=== PATIENT | female | born 1955 | race Caucasian/White ===

== ENCOUNTER 2016-09-14 13:04 | Inpatient (IN) | payer OTHER ==
[~2016-09-14] VITALS: Ht 167.6 cm; Wt 129.1 kg
[2016-09-14 14:17] LABS: BASO # 0.1 x10^3/uL (0.0-0.2); BASO % 1 % (0-3); EOS % 4 % (0-3); HEMATOCRIT 42.3 % (36.0-47.0); HEMOGLOBIN 14.6 g/dL (12.0-15.5); LYMPH # 1.6 x10^3/uL (1.0-4.8); LYMPH % 27 % (24-48); MEAN CORPUSCULAR HEMOGLOBIN 31 pg (25-35); MEAN CORPUSCULAR HGB CONC 35 g/dL (31-37); MEAN CORPUSCULAR VOLUME 90 fL (79-100); MONO % 6 % (0-9); NEUT % 62 % (31-73); PLATELET COUNT 160 x10^3/uL (140-400); RED CELL DISTRIBUTION WIDTH 14.1 % (11.5-14.5)
[2016-09-14 14:27] LABS: BILIRUBIN,URINE NEGATIVE (NEG); GLUCOSE,URINE NEGATIVE (NEG); NITRITE,URINE NEGATIVE (NEG); PH,URINE 7.5; PROTEIN,URINE NEGATIVE (NEG-TRACE); UROBILINOGEN,URINE 0.2 mg/dL (0.2 mg/dL)
[2016-09-14 14:30] LABS: BACTERIA,URINE FEW /HPF (0-FEW); RBC,URINE 0 /HPF (0-2); SQUAMOUS EPITHELIAL CELL,UR FEW /LPF; WBC,URINE 0 /HPF (0-4)
[2016-09-14 14:32] LABS: BARBITURATES NEG (NEG); BENZODIAZEPINES NEG (NEG); CANNABINOIDS NEG (NEG); COCAINE NEG (NEG); METHADONE NEG (NEG); OPIATES NEG (NEG); PHENCYCLIDINE NEG (NEG)
[2016-09-14 14:37] LABS: CALCIUM 9.6 mg/dL (8.5-10.1); CREATININE 0.9 mg/dL (0.6-1.0); GFR 64.1; POTASSIUM 3.7 mmol/L (3.5-5.1)
[2016-09-14 14:42] LABS: ALBUMIN 3.5 g/dL (3.4-5.0); ALBUMIN/GLOBULIN RATIO 0.7 (1.0-1.7); TOTAL BILIRUBIN 0.8 mg/dL (0.2-1.0); TOTAL PROTEIN 8.4 g/dL (6.4-8.2)
--- NOTE | 2016-09-14 16:17 | RAD ---
CT head without intravenous contrast History: Dizziness, confusion, vision changes for one day. Comparison: None. Technique: Axial images are obtained of the head from the skull base through the vertex without IV contrast. Exposure: One or more of the following individualized dose reduction techniques were utilized for this examination: 1. Automated exposure control 2. Adjustment of the mA and/or kV according to patient size 3. Use of iterative reconstruction technique Findings: The ventricles are appropriate in size, shape, and location for the patient's age. No obvious intracranial mass, mass-effect, midline shift, hemorrhage or obvious acute infarction is identified. Basilar cisterns are patent. Bone windows demonstrate no acute calvarial abnormality. The visualized paranasal sinuses appear clear. Impression: No acute intracranial process. Please note that CT can be relatively insensitive to acute ischemic infarction for up to 24 hours after symptom onset. Electronically signed by: Monico Gonzalez MD (09/14/2016 4:14 PM) [id number]
--- NOTE | 2016-09-14 18:09 | RAD ---
Transabdominal and transvaginal sonography of the pelvis HISTORY: Vaginal bleeding. The patient is postmenopausal. Transabdominal sonography: Uterus is anteverted in position. Longitudinal and AP and transverse dimensions of the uterus are 9.7 cm and 4.5 cm and 7.0 cm respectively. The endometrial canal appears abnormally thickened. Therefore, transvaginal sonography will be performed. No free fluid is seen within the cul-de-sac. Neither ovary is visualized by transabdominal exam. No adnexal mass is seen. Transvaginal sonography: The endometrial canal is echogenic and thickened measuring 19 mm which is abnormal for patient's age. No free fluid is seen within the cul-de-sac. Neither ovary is visualized by transvaginal exam. No adnexal mass is seen. IMPRESSION: Abnormal endometrial canal thickening measuring up to 19 mm. This may represent hyperplasia or early malignancy. Electronically signed by: Malcom Kimble MD (09/14/2016 6:05 PM) [facility]
--- NOTE | 2016-09-14 18:11 | RAD ---
Right upper quadrant abdomen ultrasound study Clinical indications: Elevated liver function tests. FINDINGS: The gallbladder is normal and no gallstones are seen. The pancreas is homogeneous without focal enlargement. There is diffuse attenuation of sound throughout the liver which may be seen with fatty infiltration of the liver. This decreases the sensitivity of sonography to detect focal hepatic lesions. No obvious focal hepatic mass is seen otherwise. The liver is mildly enlarged measuring 18.9 cm in length. The extra hepatic bile duct measures 3.3 mm which is normal. The length of the right kidney is 12.0 cm. No hydronephrosis or renal mass or perinephric fluid collection is seen on this side. IMPRESSION: Mild hepatomegaly. Fatty infiltration of the liver. Normal sonographic evaluation of the gallbladder. Electronically signed by: Malcom Kimble MD (09/14/2016 6:08 PM) [facility]
[2016-09-14] MEDS ORDERED: ACETAMINOPHEN 325 MG TABLET. PO PRN (19:00)
[2016-09-14] MEDS ORDERED: ONDANSETRON PF 4 MG/2 ML VIAL. IV PRN (19:00)
[2016-09-14] MEDS ORDERED: DEXTROSE 50% 25 GM / 50ML DISP.SYRIN. IV PRN (19:00)
[2016-09-14] MEDS ORDERED: PROCHLORPERAZINE 10 MG/2 ML VIAL. IV PRN (19:00)
[2016-09-14] MEDS ORDERED: MAGNESIUM HYDROXIDE 2,400 MG/30 ML ORAL.SUSP. PO PRN (19:00)
[2016-09-14] MEDS ORDERED: BISACODYL 10 MG SUPP.RECT. PR PRN (19:00)
--- NOTE | 2016-09-14 19:04 | PDOC1 ---
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 GEts teary eyed and seems to be having a nervous breakdown. She tells me this has happened when her dtr was 4 y/o and she was started on meds for BP and another issue and that did not sit well with her body, BUt in any case, CT head neg, labs ok, BUt noteworthy, mention significant abn vag bleeding, Started 4 days ago at work. LOts of blood that she needed to change work clothes, Never happened before, menopaused yrs back, AT ER US pelvis nuria showed very thickened endometrial lining could be hyperplasia or need to r.o malignancy. Hence I was called for the admission. SIgnificant counselling etc and discussion of plan of care dw her and dtr at ER level, Dw Dr. Cohen too. Seen at ER 24 Denies uterine cancer in the family. Aunt though had DUB and was treated with hysterrectomy. VS stable, not anemic, HGb 12 Past Medical History Cardiovascular: HTN Past Surgical History Past Surgical History: No pertinent history Family History Family History: Other (DUB in aunt) Social History Smoke: No ALCOHOL: none Drugs: None Allergies Allergies: Coded Allergies: No Known Drug Allergies (Unverified , 09/14/16) ROS General: No: Chills, Night Sweats, Fatigue, Malaise, Appetite, Other PSYCHOLOGICAL ROS: YES: Anxiety, Memory difficulties Eyes: Yes Blurry vision, No Decreased vision, No Double vision, No Dry eyes, No Excessive tearing, No Eye Pain, No Itchy Eyes, No Loss of vision, No Photophobia, No Scotomata, No Uses contacts, No Uses glasses, No Other HEENT: No: Heacaches, Visual Changes, Hearing change, Nasal congestion, Nasal discharge, Oral lesions, Sinus pain, Sore Throat, Epistaxis, Sneezing, Snoring, Tinnitus, Vertigo, Vocal changes, Other ALLERGY AND IMMUNOLOGY: No: Hives, Insect Bite Sensitivity, Itchy/Watery Eyes, Nasal Congestion, Post Nasal Drip, Seasonal Allergies, Other Hematological and Lymphatic: YES: Bleeding Problems, Blood Clots ENDOCRINE: No: Breast Changes, Galactorrhea, Hair Pattern Changes, Hot Flashes , Malaise/lethargy, Mood Swings, Palpitations, Polydipsia/polyuria, Skin Changes , Temperature Intolerance, Unexpected Weight Changes, Other Breast: No New/Changing Breast Lumps, No Nipple changes, No Nipple discharge, No Other Respiratory: No: Cough, Hemoptysis, Orthopnea, Pleuritic Pain, Shortness of breath, SOB with excertion, Sputum Changes, Stridor, Tachypnea, Wheezing, Other Cardiovascular: No Chest Pain, No Palpitations, No Orthopnea, No Paroxysmal Noc. Dyspnea, No Edema, No Lt Headedness, No Other Gastrointestinal: No Nausea, No Vomiting, No Abdominal Pain, No Diarrhea, No Constipation, No Melena, No Hematochezia, No Other Genitourinary: No Dysuria, No Frequency, No Incontinence, No Hematuria, No Retention, No Discharge, No Urgency, No Pain, No Flank Pain, No Other, No , No , No , No , No , No , No Musculoskeletal: No Gait Disturbance, No Joint Pain, No Joint Stiffness, No Joint Swelling, No Muscle Pain, No Muscular Weakness, No Pain In:, No Swelling In:, No Other Neurological: Yes Confusion, Yes Memory Loss Skin: No Dry Skin, No Eczema, No Hair Changes, No Lumps, No Mole Changes, No Mottling, No Nail Changes, No Pruritus, No Rash, No Skin Lesion Changes, No Other, No Acne Physical Exam General: Alert, Oriented X3, Cooperative, No acute distress HEENT: Atraumatic, PERRLA, EOMI Lungs: Clear to auscultation, Normal air movement Heart: S1S2, RRR, no thrills, no rubs, no gallops, no murmurs Cardiovascular: S1, S2 Breasts: Normal, Rt breast nml w/o mass, Lt breast nml w/o mass, Nipples normal Abdomen: Normal bowel sounds, Soft, No tenderness, No hepatosplenomegaly, No masses Rectal Exam: not examined PELVIC: Nml ext genitalia Extremities: No clubbing, No cyanosis, No edema, Normal pulses, No tenderness/ swelling Skin: No rashes, No breakdown, No significant lesion Neuro: Normal gait, Normal speech, Strength at 5/5 X4 ext, Normal tone, Sensation intact, Cranial nerves 3-12 NL, Reflexes 2+ Psych/Mental Status: Mental status NL, Mood NL Vitals Vitals Vital Signs Date Time Temp Pulse Resp B/P (MAP) Pulse Ox O2 Delivery O2 Flow Rate FiO2 09/14/16 17:30 80 20 126/85 (99) 98 Room Air 09/14/16 13:30 98.2 98.2 Labs Labs Laboratory Tests Test 09/14/16 13:55 White Blood Count 6.0 x10^3/uL (4.0-11.0) Red Blood Count 4.70 x10^6/uL (3.50-5.40) Hemoglobin 14.6 g/dL (12.0-15.5) Hematocrit 42.3 % (36.0-47.0) Mean Corpuscular Volume 90 fL (79-100) Mean Corpuscular Hemoglobin 31 pg (25-35) Mean Corpuscular Hemoglobin Concent 35 g/dL (31-37) Red Cell Distribution Width 14.1 % (11.5-14.5) Platelet Count 160 x10^3/uL (140-400) Neutrophils (%) (Auto) 62 % (31-73) Lymphocytes (%) (Auto) 27 % (24-48) Monocytes (%) (Auto) 6 % (0-9) Eosinophils (%) (Auto) 4 % (0-3) Basophils (%) (Auto) 1 % (0-3) Neutrophils # (Auto) 3.7 x10^3uL (1.8-7.7) Lymphocytes # (Auto) 1.6 x10^3/uL (1.0-4.8) Monocytes # (Auto) 0.4 x10^3/uL (0.0-1.1) Eosinophils # (Auto) 0.2 x10^3/uL (0.0-0.7) Basophils # (Auto) 0.1 x10^3/uL (0.0-0.2) Urine Collection Type Unknown Urine Color Yellow Urine Clarity Clear Urine pH 7.5 Urine Specific Sulphur <=1.005 Urine Protein Negative mg/dL (NEG-TRACE) Urine Glucose (UA) Negative mg/dL (NEG) Urine Ketones (Stick) Negative mg/dL (NEG) Urine Blood Negative (NEG) Urine Nitrite Negative (NEG) Urine Bilirubin Negative (NEG) Urine Urobilinogen Dipstick 0.2 mg/dL (0.2 mg/dL) Urine Leukocyte Esterase Negative (NEG) Urine RBC 0 /HPF (0-2) Urine WBC 0 /HPF (0-4) Urine Squamous Epithelial Cells Few /LPF Urine Bacteria Few /HPF (0-FEW) Urine Mucus Slight /LPF Sodium Level 137 mmol/L (136-145) Potassium Level 3.7 mmol/L (3.5-5.1) Chloride Level 99 mmol/L (98-107) Carbon Dioxide Level 27 mmol/L (21-32) Anion Gap 11 (6-14) Blood Urea Nitrogen 8 mg/dL (7-20) Creatinine 0.9 mg/dL (0.6-1.0) Estimated GFR (Cockcroft-Gault) 64.1 BUN/Creatinine Ratio 9 (6-20) Glucose Level 128 mg/dL (70-99) Calcium Level 9.6 mg/dL (8.5-10.1) Total Bilirubin 0.8 mg/dL (0.2-1.0) Aspartate Amino Transf (AST/SGOT) 97 U/L (15-37) Alanine Aminotransferase (ALT/SGPT) 89 U/L (14-59) Alkaline Phosphatase 243 U/L (46-116) Troponin I Quantitative < 0.017 ng/mL (0.000-0.055) Total Protein 8.4 g/dL (6.4-8.2) Albumin 3.5 g/dL (3.4-5.0) Albumin/Globulin Ratio 0.7 (1.0-1.7) Urine Opiates Screen Neg (NEG) Urine Methadone Screen Neg (NEG) Urine Barbiturates Neg (NEG) Urine Phencyclidine Screen Neg (NEG) Urine Amphetamine/Methamphetamine Neg (NEG) Urine Benzodiazepines Screen Neg (NEG) Urine Cocaine Screen Neg (NEG) Urine Cannabinoids Screen Neg (NEG) Urine Ethyl Alcohol Neg (NEG) Laboratory Tests Test 09/14/16 13:55 White Blood Count 6.0 x10^3/uL (4.0-11.0) Red Blood Count 4.70 x10^6/uL (3.50-5.40) Hemoglobin 14.6 g/dL (12.0-15.5) Hematocrit 42.3 % (36.0-47.0) Mean Corpuscular Volume 90 fL (79-100) Mean Corpuscular Hemoglobin 31 pg (25-35) Mean Corpuscular Hemoglobin Concent 35 g/dL (31-37) Red Cell Distribution Width 14.1 % (11.5-14.5) Platelet Count 160 x10^3/uL (140-400) Neutrophils (%) (Auto) 62 % (31-73) Lymphocytes (%) (Auto) 27 % (24-48) Monocytes (%) (Auto) 6 % (0-9) Eosinophils (%) (Auto) 4 % (0-3) Basophils (%) (Auto) 1 % (0-3) Neutrophils # (Auto) 3.7 x10^3uL (1.8-7.7) Lymphocytes # (Auto) 1.6 x10^3/uL (1.0-4.8) Monocytes # (Auto) 0.4 x10^3/uL (0.0-1.1) Eosinophils # (Auto) 0.2 x10^3/uL (0.0-0.7) Basophils # (Auto) 0.1 x10^3/uL (0.0-0.2) Urine Collection Type Unknown Urine Color Yellow Urine Clarity Clear Urine pH 7.5 Urine Specific [place] <=1.005 Urine Protein Negative mg/dL (NEG-TRACE) Urine Glucose (UA) Negative mg/dL (NEG) Urine Ketones (Stick) Negative mg/dL (NEG) Urine Blood Negative (NEG) Urine Nitrite Negative (NEG) Urine Bilirubin Negative (NEG) Urine Urobilinogen Dipstick 0.2 mg/dL (0.2 mg/dL) Urine Leukocyte Esterase Negative (NEG) Urine RBC 0 /HPF (0-2) Urine WBC 0 /HPF (0-4) Urine Squamous Epithelial Cells Few /LPF Urine Bacteria Few /HPF (0-FEW) Urine Mucus Slight /LPF Sodium Level 137 mmol/L (136-145) Potassium Level 3.7 mmol/L (3.5-5.1) Chloride Level 99 mmol/L (98-107) Carbon Dioxide Level 27 mmol/L (21-32) Anion Gap 11 (6-14) Blood Urea Nitrogen 8 mg/dL (7-20) Creatinine 0.9 mg/dL (0.6-1.0) Estimated GFR (Cockcroft-Gault) 64.1 BUN/Creatinine Ratio 9 (6-20) Glucose Level 128 mg/dL (70-99) Calcium Level 9.6 mg/dL (8.5-10.1) Total Bilirubin 0.8 mg/dL (0.2-1.0) Aspartate Amino Transf (AST/SGOT) 97 U/L (15-37) Alanine Aminotransferase (ALT/SGPT) 89 U/L (14-59) Alkaline Phosphatase 243 U/L (46-116) Troponin I Quantitative < 0.017 ng/mL (0.000-0.055) Total Protein 8.4 g/dL (6.4-8.2) Albumin 3.5 g/dL (3.4-5.0) Albumin/Globulin Ratio 0.7 (1.0-1.7) Urine Opiates Screen Neg (NEG) Urine Methadone Screen Neg (NEG) Urine Barbiturates Neg (NEG) Urine Phencyclidine Screen Neg (NEG) Urine Amphetamine/Methamphetamine Neg (NEG) Urine Benzodiazepines Screen Neg (NEG) Urine Cocaine Screen Neg (NEG) Urine Cannabinoids Screen Neg (NEG) Urine Ethyl Alcohol Neg (NEG) VTE Prophylaxis Ordered VTE Prophylaxis Devices: Contraindicated VTE Pharmacological Prophylaxi: Contraindicated Assessment/Plan Assessment/Plan 1. DUB, endometrial hyperplasia r/o malignancy 2. Recent personal stress 3. HTN, controlled 4. DM 2 on OHA 5. Insomnia on trazadone 6. Obesity with BMI 46.3 PLAn: Admit Consult OB GYne - will need endometrial biopsy plus/minus D and C or proceed with hysterectomy all together Clearly recent multiple stresses can explain her eye sxs or "fogginess". She gets teary eyed during my encounter with her Hold off on MRI NEuro exam is normal; Ok to resume home meds - she would like to use her own benazapril and HCTZ combo pilll COnt trazadone for sleep SSI COnt glimepiride and metoprolol 100 qDDw ER Seen at ER 23. Discussed extensively.. GUILLERMO FLORIAN MD Sep 14, 2016 19:03
[2016-09-14 19:10] VITALS: BP 135/66
[2016-09-14] MEDS ORDERED: traZODone 50 MG TABLET. PO PRN (19:30)
--- NOTE | 2016-09-14 19:31 | ED.ADGEN ---
Past Medical History Past Medical History: Diabetes-Type I, Hypertension, Other Additional Past Medical Histor: elevated liver enzymes Past Surgical History: , Other Additional Past Surgical Histo: r breast bx Alcohol Use: None Drug Use: None Adult General Chief Complaint Chief Complaint: DIZZY/LIGHT HEADED HPI HPI Patient is a 60 year old woman, history of type 2 diabetes mellitus, hypertension, elevated LFTs, who presents emergency department with multiple complaints. Patient states that she was experiencing dizziness and a feeling of "like a cloud was over my mind", along with blurred vision and confusion. This started yesterday, while she was at work, patient states she difficulty reading of the computer screen. Patient states that she also experienced an episode of a "gush" of red blood from the vagina, she states she's had persistent but mild bleeding since that time. States she initially had some mild abdominal cramping , but since resolved fully. She denies any chest pain or shortness of breath, denies any focal weakness, numbness or tingling, denies any nausea or vomiting. Patient states that "I just don't feel right". She denies any ingestions or exposures, any recent travel or surgery, any history of DVT or PE, or similar symptoms previously. Review of Systems Review of Systems Constitutional: Denies fever or chills. [] Generalized malaise. Eyes: Denies change in visual acuity. [] HENT: Denies nasal congestion or sore throat. [] Respiratory: Denies cough or shortness of breath. [] Cardiovascular: Denies chest pain or edema. [] GI: Denies abdominal pain, nausea, vomiting, bloody stools or diarrhea. [] : Denies dysuria. [] Musculoskeletal: Denies back pain or joint pain. [] Integument: Denies rash. [] Neurologic: Confusion, blurred vision, denies headache focal weakness or sensory changes. [] Endocrine: Denies polyuria or polydipsia. [] Lymphatic: Denies swollen glands. [] Psychiatric: Denies depression or anxiety. [] Allergies Allergies Allergies Coded Allergies Type Severity Reaction Last Updated Verified No Known Drug Allergies 09/14/16 No Physical Exam Physical Exam Constitutional: Well developed, well nourished, no acute distress, non-toxic appearance. [] HENT: Normocephalic, atraumatic, bilateral external ears normal, oropharynx moist, no oral exudates, nose normal. [] Eyes: PERRLA, EOMI, conjunctiva normal, no discharge. [] Neck: Normal range of motion, no tenderness, supple, no stridor. [] Cardiovascular:Heart rate regular rhythm, no murmur , S1, S2, rubs or gallops. [ ] Lungs & Thorax: Bilateral breath sounds clear to auscultation, no wheezing, rhonchi, rales. No chest or crepitus or tenderness. [] Abdomen: Bowel sounds normal, soft, no tenderness, no masses, no pulsatile masses. [] Skin: Warm, dry, no erythema, no rash. [] Back: No tenderness, no CVA tenderness. [] Extremities: No tenderness, no cyanosis, no clubbing, ROM intact, no edema. Negative Homans sign. [] Neurologic: Alert and oriented X 3, normal motor function, normal sensory function, no focal deficits noted. [] Psychologic: Affect normal, judgement normal, mood normal. [] Pelvic examination: Patient with a normal-appearing external examination, bimanual examination reveals an open os, with mild tenderness palpation, no masses identified, no adnexal masses or tenderness. Speculum examination reveals a small amount of dark red drainage from the os noted, no masses identified. No lesions identified. Current Patient Data Vital Signs Vital Signs Date Time Temp Pulse Resp B/P (MAP) Pulse Ox O2 Delivery O2 Flow Rate FiO2 09/14/16 17:30 75 20 135/73 (93) 97 Room Air 09/14/16 13:30 98.2 98.2 Lab Values Laboratory Tests Test 09/14/16 13:55 White Blood Count 6.0 x10^3/uL (4.0-11.0) Red Blood Count 4.70 x10^6/uL (3.50-5.40) Hemoglobin 14.6 g/dL (12.0-15.5) Hematocrit 42.3 % (36.0-47.0) Mean Corpuscular Volume 90 fL (79-100) Mean Corpuscular Hemoglobin 31 pg (25-35) Mean Corpuscular Hemoglobin Concent 35 g/dL (31-37) Red Cell Distribution Width 14.1 % (11.5-14.5) Platelet Count 160 x10^3/uL (140-400) Neutrophils (%) (Auto) 62 % (31-73) Lymphocytes (%) (Auto) 27 % (24-48) Monocytes (%) (Auto) 6 % (0-9) Eosinophils (%) (Auto) 4 % (0-3) H Basophils (%) (Auto) 1 % (0-3) Neutrophils # (Auto) 3.7 x10^3uL (1.8-7.7) Lymphocytes # (Auto) 1.6 x10^3/uL (1.0-4.8) Monocytes # (Auto) 0.4 x10^3/uL (0.0-1.1) Eosinophils # (Auto) 0.2 x10^3/uL (0.0-0.7) Basophils # (Auto) 0.1 x10^3/uL (0.0-0.2) Urine Collection Type Unknown Urine Color Yellow Urine Clarity Clear Urine pH 7.5 Urine Specific [place] <=1.005 Urine Protein Negative mg/dL (NEG-TRACE) Urine Glucose (UA) Negative mg/dL (NEG) Urine Ketones (Stick) Negative mg/dL (NEG) Urine Blood Negative (NEG) Urine Nitrite Negative (NEG) Urine Bilirubin Negative (NEG) Urine Urobilinogen Dipstick 0.2 mg/dL (0.2 mg/dL) Urine Leukocyte Esterase Negative (NEG) Urine RBC 0 /HPF (0-2) Urine WBC 0 /HPF (0-4) Urine Squamous Epithelial Cells Few /LPF Urine Bacteria Few /HPF (0-FEW) Urine Mucus Slight /LPF Sodium Level 137 mmol/L (136-145) Potassium Level 3.7 mmol/L (3.5-5.1) Chloride Level 99 mmol/L (98-107) Carbon Dioxide Level 27 mmol/L (21-32) Anion Gap 11 (6-14) Blood Urea Nitrogen 8 mg/dL (7-20) Creatinine 0.9 mg/dL (0.6-1.0) Estimated GFR (Cockcroft-Gault) 64.1 BUN/Creatinine Ratio 9 (6-20) Glucose Level 128 mg/dL (70-99) H Calcium Level 9.6 mg/dL (8.5-10.1) Total Bilirubin 0.8 mg/dL (0.2-1.0) Aspartate Amino Transferase (AST) 97 U/L (15-37) H Alanine Aminotransferase (ALT) 89 U/L (14-59) H Alkaline Phosphatase 243 U/L (46-116) H Troponin I Quantitative < 0.017 ng/mL (0.000-0.055) Total Protein 8.4 g/dL (6.4-8.2) H Albumin 3.5 g/dL (3.4-5.0) Albumin/Globulin Ratio 0.7 (1.0-1.7) L Urine Opiates Screen Neg (NEG) Urine Methadone Screen Neg (NEG) Urine Barbiturates Neg (NEG) Urine Phencyclidine Screen Neg (NEG) Urine Amphetamine/Methamphetamine Neg (NEG) Urine Benzodiazepines Screen Neg (NEG) Urine Cocaine Screen Neg (NEG) Urine Cannabinoids Screen Neg (NEG) Urine Ethyl Alcohol Neg (NEG) Laboratory Tests 09/14/16 13:55 Laboratory Tests 09/14/16 13:55 Microbiology 09/14/16 Wet Prep - Final, Complete EKG EKG EC: Sinus rhythm, heart rate 67 bpm, upright axis, QTC of 443, VT 166, QRS of 102, no ST elevations or depressions, mild baseline artifact noted, contour abnormalities noted in lead 3, abnormal ECG, does not meet STEMI criteria. As interpreted by me. [] Interpretation Time: [facility] [address] [place] [address] IMAGING REPORT Signed PATIENT: OZZIE PERKINS ACCOUNT: [id number] : 1955 LOCATION: ER AGE: 60 SEX: F EXAM STATUS: REG ER ORD. PHYSICIAN: RENITA SHEARER DO REASON: Ab normal LFTS/abd pain PROCEDURE: ABDOMEN LTD Right upper quadrant abdomen ultrasound study Clinical indications: Elevated liver function tests. FINDINGS: The gallbladder is normal and no gallstones are seen. The pancreas is homogeneous without focal enlargement. There is diffuse attenuation of sound throughout the liver which may be seen with fatty infiltration of the liver. This decreases the sensitivity of sonography to detect focal hepatic lesions. No obvious focal hepatic mass is seen otherwise. The liver is mildly enlarged measuring 18.9 cm in length. The extra hepatic bile duct measures 3.3 mm which is normal. The length of the right kidney is 12.0 cm. No hydronephrosis or renal mass or perinephric fluid collection is seen on this side. IMPRESSION: Mild hepatomegaly. Fatty infiltration of the liver. Normal sonographic evaluation of the gallbladder. Electronically signed by: Asim Kimble MD (09/14/2016 6:08 PM) [facility] DICTATED and SIGNED BY: ASIM KIMBLE MD DATE: 09/14/16 1805 CC: RENITA SHEARER DO; SARMAD CLEMENS WARP DRESSER ~ Radiology/Procedures Radiology/Procedures [][facility] [address] [place], [place] [id number] IMAGING REPORT Signed PATIENT: OZZIE PERKINS ACCOUNT: [id number] : 1955 LOCATION: ER AGE: 60 SEX: F EXAM STATUS: REG ER ORD. PHYSICIAN: RENITA SHEARER DO REASON: Confusion/vision changes x 1 day PROCEDURE: CT HEAD WO CONTRAST CT head without intravenous contrast History: Dizziness, confusion, vision changes for one day. Comparison: None. Technique: Axial images are obtained of the head from the skull base through the vertex without IV contrast. Exposure: One or more of the following individualized dose reduction techniques were utilized for this examination: 1. Automated exposure control 2. Adjustment of the mA and/or kV according to patient size 3. Use of iterative reconstruction technique Findings: The ventricles are appropriate in size, shape, and location for the patient's age. No obvious intracranial mass, mass-effect, midline shift, hemorrhage or obvious acute infarction is identified. Basilar cisterns are patent. Bone windows demonstrate no acute calvarial abnormality. The visualized paranasal sinuses appear clear. Impression: No acute intracranial process. Please note that CT can be relatively insensitive to acute ischemic infarction for up to 24 hours after symptom onset. Electronically signed by: Monico Delong MD (09/14/2016 4:14 PM) [facility] DICTATED and SIGNED BY: MONICO DELONG MD DATE: 09/14/16 1613 CC: RENITA SHEARER DO; SARMAD CLEMENS NP ~ Impressions: [facility] [address] [place] [address] IMAGING REPORT Signed PATIENT: OZZIE PERKINS ACCOUNT: [id number] : 1955 LOCATION: ER AGE: 60 SEX: F EXAM STATUS: REG ER ORD. PHYSICIAN: RENITA SHEARER DO REASON: Vaginal bleeding/pelvic cramp PROCEDURE: PELVIS W/TV Transabdominal and transvaginal sonography of the pelvis HISTORY: Vaginal bleeding. The patient is postmenopausal. Transabdominal sonography: Uterus is anteverted in position. Longitudinal and AP and transverse dimensions of the uterus are 9.7 cm and 4.5 cm and 7.0 cm respectively. The endometrial canal appears abnormally thickened. Therefore, transvaginal sonography will be performed. No free fluid is seen within the cul-de-sac. Neither ovary is visualized by transabdominal exam. No adnexal mass is seen. Transvaginal sonography: The endometrial canal is echogenic and thickened measuring 19 mm which is abnormal for patient's age. No free fluid is seen within the cul-de-sac. Neither ovary is visualized by transvaginal exam. No adnexal mass is seen. IMPRESSION: Abnormal endometrial canal thickening measuring up to 19 mm. This may represent hyperplasia or early malignancy. Electronically signed by: Asim Kimble MD (09/14/2016 6:05 PM) [facility] DICTATED and SIGNED BY: ASIM KIMBLE MD DATE: 09/14/161802 CC: RENITA SHEARER DO; SARMAD CLEMENS WARP [employer]ESSER ~ Course & Med Decision Making Course & Med Decision Making Pertinent Labs and Imaging studies reviewed. (See chart for details) Patient's constellation of complaints and examination findings, CT imaging of the head obtained to rule out occult findings, ultrasound of the right upper quadrant and pelvis also obtained. The as stated patient is not exhibiting any abdominal pain, or other concerning findings at this time. Discussed the patient that I do concerned this could be and negative of a malignant process. CT of the head was unremarkable, laboratory studies revealed elevations of the LFTs, there are no prior for comparison patient does not know the range previously.. Ultrasound of the pelvis reveals thickened endometrium, concerning for potential early malignancy. I did discuss these findings with patient. She remains slightly dizzy in the emergency department, and plenty of still not feeling right at this time, and continues to have mild vaginal oozing. Patient is agreeable for admission to the hospital, for evaluation of her neurologic complaints, CVA evaluation, and also evaluation by SIGNS AND DISPLAYS SALES REPRESENTATIVE for her her dysfunctional vaginal bleeding. Findings as above discussed with Dr. Benson of internal medicine, patient accepted to her service as a full admission to the medical telemetry floor, continued monitoring and consultation as stated, patient evaluated by her in the emergency department. Bridge orders entered per discussion. Dragon Disclaimer Dragon Disclaimer This electronic medical record was generated, in whole or in part, using a voice recognition dictation system. Departure Impression: Primary Impression: Dysfunctional uterine bleeding Additional Impression: Neurologic abnormality Disposition: 09 ADMITTED INPATIENT Admitting Physician: Araseli Benson Condition: IMPROVED Problem Qualifiers RENITA SHEARER DO Sep 14, 2016 19:31
[2016-09-14] MEDS ORDERED: BENA1TAB6 PO (19:39)
[2016-09-14] MEDS ORDERED: METF500T4 PO (19:39)
[2016-09-14] MEDS ORDERED: TRAZ50TA15 PO (19:39)
[2016-09-14] MEDS ORDERED: METO100T11 PO (19:39)
[2016-09-14] MEDS ORDERED: GLIM2TAB2 PO (19:39)
[2016-09-14] MEDS ORDERED: IBUP-1060 PO (19:39)
[2016-09-14] MEDS ORDERED: IBUPROFEN 800 MG TABLET. PO PRN (19:45)
[2016-09-14 23:00] VITALS: BP 113/71
[2016-09-14] MEDS: oxyCODONE IR 5 MG TABLET PO PRN (23:41)
--- NOTE | 2016-09-15 01:49 | ACF ---
Admission Forms Criteria TELEMETRY CARE Telemetry Admission Guidelines (Place 'X' for any and all applicable criteria): Admission to telemetry [A] may be indicated for ANY ONE of the following(1)(2)(3 )(4)(5): [ ]I. Cardiac disease, including ANY ONE of the following (9)(10)(11)(12)(13 ): [ ]a) Postacute RI [ ]b) Low-risk patients with ST-segment elevation RI who have undergone successful percutaneous coronary intervention [ ]c) Unstable angina [ ]d) Suspected RI (until it is ruled out) [ ]e) Post cardiac surgery (first 48 to 72 hours unless complications occur) [ ]f) Acute arrhythmias (including significant tachycardia or bradycardia) [B] [ ]g) Firing of an implantable cardioverter defibrillator [C] [ ]h) Suspected pacemaker or implantable cardioverter defibrillator malfunction (10) [ ]i) New administration or adjustment of an antiarrhythmic drug [D ] [ ]j) Child admitted for acute congestive heart failure [ ]j) Long QT syndrome [ ]k) Advanced heart block (eg, second-degree Mobitz type II, third- degree heart block) [ ]l) Acute myocarditis or pericarditis [ ]m) Short-term (ambulatory or inpatient) monitoring after a cardiac procedure as indicated by ANY ONE of the following [E]: [ ]i) Electrophysiologic studies [ ]ii) Percutaneous coronary intervention with stent placement [ ]iii) Pacemaker placement with cardiac conduction defect [ ]iv) Implantable cardiac defibrillator placement [ ]II. Drug overdose or poisoning with substance that causes arrhythmias or QT prolongation (eg, phenothiazines, sympathomimetic agents, cyclic antidepressants, digitalis, antiarrhythmic drugs)(15) [ X]III. Short-term (ambulatory or inpatient) monitoring after therapeutic or diagnostic procedure requiring conscious sedation or anesthesia (eg, endoscopy, elective cardioversion) [ ]IV. Acute cerebrovascular even[F](18) [ ]V. Massive blood transfusion (eg, at least 10 units of packed red blood cells in 24 hours) [ ]. Variceal bleeding after endoscopy, sclerotherapy, or IV vasopressin [ ]VII. Uncorrected electrolyte abnormalities associated with an increased risk of dangerous arrhythmia [G]; examples include [ ]a) Hyperkalemia with attributable ECG changes [ ]b) Potassium greater than 6.5 mmol/L (mEq/L) in a patient without history of chronic renal disease [ ]c) Prolonged QT attributed to hypokalemia, hypomagnesemia, or hypocalcemia [ ]VIII.Unexplained syncope or other neurologic event suspected of being due to arrhythmia due to a finding that increases risk; examples include(19)(20)(21): [ ]a) High-risk ECG findings (eg, bifascicular block, bradycardia, abnormal QT interval, ventricular pre- excitation) [ ]b) History of previous syncope due to arrhythmia [ ]c) Abnormal ventricular function (eg, reduced ejection fraction ) [ ]d) Exertional or supine syncope [ ]e) Concerning syncope characteristics (eg, sudden loss of consciousness without prodrome) [ ]f) Family history of sudden [ ]g) Use of arrhythmogenic medication [ ]h) Suspected cardiac ischemia [ ]i) Known channelopathy (eg, long QT syndrome, Brugada syndrome, or catecholaminergic paroxysmal ventricular tachycardia) [ ]j) Known structural heart disease (eg, hypertrophic cardiomyopathy , severe valvular disease) [ ]k) Palpitations preceding syncope The original [employer] content created by [employer] has been revised. The portions of the content which have been revised are identified through the use of italic text or in bold, and [employer] [facility] has neither reviewed nor approved the modified material. All other unmodified content is copyright [employer]. Please see references footnoted in the original [employer] edition 2015 Admission Criteria Met?: Yes NOEL REIS Sep 15, 2016 01:49
[2016-09-15 03:00] VITALS: BP 120/66
[2016-09-15] MEDS: MORPHINE SULFATE 2 MG/ML DISP.SYRIN. IV PRN ×2 (04:49→12:57)
[2016-09-15 05:09] LABS: INR 1.2 (0.8-1.1); PROTHROMBIN TIME PATIENT 14.3 SEC (11.7-14.0)
[2016-09-15 05:10] LABS: HEMATOCRIT 37.4 % (36.0-47.0); HEMOGLOBIN 12.8 g/dL (12.0-15.5)
[2016-09-15 07:00] VITALS: BP 136/63
[2016-09-15] MEDS: metFORMIN 500 MG TABLET PO SCH ×2 (08:19→16:52)
[2016-09-15] MEDS: BENAZEPRIL HCTZ PO SCH (08:19)
[2016-09-15] MEDS: METOPROLOL SUCC 24HR ER 100 MG TAB.ER.24H. PO SCH (08:19)
[2016-09-15] MEDS: INSULIN ASPART 300 UNITS/3 ML INSULN.PEN SQ SCH ×5 (08:21→16:55)
[2016-09-15] MEDS ORDERED: GLIMEPIRIDE 2 MG TABLET. PO SCH (09:00)
--- NOTE | 2016-09-15 09:18 | EKG ---
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
[2016-09-15 11:00] VITALS: BP 119/79
--- NOTE | 2016-09-15 12:47 | PDOC2 ---
CONSULT Date of Consult Date of Consult DATE: 09/15/16 TIME: 12:43 Reason for Consult Reason for Consult: PMB Referring Physician Referring Physician: Dr. Beach Identification/Chief Complaint Chief Complaint Fatigue and post menopausal bleeding. Problems: Source Source: Chart review, Patient History of Present Illness Reason for Visit: 60 y/o with 4 days of post menopausal bleeding requiring > 2 pads per day presented to ED with main c/o fatigue. No h/o HRT since menopause. Pelvic sono indicated enlarged uterus with thickened endometrial lining of 19 mm. Discussed findings with patient and her family. Recommend embx. Past Medical History Cardiovascular: HTN Past Surgical History Past Surgical History: No pertinent history Family History Family History: Other (DUB in aunt) Social History No ALCOHOL: none Drugs: None Current Problem List Problem List Problems Medical Problems: (1) Neurologic abnormality Status: Acute Current Medications Current Medications Current Medications Ondansetron HCl (Zofran) 4 mg PRN Q6HRS PRN IV NAUSEA/VOMITING; Start 09/14/16 at 19:00 Prochlorperazine Edisylate (Compazine) 10 mg PRN Q6HRS PRN IV NAUSEA/VOMITING; Start 09/14/16 at 19:00 Oxycodone HCl (Roxicodone) 5 mg PRN Q3HRS PRN PO BREAKTHROUGH PAIN Last administered on 09/14/16 23:41; Start 09/14/16 at 19:00 Morphine Sulfate 2 mg PRN Q2HR PRN IV PAIN Last administered on 09/15/16 04:49 ; Start 09/14/16 at 19:00 Acetaminophen (Tylenol) 650 mg PRN Q6HRS PRN PO Headaches, Temp > 101.5F; Start 09/14/16 at 19:00 Magnesium Hydroxide (Milk Of Magnesia) 2,400 mg PRN Q12HR PRN PO CONSTIPATION; Start 09/14/16 at 19:00 Bisacodyl (Dulcolax Supp) 10 mg PRN DAILY PRN [place] CONSTIPATION; Start 09/14/16 at 19:00 Insulin Aspart (NovoLOG) 0-9 UNITS TIDWMEALS SQ Last administered on 09/15/16 08:21; Start 09/15/16 at 08:00 Dextrose (Dextrose 50%-Water Syringe) 12.5 gm PRN Q15MIN PRN IV SEE COMMENTS; Start 09/14/16 at 19:00 Glimepiride (Amaryl) 2 mg DAILY PO ; Start 09/15/16 at 09:00 Metformin HCl (Glucophage) 500 mg BIDWMEALS PO Last administered on 09/15/16 08:19; Start 09/15/16 at 08:00 Metoprolol Succinate (Toprol Xl) 100 mg DAILY PO Last administered on 08:19; Start 09/15/16 at 09:00 Trazodone HCl (Desyrel) 50 mg PRN QHS PRN PO INSOMNIA Last administered on 09/14 21:46; Start 09/14/16 at 19:30 Non-Formulary Medication 1.5 tab DAILY PO Last administered on 09/15/16 08:19 ; Start 09/15/16 at 09:00 Ibuprofen (Motrin) 800 mg PRN TID PRN PO INFLAMMATION; Start 09/14/16 at 19:45 Insulin Aspart (NovoLOG) 5 units TIDAC SQ ; Start 09/15/16 at 12:00 Active Scripts Active Reported Benazepril-Hctz 20-12.5 Mg Tab (Benazepril/Hydrochlorothiazide) 1 Each Tablet 1.5 Tab PO DAILY Ibuprofen 800 Mg Tablet 800 Mg PO PRN TID PRN Trazodone Hcl 50 Mg Tablet 1-2 Tab PO PRN QHS PRN Metoprolol Succinate ( Xl ) (Metoprolol Succinate) 100 Mg Tab.er.24h 1 Tab PO DAILY Metformin Hcl 500 Mg Tablet 500 Mg PO BIDWMEALS Glimepiride 2 Mg Tablet 2 Mg PO DAILY Allergies Allergies: Coded Allergies: No Known Drug Allergies (Unverified , 09/14/16) ROS General: YES: Fatigue, No: Chills, Night Sweats, Malaise, Appetite, Other PSYCHOLOGICAL ROS: YES: Anxiety, No: Behavioral Disorder, Concentration difficultie, Decreased libido, Depression, Disorientation, Hallucinations, Hostility, Irritablity, Memory difficulties, Mood Swings, Obsessive thoughts, Physical abuse, Sexual abuse, Sleep disturbances, Suicidal ideation, Other Eyes: No Blurry vision, No Decreased vision, No Double vision, No Dry eyes, No Excessive tearing, No Eye Pain, No Itchy Eyes, No Loss of vision, No Photophobia , No Scotomata, No Uses contacts, No Uses glasses, No Other HEENT: No: Heacaches, Visual Changes, Hearing change, Nasal congestion, Nasal discharge, Oral lesions, Sinus pain, Sore Throat, Epistaxis, Sneezing, Snoring, Tinnitus, Vertigo, Vocal changes, Other ALLERGY AND IMMUNOLOGY: No: Hives, Insect Bite Sensitivity, Itchy/Watery Eyes, Nasal Congestion, Post Nasal Drip, Seasonal Allergies, Other Hematological and Lymphatic: No: Bleeding Problems, Blood Clots, Blood Transfusions, Brusing, Night Sweats, Pallor, Swollen Lymph Nodes, Other ENDOCRINE: No: Breast Changes, Galactorrhea, Hair Pattern Changes, Hot Flashes , Malaise/lethargy, Mood Swings, Palpitations, Polydipsia/polyuria, Skin Changes , Temperature Intolerance, Unexpected Weight Changes, Other Breast: No New/Changing Breast Lumps, No Nipple changes, No Nipple discharge, No Other Respiratory: No: Cough, Hemoptysis, Orthopnea, Pleuritic Pain, Shortness of breath, SOB with excertion, Sputum Changes, Stridor, Tachypnea, Wheezing, Other Cardiovascular: No Chest Pain, No Palpitations, No Orthopnea, No Paroxysmal Noc. Dyspnea, No Edema, No Lt Headedness, No Other Gastrointestinal: Yes Abdominal Pain, Yes Other (vaginal bleeding;intermittent) Genitourinary: No Dysuria, No Frequency, No Incontinence, No Hematuria, No Retention, No Discharge, No Urgency, No Pain, No Flank Pain, No Other, No , No , No , No , No , No , No Musculoskeletal: No Gait Disturbance, No Joint Pain, No Joint Stiffness, No Joint Swelling, No Muscle Pain, No Muscular Weakness, No Pain In:, No Swelling In:, No Other Physical Exam General: Alert, Oriented X3, Cooperative HEENT: Atraumatic Lungs: Clear to auscultation Heart: Regular rate Abdomen: Normal bowel sounds, Soft, No tenderness, No masses, Other (Pelvic: Embx completed.) Vitals VITALS Vital Signs Date Time Temp Pulse Resp B/P (MAP) Pulse Ox O2 Delivery O2 Flow Rate FiO2 09/15/16 11:00 98.1 84 18 119/79 (92) 96 Room Air 98.1 Labs Labs Laboratory Tests Test 09/14/16 13:55 09/14/16 21:13 09/15/16 04:06 09/15/16 11:09 White Blood Count 6.0 x10^3/uL (4.0-11.0) Red Blood Count 4.70 x10^6/uL (3.50-5.40) Hemoglobin 14.6 g/dL (12.0-15.5) 12.8 g/dL (12.0-15.5) Hematocrit 42.3 % (36.0-47.0) 37.4 % (36.0-47.0) Mean Corpuscular Volume 90 fL (79-100) Mean Corpuscular Hemoglobin 31 pg (25-35) Mean Corpuscular Hemoglobin Concent 35 g/dL (31-37) 34 g/dL (31-37) Red Cell Distribution Width 14.1 % (11.5-14.5) Platelet Count 160 x10^3/uL (140-400) Neutrophils (%) (Auto) 62 % (31-73) Lymphocytes (%) (Auto) 27 % (24-48) Monocytes (%) (Auto) 6 % (0-9) Eosinophils (%) (Auto) 4 % (0-3) Basophils (%) (Auto) 1 % (0-3) Neutrophils # (Auto) 3.7 x10^3uL (1.8-7.7) Lymphocytes # (Auto) 1.6 x10^3/uL (1.0-4.8) Monocytes # (Auto) 0.4 x10^3/uL (0.0-1.1) Eosinophils # (Auto) 0.2 x10^3/uL (0.0-0.7) Basophils # (Auto) 0.1 x10^3/uL (0.0-0.2) Urine Collection Type Unknown Urine Color Yellow Urine Clarity Clear Urine pH 7.5 Urine Specific [place] <=1.005 Urine Protein Negative mg/dL (NEG-TRACE) Urine Glucose (UA) Negative mg/dL (NEG) Urine Ketones (Stick) Negative mg/dL (NEG) Urine Blood Negative (NEG) Urine Nitrite Negative (NEG) Urine Bilirubin Negative (NEG) Urine Urobilinogen Dipstick 0.2 mg/dL (0.2 mg/dL) Urine Leukocyte Esterase Negative (NEG) Urine RBC 0 /HPF (0-2) Urine WBC 0 /HPF (0-4) Urine Squamous Epithelial Cells Few /LPF Urine Bacteria Few /HPF (0-FEW) Urine Mucus Slight /LPF Sodium Level 137 mmol/L (136-145) Potassium Level 3.7 mmol/L (3.5-5.1) Chloride Level 99 mmol/L (98-107) Carbon Dioxide Level 27 mmol/L (21-32) Anion Gap 11 (6-14) Blood Urea Nitrogen 8 mg/dL (7-20) Creatinine 0.9 mg/dL (0.6-1.0) Estimated GFR (Cockcroft-Gault) 64.1 BUN/Creatinine Ratio 9 (6-20) Glucose Level 128 mg/dL (70-99) Calcium Level 9.6 mg/dL (8.5-10.1) Total Bilirubin 0.8 mg/dL (0.2-1.0) Aspartate Amino Transf (AST/SGOT) 97 U/L (15-37) Alanine Aminotransferase (ALT/SGPT) 89 U/L (14-59) Alkaline Phosphatase 243 U/L (46-116) Troponin I Quantitative < 0.017 ng/mL (0.000-0.055) Total Protein 8.4 g/dL (6.4-8.2) Albumin 3.5 g/dL (3.4-5.0) Albumin/Globulin Ratio 0.7 (1.0-1.7) Urine Opiates Screen Neg (NEG) Urine Methadone Screen Neg (NEG) Urine Barbiturates Neg (NEG) Urine Phencyclidine Screen Neg (NEG) Urine Amphetamine/Methamphetamine Neg (NEG) Urine Benzodiazepines Screen Neg (NEG) Urine Cocaine Screen Neg (NEG) Urine Cannabinoids Screen Neg (NEG) Urine Ethyl Alcohol Neg (NEG) Glucose (Fingerstick) 216 mg/dL (70-99) 255 mg/dL (70-99) Prothrombin Time 14.3 SEC (11.7-14.0) Prothromb Time International Ratio 1.2 (0.8-1.1) Laboratory Tests Test 09/14/16 13:55 09/14/16 21:13 09/15/16 04:06 09/15/16 11:09 White Blood Count 6.0 x10^3/uL (4.0-11.0) Red Blood Count 4.70 x10^6/uL (3.50-5.40) Hemoglobin 14.6 g/dL (12.0-15.5) 12.8 g/dL (12.0-15.5) Hematocrit 42.3 % (36.0-47.0) 37.4 % (36.0-47.0) Mean Corpuscular Volume 90 fL (79-100) Mean Corpuscular Hemoglobin 31 pg (25-35) Mean Corpuscular Hemoglobin Concent 35 g/dL (31-37) 34 g/dL (31-37) Red Cell Distribution Width 14.1 % (11.5-14.5) Platelet Count 160 x10^3/uL (140-400) Neutrophils (%) (Auto) 62 % (31-73) Lymphocytes (%) (Auto) 27 % (24-48) Monocytes (%) (Auto) 6 % (0-9) Eosinophils (%) (Auto) 4 % (0-3) Basophils (%) (Auto) 1 % (0-3) Neutrophils # (Auto) 3.7 x10^3uL (1.8-7.7) Lymphocytes # (Auto) 1.6 x10^3/uL (1.0-4.8) Monocytes # (Auto) 0.4 x10^3/uL (0.0-1.1) Eosinophils # (Auto) 0.2 x10^3/uL (0.0-0.7) Basophils # (Auto) 0.1 x10^3/uL (0.0-0.2) Urine Collection Type Unknown Urine Color Yellow Urine Clarity Clear Urine pH 7.5 Urine Specific [place] <=1.005 Urine Protein Negative mg/dL (NEG-TRACE) Urine Glucose (UA) Negative mg/dL (NEG) Urine Ketones (Stick) Negative mg/dL (NEG) Urine Blood Negative (NEG) Urine Nitrite Negative (NEG) Urine Bilirubin Negative (NEG) Urine Urobilinogen Dipstick 0.2 mg/dL (0.2 mg/dL) Urine Leukocyte Esterase Negative (NEG) Urine RBC 0 /HPF (0-2) Urine WBC 0 /HPF (0-4) Urine Squamous Epithelial Cells Few /LPF Urine Bacteria Few /HPF (0-FEW) Urine Mucus Slight /LPF Sodium Level 137 mmol/L (136-145) Potassium Level 3.7 mmol/L (3.5-5.1) Chloride Level 99 mmol/L (98-107) Carbon Dioxide Level 27 mmol/L (21-32) Anion Gap 11 (6-14) Blood Urea Nitrogen 8 mg/dL (7-20) Creatinine 0.9 mg/dL (0.6-1.0) Estimated GFR (Cockcroft-Gault) 64.1 BUN/Creatinine Ratio 9 (6-20) Glucose Level 128 mg/dL (70-99) Calcium Level 9.6 mg/dL (8.5-10.1) Total Bilirubin 0.8 mg/dL (0.2-1.0) Aspartate Amino Transf (AST/SGOT) 97 U/L (15-37) Alanine Aminotransferase (ALT/SGPT) 89 U/L (14-59) Alkaline Phosphatase 243 U/L (46-116) Troponin I Quantitative < 0.017 ng/mL (0.000-0.055) Total Protein 8.4 g/dL (6.4-8.2) Albumin 3.5 g/dL (3.4-5.0) Albumin/Globulin Ratio 0.7 (1.0-1.7) Urine Opiates Screen Neg (NEG) Urine Methadone Screen Neg (NEG) Urine Barbiturates Neg (NEG) Urine Phencyclidine Screen Neg (NEG) Urine Amphetamine/Methamphetamine Neg (NEG) Urine Benzodiazepines Screen Neg (NEG) Urine Cocaine Screen Neg (NEG) Urine Cannabinoids Screen Neg (NEG) Urine Ethyl Alcohol Neg (NEG) Glucose (Fingerstick) 216 mg/dL (70-99) 255 mg/dL (70-99) Prothrombin Time 14.3 SEC (11.7-14.0) Prothromb Time International Ratio 1.2 (0.8-1.1) Assessment/Plan Assessment/Plan A: PMB P: Embx. F/u in clinic in 1 week to discuss treatment plan. Thank you for consult. MING MIN Jr, MD Sep 15, 2016 12:47
[2016-09-15] MEDS: oxyCODONE IR 5 MG TABLET PO PRN ×2 (13:44→18:25)
--- NOTE | 2016-09-15 14:21 | PDOC ---
PROGRESS NOTES Chief Complaint Chief Complaint Mental status change Dysfunctional uterine bleeding Diabetes Chronic elevation of liver enzymes History of Present Illness History of Present Illness -Dizziness "like a cloud was over my mind" -Blurred vision -Confusion "I couldn't make decisions" -Insomnia -Episode of a "gush" of red blood from the vagina -Persistent but mild bleeding since that time Vitals Vitals Vital Signs Date Time Temp Pulse Resp B/P (MAP) Pulse Ox O2 Delivery O2 Flow Rate FiO2 09/15/16 13:44 96 Room Air 09/15/16 11:00 98.1 84 18 119/79 (92) 98.1 Physical Exam General: Alert, Oriented X3, Cooperative, No acute distress Heart: Regular rate, Normal S1, Normal S2 Lungs: Clear, Other (No RRW) Abdomen: Normal bowel sounds, Soft, No tenderness, No masses Extremities: No clubbing, No cyanosis, No edema, Normal pulses, No tenderness/ swelling Skin: No rashes, No breakdown, No significant lesion Labs LABS Laboratory Tests Test 09/14/16 21:13 09/15/16 04:06 09/15/16 11:09 Glucose (Fingerstick) 216 mg/dL (70-99) 255 mg/dL (70-99) Hemoglobin 12.8 g/dL (12.0-15.5) Hematocrit 37.4 % (36.0-47.0) Mean Corpuscular Hemoglobin Concent 34 g/dL (31-37) Prothrombin Time 14.3 SEC (11.7-14.0) Prothromb Time International Ratio 1.2 (0.8-1.1) Review of Systems Review of Systems Denies chest pain or shortness of breath Denies weakness, numbness or tingling Denies n/v Assessment and Plan Assessmemt and Plan Problems Medical Problems: (1) Neurologic abnormality Status: Acute Mental status change Dysfunctional uterine bleeding Diabetes Chronic elevation of liver enzymes HTN Trazodone (insomnia) Plan: -Consult neuro -Discussed endometrial biopsy with Dr. Medel -Appreciate EMT DRIVER input -Follow Hgb -DC metformin -DC glimepiride (change brand due to pt intolerance) -Meal dose of Novolog (5 units) -Continue sliding scale insulin Problems: Comment Review of Relevant I have reviewed the following items radha (where applicable) has been applied. Labs Laboratory Tests Test 09/14/16 13:55 7/29/17 21:13 09/15/16 04:06 09/15/16 11:09 White Blood Count 6.0 x10^3/uL (4.0-11.0) Red Blood Count 4.70 x10^6/uL (3.50-5.40) Hemoglobin 14.6 g/dL (12.0-15.5) 12.8 g/dL (12.0-15.5) Hematocrit 42.3 % (36.0-47.0) 37.4 % (36.0-47.0) Mean Corpuscular Volume 90 fL (79-100) Mean Corpuscular Hemoglobin 31 pg (25-35) Mean Corpuscular Hemoglobin Concent 35 g/dL (31-37) 34 g/dL (31-37) Red Cell Distribution Width 14.1 % (11.5-14.5) Platelet Count 160 x10^3/uL (140-400) Neutrophils (%) (Auto) 62 % (31-73) Lymphocytes (%) (Auto) 27 % (24-48) Monocytes (%) (Auto) 6 % (0-9) Eosinophils (%) (Auto) 4 % (0-3) Basophils (%) (Auto) 1 % (0-3) Neutrophils # (Auto) 3.7 x10^3uL (1.8-7.7) Lymphocytes # (Auto) 1.6 x10^3/uL (1.0-4.8) Monocytes # (Auto) 0.4 x10^3/uL (0.0-1.1) Eosinophils # (Auto) 0.2 x10^3/uL (0.0-0.7) Basophils # (Auto) 0.1 x10^3/uL (0.0-0.2) Urine Collection Type Unknown Urine Color Yellow Urine Clarity Clear Urine pH 7.5 Urine Specific [place] <=1.005 Urine Protein Negative mg/dL (NEG-TRACE) Urine Glucose (UA) Negative mg/dL (NEG) Urine Ketones (Stick) Negative mg/dL (NEG) Urine Blood Negative (NEG) Urine Nitrite Negative (NEG) Urine Bilirubin Negative (NEG) Urine Urobilinogen Dipstick 0.2 mg/dL (0.2 mg/dL) Urine Leukocyte Esterase Negative (NEG) Urine RBC 0 /HPF (0-2) Urine WBC 0 /HPF (0-4) Urine Squamous Epithelial Cells Few /LPF Urine Bacteria Few /HPF (0-FEW) Urine Mucus Slight /LPF Sodium Level 137 mmol/L (136-145) Potassium Level 3.7 mmol/L (3.5-5.1) Chloride Level 99 mmol/L (98-107) Carbon Dioxide Level 27 mmol/L (21-32) Anion Gap 11 (6-14) Blood Urea Nitrogen 8 mg/dL (7-20) Creatinine 0.9 mg/dL (0.6-1.0) Estimated GFR (Cockcroft-Gault) 64.1 BUN/Creatinine Ratio 9 (6-20) Glucose Level 128 mg/dL (70-99) Calcium Level 9.6 mg/dL (8.5-10.1) Total Bilirubin 0.8 mg/dL (0.2-1.0) Aspartate Amino Transf (AST/SGOT) 97 U/L (15-37) Alanine Aminotransferase (ALT/SGPT) 89 U/L (14-59) Alkaline Phosphatase 243 U/L (46-116) Troponin I Quantitative < 0.017 ng/mL (0.000-0.055) Total Protein 8.4 g/dL (6.4-8.2) Albumin 3.5 g/dL (3.4-5.0) Albumin/Globulin Ratio 0.7 (1.0-1.7) Urine Opiates Screen Neg (NEG) Urine Methadone Screen Neg (NEG) Urine Barbiturates Neg (NEG) Urine Phencyclidine Screen Neg (NEG) Urine Amphetamine/Methamphetamine Neg (NEG) Urine Benzodiazepines Screen Neg (NEG) Urine Cocaine Screen Neg (NEG) Urine Cannabinoids Screen Neg (NEG) Urine Ethyl Alcohol Neg (NEG) Glucose (Fingerstick) 216 mg/dL (70-99) 255 mg/dL (70-99) Prothrombin Time 14.3 SEC (11.7-14.0) Prothromb Time International Ratio 1.2 (0.8-1.1) Laboratory Tests Test 09/14/16 21:13 09/15/16 04:06 09/15/16 11:09 Glucose (Fingerstick) 216 mg/dL (70-99) 255 mg/dL (70-99) Hemoglobin 12.8 g/dL (12.0-15.5) Hematocrit 37.4 % (36.0-47.0) Mean Corpuscular Hemoglobin Concent 34 g/dL (31-37) Prothrombin Time 14.3 SEC (11.7-14.0) Prothromb Time International Ratio 1.2 (0.8-1.1) Microbiology 09/14/16 Wet Prep - Final, Complete Medications Current Medications Ondansetron HCl (Zofran) 4 mg PRN Q6HRS PRN IV NAUSEA/VOMITING; Start 09/14/16 at 19:00 Prochlorperazine Edisylate (Compazine) 10 mg PRN Q6HRS PRN IV NAUSEA/VOMITING; Start 09/14/16 at 19:00 Oxycodone HCl (Roxicodone) 5 mg PRN Q3HRS PRN PO BREAKTHROUGH PAIN Last administered on 09/15/16 13:44; Start 09/14/16 at 19:00 Morphine Sulfate 2 mg PRN Q2HR PRN IV PAIN Last administered on 09/15/16 12:57 ; Start 09/14/16 at 19:00 Acetaminophen (Tylenol) 650 mg PRN Q6HRS PRN PO Headaches, Temp > 101.5F; Start 09/14/16 at 19:00 Magnesium Hydroxide (Milk Of Magnesia) 2,400 mg PRN Q12HR PRN PO CONSTIPATION; Start 09/14/16 at 19:00 Bisacodyl (Dulcolax Supp) 10 mg PRN DAILY PRN [place] CONSTIPATION; Start 09/14/16 at 19:00 Insulin Aspart (NovoLOG) 0-9 UNITS TIDWMEALS SQ Last administered on 09/15/16 13:07; Start 09/15/16 at 08:00 Dextrose (Dextrose 50%-Water Syringe) 12.5 gm PRN Q15MIN PRN IV SEE COMMENTS; Start 09/14/16 at 19:00 Glimepiride (Amaryl) 2 mg DAILY PO ; Start 09/15/16 at 09:00 Metformin HCl (Glucophage) 500 mg BIDWMEALS PO Last administered on 09/15/16 08:19; Start 09/15/16 at 08:00 Metoprolol Succinate (Toprol Xl) 100 mg DAILY PO Last administered on 08:19; Start 09/15/16 at 09:00 Trazodone HCl (Desyrel) 50 mg PRN QHS PRN PO INSOMNIA Last administered on 09/14 21:46; Start 09/14/16 at 19:30 Non-Formulary Medication 1.5 tab DAILY PO Last administered on 09/15/16 08:19 ; Start 09/15/16 at 09:00 Ibuprofen (Motrin) 800 mg PRN TID PRN PO INFLAMMATION; Start 09/14/16 at 19:45 Insulin Aspart (NovoLOG) 5 units TIDAC SQ Last administered on 09/15/16 13:06 ; Start 09/15/16 at 12:00 Active Scripts Active Reported Benazepril-Hctz 20-12.5 Mg Tab (Benazepril/Hydrochlorothiazide) 1 Each Tablet 1.5 Tab PO DAILY Ibuprofen 800 Mg Tablet 800 Mg PO PRN TID PRN Trazodone Hcl 50 Mg Tablet 1-2 Tab PO PRN QHS PRN Metoprolol Succinate ( Xl ) (Metoprolol Succinate) 100 Mg Tab.er.24h 1 Tab PO DAILY Metformin Hcl 500 Mg Tablet 500 Mg PO BIDWMEALS Glimepiride 2 Mg Tablet 2 Mg PO DAILY Vitals/I & O Vital Sign - Last 24 Hours 09/14/16 09/14/16 09/14/16 09/14/16 14:30 15:30 16:30 17:30 Pulse 83 75 77 80 Resp 20 20 20 20 B/P (MAP) 156/67 (96) 136/83 (100) 136/75 (95) 126/85 (99) Pulse Ox 97 96 97 98 O2 Delivery Room Air Room Air Room Air Room Air 09/14/16 09/14/16 09/14/16 09/14/16 17:30 19:10 21:17 23:00 Temp 98.2 97.9 98.2 97.9 Pulse 75 85 78 Resp 20 18 18 B/P (MAP) 135/73 (93) 135/66 (89) 113/71 (85) Pulse Ox 97 94 95 O2 Delivery Room Air Room Air 09/14/16 09/15/16 09/15/16 09/15/16 23:41 03:00 04:49 07:00 Temp 97.8 97.6 97.8 97.6 Pulse 72 72 Resp 20 18 B/P (MAP) 120/66 (84) 136/63 (87) Pulse Ox 94 94 94 93 O2 Delivery Room Air Room Air Room Air 09/15/16 09/15/16 09/15/16 09/15/16 08:19 08:20 11:00 12:57 Temp 98.1 98.1 Pulse 72 84 Resp 18 B/P (MAP) 136/63 119/79 (92) Pulse Ox 96 96 O2 Delivery Room Air Room Air Room Air 09/15/16 09/15/16 13:27 13:44 Pulse Ox 96 96 O2 Delivery Room Air Room Air Intake and Output 09/14/16 09/14/16 09/15/16 15:00 23:00 07:00 Intake Total 240 ml 600 ml Output Total 250 ml Balance 240 ml 350 ml SAWYER JOLLY III DO Sep 15, 2016 14:21
[2016-09-15 15:00] VITALS: BP 115/55
[2016-09-15 19:00] VITALS: BP 102/49
[2016-09-15] MEDS ORDERED: INSULIN ASPART 300 UNITS/3 ML INSULN.PEN SQ ONE (21:45)
[2016-09-15 23:00] VITALS: BP 109/60
--- NOTE | 2016-09-16 00:43 | CONS ---
DATE OF CONSULTATION: 09/15/2016 REFERRING PHYSICIAN: Dr. Benson. REASON FOR CONSULTATION: Anxiety and encephalopathy. HISTORY OF PRESENT ILLNESS: The patient is a 60-year-old woman who has had difficulty recently with cognition and stress. She is felt super stress because her has had health issues, which are quite serious. He is required ER visits on the monthly basis. Her grandkids are stressing her greatly as well. Work has been extremely stressful. She went down to do her bills and she normally does and realized she simply could not do it. She could not focus her attention and everything seemed overwhelming. It felt like she was in the mental fog and could not think. She has had difficulty with her vision as well, but this predates the current symptoms. She has not yet seen an edge trimming machine operator to determine if she has refractive error. On 08/26/2016, she went to her physician for routine evaluation. She was noted to have elevated liver enzymes, diabetes was poorly controlled and all of this stressed her. She underwent a sonogram of her liver, which did not reveal an abnormality. Her metformin was doubled and a new medication for diabetes was added. It was after this new medication that she began to have all the changes in thinking. It has now been stopped for 2 days and her thinking feels back to normal. Also in this timeframe, she began to have abnormal uterine bleeding. She has been to her menopause for quite some time and yet she has not had any bleeding. She has been set up with a skin lap bonder to plan to do further investigation. She has had some abdominal pain, which responded to ____. She uses as needed ibuprofen for knee pain. PAST MEDICAL HISTORY: 1. Hypertension. 2. Diabetes. 3. Abnormal uterine bleeding. 4. Cognitive changes. 5. Elevated liver enzymes. 6. C. section. 7. Right breast biopsy. ALLERGIES: No known allergies to drugs. MEDICATIONS: Prior to admission, benazepril/hydrochlorothiazide 1.5 daily, glimepiride 2 mg, ibuprofen 800 mg 3 times per day as needed, metformin 500 mg twice per day with meals, metoprolol, and trazodone 50 -- 100 mg at night as needed. FAMILY HISTORY: Noncontributory. SOCIAL HISTORY: She is . Her has medical illnesses, which are very stressful for her. She does not smoke tobacco, drink alcohol or use recreational drugs. REVIEW OF SYSTEMS: She did have a headache last week. She has had a change in vision. She has had no change of hearing. She has had cognitive changes, which seems to have resolved. She has been able to eat and swallow without choking. She has not had shortness of breath or chest pain. She has had some abdominal pain in the night. She has not had fever or rash. Does not have any gastrointestinal complaints, but she does have genitourinary symptoms with uterine bleeding. She has not had any numbness or weakness. She has had good balance. She is primarily at the cognitive changes. She does not complain of bruising. She does have abnormal bleeding. She does not have any swelling. PHYSICAL EXAMINATION: VITAL SIGNS: The blood pressure was 115/55, pulse 80, respirations 18, temperature 98.2 degrees Fahrenheit. Oximetry was 94% on room air. Her weight was 284.6 pounds with a height of 66 inches with a calculated body mass index of 45.9. GENERAL: She was alert, awake and cooperative. Speech was fluent and clear. She had a good fund of recent and remote knowledge. Attention and concentration was intact. She was oriented to month, year and place. She was able to spell the word "world" backwards. She was well nourished and well groomed. NEUROLOGIC: Examination of the cranial nerves revealed visual swain were full to confrontation. Extraocular movements were intact. The eyes were conjugate. Pursuit movements were smooth and saccadic eye movements were without dysmetria. There was no nystagmus. Pupils were 3 mm and reactive. Funduscopic exam did not reveal papilledema, exudate or hemorrhage. Facial sensation was intact. The muscles of mastication and facial expression were powerful symmetrically. Facial sensation was normal. Hearing was intact to finger rub. The palate arches symmetrically and the tongue was midline with full range of motion. Sternocleidomastoid and trapezius were powerful. Muscle bulk and tone was normal. There was no arm drift. There was no rebound. The power was full and symmetric in the upper and lower extremities. Reflexes were 2/4 and symmetric in the upper extremities, 1/4 at the knees and absent at the ankles. The toes were downgoing. Coordination testing with [id number], [id number], fine motor and rapid alternating movements was well performed. The sensory exam was intact to pain, light touch, proprioception, graphesthesia, cold thermal and vibration. There was no extinction to double simultaneous stimulation. Gait was normal base and was steady. She is able to heel, toe, and tandem walk. Romberg stance was negative. NECK: Auscultation of the carotid arteries did not reveal a bruit. HEART: Rhythm was regular without a murmur. EXTREMITIES: Peripheral pulses were symmetric. There was no edema or cyanosis. LABORATORY DATA: CBC revealed a normal white blood cell count, hemoglobin, hematocrit and platelet count. Chemistries revealed elevated glucose with the most recent fingerstick at 213. Troponin was not elevated. Electrolytes were normal. BUN and creatinine were normal with a calculated GFR of 64.1. Liver enzymes are elevated with SGOT at 97 and SGPT at 89 and alkaline phosphatase at 243. Total protein was 8.4 and albumin was normal. Urine drug screen was negative. Urinalysis was negative. PT/INR was 1.2. She underwent a CT scan of the head which revealed no acute intracranial process. She had an ultrasound of her abdomen, which was normal. She had a pelvic ultrasound, which revealed abnormal endometrial canal thickening measuring up to 19 mm, which could be hyperplasia or early malignancy. IMPRESSION: The patient is a very pleasant 60-year-old woman who had cognitive changes and anxiety, which have fully resolved. She ____ on her new diabetic medicine which has now been stopped for 2 days and she feels potentially back to normal. Neurologic exam was nonfocal and normal. I did not see any cognitive changes or any other changes in her exam suggesting of central or peripheral process. She did have absence of ankle reflexes and there may be an early peripheral neuropathy from diabetes contributing to this. I appreciate being involved in her care. The encephalopathy has resolved in her anxiety seems controlled. Further neurologic investigation is not needed at this time. LEIGH FOY MD DR: MARY/ciara JOB#: [id number] / [id number] Dr. JAYLEEN King PAMELA ARNP SHI, Dr. TERMULO, CHERRIE MD
[2016-09-16 03:00] VITALS: BP 110/58
[2016-09-16 07:00] VITALS: BP 123/63
[2016-09-16] MEDS: BENAZEPRIL HCTZ PO SCH (08:59)
[2016-09-16] MEDS: METOPROLOL SUCC 24HR ER 100 MG TAB.ER.24H. PO SCH (09:05)
[2016-09-16] MEDS: INSULIN ASPART 300 UNITS/3 ML INSULN.PEN SQ SCH ×4 (09:09→11:54)
[2016-09-16 11:00] VITALS: BP_SYST 107; BP_SYST 92; BP_SYST 97; BP_DIAS 49; BP_DIAS 60
[2016-09-16 11:04] LABS: BASO # 0.1 x10^3/uL (0.0-0.2); BASO % 1 % (0-3); EOS % 4 % (0-3); HEMATOCRIT 37.9 % (36.0-47.0); HEMOGLOBIN 13.3 g/dL (12.0-15.5); LYMPH # 1.4 x10^3/uL (1.0-4.8); LYMPH % 23 % (24-48); MEAN CORPUSCULAR HEMOGLOBIN 31 pg (25-35); MEAN CORPUSCULAR HGB CONC 35 g/dL (31-37); MEAN CORPUSCULAR VOLUME 89 fL (79-100); MONO % 6 % (0-9); NEUT % 66 % (31-73); PLATELET COUNT 154 x10^3/uL (140-400); RED BLOOD COUNT 4.28 x10^6/uL (3.50-5.40); RED CELL DISTRIBUTION WIDTH 13.7 % (11.5-14.5); WHITE BLOOD COUNT 5.9 x10^3/uL (4.0-11.0)
[2016-09-16] MEDS ORDERED: METF1000 PO (12:27)
--- NOTE | 2016-09-16 13:58 | PDOC3 ---
Discharge Summary [facility] Date of Admission: Sep 14, 2016 Discharge Date: Sep 16, 2016 Admitting Diagnosis 1. DUB, endometrial hyperplasia r/o malignancy 2. Recent personal stress with some neurological change with mild confusion, resolved, possible 2/2 side effects of glimepiride 3. HTN, controlled 4. DM 2 on OHA 5. Insomnia on trazadone 6. Obesity with BMI 46.3 Problems: Final Diagnosis CONSULTS neuro ob Brief Hospital Course Ms. Russo is a 60 old F, dm2, comes for some confusion. She said since she is taking glimepiride for 1 week, feels not clear thoughts, neuro consulted, no neurologic deficit. pt feels good now wo taking glimepiride x2 days, takes metformin x1year. she also has new vaginal bleeding x2 weeks, got ob endometrial bx, path pending hb stable. dc home dc time 35min, fu ob in the office for path. dc glimepiride, increase metformin to 1000mg bid. General: Alert, Oriented X3, Cooperative, No acute distress Heart: Regular rate, Normal S1, Normal S2 Lungs: Clear, Other (No RRW) Abdomen: Normal bowel sounds, Soft, No tenderness, No masses Extremities: No clubbing, No cyanosis, No edema, Normal pulses, No tenderness/ swelling Skin: No rashes, No breakdown, No significant lesion Problems: Disposition home CONDITION AT DISCHARGE: Improved Diet ada Scheduled Benazepril/Hydrochlorothiazide (Benazepril-Hctz 20-12.5 Mg Tab), 1.5 TAB PO DAILY, (Reported) Metformin Hcl (Glucophage), 1,000 MG PO BIDWMEALS Metoprolol Succinate (Metoprolol Succinate ( Xl )), 1 TAB PO DAILY, (Reported) Scheduled PRN Trazodone Hcl (Trazodone Hcl), 1-2 TAB PO PRN QHS PRN for INSOMNIA, (Reported) Discontinued Medications Glimepiride (Glimepiride), 2 MG PO DAILY, (Reported) Ibuprofen (Ibuprofen), 800 MG PO PRN TID PRN for INFLAMMATION, (Reported) Metformin Hcl (Metformin Hcl), 500 MG PO BIDWMEALS, (Reported) Follow Up ob in 1 week FLORI MCKNIGHT MD Sep 16, 2016 13:58
--- NOTE | 2016-09-16 17:50 | PDOC ---
PROGRESS NOTES Assessment Assessment IMPRESSION: Acute anxiety syndrome. Cognitive disfunction. DM meds side effects reactions. DM HTN Endometrial hyperplasia. Abnormal vaginal bleeding after menopause. Obesity. RECOMMENDATIONS/PLAN: Treat medical diseases. FU with PCP. FU with CRIB TENDER. FU with Neurology as needed. SUBJECTIVE: Stating doing fine. OBJECTIVE: Cognitive function returned to her baseline normal. PAST MEDICAL HISTORY: 1. Hypertension. 2. Diabetes. 3. Abnormal uterine bleeding. 4. Cognitive changes. 5. Elevated liver enzymes. 6. C. section. 7. Right breast biopsy. ALLERGIES: No known allergies to drugs. MEDICATIONS: Prior to admission, benazepril/hydrochlorothiazide 1.5 daily, glimepiride 2 mg, ibuprofen 800 mg 3 times per day as needed, metformin 500 mg twice per day with meals, metoprolol, and trazodone 50 -- 100 mg at night as needed. FAMILY HISTORY: Noncontributory. SOCIAL HISTORY: She is . Her has medical illnesses, which are very stressful for her. She does not smoke tobacco, drink alcohol or use recreational drugs. REVIEW OF SYSTEMS: She did have a headache last week. She has had a change in vision. She has had no change of hearing. She has had cognitive changes, which seems to have resolved. She has been able to eat and swallow without choking. She has not had shortness of breath or chest pain. She has had some abdominal pain in the night. She has not had fever or rash. Does not have any gastrointestinal complaints, but she does have genitourinary symptoms with uterine bleeding. She has not had any numbness or weakness. She has had good balance. She is primarily at the cognitive changes. She does not complain of bruising. She does have abnormal bleeding. She does not have any swelling. PHYSICAL EXAMINATION: General appearance in no acute distress. HEENT: Normocephalic and nontraumatic. Eyes, nose, ears, and throat are unremarkable. Hearing decrease. Neck is supple. No lymphadenopathy. No bruits are heard over the carotid artery. No Crepitus. Cardiovascular: S1, S2, regular rate and rhythm. Pulmonary: Clear to auscultation bilaterally. Abdomen: Bowel sounds are positive. Abdomen is soft, nontender, and nondistended. Extremities: No rash, lesions, or edema. No restriction of range of motion NEUROLOGICAL EXAMINATION: Alert. Oriented to time, place and person. PERRL. EOMI. CN: no focal findings. Muscle tone: within normal. Muscle strength: 5 DTR: 2 Plantar reflex: Flexor response bilaterally Gait: not examined in bed. Sensory exam: no abnormal findings. No cerebellar signs elicited. F-T-N test accurate. Objective Objective Vital Signs Date Time Temp Pulse Resp B/P (MAP) Pulse Ox O2 Delivery O2 Flow Rate FiO2 09/16/16 11:00 75 20 107/60 (76) 97 Room Air 09/16/16 11:00 97.2 97.2 Intake and Output 09/16/16 07:00 Intake Total 1220 ml Output Total 1600 ml Balance -380 ml Intake Oral 1220 ml Output Urine Total 1600 ml # Voids 2 Vitals Signs Vitals VS - Last 72 Hours, by Label Date Time Temp Pulse Resp B/P (MAP) Pulse Ox O2 Delivery O2 Flow Rate FiO2 09/16/16 11:00 75 20 107/60 (76) 97 Room Air 09/16/16 11:00 80 18 97/60 (72) 97 Room Air 09/16/16 11:00 97.2 71 20 92/49 (63) 98 Room Air 97.2 09/16/16 09:05 67 123/63 09/16/16 08:00 Room Air 09/16/16 07:00 97.9 67 18 123/63 (83) 97 Room Air 97.9 09/16/16 03:00 98.3 66 18 110/58 (75) 94 98.3 09/15/16 23:00 98.3 71 16 109/60 (76) 95 98.3 09/15/16 20:00 Room Air 09/15/16 19:25 17 94 Room Air 09/15/16 19:00 98.3 73 18 102/49 (66) 95 98.3 09/15/16 18:25 16 Room Air 09/15/16 15:00 98.2 80 18 115/55 (75) 94 Room Air 98.2 09/15/16 13:44 96 Room Air 09/15/16 13:27 96 Room Air 09/15/16 12:57 96 Room Air 09/15/16 11:00 98.1 84 18 119/79 (92) 96 Room Air 98.1 09/15/16 08:20 Room Air 09/15/16 08:19 72 136/63 09/15/16 07:00 97.6 72 18 136/63 (87) 93 Room Air 97.6 Laboratory Laboratory Laboratory Tests Test 09/15/16 20:53 09/16/16 07:47 09/16/16 10:50 09/16/16 10:58 Glucose (Fingerstick) 226 mg/dL (70-99) 189 mg/dL (70-99) 237 mg/dL (70-99) White Blood Count 5.9 x10^3/uL (4.0-11.0) Red Blood Count 4.28 x10^6/uL (3.50-5.40) Hemoglobin 13.3 g/dL (12.0-15.5) Hematocrit 37.9 % (36.0-47.0) Mean Corpuscular Volume 89 fL (79-100) Mean Corpuscular Hemoglobin 31 pg (25-35) Mean Corpuscular Hemoglobin Concent 35 g/dL (31-37) Red Cell Distribution Width 13.7 % (11.5-14.5) Platelet Count 154 x10^3/uL (140-400) Neutrophils (%) (Auto) 66 % (31-73) Lymphocytes (%) (Auto) 23 % (24-48) Monocytes (%) (Auto) 6 % (0-9) Eosinophils (%) (Auto) 4 % (0-3) Basophils (%) (Auto) 1 % (0-3) Neutrophils # (Auto) 3.9 x10^3uL (1.8-7.7) Lymphocytes # (Auto) 1.4 x10^3/uL (1.0-4.8) Monocytes # (Auto) 0.4 x10^3/uL (0.0-1.1) Eosinophils # (Auto) 0.2 x10^3/uL (0.0-0.7) Basophils # (Auto) 0.1 x10^3/uL (0.0-0.2) Microbiology 09/14/16 Wet Prep - Final, Complete Medication Medications Current Medications Insulin Aspart (NovoLOG) 3 units 1X ONCE SQ Last administered on 09/15/16t 21: 53; Start 09/15/16 at 21:45; Stop 09/15/16 at 21:46; Status DC Metformin HCl (Glucophage) 1,000 mg BIDWMEALS PO ; Start 09/16/16 at 17:00; Stop 09/16/16 at 17:00; Status DC Comment Review of Relevant I have reviewed the following items radha (where applicable) has been applied. CHRIS KANG MD Sep 16, 2016 17:50
== END 2016-09-16 15:03 | disposition home or self-care (01) | DRG 760 ==
LOC: ER 13:04 → 5 SOUTH 18:24
PROVIDERS: ADMIT Internal Medicine; ATTEND Internal Medicine
DX: N93.9 Abnormal uterine and vaginal bleeding, unspecified (principal); G93.40 Encephalopathy, unspecified; Z68.42 Body mass index [BMI] 45.0-49.9, adult; E66.9 Obesity, unspecified; E10.9 Type 1 diabetes mellitus without complications; I10 Essential (primary) hypertension; F41.9 Anxiety disorder, unspecified; G47.00 Insomnia, unspecified; K76.0 Fatty (change of) liver, not elsewhere classified; N85.00 Endometrial hyperplasia, unspecified; N95.0 Postmenopausal bleeding; H53.8 Other visual disturbances; R16.0 Hepatomegaly, not elsewhere classified; R42 Dizziness and giddiness; R74.8 Abnormal levels of other serum enzymes; R41.0 Disorientation, unspecified; T38.3X5A Adverse effect of insulin and oral hypoglycemic [antidiabetic] drugs, initial encounter; Y92.89 Other specified places as the place of occurrence of the external cause; Z79.4 Long term (current) use of insulin
CPT/HCPCS: 36415; 70450; 76705; 76830; 76856; 80053; 80307; 81001; 82962; 84484; 85014; 85018; 85027; 85610; 87491; 87591; 93005; C1887; J1815; J2270; Q0111; 99285-25; G0479

== ENCOUNTER → 2016-10-17 | Outpatient (CLI) | payer OTHER ==
[2016-09-16 11:00] VITALS: BP 107/60
[~2016-10-17] MED LIST: BENA1TAB6 PO; DOCU-109 PO; GLIM2TAB2 PO; IBUP-1060 PO; METF1000 PO; METF500T4 PO; METO-247 PO; OXYC-323 PO; TRAZ50TA15 PO
[2016-10-17 10:58] LABS: BASO % 1 % (0-3); EOS % 4 % (0-3); HEMATOCRIT 39.2 % (36.0-47.0); HEMOGLOBIN 13.7 g/dL (12.0-15.5); LYMPH # 1.5 x10^3/uL (1.0-4.8); LYMPH % 31 % (24-48); MEAN CORPUSCULAR HEMOGLOBIN 31 pg (25-35); MEAN CORPUSCULAR HGB CONC 35 g/dL (31-37); MEAN CORPUSCULAR VOLUME 89 fL (79-100); MONO % 6 % (0-9); NEUT % 58 % (31-73); PLATELET COUNT 175 x10^3/uL (140-400); RED BLOOD COUNT 4.42 x10^6/uL (3.50-5.40); RED CELL DISTRIBUTION WIDTH 13.6 % (11.5-14.5)
== END | disposition home or self-care (01) ==
LOC: SURGPAT 10:19
PROVIDERS: ATTEND Obstetrics & Gynecology
DX: N92.4 Excessive bleeding in the premenopausal period (principal); Z90.710 Acquired absence of both cervix and uterus
CPT/HCPCS: 36415; 85025

== ENCOUNTER → 2016-11-21 | Outpatient (CLI) | payer OTHER ==
[2016-10-27 13:30] VITALS: BP 113/58
--- NOTE | 2016-11-21 12:43 | KCIC ---
DATE: 11/21/2016 EXAM: MAMMO JORDAN SCREENING BILATERAL HISTORY: Routine screening COMPARISON: 01/16/2015 The breast parenchyma shows scattered fibroglandular densities. Breast parenchyma level B. FINDINGS: 2-D and 3-D tomosynthesis imaging was performed in CC and MLO projections. The fibroglandular pattern is heterogeneous. No new or enlarging breast densities are seen. Scattered benign type calcifications are present. No suspicious microcalcifications have developed. Benign-appearing axillary lymph nodes are unchanged. IMPRESSION: Stable mammograms without evidence of malignancy. BI-RADS CATEGORY: 2 BENIGN FINDING(S) RECOMMENDED FOLLOW-UP: 12M 12 MONTH FOLLOW-UP PQRS compliance statement: Patient information was entered into a reminder system with a target due date for the next mammogram. Mammography is a sensitive method for finding small breast cancers, but it does not detect them all and is not a substitute for careful clinical examination. A negative mammogram does not negate a clinically suspicious finding and should not result in delay in biopsying a clinically suspicious abnormality. "Our facility is accredited by the [employer] Mammography Program."
== END | disposition home or self-care (01) ==
LOC: KCIC MAMMO 10:55
PROVIDERS: ATTEND Nurse Practitioner Adult Health
DX: Z12.31 Encounter for screening mammogram for malignant neoplasm of breast (principal)
CPT/HCPCS: 77063; G0202; 77067

== ENCOUNTER 2018-10-09 10:27 | Emergency (ER) | payer BC, OTHER ==
[~2018-10-09] VITALS: Ht 170.2 cm; Wt 136.1 kg
[~2018-10-09 10:27] MED LIST changes: +METF500T16 PO; -METF500T4 PO; -OXYC-323 PO; +OXYC1TAB15 PO; +TRAZ-118 PO; -TRAZ50TA15 PO
[2018-10-09] MEDS ORDERED: GABAPENTIN 300 MG CAPSULE. PO STA (10:38)
[2018-10-09] MEDS ORDERED: HYDROcodone/APAP 5/325MG 1 TAB TABLET PO ONE (10:45)
[2018-10-09 11:30] LABS: BASO % 1 % (0-3); EOS # 0.2 x10^3/uL (0.0-0.7); EOS % 3 % (0-3); HEMATOCRIT 28.5 % (36.0-47.0); HEMOGLOBIN 9.9 g/dL (12.0-15.5); LYMPH # 0.6 x10^3/uL (1.0-4.8); LYMPH % 12 % (24-48); MEAN CORPUSCULAR HEMOGLOBIN 33 pg (25-35); MEAN CORPUSCULAR HGB CONC 35 g/dL (31-37); MEAN CORPUSCULAR VOLUME 94 fL (79-100); MONO # 0.4 x10^3/uL (0.0-1.1); MONO % 8 % (0-9); NEUT # 4.1 x10^3/uL (1.8-7.7); NEUT % 77 % (31-73); PLATELET COUNT 90 x10^3/uL (140-400); RED BLOOD COUNT 3.03 x10^6/uL (3.50-5.40); RED CELL DISTRIBUTION WIDTH 15.3 % (11.5-14.5); WHITE BLOOD COUNT 5.3 x10^3/uL (4.0-11.0)
[2018-10-09 11:42] LABS: CREATININE 1.4 mg/dL (0.6-1.0); GFR 38.1; POTASSIUM 3.2 mmol/L (3.5-5.1)
[2018-10-09 11:47] LABS: ALBUMIN/GLOBULIN RATIO 0.9 (1.0-1.7); TOTAL BILIRUBIN 1.4 mg/dL (0.2-1.0); TOTAL PROTEIN 6.5 g/dL (6.4-8.2)
--- NOTE | 2018-10-09 12:01 | RAD ---
EXAM: Left lower extremity venous Doppler sonogram. HISTORY: Pain and swelling. TECHNIQUE: Card scale and color Doppler sonographic evaluation of the left lower extremity veins with spectral waveform analysis was performed. FINDINGS: There is normal color flow, normal compressibility and there are normal spectral waveforms in the common femoral, superficial femoral, popliteal, posterior tibial and greater saphenous veins. There is soft tissue edema. There is a prominent left inguinal lymph node with benign fatty hilum measuring 4.4 cm. IMPRESSION: No Doppler evidence of lower extremity deep venous thrombosis. Electronically signed by: Brandy Fisher MD (10/09/2018 11:58 AM) [place] [id number]
[2018-10-09 12:41] VITALS: BP 111/53
--- NOTE | 2018-10-09 13:03 | PHYS DOC ---
Past Medical History Past Medical History: Diabetes-Type I, Diabetes-Type II, Hypertension, Other Additional Past Medical Histor: elevated liver enzymes (LUIS DANIEL VIGIL APRN) Past Surgical History: , Other Additional Past Surgical Histo: r breast bx (LUIS DANIEL VIGIL APRN) Alcohol Use: None Drug Use: None (LUIS DANIEL VIGIL APRN) Adult General Chief Complaint Chief Complaint: LOWER EXT PAIN HPI HPI Patient is a 63 year old female with history of diabetes type 2, hypertension, who presents to the ED today complaining of redness and swelling that she noted on the left lower extremity yesterday evening. She states she has history of chr onic bilateral lower extremity edema and is on a water pill specifically HCTZ. She states for the last 2 days she's noted increased swelling to bilateral lower extremities. Denies any redness to the right lower extremity. Denies any shortness of breath. (LUIS DANIEL VIGIL APRN) Review of Systems Review of Systems Constitutional: Denies fever or chills [] Eyes: Denies change in visual acuity, redness, or eye pain [] HENT: Denies nasal congestion or sore throat [] Respiratory: Denies cough or shortness of breath [] Cardiovascular: No additional information not addressed in HPI [] GI: Denies abdominal pain, nausea, vomiting, bloody stools or diarrhea [] : Denies dysuria or hematuria [] Musculoskeletal: Reports redness and swelling to the left lower extremity as well as chronic edema bilateral lower extremities. Integument: Denies rash or skin lesions [] Neurologic: Denies headache, focal weakness or sensory changes [] All other systems were reviewed and found to be within normal limits, except as documented in this note. (LUIS DANIEL VIGIL APRN) Current Medications Current Medications Current Medications Medications (Trade) Dose Ordered Sig/Elizabeth Start Time Stop Time Status Last Admin Dose Admin Acetaminophen/ Hydrocodone Bitart (Lortab 5/325) 2 tab 1X ONCE 10/09/18 10:45 10/09/18 10:46 DC 10/09/18 10:54 2 TAB Ceftriaxone Sodium (Rocephin Im) 1 gm 1X ONCE 10/09/18 13:15 10/09/18 13:16 DC 10/09/18 13:21 1 GM Clindamycin HCl (Cleocin) 450 mg 1X ONCE 10/09/18 13:15 10/09/18 13:16 DC 10/09/18 13:21 450 MG Furosemide (Lasix) 40 mg 1X ONCE 10/09/18 13:15 10/09/18 13:16 DC 10/09/18 13:21 40 MG Gabapentin (Neurontin) 300 mg 1X STAT 10/09/18 10:38 10/09/18 10:40 DC 10/09/18 10:57 300 MG Lidocaine HCl (Xylocaine-Mpf 1% 2ml Vial) 2 ml 1X ONCE 10/09/18 13:15 10/09/18 13:16 DC 10/09/18 13:21 2 ML Potassium Chloride (Klor-Con) 40 meq 1X ONCE 10/09/18 13:15 10/09/18 13:16 DC 10/09/18 13:21 40 MEQ (SELAM GREENE DO) Allergies Allergies Allergies Coded Allergies Type Severity Reaction Last Updated Verified glipizide Adverse Reaction Intermediate 10/24/16 Yes (SELAM GREENE DO) Physical Exam Physical Exam Constitutional: Well developed, well nourished, no acute distress, non-toxic appearance. [] HENT: Normocephalic, atraumatic, bilateral external ears normal, oropharynx moist, no oral exudates, nose normal. [] Eyes: PERRLA, EOMI, conjunctiva normal, no discharge. [] Neck: Normal range of motion, no tenderness, supple, no stridor. [] Cardiovascular:Heart rate regular rhythm, no murmur [] Lungs & Thorax: Bilateral breath sounds clear to auscultation [] Abdomen: Bowel sounds normal, soft, no tenderness, no masses, no pulsatile masses. [] Skin: Warm, dry, no erythema, no rash. [] Back: No tenderness, no CVA tenderness. [] Extremities: No tenderness, no cyanosis, no clubbing, ROM intact, bilateral lower extremities noted for chronic +1 edema, patient is overweight as well. This cellulitis noted on the left cisneros and calf. Negative Homans sign bilaterally. Neurologic: Alert and oriented X 3, normal motor function, normal sensory fun ction, no focal deficits noted. [] Psychologic: Affect normal, judgement normal, mood normal. [] (LUIS DANIEL VIGIL APRN) Current Patient Data Vital Signs Vital Signs Date Time Temp Pulse Resp B/P (MAP) Pulse Ox O2 Delivery O2 Flow Rate FiO2 10/09/18 12:41 62 18 111/53 (72) 91 Room Air 10/09/18 12:11 96.0 10/09/18 10:32 98.3 98.3 (GREENESELAM Joleen ESQUIVEL) Lab Values Laboratory Tests Test 10/09/18 11:22 White Blood Count 5.3 x10^3/uL (4.0-11.0) Red Blood Count 3.03 x10^6/uL (3.50-5.40) L Hemoglobin 9.9 g/dL (12.0-15.5) L Hematocrit 28.5 % (36.0-47.0) L Mean Corpuscular Volume 94 fL (79-100) Mean Corpuscular Hemoglobin 33 pg (25-35) Mean Corpuscular Hemoglobin Concent 35 g/dL (31-37) Red Cell Distribution Width 15.3 % (11.5-14.5) H Platelet Count 90 x10^3/uL (140-400) L Neutrophils (%) (Auto) 77 % (31-73) H Lymphocytes (%) (Auto) 12 % (24-48) L Monocytes (%) (Auto) 8 % (0-9) Eosinophils (%) (Auto) 3 % (0-3) Basophils (%) (Auto) 1 % (0-3) Neutrophils # (Auto) 4.1 x10^3/uL (1.8-7.7) Lymphocytes # (Auto) 0.6 x10^3/uL (1.0-4.8) L Monocytes # (Auto) 0.4 x10^3/uL (0.0-1.1) Eosinophils # (Auto) 0.2 x10^3/uL (0.0-0.7) Basophils # (Auto) 0.0 x10^3/uL (0.0-0.2) Sodium Level 140 mmol/L (136-145) Potassium Level 3.2 mmol/L (3.5-5.1) L Chloride Level 103 mmol/L (98-107) Carbon Dioxide Level 25 mmol/L (21-32) Anion Gap 12 (6-14) Blood Urea Nitrogen 36 mg/dL (7-20) H Creatinine 1.4 mg/dL (0.6-1.0) H Estimated GFR (Cockcroft-Gault) 38.1 BUN/Creatinine Ratio 26 (6-20) H Glucose Level 111 mg/dL (70-99) H Calcium Level 9.0 mg/dL (8.5-10.1) Total Bilirubin 1.4 mg/dL (0.2-1.0) H Aspartate Amino Transferase (AST) 36 U/L (15-37) Alanine Aminotransferase (ALT) 28 U/L (14-59) Alkaline Phosphatase 138 U/L (46-116) H WI-Uwo-Z-Type Natriuretic Peptide 2197 pg/mL (0-124) H Total Protein 6.5 g/dL (6.4-8.2) Albumin 3.0 g/dL (3.4-5.0) L Albumin/Globulin Ratio 0.9 (1.0-1.7) L Laboratory Tests 10/09/18 11:22 Laboratory Tests 10/09/18 11:22 (SELAM GREENE DO) EKG EKG [] (LUIS DANIEL VIGIL APRN) Radiology/Procedures Radiology/Procedures []PROCEDURE: VENOUS LOWER EXTREMITY LEFT EXAM: Left lower extremity venous Doppler sonogram. HISTORY: Pain and swelling. TECHNIQUE: Card scale and color Doppler sonographic evaluation of the left lower extremity veins with spectral waveform analysis was performed. FINDINGS: There is normal color flow, normal compressibility and there are normal spectral waveforms in the common femoral, superficial femoral, popliteal, posterior tibial and greater saphenous veins. There is soft tissue edema. There is a prominent left inguinal lymph node with benign fatty hilum measuring 4.4 cm. IMPRESSION: No Doppler evidence of lower extremity deep venous thrombosis. Electronically signed by: Brandy Guerrero MD (10/09/2018 11:58 AM) [facility] DICTATED and SIGNED BY: BRANDY GUERRERO MD DATE: 10/09/18 3346 (LUIS DANIEL VIGIL APRN) Course & Med Decision Making Course & Med Decision Making Pertinent Labs and Imaging studies reviewed. (See chart for details) This is a 63-year-old female patient who presents to the ED today with chronic bilateral lower extremity edema as well as redness to the left lower extremity that began yesterday. Physical exam consistent with cellulitis to the left lower extremity. Venous Doppler of the left lower extremity is negative for any acute findings. WBC is normal. Patient was discharged on clindamycin. Tetanus up-to-date. Was given Rocephin IM in the ED. (LUIS DANIEL VIGIL APRN) Dragon Disclaimer Dragon Disclaimer This electronic medical record was generated, in whole or in part, using a voice recognition dictation system. (LUIS DANIEL VIGIL APRN) Departure Departure Impression: Primary Impression: Cellulitis of lower extremity Additional Impression: Lower extremity edema Disposition: HOME, SELF-CARE Condition: STABLE (patient Rocephin furosemide and imaging, meds) Referrals: SARMAD CLEMENS REDYE HAND (PCP) follow up in one week Patient Instructions: Cellulitis, [id number] Additional Instructions: You were evaluated in the emergency room and noted to have cellulitis to the left lower extremity. Take the prescribed antibiotics as ordered until completed . Try to elevate bilateral lower extremities, wear compression stockings. Scripts Gabapentin (GABAPENTIN ) 300 Mg Capsule 300 MG PO TID for NEUROGENIC PAIN, #60 CAP Prov: LUIS DANIEL VIGIL APRN 10/09/18 Hydrocodone/Apap 5-325 (NORCO 5-325 TABLET) 1 Each Tablet 1 TAB PO Q6HRS, #14 TAB Prov: LUIS DANIEL VIGIL APRN 10/09/18 Clindamycin Hcl (CLINDAMYCIN HCL) 150 Mg Capsule 3 CAP PO TID, #90 CAP Prov: LUIS DANIEL VIGIL APRN 10/09/18 Attending Signature Attending Signature I have reviewed the PA/REDYE HAND's note and plan of care. I was available for consultation as needed during the patient's visit in the emergency department. I agree with the clinical impression, plan, and disposition. (SELAM GREENE DO) Problem Qualifiers Primary Impression: Cellulitis of lower extremity Laterality: left Qualified Codes: L03.116 - Cellulitis of left lower limb LUIS DANIEL VIGIL APRN Oct 09, 2018 13:03 SELAM GREENE DO Oct 09, 2018 17:23
[2018-10-09] MEDS ORDERED: CLIN150C14 PO (13:10)
[2018-10-09] MEDS ORDERED: LIDOCAINE 1% PF 2 ML VIAL. INJ ONE (13:15)
[2018-10-09] MEDS ORDERED: CLINDAMYCIN HCL 150 MG CAPSULE. PO ONE (13:15)
[2018-10-09] MEDS ORDERED: HYDR-3164 PO (13:15)
[2018-10-09] MEDS ORDERED: cefTRIAXone IM 1 GM VIAL IM ONE (13:15)
[2018-10-09] MEDS ORDERED: GABA300C18 PO (13:15)
[2018-10-09] MEDS ORDERED: POTASSIUM CHLORIDE 20 MEQ TABLET.ER. PO ONE (13:15)
[2018-10-09] MEDS ORDERED: FUROSEMIDE 40 MG TABLET. PO ONE (13:15)
== END 2018-10-09 13:15 | disposition home or self-care (01) ==
LOC: ER 10:27
DX: L03.116 Cellulitis of left lower limb (principal); R60.0 Localized edema; E11.9 Type 2 diabetes mellitus without complications; I10 Essential (primary) hypertension; Z98.890 Other specified postprocedural states; Z88.8 Allergy status to other drugs, medicaments and biological substances
CPT/HCPCS: 36415; 80053; 83880; 85025; 93971; 96372; 99285; J0696

== ENCOUNTER 2018-12-07 22:01 | Inpatient (IN) | payer BC ==
[~2018-12-07] VITALS: Ht 170.2 cm; Wt 151.5 kg
[~2018-12-07 22:01] MED LIST changes: +CLIN150C14 PO; +GABA300C18 PO; -GLIM2TAB2 PO; +GLIM2TAB3 PO; +HYDR-3164 PO
[2018-12-07] MEDS ORDERED: IPRATRPIUM/ALBUTEROL 0.5/2.5MG 3 ML NEBU. ONE (22:14)
[2018-12-07] MEDS ORDERED: FUROSEMIDE 40 MG/4 ML VIAL. IVP ONE (22:15)
[2018-12-07 22:37] LABS: BASO % 1 % (0-3); EOS # 0.3 x10^3/uL (0.0-0.7); EOS % 4 % (0-3); HEMOGLOBIN 11.3 g/dL (12.0-15.5); LYMPH % 16 % (24-48); MEAN CORPUSCULAR HEMOGLOBIN 32 pg (25-35); MEAN CORPUSCULAR HGB CONC 33 g/dL (31-37); MEAN CORPUSCULAR VOLUME 95 fL (79-100); MONO # 0.5 x10^3/uL (0.0-1.1); MONO % 8 % (0-9); NEUT # 4.7 x10^3/uL (1.8-7.7); NEUT % 72 % (31-73); PLATELET COUNT 175 x10^3/uL (140-400); RED BLOOD COUNT 3.57 x10^6/uL (3.50-5.40); RED CELL DISTRIBUTION WIDTH 14.8 % (11.5-14.5); WHITE BLOOD COUNT 6.6 x10^3/uL (4.0-11.0)
[2018-12-07 22:45] LABS: CALCIUM 9.5 mg/dL (8.5-10.1); CREATININE 2.4 mg/dL (0.6-1.0); GFR 20.5; POTASSIUM 3.4 mmol/L (3.5-5.1)
[2018-12-07 22:47] LABS: PROTHROMBIN TIME PATIENT 14.4 SEC (11.7-14.0)
[2018-12-07 22:51] LABS: ALBUMIN 3.6 g/dL (3.4-5.0); ALBUMIN/GLOBULIN RATIO 0.8 (1.0-1.7); MAGNESIUM 2.3 mg/dL (1.8-2.4); TOTAL BILIRUBIN 1.7 mg/dL (0.2-1.0); TOTAL PROTEIN 8.2 g/dL (6.4-8.2)
[2018-12-07] MEDS ORDERED: cefTRIAXone IV Push 1 GM VIAL. IVP ONE (23:15)
--- NOTE | 2018-12-07 23:31 | RAD ---
Indication:Shortness of breath TECHNIQUE:Portable AP chest X-ray COMPARISON: None FINDINGS: Heart is moderately enlarged in size. Diffuse interstitial opacities. No pneumothorax or large pleural effusion. Visualized bony thorax within normal limits. IMPRESSION: Findings of acute CHF. Electronically signed by: Flaquito Castro DO (12/07/2018 11:28 PM) [facility]
[2018-12-07 23:38] LABS: BASE EXCESS COOX 1 mmol/L (-3-3); HCO3 COOX 26 mmol/L (21-28); METHEMOGLOBIN 0.5 % (0.0-1.9); PCO2 COOX 41 mmHg (35-46); PO2 COOX 93 mmHg (65-108); SAT O2 COOX 97 % (92-99)
[2018-12-07 23:41] LABS: BILIRUBIN,URINE NEGATIVE (NEG); CLARITY,URINE CLEAR; COLOR,URINE YELLOW; NITRITE,URINE NEGATIVE (NEG); PH,URINE 5.5; PROTEIN,URINE NEGATIVE (NEG-TRACE); UROBILINOGEN,URINE 0.2 mg/dL (0.2 mg/dL)
[2018-12-07 23:45] LABS: SQUAMOUS EPITHELIAL CELL,UR MANY /LPF
[2018-12-07] MEDS ORDERED: IV NORMAL SALINE 500ML BAG 500 ML IV ONE (23:45)
[2018-12-07 23:46] LABS: AMORPHOUS SEDIMENT,UR PRESENT /HPF; BACTERIA,URINE 0 /HPF (0-FEW); HYALINE CASTS, URINE MODERATE /HPF; RBC,URINE OCC /HPF (0-2)
[2018-12-07 23:47] LABS: GRANULAR CASTS,URINE OCCASIONAL /HPF
[2018-12-08] VITALS (7 sets, daily range): BP systolic 104–169; BP diastolic 53–82
--- NOTE | 2018-12-08 00:06 | PHYS DOC ---
Past Medical History Past Medical History: Diabetes-Type II, Hypertension, Other Additional Past Medical Histor: peripheral edema Past Surgical History: , Other Additional Past Surgical Histo: r breast bx Alcohol Use: None Drug Use: None Adult General Chief Complaint Chief Complaint: CHEST PAIN HPI HPI Patient is a 63 year old [female who presents to the due to chief complaint of shortness of breath and chest pain. Patient states that she is of the symptoms all day today. Worse after she finished her work today. Patient states that she has gained 20 pounds and her last 1-2 months. Patient denies being an active smoker. Patient denies history of COPD or asthma. Patient does not take any breathing treatments at home. Review of Systems Review of Systems Constitutional: Denies fever or chills [] Eyes: Denies change in visual acuity, redness, or eye pain [] HENT: Denies nasal congestion or sore throat [] Respiratory: Complains of shortness of breath Cardiovascular: Complains of chest pain GI: Denies abdominal pain, nausea, vomiting, bloody stools or diarrhea [] : Denies dysuria or hematuria [] Musculoskeletal: Swelling in both her legs Integument: Denies rash or skin lesions [] Neurologic: Denies headache, focal weakness or sensory changes [] All other systems were reviewed and found to be within normal limits, except as documented in this note. Current Medications Current Medications Current Medications Medications (Trade) Dose Ordered Sig/Elizabeth Start Time Stop Time Status Last Admin Dose Admin Albuterol/ Ipratropium (Duoneb) 3 ml STK-MED ONCE 12/07/18 22:14 12/07/18 22:14 DC Ceftriaxone Sodium (Rocephin) 1 gm 1X ONCE 12/07/18 23:15 12/07/18 23:16 DC 12/07/18 23:16 1 GM Furosemide (Lasix) 40 mg 1X ONCE 12/07/18 22:15 12/07/18 22:16 DC 12/07/18 22:56 40 MG Sodium Chloride 500 ml @ 500 mls/hr 1X ONCE 12/07/18 23:45 12/08/18 00:44 12/07/18 23:39 500 MLS/HR Allergies Allergies Allergies Coded Allergies Type Severity Reaction Last Updated Verified No Known Drug Allergies 12/07/18 No Physical Exam Physical Exam Constitutional: Well developed, well nourished, no acute distress, non-toxic appearance. [] HENT: Normocephalic, atraumatic Eyes: PERRLA, EOMI Neck: Normal range of motion, no tenderness,supple Cardiovascular:Heart rate regular rhythm, no murmur [] Lungs & Thorax: Rales bilaterally. Mild respiratory distress Abdomen: Bowel sounds normal, soft, no tenderness Extremities: Bilateral edema in the lower extremities +3. Neurologic: Alert and oriented X 3, normal motor function, normal sensory function, no focal deficits noted. [] Psychologic: Affect normal, judgement normal, mood normal. [] Current Patient Data Vital Signs Vital Signs Date Time Temp Pulse Resp B/P (MAP) Pulse Ox O2 Delivery O2 Flow Rate FiO2 12/07/18 23:28 98 BiPAP/CPAP 12/07/18 23:18 88 24 175/78 (110) 12/07/18 22:18 98.5 98.5 Lab Values Laboratory Tests Test 12/07/18 22:25 12/07/18 23:23 12/07/18 23:35 White Blood Count 6.6 x10^3/uL (4.0-11.0) Red Blood Count 3.57 x10^6/uL (3.50-5.40) Hemoglobin 11.3 g/dL (12.0-15.5) L Hematocrit 34.0 % (36.0-47.0) L Mean Corpuscular Volume 95 fL (79-100) Mean Corpuscular Hemoglobin 32 pg (25-35) Mean Corpuscular Hemoglobin Concent 33 g/dL (31-37) Red Cell Distribution Width 14.8 % (11.5-14.5) H Platelet Count 175 x10^3/uL (140-400) Neutrophils (%) (Auto) 72 % (31-73) Lymphocytes (%) (Auto) 16 % (24-48) L Monocytes (%) (Auto) 8 % (0-9) Eosinophils (%) (Auto) 4 % (0-3) H Basophils (%) (Auto) 1 % (0-3) Neutrophils # (Auto) 4.7 x10^3/uL (1.8-7.7) Lymphocytes # (Auto) 1.0 x10^3/uL (1.0-4.8) Monocytes # (Auto) 0.5 x10^3/uL (0.0-1.1) Eosinophils # (Auto) 0.3 x10^3/uL (0.0-0.7) Basophils # (Auto) 0.0 x10^3/uL (0.0-0.2) Prothrombin Time 14.4 SEC (11.7-14.0) H Prothrombin Time INR 1.2 (0.8-1.1) H Sodium Level 141 mmol/L (136-145) Potassium Level 3.4 mmol/L (3.5-5.1) L Chloride Level 100 mmol/L (98-107) Carbon Dioxide Level 24 mmol/L (21-32) Anion Gap 17 (6-14) H Blood Urea Nitrogen 40 mg/dL (7-20) H Creatinine 2.4 mg/dL (0.6-1.0) H Estimated GFR (Cockcroft-Gault) 20.5 BUN/Creatinine Ratio 17 (6-20) Glucose Level 175 mg/dL (70-99) H Lactic Acid Level 3.0 mmol/L (0.4-2.0) H Calcium Level 9.5 mg/dL (8.5-10.1) Magnesium Level 2.3 mg/dL (1.8-2.4) Total Bilirubin 1.7 mg/dL (0.2-1.0) H Aspartate Amino Transferase (AST) 42 U/L (15-37) H Alanine Aminotransferase (ALT) 20 U/L (14-59) Alkaline Phosphatase 160 U/L (46-116) H TV-Crz-Z-Type Natriuretic Peptide 8975 pg/mL (0-124) H Total Protein 8.2 g/dL (6.4-8.2) Albumin 3.6 g/dL (3.4-5.0) Albumin/Globulin Ratio 0.8 (1.0-1.7) L Lipase 115 U/L (73-393) O2 Saturation 97 % (92-99) Arterial Blood pH 7.41 (7.35-7.45) Arterial Blood pCO2 at Patient Temp 41 mmHg (35-46) Arterial Blood pO2 at Patient Temp 93 mmHg (65-108) Arterial Blood HCO3 26 mmol/L (21-28) Arterial Blood Base Excess 1 mmol/L (-3-3) Oxyhemoglobin 96.0 % Methemoglobin 0.5 % (0.0-1.9) Carbon Monoxide, Quantitative 0.3 % (0.0-1.9) FiO2 50 Urine Collection Type Unknown Urine Color Yellow Urine Clarity Clear Urine pH 5.5 Urine Specific [place] 1.015 Urine Protein Negative mg/dL (NEG-TRACE) Urine Glucose (UA) Negative mg/dL (NEG) Urine Ketones (Stick) Negative mg/dL (NEG) Urine Blood Negative (NEG) Urine Nitrite Negative (NEG) Urine Bilirubin Negative (NEG) Urine Urobilinogen Dipstick 0.2 mg/dL (0.2 mg/dL) Urine Leukocyte Esterase Negative (NEG) Urine RBC Occ /HPF (0-2) Urine WBC 1-4 /HPF (0-4) Urine Squamous Epithelial Cells Many /LPF Urine Amorphous Sediment Present /HPF Urine Bacteria 0 /HPF (0-FEW) Urine Hyaline Casts Moderate /HPF Urine Granular Casts Occasional /HPF Urine Mucus Mod /LPF Laboratory Tests 12/07/18 22:25 Laboratory Tests 12/07/18 22:25 EKG EKG EKG interpretation #1 EKG was done with artifact. Repeat EKG when patient is calm. EKG interpretation #2: HR: 90 Sinus rhythm Regular intervals LAD Nonspecific ST changes No STEMI Radiology/Procedures Radiology/Procedures Ordered chest x-ray Impressions: Chest x-ray shows findings consistent with acute CHF Course & Med Decision Making Course & Med Decision Making Pertinent Labs and Imaging studies reviewed. (See chart for details) On initial presentation patient's oxygen saturation was 74% on room air. Patient was placed on a nonrebreather and her oxygen saturation came up to 90%. Ordered BiPAP. The patient's lungs sound and bilateral rales. Most likely fluid overload. Patient was given Lasix 40 mg IV. Patient was also placed on BiPAP. Chest x-ray consistent with acute CHF exacerbation Patient's labs show that Creatinine is elevated at 2.4. In September the creatinine was 1.4. Patient's lactate is 3.0. BNP is 8975 Troponin is negative. Patient is breathing much better on BiPAP. EKG does not show any acute changes. Patient is given Rocephin 1 g IV. Mac catheter placed. Discussed results and plan of care with patient and family. Patient will be admitted for further evaluation and treatment. I have given patient found it Martin IV fluids. This is due to the history of present illness. Patient's lactate is elevated at 3.0. And she has CSF exacerbation and so for the fluid is not given currently. Dragon Disclaimer Mo Disclaimer This electronic medical record was generated, in whole or in part, using a voice recognition dictation system. Departure Departure Referrals: SARMAD CLEMENS CONVERTER OPERATOR (PCP) GAVIN GRAMAJO DO Dec 08, 2018 00:06
[2018-12-08] MEDS ORDERED: FURO20TA3 PO (01:10)
[2018-12-08] MEDS ORDERED: GABA300C18 PO (01:10)
[2018-12-08] MEDS ORDERED: POTA10TA12 PO (01:10)
[2018-12-08] MEDS ORDERED: PIOG30TA41 PO (01:10)
[2018-12-08] MEDS ORDERED: METF500T16 PO (01:10)
[2018-12-08] MEDS ORDERED: BENA20TA4 PO (01:10)
[2018-12-08] MEDS: ALPRAZolam 0.5 MG TABLET PO PRN ×3 (04:23→23:25)
--- NOTE | 2018-12-08 06:13 | EKG ---
[facility] [address] [place] [address] Test Date: 2018-12-07 Test Time: 23:07:01 Pat Name: OZZIE PERKINS Department: Room: 207 Gender: F Bulk Fluids Handler: : [id number] Requested By: GAVIN GRAMAJO Order Number: [id number] Reading MD: Adrian Laura MD Measurements Intervals [place] Rate: 90 P: -58 NE: 140 QRS: -20 QRSD: 102 T: 54 QT: 400 QTc: 494 Interpretive Statements SINUS RHYTHM Electronically Signed On 12-15-2018 15:43:58 CDT by Adrian Laura MD
[2018-12-08] MEDS ORDERED: POTASSIUM CHLORIDE 10 MEQ TABLET.ER. PO SCH (08:00)
[2018-12-08] MEDS ORDERED: metFORMIN 500 MG TABLET PO SCH (08:00)
[2018-12-08] MEDS: CLINDAMYCIN HCL 150 MG CAPSULE. PO SCH ×3 (08:37→20:44)
[2018-12-08] MEDS: METOPROLOL SUCC 24HR ER 100 MG TAB.ER.24H. PO SCH (08:37)
[2018-12-08] MEDS: DOCUSATE SODIUM 100 MG CAPSULE. PO SCH ×2 (08:41→20:45)
[2018-12-08] MEDS ORDERED: LISINOPRIL 20 MG TABLET PO SCH (09:00)
[2018-12-08] MEDS ORDERED: FUROSEMIDE 20 MG TABLET PO SCH (09:00)
[2018-12-08] MEDS ORDERED: PIOGLITAZONE 15 MG TABLET. PO SCH (09:00)
--- NOTE | 2018-12-08 09:11 | PDOC1 ---
History and Physical Date of Admission Date of Admission DATE: 12/08/18 TIME: 09:11 History of Present Illness History of Present Illness Jayla, is a 63 year old female admit with acute shortness of breath. She has had acute 2 days aof cehst pain, and has been taking large amount of ibuprofen she went to work yesterday, had new dsypnea with the stairs, then was out of breath after work before driving home. Patient states that she has gained 20 pounds and her last 1- months. . Patient denies history of COPD or asthma. she worse BIPAP for the first time last night, and she feels much improved today she recently lost her of 40 years, is newly and is actively grieving. Past Medical History Cardiovascular: HTN Endocrine: No pertinent hx Dermatology: Cellulitis (last week) Past Surgical History Past Surgical History: No pertinent history Family History Family History: No Significant, Other Social History Smoke: No ALCOHOL: none Drugs: None Current Medications Current Medications Current Medications Furosemide (Lasix) 40 mg 1X ONCE IVP Last administered on 12/07/18at 22:56; Start 12/07/18 at 22:15; Stop 12/07/18 at 22:16; Status DC Albuterol/ Ipratropium (Duoneb) 3 ml STK-MED ONCE .ROUTE ; Start 12/07/18 at 22:14; Stop 12/07/18 at 22:14; Status DC Ceftriaxone Sodium (Rocephin) 1 gm 1X ONCE IVP Last administered on 12/07/18at 23:16; Start 12/07/18 at 23:15; Stop 12/07/18 at 23:16; Status DC Sodium Chloride 500 ml @ 500 mls/hr 1X ONCE IV Last administered on 12/07/18at 23:39; Start 12/07/18 at 23:45; Stop 12/08/18 at 00:44; Status DC Alprazolam (Xanax) 0.5 mg PRN Q8HRS PRN PO ANXIETY / AGITATION Last administered on 12/08/18at 04:23; Start 12/08/18 at 02:30 Oxycodone/ Acetaminophen (Percocet 5/325) 1 tab PRN Q4HRS PRN PO PAIN; Start 12/08/18 at 02:30 Clindamycin HCl (Cleocin) 450 mg TID PO Last administered on 12/08/18at 08:37; Start 12/08/18 at 09:00 Docusate Sodium (Colace) 100 mg BID PO ; Start 12/08/18 at 09:00 Furosemide (Lasix) 20 mg DAILY PO Last administered on 12/08/18at 08:34; Start 12/08/18 at 09:00 Gabapentin (Neurontin) 300 mg HS PO ; Start 12/08/18 at 21:00 Metformin HCl (Glucophage) 500 mg BIDWMEALS PO ; Start 12/08/18 at 08:00 Metoprolol Succinate (Toprol Xl) 100 mg DAILY PO Last administered on 12/08/18at 08:37; Start 12/08/18 at 09:00 Potassium Chloride (Klor-Con) 10 meq DAILYWBKFT PO Last administered on 12/08/18at 08:35; Start 12/08/18 at 08:00 Trazodone HCl (Desyrel) 50 mg PRN QHS PRN PO INSOMNIA; Start 12/08/18 at 02:30 Lisinopril (Prinivil) 20 mg DAILY PO ; Start 12/08/18 at 09:00 Pioglitazone HCl (Actos) 30 mg DAILY PO Last administered on 12/08/18at 08:40; Start 12/08/18 at 09:00 Active Scripts Active Clindamycin Hcl 150 Mg Capsule 3 Cap PO TID Colace (Docusate Sodium) 100 Mg Capsule 100 Mg PO BID Reported Actos (Pioglitazone Hcl) 30 Mg Tablet 1 Tab PO DAILY 30 Days Benazepril Hcl 20 Mg Tablet 1 Tab PO DAILY Gabapentin (Gabapentin) 300 Mg Capsule 300 Mg PO HS Metformin Hcl 500 Mg Tablet 500 Mg PO BIDWMEALS Furosemide 20 Mg Tablet 1 Tab PO DAILY Potassium Chloride 10 Meq Tab.sr.24h 10 Meq PO DAILY Trazodone Hcl 50 Mg Tablet 1-2 Tab PO PRN QHS PRN Metoprolol Succinate ( Xl ) (Metoprolol Succinate) 100 Mg Tab.er.24h 1 Tab PO DAILY Allergies Allergies: Coded Allergies: No Known Drug Allergies (Unverified , 12/07/18) ROS General: YES: Chills PSYCHOLOGICAL ROS: YES: Anxiety, Irritablity, Sleep disturbances, Other (tearfulness, lifetime of frequent crying); No: Behavioral Disorder, Concentration difficultie, Decreased libido, Depression, Disorientation, Hallucinations, Hostility, Memory difficulties, Mood Swings, Obsessive thoughts, Physical abuse, Sexual abuse, Suicidal ideation Eyes: No Blurry vision, No Decreased vision, No Double vision, No Dry eyes, No Excessive tearing, No Eye Pain, No Itchy Eyes, No Loss of vision, No Photophobia, No Scotomata, No Uses contacts, No Uses glasses, No Other HEENT: No: Heacaches, Visual Changes, Hearing change, Nasal congestion, Nasal discharge, Oral lesions, Sinus pain, Sore Throat, Epistaxis, Sneezing, Snoring, Tinnitus, Vertigo, Vocal changes, Other Respiratory: No: Cough, Hemoptysis, Orthopnea, Pleuritic Pain, Shortness of breath, SOB with excertion, Sputum Changes, Stridor, Tachypnea, Wheezing, Other Cardiovascular: No Chest Pain, No Palpitations, No Orthopnea, No Paroxysmal Noc. Dyspnea, No Edema, No Lt Headedness, No Other Gastrointestinal: No Nausea, No Vomiting, No Abdominal Pain, No Diarrhea, No Constipation, No Melena, No Hematochezia, No Other Genitourinary: No Dysuria, No Frequency, No Incontinence, No Hematuria, No Retention, No Discharge, No Urgency, No Pain, No Flank Pain, No Other, No , No , No , No , No , No , No Musculoskeletal: No Gait Disturbance, No Joint Pain, No Joint Stiffness, No Joint Swelling, No Muscle Pain, No Muscular Weakness, No Pain In:, No Swelling In:, No Other Neurological: No Behavorial Changes, No Bowel/Bladder ControlChng, No Confusion, No Dizziness, No Gait Disturbance, No Headaches, No Impaired Coord/balance, No Memory Loss, No Numbness/Tingling, No Seizures, No Speech Problems, No Tremors, No Visual Changes, No Weakness, No Other Skin: No Dry Skin, No Eczema, No Hair Changes, No Lumps, No Mole Changes, No Mottling, No Nail Changes, No Pruritus, No Rash, No Skin Lesion Changes, No Other, No Acne Physical Exam General: Alert, Oriented X3, Cooperative, mild distress, moderate distress HEENT: PERRLA, Mucous membr. moist/pink Lungs: Clear to auscultation, Normal air movement Heart: S1S2, no gallops Abdomen: Normal bowel sounds (obese), Soft Extremities: No cyanosis, Other (2+ bilat pedal edema) Skin: No rashes, Other (some redness to bilat shins, ) Neuro: Normal speech Psych/Mental Status: Mental status NL, Mood NL Vitals Vitals Vital Signs Date Time Temp Pulse Resp B/P (MAP) Pulse Ox O2 Delivery O2 Flow Rate FiO2 12/08/18 08:37 96 104/53 12/08/18 07:12 97.4 18 100 Nasal Cannula 5.0 97.4 Labs Labs Laboratory Tests Test 12/07/18 22:25 12/07/18 23:23 12/07/18 23:35 12/08/18 01:35 White Blood Count 6.6 x10^3/uL (4.0-11.0) Red Blood Count 3.57 x10^6/uL (3.50-5.40) Hemoglobin 11.3 g/dL (12.0-15.5) Hematocrit 34.0 % (36.0-47.0) Mean Corpuscular Volume 95 fL (79-100) Mean Corpuscular Hemoglobin 32 pg (25-35) Mean Corpuscular Hemoglobin Concent 33 g/dL (31-37) Red Cell Distribution Width 14.8 % (11.5-14.5) Platelet Count 175 x10^3/uL (140-400) Neutrophils (%) (Auto) 72 % (31-73) Lymphocytes (%) (Auto) 16 % (24-48) Monocytes (%) (Auto) 8 % (0-9) Eosinophils (%) (Auto) 4 % (0-3) Basophils (%) (Auto) 1 % (0-3) Neutrophils # (Auto) 4.7 x10^3/uL (1.8-7.7) Lymphocytes # (Auto) 1.0 x10^3/uL (1.0-4.8) Monocytes # (Auto) 0.5 x10^3/uL (0.0-1.1) Eosinophils # (Auto) 0.3 x10^3/uL (0.0-0.7) Basophils # (Auto) 0.0 x10^3/uL (0.0-0.2) Prothrombin Time 14.4 SEC (11.7-14.0) Prothromb Time International Ratio 1.2 (0.8-1.1) Sodium Level 141 mmol/L (136-145) Potassium Level 3.4 mmol/L (3.5-5.1) Chloride Level 100 mmol/L (98-107) Carbon Dioxide Level 24 mmol/L (21-32) Anion Gap 17 (6-14) Blood Urea Nitrogen 40 mg/dL (7-20) Creatinine 2.4 mg/dL (0.6-1.0) Estimated GFR (Cockcroft-Gault) 20.5 BUN/Creatinine Ratio 17 (6-20) Glucose Level 175 mg/dL (70-99) Lactic Acid Level 3.0 mmol/L (0.4-2.0) 2.0 mmol/L (0.4-2.0) Calcium Level 9.5 mg/dL (8.5-10.1) Magnesium Level 2.3 mg/dL (1.8-2.4) Total Bilirubin 1.7 mg/dL (0.2-1.0) Aspartate Amino Transf (AST/SGOT) 42 U/L (15-37) Alanine Aminotransferase (ALT/SGPT) 20 U/L (14-59) Alkaline Phosphatase 160 U/L (46-116) TR-Ieo-O-Type Natriuretic Peptide 8975 pg/mL (0-124) Total Protein 8.2 g/dL (6.4-8.2) Albumin 3.6 g/dL (3.4-5.0) Albumin/Globulin Ratio 0.8 (1.0-1.7) Lipase 115 U/L (73-393) O2 Saturation 97 % (92-99) Arterial Blood pH 7.41 (7.35-7.45) Arterial Blood pCO2 at Patient Temp 41 mmHg (35-46) Arterial Blood pO2 at Patient Temp 93 mmHg (65-108) Arterial Blood HCO3 26 mmol/L (21-28) Arterial Blood Base Excess 1 mmol/L (-3-3) Oxyhemoglobin 96.0 % Methemoglobin 0.5 % (0.0-1.9) Carbon Monoxide, Quantitative 0.3 % (0.0-1.9) FiO2 50 Urine Collection Type Unknown Urine Color Yellow Urine Clarity Clear Urine pH 5.5 Urine Specific [place] 1.015 Urine Protein Negative mg/dL (NEG-TRACE) Urine Glucose (UA) Negative mg/dL (NEG) Urine Ketones (Stick) Negative mg/dL (NEG) Urine Blood Negative (NEG) Urine Nitrite Negative (NEG) Urine Bilirubin Negative (NEG) Urine Urobilinogen Dipstick 0.2 mg/dL (0.2 mg/dL) Urine Leukocyte Esterase Negative (NEG) Urine RBC Occ /HPF (0-2) Urine WBC 1-4 /HPF (0-4) Urine Squamous Epithelial Cells Many /LPF Urine Amorphous Sediment Present /HPF Urine Bacteria 0 /HPF (0-FEW) Urine Hyaline Casts Moderate /HPF Urine Granular Casts Occasional /HPF Urine Mucus Mod /LPF Test 12/08/18 07:14 Glucose (Fingerstick) 119 mg/dL (70-99) Laboratory Tests Test 12/07/18 22:25 12/07/18 23:23 12/07/18 23:35 12/08/18 01:35 White Blood Count 6.6 x10^3/uL (4.0-11.0) Red Blood Count 3.57 x10^6/uL (3.50-5.40) Hemoglobin 11.3 g/dL (12.0-15.5) Hematocrit 34.0 % (36.0-47.0) Mean Corpuscular Volume 95 fL (79-100) Mean Corpuscular Hemoglobin 32 pg (25-35) Mean Corpuscular Hemoglobin Concent 33 g/dL (31-37) Red Cell Distribution Width 14.8 % (11.5-14.5) Platelet Count 175 x10^3/uL (140-400) Neutrophils (%) (Auto) 72 % (31-73) Lymphocytes (%) (Auto) 16 % (24-48) Monocytes (%) (Auto) 8 % (0-9) Eosinophils (%) (Auto) 4 % (0-3) Basophils (%) (Auto) 1 % (0-3) Neutrophils # (Auto) 4.7 x10^3/uL (1.8-7.7) Lymphocytes # (Auto) 1.0 x10^3/uL (1.0-4.8) Monocytes # (Auto) 0.5 x10^3/uL (0.0-1.1) Eosinophils # (Auto) 0.3 x10^3/uL (0.0-0.7) Basophils # (Auto) 0.0 x10^3/uL (0.0-0.2) Prothrombin Time 14.4 SEC (11.7-14.0) Prothromb Time International Ratio 1.2 (0.8-1.1) Sodium Level 141 mmol/L (136-145) Potassium Level 3.4 mmol/L (3.5-5.1) Chloride Level 100 mmol/L (98-107) Carbon Dioxide Level 24 mmol/L (21-32) Anion Gap 17 (6-14) Blood Urea Nitrogen 40 mg/dL (7-20) Creatinine 2.4 mg/dL (0.6-1.0) Estimated GFR (Cockcroft-Gault) 20.5 BUN/Creatinine Ratio 17 (6-20) Glucose Level 175 mg/dL (70-99) Lactic Acid Level 3.0 mmol/L (0.4-2.0) 2.0 mmol/L (0.4-2.0) Calcium Level 9.5 mg/dL (8.5-10.1) Magnesium Level 2.3 mg/dL (1.8-2.4) Total Bilirubin 1.7 mg/dL (0.2-1.0) Aspartate Amino Transf (AST/SGOT) 42 U/L (15-37) Alanine Aminotransferase (ALT/SGPT) 20 U/L (14-59) Alkaline Phosphatase 160 U/L (46-116) LW-Pqx-P-Type Natriuretic Peptide 8975 pg/mL (0-124) Total Protein 8.2 g/dL (6.4-8.2) Albumin 3.6 g/dL (3.4-5.0) Albumin/Globulin Ratio 0.8 (1.0-1.7) Lipase 115 U/L (73-393) O2 Saturation 97 % (92-99) Arterial Blood pH 7.41 (7.35-7.45) Arterial Blood pCO2 at Patient Temp 41 mmHg (35-46) Arterial Blood pO2 at Patient Temp 93 mmHg (65-108) Arterial Blood HCO3 26 mmol/L (21-28) Arterial Blood Base Excess 1 mmol/L (-3-3) Oxyhemoglobin 96.0 % Methemoglobin 0.5 % (0.0-1.9) Carbon Monoxide, Quantitative 0.3 % (0.0-1.9) FiO2 50 Urine Collection Type Unknown Urine Color Yellow Urine Clarity Clear Urine pH 5.5 Urine Specific [place] 1.015 Urine Protein Negative mg/dL (NEG-TRACE) Urine Glucose (UA) Negative mg/dL (NEG) Urine Ketones (Stick) Negative mg/dL (NEG) Urine Blood Negative (NEG) Urine Nitrite Negative (NEG) Urine Bilirubin Negative (NEG) Urine Urobilinogen Dipstick 0.2 mg/dL (0.2 mg/dL) Urine Leukocyte Esterase Negative (NEG) Urine RBC Occ /HPF (0-2) Urine WBC 1-4 /HPF (0-4) Urine Squamous Epithelial Cells Many /LPF Urine Amorphous Sediment Present /HPF Urine Bacteria 0 /HPF (0-FEW) Urine Hyaline Casts Moderate /HPF Urine Granular Casts Occasional /HPF Urine Mucus Mod /LPF Test 12/08/18 07:14 Glucose (Fingerstick) 119 mg/dL (70-99) VTE Prophylaxis Ordered VTE Prophylaxis Devices: No VTE Pharmacological Prophylaxi: Yes Assessment/Plan Assessment/Plan acute hypoxic respiratory failure CHF, acute combined failure, morbid obesity, BMI 55 Acute on chronic renal failure, has been overusing NSAID for pain recently recently cellulitis left leg, completing clinda script and leg has improved over the past week KERI PENALOZA MD Dec 08, 2018 09:11
[2018-12-08] MEDS ORDERED: POTASSIUM CHLORIDE 20 MEQ TABLET.ER. PO ONE ×2 (09:30→13:30)
--- NOTE | 2018-12-08 10:43 | RAD ---
Examination: RENAL COMPLETE BILATERAL History: Acute renal failure Comparison/Correlation: None Findings: Right kidney measures 7.1 cm x 4.6 x 5.7 cm. Left kidney measures 12.5 cm x 5.4 cm x 6.1 cm. No hydronephrosis. Renal contours and echotexture are unremarkable. Right renal cortex is mildly diffusely echogenic. Left renal cortex is borderline. No renal calculi suggested. The urinary bladder is decompressed with a Mac catheter present. Impression: No hydronephrosis. Renal echotexture which may represent early chronic medical renal disease. Electronically signed by: Prakash Weeks MD (12/08/2018 10:40 AM) [facility]
--- NOTE | 2018-12-08 10:56 | PDOC2 ---
CONSULT Date of Consult Date of Consult DATE: 12/08/18 TIME: 10:18 Reason for Consult Reason for Consult: IZAIAH Source Source: Chart review, Patient History of Present Illness Reason for Visit: Patient is a 63 year old CF who presents to the due to chief complaint of shortness of breath and chest pain. Patient states that she is of the symptoms all day yesterday. Worse after she finished her work. Patient states that she has gained 20 pounds and her last 1-2 months. Patient denies history of COPD or asthma. She has DM and is on metformin and has HTN - on metoprolol. She states she was not on diuretics but yesterday her PCP ordered PO Lasix and KCL , she picked it up but couldnt take it as hse came to the ER . She states that she has been taking Ibuprofen 800 mg tabs " bunch of them" for many years along with extra strength Tylenol - for Leg pain She was seen in [facility] ER on 10/09- Dx with LE cellulitis and dced on Abx. Cr at that time was 1.4 Pt reports her PCP has been following her renal function, she had labs done last week. She was advised to dc Ibuprofen yesterday denies urinary complaints. She states she had some Heart study done in PCP's office recently but was told it was normal Currently she is tearful, she states she is finding it hard to catch her breath. She cl a little better since admission but sob getting worse again has Mac Her approx 1 month back Past Medical History Cardiovascular: HTN Past Surgical History Past Surgical History: No pertinent history Family History Family History: Other Social History ALCOHOL: none Drugs: None Current Medications Current Medications Current Medications Furosemide (Lasix) 40 mg 1X ONCE IVP Last administered on 12/07/18at 22:56; Start 12/07/18 at 22:15; Stop 12/07/18 at 22:16; Status DC Albuterol/ Ipratropium (Duoneb) 3 ml STK-MED ONCE .ROUTE ; Start 12/07/18 at 22:14; Stop 12/07/18 at 22:14; Status DC Ceftriaxone Sodium (Rocephin) 1 gm 1X ONCE IVP Last administered on 12/07/18at 23:16; Start 12/07/18 at 23:15; Stop 12/07/18 at 23:16; Status DC Sodium Chloride 500 ml @ 500 mls/hr 1X ONCE IV Last administered on 12/07/18at 23:39; Start 12/07/18 at 23:45; Stop 12/08/18 at 00:44; Status DC Alprazolam (Xanax) 0.5 mg PRN Q8HRS PRN PO ANXIETY / AGITATION Last administered on 12/08/18at 04:23; Start 12/08/18 at 02:30 Oxycodone/ Acetaminophen (Percocet 5/325) 1 tab PRN Q4HRS PRN PO PAIN; Start 12/08/18 at 02:30 Clindamycin HCl (Cleocin) 450 mg TID PO Last administered on 12/08/18at 08:37; Start 12/08/18 at 09:00 Docusate Sodium (Colace) 100 mg BID PO ; Start 12/08/18 at 09:00 Furosemide (Lasix) 20 mg DAILY PO Last administered on 12/08/18at 08:34; Start 12/08/18 at 09:00 Gabapentin (Neurontin) 300 mg HS PO ; Start 12/08/18 at 21:00 Metformin HCl (Glucophage) 500 mg BIDWMEALS PO ; Start 12/08/18 at 08:00 Metoprolol Succinate (Toprol Xl) 100 mg DAILY PO Last administered on 12/08/18at 08:37; Start 12/08/18 at 09:00 Potassium Chloride (Klor-Con) 10 meq DAILYWBKFT PO Last administered on 12/08/18at 08:35; Start 12/08/18 at 08:00 Trazodone HCl (Desyrel) 50 mg PRN QHS PRN PO INSOMNIA; Start 12/08/18 at 02:30 Lisinopril (Prinivil) 20 mg DAILY PO ; Start 12/08/18 at 09:00 Pioglitazone HCl (Actos) 30 mg DAILY PO Last administered on 12/08/18at 08:40; Start 12/08/18 at 09:00 Potassium Chloride (Klor-Con) 20 meq 1X ONCE PO ; Start 12/08/18 at 09:30; Stop 12/08/18 at 09:35; Status DC Active Scripts Active Clindamycin Hcl 150 Mg Capsule 3 Cap PO TID Colace (Docusate Sodium) 100 Mg Capsule 100 Mg PO BID Reported Actos (Pioglitazone Hcl) 30 Mg Tablet 1 Tab PO DAILY 30 Days Benazepril Hcl 20 Mg Tablet 1 Tab PO DAILY Gabapentin (Gabapentin) 300 Mg Capsule 300 Mg PO HS Metformin Hcl 500 Mg Tablet 500 Mg PO BIDWMEALS Furosemide 20 Mg Tablet 1 Tab PO DAILY Potassium Chloride 10 Meq Tab.sr.24h 10 Meq PO DAILY Trazodone Hcl 50 Mg Tablet 1-2 Tab PO PRN QHS PRN Metoprolol Succinate ( Xl ) (Metoprolol Succinate) 100 Mg Tab.er.24h 1 Tab PO DAILY Allergies Allergies: Coded Allergies: No Known Drug Allergies (Unverified , 12/07/18) ROS Review of System Per HPI, rest negative Physical Exam Physical Exam GEN: Mild distress HEEN: OM moist, O2 by NC NECK: Supple CVS: RRR, ROSSI + RESP: CTA, mild labored breathing GI: BS + ve Non Tender,obese : No CVA tenderness, No Suprapubic Tenderness, Mac+ NEURO- Grossly normal SKIN- No rash EXT- LE edema 1 +, Changes of CVI +, Vital Signs Vital Signs Date Time Temp Pulse Resp B/P (MAP) Pulse Ox O2 Delivery O2 Flow Rate FiO2 12/08/18 08:37 96 104/53 12/08/18 07:12 97.4 18 100 Nasal Cannula 5.0 97.4 Assessment & Plan IZAIAH - Cardiorenal / Longstanding use of NSAID's UA unremarkable - No micr hematuria, No Protein, NO Hx of recent contrast study per pt Cr in 02.20- done in [facility] ER Renal US pending , labs ordered - pending , Hold Lisinopril , she vinay not start taking lasix PO (Started by PCP on 12/07) Supportive care, I/O, daily weight (standing if possible) , Monitor Hypokalemia- mild , replace as needed CHF- No Hx of CAD per pt Will give 1 dose of Lasix IV now, monitor response , May need IV lasix drip Diuretics and further management per cardiology per cardiology DM- recommend DC Metformin Management per primary HTN - Hypotensive currently ? PVD - Bilat LE Leg pain, CVI Elevated Lft's Discussed A/P with Pt and RN Labs Labs Laboratory Tests Test 12/07/18 22:25 12/07/18 23:23 12/07/18 23:35 12/08/18 01:35 White Blood Count 6.6 x10^3/uL (4.0-11.0) Red Blood Count 3.57 x10^6/uL (3.50-5.40) Hemoglobin 11.3 g/dL (12.0-15.5) Hematocrit 34.0 % (36.0-47.0) Mean Corpuscular Volume 95 fL (79-100) Mean Corpuscular Hemoglobin 32 pg (25-35) Mean Corpuscular Hemoglobin Concent 33 g/dL (31-37) Red Cell Distribution Width 14.8 % (11.5-14.5) Platelet Count 175 x10^3/uL (140-400) Neutrophils (%) (Auto) 72 % (31-73) Lymphocytes (%) (Auto) 16 % (24-48) Monocytes (%) (Auto) 8 % (0-9) Eosinophils (%) (Auto) 4 % (0-3) Basophils (%) (Auto) 1 % (0-3) Neutrophils # (Auto) 4.7 x10^3/uL (1.8-7.7) Lymphocytes # (Auto) 1.0 x10^3/uL (1.0-4.8) Monocytes # (Auto) 0.5 x10^3/uL (0.0-1.1) Eosinophils # (Auto) 0.3 x10^3/uL (0.0-0.7) Basophils # (Auto) 0.0 x10^3/uL (0.0-0.2) Prothrombin Time 14.4 SEC (11.7-14.0) Prothromb Time International Ratio 1.2 (0.8-1.1) Sodium Level 141 mmol/L (136-145) Potassium Level 3.4 mmol/L (3.5-5.1) Chloride Level 100 mmol/L (98-107) Carbon Dioxide Level 24 mmol/L (21-32) Anion Gap 17 (6-14) Blood Urea Nitrogen 40 mg/dL (7-20) Creatinine 2.4 mg/dL (0.6-1.0) Estimated GFR (Cockcroft-Gault) 20.5 BUN/Creatinine Ratio 17 (6-20) Glucose Level 175 mg/dL (70-99) Lactic Acid Level 3.0 mmol/L (0.4-2.0) 2.0 mmol/L (0.4-2.0) Calcium Level 9.5 mg/dL (8.5-10.1) Magnesium Level 2.3 mg/dL (1.8-2.4) Total Bilirubin 1.7 mg/dL (0.2-1.0) Aspartate Amino Transf (AST/SGOT) 42 U/L (15-37) Alanine Aminotransferase (ALT/SGPT) 20 U/L (14-59) Alkaline Phosphatase 160 U/L (46-116) WL-Gua-R-Type Natriuretic Peptide 8975 pg/mL (0-124) Total Protein 8.2 g/dL (6.4-8.2) Albumin 3.6 g/dL (3.4-5.0) Albumin/Globulin Ratio 0.8 (1.0-1.7) Lipase 115 U/L (73-393) O2 Saturation 97 % (92-99) Arterial Blood pH 7.41 (7.35-7.45) Arterial Blood pCO2 at Patient Temp 41 mmHg (35-46) Arterial Blood pO2 at Patient Temp 93 mmHg (65-108) Arterial Blood HCO3 26 mmol/L (21-28) Arterial Blood Base Excess 1 mmol/L (-3-3) Oxyhemoglobin 96.0 % Methemoglobin 0.5 % (0.0-1.9) Carbon Monoxide, Quantitative 0.3 % (0.0-1.9) FiO2 50 Urine Collection Type Unknown Urine Color Yellow Urine Clarity Clear Urine pH 5.5 Urine Specific [place] 1.015 Urine Protein Negative mg/dL (NEG-TRACE) Urine Glucose (UA) Negative mg/dL (NEG) Urine Ketones (Stick) Negative mg/dL (NEG) Urine Blood Negative (NEG) Urine Nitrite Negative (NEG) Urine Bilirubin Negative (NEG) Urine Urobilinogen Dipstick 0.2 mg/dL (0.2 mg/dL) Urine Leukocyte Esterase Negative (NEG) Urine RBC Occ /HPF (0-2) Urine WBC 1-4 /HPF (0-4) Urine Squamous Epithelial Cells Many /LPF Urine Amorphous Sediment Present /HPF Urine Bacteria 0 /HPF (0-FEW) Urine Hyaline Casts Moderate /HPF Urine Granular Casts Occasional /HPF Urine Mucus Mod /LPF Test 12/08/18 07:14 Glucose (Fingerstick) 119 mg/dL (70-99) Laboratory Tests Test 12/07/18 22:25 12/07/18 23:23 12/07/18 23:35 12/08/18 01:35 White Blood Count 6.6 x10^3/uL (4.0-11.0) Red Blood Count 3.57 x10^6/uL (3.50-5.40) Hemoglobin 11.3 g/dL (12.0-15.5) Hematocrit 34.0 % (36.0-47.0) Mean Corpuscular Volume 95 fL (79-100) Mean Corpuscular Hemoglobin 32 pg (25-35) Mean Corpuscular Hemoglobin Concent 33 g/dL (31-37) Red Cell Distribution Width 14.8 % (11.5-14.5) Platelet Count 175 x10^3/uL (140-400) Neutrophils (%) (Auto) 72 % (31-73) Lymphocytes (%) (Auto) 16 % (24-48) Monocytes (%) (Auto) 8 % (0-9) Eosinophils (%) (Auto) 4 % (0-3) Basophils (%) (Auto) 1 % (0-3) Neutrophils # (Auto) 4.7 x10^3/uL (1.8-7.7) Lymphocytes # (Auto) 1.0 x10^3/uL (1.0-4.8) Monocytes # (Auto) 0.5 x10^3/uL (0.0-1.1) Eosinophils # (Auto) 0.3 x10^3/uL (0.0-0.7) Basophils # (Auto) 0.0 x10^3/uL (0.0-0.2) Prothrombin Time 14.4 SEC (11.7-14.0) Prothromb Time International Ratio 1.2 (0.8-1.1) Sodium Level 141 mmol/L (136-145) Potassium Level 3.4 mmol/L (3.5-5.1) Chloride Level 100 mmol/L (98-107) Carbon Dioxide Level 24 mmol/L (21-32) Anion Gap 17 (6-14) Blood Urea Nitrogen 40 mg/dL (7-20) Creatinine 2.4 mg/dL (0.6-1.0) Estimated GFR (Cockcroft-Gault) 20.5 BUN/Creatinine Ratio 17 (6-20) Glucose Level 175 mg/dL (70-99) Lactic Acid Level 3.0 mmol/L (0.4-2.0) 2.0 mmol/L (0.4-2.0) Calcium Level 9.5 mg/dL (8.5-10.1) Magnesium Level 2.3 mg/dL (1.8-2.4) Total Bilirubin 1.7 mg/dL (0.2-1.0) Aspartate Amino Transf (AST/SGOT) 42 U/L (15-37) Alanine Aminotransferase (ALT/SGPT) 20 U/L (14-59) Alkaline Phosphatase 160 U/L (46-116) MC-Qwi-A-Type Natriuretic Peptide 8975 pg/mL (0-124) Total Protein 8.2 g/dL (6.4-8.2) Albumin 3.6 g/dL (3.4-5.0) Albumin/Globulin Ratio 0.8 (1.0-1.7) Lipase 115 U/L (73-393) O2 Saturation 97 % (92-99) Arterial Blood pH 7.41 (7.35-7.45) Arterial Blood pCO2 at Patient Temp 41 mmHg (35-46) Arterial Blood pO2 at Patient Temp 93 mmHg (65-108) Arterial Blood HCO3 26 mmol/L (21-28) Arterial Blood Base Excess 1 mmol/L (-3-3) Oxyhemoglobin 96.0 % Methemoglobin 0.5 % (0.0-1.9) Carbon Monoxide, Quantitative 0.3 % (0.0-1.9) FiO2 50 Urine Collection Type Unknown Urine Color Yellow Urine Clarity Clear Urine pH 5.5 Urine Specific [place] 1.015 Urine Protein Negative mg/dL (NEG-TRACE) Urine Glucose (UA) Negative mg/dL (NEG) Urine Ketones (Stick) Negative mg/dL (NEG) Urine Blood Negative (NEG) Urine Nitrite Negative (NEG) Urine Bilirubin Negative (NEG) Urine Urobilinogen Dipstick 0.2 mg/dL (0.2 mg/dL) Urine Leukocyte Esterase Negative (NEG) Urine RBC Occ /HPF (0-2) Urine WBC 1-4 /HPF (0-4) Urine Squamous Epithelial Cells Many /LPF Urine Amorphous Sediment Present /HPF Urine Bacteria 0 /HPF (0-FEW) Urine Hyaline Casts Moderate /HPF Urine Granular Casts Occasional /HPF Urine Mucus Mod /LPF Test 12/08/18 07:14 Glucose (Fingerstick) 119 mg/dL (70-99) Review All relevant outside records, renal labs, imaging studies, telemetry/EKG's were reviewed. Images Images Heart is moderately enlarged in size. Diffuse interstitial opacities. No pneumothorax or large pleural effusion. Visualized bony thorax within normal limits. IMPRESSION: Findings of acute CHF. ROE SIDDIQI MD Dec 08, 2018 10:56
[2018-12-08] MEDS ORDERED: FUROSEMIDE 40 MG/4 ML VIAL. IVP ONE (11:00)
[2018-12-08 11:31] LABS: CREATININE,RANDOM URINE 59.2 mg/dL (Not Establ.)
[2018-12-08 11:58] LABS: CALCIUM 9.2 mg/dL (8.5-10.1); CREATININE 1.8 mg/dL (0.6-1.0); GFR 28.5
--- NOTE | 2018-12-08 12:16 | NUR ---
SS following for discharge planning. SS reviewed pt chart. Pt is from home and is currently requiring oxygen. SS will continue to follow for discharge planning.
--- NOTE | 2018-12-08 12:56 | PDOC2 ---
[facility] OUTSOLE SPLICER 12/08/18 1256: CARDIAC CONSULT DATE OF CONSULT Date of Consult DATE: 12/08/18 TIME: 12:49 REASON FOR CONSULT Reason for Consult: CHF REFERRING PHYSICIAN Referring Physician: Jett SOURCE Source: Chart review, Patient HISTORY OF PRESENT ILLNESS HISTORY OF PRESENT ILLNESS This is a teary 63 yo female admitted for complains of shortness of breath and chest pressure. Reports that she started having more shortness of breath yesterday. This is worse with exertion. Denies any PND or orthpnes prior to yesterday. Her respiration improved with bipap and lasix. Though she was having this she went to work. 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 She was going up the steps and was so SOA. She sat down and her breathing was better. This continued on though and was worse again at home and was having chest pressure. No palpitations, diaphoresis, nausea or vomiting. In the last 1-2 months it has been difficult for her. She has been having significant bilateral leg pain mainly to knees and has been having difficulty walking. Due to this she has been taking ibuprofen at least 2400 mg total daily in addition to tylenol. Also has been having BLAIR as well. She recently was treated for leg cellulitis. This was on 10/09 and was given lasix and took it for10 days. She has been tearful with her recently after being in [facility] after a CABG in . She has been teary while I was talking to her getting reminded by her passing with his birthday this week. No hx of PETE, CAD, arrhythmias. She does not remember having any stress test nor imaging to her knees. She had an echocardiogram per her description just got done at [facility]. She has not seen any power lineman in the past. PAST MEDICAL HISTORY Cardiovascular: HTN Pulmonary: No pertinent hx CENTRAL NERVOUS SYSTEM: Other (No pertinent history) GI: No pertinent hx Heme/Onc: Anemia NOS Hepatobiliary: No pertinent hx Psych: No pertinent hx Musculoskeletal: Osteoarthritis Rheumatologic: No pertinent hx Infectious disease: Other (recent LE cellulitis) ENT: No pertinent hx Renal/: Chronic renal insuff Endocrine: Diabetes (2) Dermatology: No pertinent hx PAST SURGICAL HISTORY Past Surgical History: , Hysterectomy, Other (breast surgery) FAMILY HISTORY Family History noncontributory SOCIAL HISTORY Smoke: No ALCOHOL: social Drugs: None Lives: Alone CURRENT MEDICATIONS CURRENT MEDICATIONS Current Medications Medications (Trade) Dose Ordered Sig/Elizabeth Route PRN Reason Start Time Stop Time Status Last Admin Dose Admin Furosemide (Lasix) 40 mg 1X ONCE IVP 12/07/18 22:15 12/07/18 22:16 DC 12/07/18 22:56 Ceftriaxone Sodium (Rocephin) 1 gm 1X ONCE IVP 12/07/18 23:15 12/07/18 23:16 DC 12/07/18 23:16 Sodium Chloride 500 ml @ 500 mls/hr 1X ONCE IV 12/07/18 23:45 12/08/18 00:44 DC 12/07/18 23:39 Alprazolam (Xanax) 0.5 mg PRN Q8HRS PRN PO ANXIETY / AGITATION 12/08/18 02:30 12/08/18 11:47 Clindamycin HCl (Cleocin) 450 mg TID PO 12/08/18 09:00 12/08/18 08:37 Furosemide (Lasix) 20 mg DAILY PO 12/08/18 09:00 12/08/18 08:34 Metoprolol Succinate (Toprol Xl) 100 mg DAILY PO 12/08/18 09:00 12/08/18 08:37 Potassium Chloride (Klor-Con) 10 meq DAILYWBKFT PO 12/08/18 08:00 12/08/18 08:35 Pioglitazone HCl (Actos) 30 mg DAILY PO 12/08/18 09:00 12/08/18 08:40 Potassium Chloride (Klor-Con) 20 meq 1X ONCE PO 12/08/18 09:30 12/08/18 09:35 DC 12/08/18 11:42 Furosemide (Lasix) 40 mg 1X ONCE IVP 12/08/18 11:00 12/08/18 11:01 DC 12/08/18 11:42 ALLERGIES ALLERGIES: Coded Allergies: No Known Drug Allergies (Unverified , 12/07/18) ROS Review of System 14 point ROS evaluated with pertinent positives noted per HPI PHYSICAL EXAM General: Alert, Oriented X3, Cooperative, No acute distress HEENT: Atraumatic, Mucous membr. moist/pink Lungs: Other (bibasilar crackles) Heart: Regular rate (SR), Other (distant heart sounds) Abdomen: Soft, Other (obese) Extremities: No cyanosis, Other (2-3+ bilateral LE pitting edema) Skin: Other (venous dermatitis) Neuro: Normal speech, Sensation intact Psych/Mental Status: Mental status NL, Other (teary, anxious) MUSCULOSKELETAL: Osteoarthritic changes both hands VITALS/I&O VITALS/I&O: Vital Signs Date Time Temp Pulse Resp B/P (MAP) Pulse Ox O2 Delivery O2 Flow Rate FiO2 12/08/18 11:00 97.6 83 24 125/55 (78) 96 Nasal Cannula 5.0 97.6 I & O 12/07/18 12/07/18 12/08/18 14:59 22:59 06:59 Intake Total 180 ml Output Total 1750 ml Balance -1570 ml LABS Lab: Laboratory Tests Test 12/07/18 22:25 12/07/18 23:23 12/07/18 23:35 12/08/18 01:35 White Blood Count 6.6 x10^3/uL (4.0-11.0) Red Blood Count 3.57 x10^6/uL (3.50-5.40) Hemoglobin 11.3 g/dL (12.0-15.5) L Hematocrit 34.0 % (36.0-47.0) L Mean Corpuscular Volume 95 fL (79-100) Mean Corpuscular Hemoglobin 32 pg (25-35) Mean Corpuscular Hemoglobin Concent 33 g/dL (31-37) Red Cell Distribution Width 14.8 % (11.5-14.5) H Platelet Count 175 x10^3/uL (140-400) Neutrophils (%) (Auto) 72 % (31-73) Lymphocytes (%) (Auto) 16 % (24-48) L Monocytes (%) (Auto) 8 % (0-9) Eosinophils (%) (Auto) 4 % (0-3) H Basophils (%) (Auto) 1 % (0-3) Neutrophils # (Auto) 4.7 x10^3/uL (1.8-7.7) Lymphocytes # (Auto) 1.0 x10^3/uL (1.0-4.8) Monocytes # (Auto) 0.5 x10^3/uL (0.0-1.1) Eosinophils # (Auto) 0.3 x10^3/uL (0.0-0.7) Basophils # (Auto) 0.0 x10^3/uL (0.0-0.2) Prothrombin Time 14.4 SEC (11.7-14.0) H Prothrombin Time INR 1.2 (0.8-1.1) H Sodium Level 141 mmol/L (136-145) Potassium Level 3.4 mmol/L (3.5-5.1) L Chloride Level 100 mmol/L (98-107) Carbon Dioxide Level 24 mmol/L (21-32) Anion Gap 17 (6-14) H Blood Urea Nitrogen 40 mg/dL (7-20) H Creatinine 2.4 mg/dL (0.6-1.0) H Estimated GFR (Cockcroft-Gault) 20.5 BUN/Creatinine Ratio 17 (6-20) Glucose Level 175 mg/dL (70-99) H Lactic Acid Level 3.0 mmol/L (0.4-2.0) H 2.0 mmol/L (0.4-2.0) Calcium Level 9.5 mg/dL (8.5-10.1) Magnesium Level 2.3 mg/dL (1.8-2.4) Total Bilirubin 1.7 mg/dL (0.2-1.0) H Aspartate Amino Transferase (AST) 42 U/L (15-37) H Alanine Aminotransferase (ALT) 20 U/L (14-59) Alkaline Phosphatase 160 U/L (46-116) H PX-Ebg-L-Type Natriuretic Peptide 8975 pg/mL (0-124) H Total Protein 8.2 g/dL (6.4-8.2) Albumin 3.6 g/dL (3.4-5.0) Albumin/Globulin Ratio 0.8 (1.0-1.7) L Lipase 115 U/L (73-393) O2 Saturation 97 % (92-99) Arterial Blood pH 7.41 (7.35-7.45) Arterial Blood pCO2 at Patient Temp 41 mmHg (35-46) Arterial Blood pO2 at Patient Temp 93 mmHg (65-108) Arterial Blood HCO3 26 mmol/L (21-28) Arterial Blood Base Excess 1 mmol/L (-3-3) Oxyhemoglobin 96.0 % Methemoglobin 0.5 % (0.0-1.9) Carbon Monoxide, Quantitative 0.3 % (0.0-1.9) FiO2 50 Urine Collection Type Unknown Urine Color Yellow Urine Clarity Clear Urine pH 5.5 Urine Specific [place] 1.015 Urine Protein Negative mg/dL (NEG-TRACE) Urine Glucose (UA) Negative mg/dL (NEG) Urine Ketones (Stick) Negative mg/dL (NEG) Urine Blood Negative (NEG) Urine Nitrite Negative (NEG) Urine Bilirubin Negative (NEG) Urine Urobilinogen Dipstick 0.2 mg/dL (0.2 mg/dL) Urine Leukocyte Esterase Negative (NEG) Urine RBC Occ /HPF (0-2) Urine WBC 1-4 /HPF (0-4) Urine Squamous Epithelial Cells Many /LPF Urine Amorphous Sediment Present /HPF Urine Bacteria 0 /HPF (0-FEW) Urine Hyaline Casts Moderate /HPF Urine Granular Casts Occasional /HPF Urine Mucus Mod /LPF Test 12/08/18 07:14 12/08/18 10:22 12/08/18 11:30 12/08/18 12:13 Glucose (Fingerstick) 119 mg/dL (70-99) H 126 mg/dL (70-99) H Urine Random Creatinine 59.2 mg/dL (Not Establ.) Urine Random Total Protein 16.7 mg/dL (Not Establ.) Sodium Level 142 mmol/L (136-145) Potassium Level 3.0 mmol/L (3.5-5.1) L Chloride Level 103 mmol/L (98-107) Carbon Dioxide Level 31 mmol/L (21-32) Anion Gap 8 (6-14) Blood Urea Nitrogen 33 mg/dL (7-20) H Creatinine 1.8 mg/dL (0.6-1.0) H Estimated GFR (Cockcroft-Gault) 28.5 Glucose Level 134 mg/dL (70-99) H Calcium Level 9.2 mg/dL (8.5-10.1) Laboratory Tests 12/07/18 22:25 Laboratory Tests 12/07/18 22:25 12/08/18 11:30 ASSESSMENT/PLAN ASSESSMENT/PLAN 1. Acute CHF likely on chronic with possible diastolic dysfunction 2. Accelerated HTN: now controlled 3. IZAIAH on CKD: prerenal with possible ATN component with noted meds as below 4. Chest pain: could not rule out underlying ischemia. Presently CP free. 5. NSTEMI: multifactorial 6. Chronic high dose NSAID use: due to knee pain 7. Accelerated HTN: uses benazapril at home 8. DM2: uses metformin 9. Grief: spouse 1 month ago 10. Morbid obesity 11. Leg/knee pain/swelling: likely severe OA. Defer to PCP 12. Suspecting undiagnosed PETE 13. HLP: not on statin at home. Recommendations 1. No further NSAIDs. Stop ACEi for now. Stop metformin and actos 2. Obtain TTE from [facility]. LE Venous doppler today. 3. ASA. Start on heparin protocol 4. Lasix therapy. Replace K 5. Bipap at hs and PRN. 6. Future ischemic workup pending her renal function 7. Will need outpt PETE workup 8. TSH, trend troponin DIONNA GOMEZ MD 12/08/18 5305: CARDIAC CONSULT ASSESSMENT/PLAN ASSESSMENT/PLAN Patient seen and examined. Agree with above nurse practitioner note 63-year-old woman with multiple comorbidities as noted above. She has signs of acute on chronic decompensated heart failure. Await outside hospital studies. Continue aggressive medical therapy with consideration of cardiac catheterization in the next 24-48 hours after stabilization of her renal functio nLOS OSCAR APRN Dec 08, 2018 12:56 DIONNA GOMEZ MD Dec 08, 2018 16:55
[2018-12-08 13:27] LABS: CHOLESTEROL/HDL RATIO 5.3
[2018-12-08] MEDS ORDERED: ASPIRIN ENTERIC COATED 325 MG TABLET.DR. PO ONE (13:30)
[2018-12-08] MEDS ORDERED: HEPARIN for IV BOLUS 10,000 UNIT/10 ML VIAL. IV PRN (13:45)
[2018-12-08] MEDS: LACTOBACILLUS RHAMNOSUS GG 1 CAPSULE. PO SCH ×2 (14:35→20:44)
[2018-12-08] MEDS: HEPARIN 25,000UTS/500ML PREMIX 500 ML IV PRN (14:54)
[2018-12-08] MEDS: FUROSEMIDE 20 MG/2 ML VIAL. IVP SCH (16:00)
[2018-12-08] MEDS: GABAPENTIN 300 MG CAPSULE. PO SCH (20:44)
[2018-12-08] MEDS: ATORVASTATIN CALCIUM 20 MG TABLET PO SCH (20:44)
[2018-12-08] MEDS: traZODone 50 MG TABLET. PO PRN (20:44)
[2018-12-09 00:07] LABS: HEMOGLOBIN A1C 5.1 % (4.8-5.6)
[2018-12-09 03:00] VITALS: BP 136/67
[2018-12-09 05:07] LABS: ALBUMIN 2.9 g/dL (3.4-5.0); ALBUMIN/GLOBULIN RATIO 0.7 (1.0-1.7); CREATININE 1.4 mg/dL (0.6-1.0); GFR 38.1; TOTAL BILIRUBIN 1.7 mg/dL (0.2-1.0); TOTAL PROTEIN 6.9 g/dL (6.4-8.2)
[2018-12-09 05:12] LABS: BASO % 1 % (0-3); EOS # 0.2 x10^3/uL (0.0-0.7); EOS % 4 % (0-3); HEMATOCRIT 29.2 % (36.0-47.0); HEMOGLOBIN 9.9 g/dL (12.0-15.5); LYMPH # 1.1 x10^3/uL (1.0-4.8); LYMPH % 20 % (24-48); MEAN CORPUSCULAR HEMOGLOBIN 32 pg (25-35); MEAN CORPUSCULAR HGB CONC 34 g/dL (31-37); MEAN CORPUSCULAR VOLUME 96 fL (79-100); MONO # 0.6 x10^3/uL (0.0-1.1); MONO % 10 % (0-9); NEUT # 3.6 x10^3/uL (1.8-7.7); NEUT % 65 % (31-73); PLATELET COUNT 118 x10^3/uL (140-400); RED BLOOD COUNT 3.04 x10^6/uL (3.50-5.40); RED CELL DISTRIBUTION WIDTH 14.3 % (11.5-14.5); WHITE BLOOD COUNT 5.5 x10^3/uL (4.0-11.0)
[2018-12-09 05:16] LABS: POTASSIUM 2.8 mmol/L (3.5-5.1)
--- NOTE | 2018-12-09 05:38 | NUR ---
pt potassium 2.8 awaiting return call from dr daniels. will cont to monitor status and safety. pmrn
--- NOTE | 2018-12-09 05:47 | NUR ---
DR FLORIAN RETURN CALL NOTIFIED POTASSIUM 2.8 NEW ORDER GIVEN FOR 40MEQ PO X1 NOW , THEN GIVE 40 MEQ PO BID. WILL CONT TO MONITOR PT STATUS AND SAFETY PMRN
[2018-12-09] MEDS ORDERED: POTASSIUM CHLORIDE 20 MEQ TABLET.ER. PO ONE ×2 (06:00→13:00)
[2018-12-09 07:26] VITALS: BP 124/59
[2018-12-09] MEDS ORDERED: MAGNESIUM SULFATE 2GM 50 ML IV ONE (08:30)
[2018-12-09] MEDS ORDERED: BUPIVACAINE MPF 0.25% 10 ML VIAL. IJ ONE (09:00)
[2018-12-09] MEDS ORDERED: methylPREDNISolone ACETATE 40 MG/ML VIAL. IM ONE (09:00)
--- NOTE | 2018-12-09 09:31 | PDOC4 ---
PROCEDURE Procedure At her request,I have injected painful left knee joint under aseptic skin te chnique with alcohol skin prep,using 2 ml of bupivacaine ).25% solution mixed with 1 ml of methylprednisone 40 mg/ 1 ml solution and she tolerated the procedure satisfactorily without any side effects. CHIARA ORTIZ MD Dec 09, 2018 09:31
--- NOTE | 2018-12-09 09:34 | PDOC ---
SUBJECTIVE ROS States feels much better OBJECTIVE Vital Signs Vital Signs Date Time Temp Pulse Resp B/P (MAP) Pulse Ox O2 Delivery O2 Flow Rate FiO2 12/09/18 07:26 98.6 87 20 124/59 (80) Nasal Cannula 5.0 98.6 12/08/18 23:03 100 I & 0 Intake and Output 12/09/18 07:00 Intake Total 1243 ml Output Total 5775 ml Balance -4532 ml Intake Oral 1243 ml Output Urine Total 5775 ml Stool Total 0 ml # Voids 1 PHYSICAL EXAM Physical Exam GEN: Mild distress HEEN: OM moist, O2 by NC NECK: Supple CVS: RRR, ROSSI + RESP: CTA, mild labored breathing GI: BS + ve Non Tender,obese : No CVA tenderness, No Suprapubic Tenderness, Mac+ NEURO- Grossly normal SKIN- No rash EXT- LE edema 1 +, Changes of CVI +, DIAGNOSIS/ASSESSMENT Assessment & Plan IZAIAH - Cardiorenal / Longstanding use of NSAID's UA unremarkable - No micr hematuria, No Protein, NO Hx of recent contrast study per pt Cr in 02.20- done in [facility] ER , last week at PCP 1.9 , Improving renal function Lisinopril held , Supportive care, I/O, wt down , Good UOP Hypokalemia- Replacing Suspect CKD stage 3 - renal US cw Chr med disease CHF- No Hx of CAD per pt Good response to IV lasix,cardiology managing Recommend decreasing the dose to QD DM- recommend DC Metformin Management per primary HTN - resolved ? PVD - Bilat LE Leg pain, CVI Elevated Lft's Discussed A/P with Pt and RN COMMENT/RELEVANT DATA Meds Current Medications Medications (Trade) Dose Ordered Sig/Elizabeth Start Time Stop Time Status Last Admin Dose Admin Albuterol/ Ipratropium (Duoneb) 3 ml STK-MED ONCE 12/07/18 22:14 12/07/18 22:14 DC Alprazolam (Xanax) 0.5 mg PRN Q8HRS PRN 12/08/18 02:30 12/08/18 23:25 0.5 MG Aspirin (Ecotrin) 81 mg DAILYWBKFT 12/09/18 08:00 Atorvastatin Calcium (Lipitor) 20 mg QHS 12/08/18 21:00 12/08/18 20:44 20 MG Bupivacaine HCl (Sensorcaine-Mpf 0.25%) 10 ml 1X ONCE 12/09/18 09:00 12/09/18 09:01 DC Ceftriaxone Sodium (Rocephin) 1 gm 1X ONCE 12/07/18 23:15 12/07/18 23:16 DC 12/07/18 23:16 1 GM Clindamycin HCl (Cleocin) 450 mg TID 12/08/18 09:00 12/08/18 20:44 450 MG Docusate Sodium (Colace) 100 mg BID 12/08/18 09:00 Furosemide (Lasix) 40 mg [id number] 12/08/18 16:00 12/08/18 16:00 40 MG Gabapentin (Neurontin) 300 mg HS 12/08/18 21:00 12/08/18 20:44 300 MG Heparin Sodium (Porcine) (Heparin Sodium) 4,000 unit PRN Q6HRS PRN 12/08/18 13:45 12/08/18 14:54 4,000 UNIT Heparin Sodium/ Dextrose 500 ml @ 0 mls/hr CONT PRN 12/08/18 13:45 12/08/18 14:54 20 MLS/HR Lactobacillus Rhamnosus (Culturelle) 1 cap BID 12/08/18 15:00 12/08/18 20:44 1 CAP Lisinopril (Prinivil) 20 mg DAILY 12/08/18 09:00 12/08/18 13:34 DC Magnesium Sulfate 50 ml @ 25 mls/hr 1X ONCE 12/09/18 08:30 12/09/18 10:29 Metformin HCl (Glucophage) 500 mg BIDWMEALS 12/08/18 08:00 12/08/18 13:34 DC Methylprednisolone Acetate (DEPO-Medrol 40MG VIAL) 40 mg 1X ONCE 12/09/18 09:00 12/09/18 09:01 DC Metoprolol Succinate (Toprol Xl) 100 mg DAILY 12/08/18 09:00 12/08/18 08:37 100 MG Oxycodone/ Acetaminophen (Percocet 5/325) 1 tab PRN Q4HRS PRN 12/08/18 02:30 Pioglitazone HCl (Actos) 30 mg DAILY 12/08/18 09:00 12/08/18 13:53 DC 12/08/18 08:40 30 MG Potassium Chloride (Klor-Con) 40 meq BIDWMEALS 12/09/18 08:00 Sodium Chloride 500 ml @ 500 mls/hr 1X ONCE 12/07/18 23:45 12/08/18 00:44 DC 12/07/18 23:39 500 MLS/HR Trazodone HCl (Desyrel) 50 mg PRN QHS PRN 12/08/18 02:30 12/08/18 20:44 50 MG Lab Laboratory Tests Test 12/08/18 10:22 12/08/18 11:30 12/08/18 12:13 12/08/18 16:55 Urine Random Creatinine 59.2 mg/dL (Not Establ.) Urine Random Total Protein 16.7 mg/dL (Not Establ.) Urine Random Sodium 81 mmol/L (Not Estab.) Sodium Level 142 mmol/L (136-145) Potassium Level 3.0 mmol/L (3.5-5.1) Chloride Level 103 mmol/L (98-107) Carbon Dioxide Level 31 mmol/L (21-32) Anion Gap 8 (6-14) Blood Urea Nitrogen 33 mg/dL (7-20) Creatinine 1.8 mg/dL (0.6-1.0) Estimated GFR (Cockcroft-Gault) 28.5 Glucose Level 134 mg/dL (70-99) Hemoglobin A1c 5.1 % (4.8-5.6) Calcium Level 9.2 mg/dL (8.5-10.1) Troponin I Quantitative 1.465 ng/mL (0.000-0.055) 1.075 ng/mL (0.000-0.055) Thyroid Stimulating Hormone (TSH) 1.284 uIU/mL (0.358-3.74) Glucose (Fingerstick) 126 mg/dL (70-99) Test 12/08/18 20:50 12/08/18 20:51 12/09/18 03:10 Heparin Anti-Xa Act, Unfractionated 0.27 IU/mL (0.30-0.70) 0.30 IU/mL (0.30-0.70) Glucose (Fingerstick) 110 mg/dL (70-99) White Blood Count 5.5 x10^3/uL (4.0-11.0) Red Blood Count 3.04 x10^6/uL (3.50-5.40) Hemoglobin 9.9 g/dL (12.0-15.5) Hematocrit 29.2 % (36.0-47.0) Mean Corpuscular Volume 96 fL (79-100) Mean Corpuscular Hemoglobin 32 pg (25-35) Mean Corpuscular Hemoglobin Concent 34 g/dL (31-37) Red Cell Distribution Width 14.3 % (11.5-14.5) Platelet Count 118 x10^3/uL (140-400) Neutrophils (%) (Auto) 65 % (31-73) Lymphocytes (%) (Auto) 20 % (24-48) Monocytes (%) (Auto) 10 % (0-9) Eosinophils (%) (Auto) 4 % (0-3) Basophils (%) (Auto) 1 % (0-3) Neutrophils # (Auto) 3.6 x10^3/uL (1.8-7.7) Lymphocytes # (Auto) 1.1 x10^3/uL (1.0-4.8) Monocytes # (Auto) 0.6 x10^3/uL (0.0-1.1) Eosinophils # (Auto) 0.2 x10^3/uL (0.0-0.7) Basophils # (Auto) 0.0 x10^3/uL (0.0-0.2) Sodium Level 144 mmol/L (136-145) Potassium Level 2.8 mmol/L (3.5-5.1) Chloride Level 104 mmol/L (98-107) Carbon Dioxide Level 33 mmol/L (21-32) Anion Gap 7 (6-14) Blood Urea Nitrogen 26 mg/dL (7-20) Creatinine 1.4 mg/dL (0.6-1.0) Estimated GFR (Cockcroft-Gault) 38.1 BUN/Creatinine Ratio 19 (6-20) Glucose Level 115 mg/dL (70-99) Calcium Level 9.0 mg/dL (8.5-10.1) Magnesium Level 1.5 mg/dL (1.8-2.4) Total Bilirubin 1.7 mg/dL (0.2-1.0) Aspartate Amino Transf (AST/SGOT) 30 U/L (15-37) Alanine Aminotransferase (ALT/SGPT) 18 U/L (14-59) Alkaline Phosphatase 121 U/L (46-116) Total Protein 6.9 g/dL (6.4-8.2) Albumin 2.9 g/dL (3.4-5.0) Albumin/Globulin Ratio 0.7 (1.0-1.7) Results All relevant outside records, renal labs, imaging studies, telemetry/EKG's were reviewed. Other indings: Right kidney measures 7.1 cm x 4.6 x 5.7 cm. Left kidney measures 12.5 cm x 5.4 cm x 6.1 cm. No hydronephrosis. Renal contours and echotexture are unremarkable. Right renal cortex is mildly diffusely echogenic. Left renal cortex is borderline. No renal calculi suggested. The urinary bladder is decompressed with a Mac catheter present. Impression: No hydronephrosis. Renal echotexture which may represent early chronic medical renal disease. ROE SIDDIQI MD Dec 09, 2018 09:34
[2018-12-09] MEDS: METOPROLOL SUCC 24HR ER 100 MG TAB.ER.24H. PO SCH (09:38)
[2018-12-09] MEDS: POTASSIUM CHLORIDE 20 MEQ TABLET.ER. PO SCH ×2 (09:39→18:31)
[2018-12-09] MEDS: DOCUSATE SODIUM 100 MG CAPSULE. PO SCH ×2 (09:39→21:20)
[2018-12-09] MEDS: ASPIRIN ENTERIC COATED 81 MG TABLET.DR. PO SCH (09:39)
[2018-12-09] MEDS: CLINDAMYCIN HCL 150 MG CAPSULE. PO SCH ×3 (09:39→21:21)
[2018-12-09] MEDS: LACTOBACILLUS RHAMNOSUS GG 1 CAPSULE. PO SCH ×2 (09:39→21:20)
--- NOTE | 2018-12-09 09:46 | PDOC ---
PROGRESS NOTES History of Present Illness History of Present Illness VTE Prophylaxis Ordered VTE Prophylaxis Devices: No VTE Pharmacological Prophylaxi: Yes impression acute hypoxic respiratory failure CHF, acute combined failure, Septal motion suggestive of conduction defect. RV is moderately dilated. Doppler and Color Flow revealed mild tricuspid regurgitation. The PA pressure was estimated at 45 mmHg. c/w pulm hypertension, moderate morbid obesity, BMI 55 Acute on chronic renal failure, has been overusing NSAID for pain IZAIAH - Cardiorenal / Longstanding use of NSAID's Renal echotexture which may represent early chronic medical renal disease. recently cellulitis left leg, completing clinda script and leg has improved over the past week super morbid obesity suspect obesity, hypoventilation syndrome/ chuy has never had a sleep study 12-09 on admit She has had acute 2 days of chest pain, and has been taking large amount of ibuprofen she went to work , had new dsypnea with the stairs, then was out of breath after work before driving home. Patient states that she has gained 20 pounds and her last 1- months. . Patient denies history of COPD or asthma. BIPAP for the first time night of admit, and she feels much improved after use [facility] 12-10 pulm consult 38 min pt exam, chart review, > 50% of time spent with exam, chart review, pt care coordination Vitals Vitals Vital Signs Date Time Temp Pulse Resp B/P (MAP) Pulse Ox O2 Delivery O2 Flow Rate FiO2 12/09/18 07:26 98.6 87 20 124/59 (80) Nasal Cannula 5.0 98.6 12/08/18 23:03 100 Physical Exam General: Alert, Oriented X3, Cooperative, No acute distress Heart: Regular rate (SR), Normal S1, Other (distant heart sounds) Lungs: Clear, Other (diminished) Abdomen: Normal bowel sounds, Soft, No tenderness, Other (obese) Extremities: No clubbing, No cyanosis, Other (2-3+ bilateral LE pitting edema) Skin: Other (venous dermatitis) Labs LABS APPROVED REPORT EXAM: Two-dimensional and M-mode echocardiogram with Doppler and color Doppler. Other Information Quality : Technically Limited HR: 85bpm Rhythm : NSR Technically limited study due to body habitus. INDICATION Congestive Heart Failure 2D DIMENSIONS RVDd 3.9 (2.9-3.5cm) Left Atrium(2D) 4.6 (1.6-4.0cm) IVSd 1.3 (0.7-1.1cm) Aortic Root(2D) 3.1 (2.0-3.7cm) LVDd 5.1 (3.9-5.9cm) LVOT Diameter 2.1 (1.8-2.4cm) PWd 1.0 (0.7-1.1cm) LVDs 3.1 (2.5-4.0cm) FS (%) 40.4 % SV 89.0 ml LVEF(%) 70.8 (>50%) M-Mode DIMENSIONS Left Atrium(MM) 5.00 (2.5-4.0cm) Aortic Root 3.48 (2.2-3.7cm) Aortic Valve AoV Peak Grabiel. 195.7cm/s AoV VTI 37.0cm AO Peak GR. 15.3mmHg LVOT VTI 22.94cm AO Mean GR. 8mmHg ALTAGRACIA (VTI) 2.10cm2 Mitral Valve MV E Velocity 97.2cm/s MV DECEL TIME 211ms MV A Velocity 82.8cm/s E/A Ratio 1.2 MV A Duration 83ms TDI Lateral E' P. V 9.20cm/s Medial E' P. V 12.61cm/s E/Lateral E' 10.6 E/Medial E' 7.7 Tricuspid Valve TR P. Velocity 305cm/s RAP ESTIMATE 8mmHg TR Peak Gr. 37mmHg RVSP 45mmHg LEFT VENTRICLE The left ventricle is normal size. There is mild concentric left ventricular hypertrophy. The left ventricular systolic function is normal and the ejection fraction is within normal range. The Ejection Fraction is 60-65%. Septal motion suggestive of conduction defect. Transmitral Doppler flow pattern is Grade II- pseudonormal filling dynamics. RIGHT VENTRICLE The right ventricle is mildly dilated. There is normal right ventricular wall thickness. The right ventricular systolic function is normal. ATRIA The left atrium is mildly dilated. The right atrium is mildly dilated. The interatrial septum is intact with no evidence for an atrial septal defect or patent foramen ovale as noted on 2-D or Doppler imaging. AORTIC VALVE Not well visualized. Doppler and Color Flow revealed no significant aortic regurgitation. There is no significant aortic valvular stenosis. There is no aortic valvular vegetation. MITRAL VALVE Mitral annular calcification is mild. There is no evidence of mitral valve prolapse. There is no mitral valve stenosis. Doppler and Color-flow revealed mild mitral regurgitation. TRICUSPID VALVE The tricuspid valve is normal in structure and function. Doppler and Color Flow revealed mild tricuspid regurgitation. The PA pressure was estimated at 45 mmHg. There is no tricuspid valve prolapse or vegetation. There is no tricuspid valve stenosis. PULMONIC VALVE The pulmonic valve is not well visualized. GREAT VESSELS The aortic root is normal in size. The ascending aorta is normal in size. The IVC is dilated and collapses >50% with inspiration. PERICARDIAL EFFUSION There is no evidence of significant pericardial effusion. Critical Notification Critical Value: No <Conclusion> The left ventricular systolic function is normal and the ejection fraction is within normal range. The Ejection Fraction is 60-65%. There is normal LV segmental wall motion. Septal motion suggestive of conduction defect. RV is moderately dilated. Doppler and Color Flow revealed mild tricuspid regurgitation. The PA pressure was estimated at 45 mmHg. Technically very difficult study Signed by : Dionna Laura, Electronically Approved : 12/09/2018 11:17:53 DICTATED and SIGNED BY: DIONNA LAURA MD DATE: 12/09/18 0447 Indication:Shortness of breath TECHNIQUE:Portable AP chest X-ray COMPARISON: None FINDINGS: Heart is moderately enlarged in size. Diffuse interstitial opacities. No pneumothorax or large pleural effusion. Visualized bony thorax within normal limits. IMPRESSION: Findings of acute CHF. Electronically signed by: Flaquito Castro DO (12/07/2018 11:28 PM) [id number] DICTATED and SIGNED BY: FLAQUITO CASTRO DO DATE: 12/07/18 3191 Examination: RENAL COMPLETE BILATERAL History: Acute renal failure Comparison/Correlation: None Findings: Right kidney measures 7.1 cm x 4.6 x 5.7 cm. Left kidney measures 12.5 cm x 5.4 cm x 6.1 cm. No hydronephrosis. Renal contours and echotexture are unremarkable. Right renal cortex is mildly diffusely echogenic. Left renal cortex is borderline. No renal calculi suggested. The urinary bladder is decompressed with a Mac catheter present. Impression: No hydronephrosis. Renal echotexture which may represent early chronic medical renal disease. Electronically signed by: Prakash Ho MD (12/08/2018 10:40 AM) [facility] DICTATED and SIGNED BY: PRAKASH HO MD DATE: 12/08/18 1040 Bilateral Lower Extremity Venous Study for DVT Patient Location: IN-PATIENT Indications Lower Extremity Pain: Bilateral Lower Extremity Edema: Bilateral Findings Technically very limited study due to body habitus Based on color Doppler and spectral waveforms there is no obvious evidence of DVT in the common femoral to popliteal segments. The below-knee veins demonstrate spontaneous flow. Grayscale images are severely limited but grossly the veins appear to be compressible. Critical Notification Critical Value: No <Conclusion> Technically very limited study but grossly no evidence of DVT Signed by : Dionna Laura, Electronically Approved : 12/09/2018 09:55:20 DICTATED and SIGNED BY: DIONNA LAURA MD DATE: 12/08/18 2229 Laboratory Tests Test 12/08/18 10:22 12/08/18 11:30 12/08/18 12:13 12/08/18 16:55 Urine Random Creatinine 59.2 mg/dL (Not Establ.) Urine Random Total Protein 16.7 mg/dL (Not Establ.) Urine Random Sodium 81 mmol/L (Not Estab.) Sodium Level 142 mmol/L (136-145) Potassium Level 3.0 mmol/L (3.5-5.1) Chloride Level 103 mmol/L (98-107) Carbon Dioxide Level 31 mmol/L (21-32) Anion Gap 8 (6-14) Blood Urea Nitrogen 33 mg/dL (7-20) Creatinine 1.8 mg/dL (0.6-1.0) Estimated GFR (Cockcroft-Gault) 28.5 Glucose Level 134 mg/dL (70-99) Hemoglobin A1c 5.1 % (4.8-5.6) Calcium Level 9.2 mg/dL (8.5-10.1) Troponin I Quantitative 1.465 ng/mL (0.000-0.055) 1.075 ng/mL (0.000-0.055) Thyroid Stimulating Hormone (TSH) 1.284 uIU/mL (0.358-3.74) Glucose (Fingerstick) 126 mg/dL (70-99) Test 12/08/18 20:50 12/08/18 20:51 12/09/18 03:10 Heparin Anti-Xa Act, Unfractionated 0.27 IU/mL (0.30-0.70) 0.30 IU/mL (0.30-0.70) Glucose (Fingerstick) 110 mg/dL (70-99) White Blood Count 5.5 x10^3/uL (4.0-11.0) Red Blood Count 3.04 x10^6/uL (3.50-5.40) Hemoglobin 9.9 g/dL (12.0-15.5) Hematocrit 29.2 % (36.0-47.0) Mean Corpuscular Volume 96 fL (79-100) Mean Corpuscular Hemoglobin 32 pg (25-35) Mean Corpuscular Hemoglobin Concent 34 g/dL (31-37) Red Cell Distribution Width 14.3 % (11.5-14.5) Platelet Count 118 x10^3/uL (140-400) Neutrophils (%) (Auto) 65 % (31-73) Lymphocytes (%) (Auto) 20 % (24-48) Monocytes (%) (Auto) 10 % (0-9) Eosinophils (%) (Auto) 4 % (0-3) Basophils (%) (Auto) 1 % (0-3) Neutrophils # (Auto) 3.6 x10^3/uL (1.8-7.7) Lymphocytes # (Auto) 1.1 x10^3/uL (1.0-4.8) Monocytes # (Auto) 0.6 x10^3/uL (0.0-1.1) Eosinophils # (Auto) 0.2 x10^3/uL (0.0-0.7) Basophils # (Auto) 0.0 x10^3/uL (0.0-0.2) Sodium Level 144 mmol/L (136-145) Potassium Level 2.8 mmol/L (3.5-5.1) Chloride Level 104 mmol/L (98-107) Carbon Dioxide Level 33 mmol/L (21-32) Anion Gap 7 (6-14) Blood Urea Nitrogen 26 mg/dL (7-20) Creatinine 1.4 mg/dL (0.6-1.0) Estimated GFR (Cockcroft-Gault) 38.1 BUN/Creatinine Ratio 19 (6-20) Glucose Level 115 mg/dL (70-99) Calcium Level 9.0 mg/dL (8.5-10.1) Magnesium Level 1.5 mg/dL (1.8-2.4) Total Bilirubin 1.7 mg/dL (0.2-1.0) Aspartate Amino Transf (AST/SGOT) 30 U/L (15-37) Alanine Aminotransferase (ALT/SGPT) 18 U/L (14-59) Alkaline Phosphatase 121 U/L (46-116) Total Protein 6.9 g/dL (6.4-8.2) Albumin 2.9 g/dL (3.4-5.0) Albumin/Globulin Ratio 0.7 (1.0-1.7) Comment Review of Relevant I have reviewed the following items radha (where applicable) has been applied. Labs Laboratory Tests Test 12/07/18 22:25 12/07/18 23:23 12/07/18 23:35 12/08/18 01:35 White Blood Count 6.6 x10^3/uL (4.0-11.0) Red Blood Count 3.57 x10^6/uL (3.50-5.40) Hemoglobin 11.3 g/dL (12.0-15.5) Hematocrit 34.0 % (36.0-47.0) Mean Corpuscular Volume 95 fL (79-100) Mean Corpuscular Hemoglobin 32 pg (25-35) Mean Corpuscular Hemoglobin Concent 33 g/dL (31-37) Red Cell Distribution Width 14.8 % (11.5-14.5) Platelet Count 175 x10^3/uL (140-400) Neutrophils (%) (Auto) 72 % (31-73) Lymphocytes (%) (Auto) 16 % (24-48) Monocytes (%) (Auto) 8 % (0-9) Eosinophils (%) (Auto) 4 % (0-3) Basophils (%) (Auto) 1 % (0-3) Neutrophils # (Auto) 4.7 x10^3/uL (1.8-7.7) Lymphocytes # (Auto) 1.0 x10^3/uL (1.0-4.8) Monocytes # (Auto) 0.5 x10^3/uL (0.0-1.1) Eosinophils # (Auto) 0.3 x10^3/uL (0.0-0.7) Basophils # (Auto) 0.0 x10^3/uL (0.0-0.2) Prothrombin Time 14.4 SEC (11.7-14.0) Prothromb Time International Ratio 1.2 (0.8-1.1) Sodium Level 141 mmol/L (136-145) Potassium Level 3.4 mmol/L (3.5-5.1) Chloride Level 100 mmol/L (98-107) Carbon Dioxide Level 24 mmol/L (21-32) Anion Gap 17 (6-14) Blood Urea Nitrogen 40 mg/dL (7-20) Creatinine 2.4 mg/dL (0.6-1.0) Estimated GFR (Cockcroft-Gault) 20.5 BUN/Creatinine Ratio 17 (6-20) Glucose Level 175 mg/dL (70-99) Lactic Acid Level 3.0 mmol/L (0.4-2.0) 2.0 mmol/L (0.4-2.0) Calcium Level 9.5 mg/dL (8.5-10.1) Magnesium Level 2.3 mg/dL (1.8-2.4) Total Bilirubin 1.7 mg/dL (0.2-1.0) Aspartate Amino Transf (AST/SGOT) 42 U/L (15-37) Alanine Aminotransferase (ALT/SGPT) 20 U/L (14-59) Alkaline Phosphatase 160 U/L (46-116) SH-[id number]-Type Natriuretic Peptide 8975 pg/mL (0-124) Total Protein 8.2 g/dL (6.4-8.2) Albumin 3.6 g/dL (3.4-5.0) Albumin/Globulin Ratio 0.8 (1.0-1.7) Lipase 115 U/L (73-393) O2 Saturation 97 % (92-99) Arterial Blood pH 7.41 (7.35-7.45) Arterial Blood pCO2 at Patient Temp 41 mmHg (35-46) Arterial Blood pO2 at Patient Temp 93 mmHg (65-108) Arterial Blood HCO3 26 mmol/L (21-28) Arterial Blood Base Excess 1 mmol/L (-3-3) Oxyhemoglobin 96.0 % Methemoglobin 0.5 % (0.0-1.9) Carbon Monoxide, Quantitative 0.3 % (0.0-1.9) FiO2 50 Urine Collection Type Unknown Urine Color Yellow Urine Clarity Clear Urine pH 5.5 Urine Specific Olin 1.015 Urine Protein Negative mg/dL (NEG-TRACE) Urine Glucose (UA) Negative mg/dL (NEG) Urine Ketones (Stick) Negative mg/dL (NEG) Urine Blood Negative (NEG) Urine Nitrite Negative (NEG) Urine Bilirubin Negative (NEG) Urine Urobilinogen Dipstick 0.2 mg/dL (0.2 mg/dL) Urine Leukocyte Esterase Negative (NEG) Urine RBC Occ /HPF (0-2) Urine WBC 1-4 /HPF (0-4) Urine Squamous Epithelial Cells Many /LPF Urine Amorphous Sediment Present /HPF Urine Bacteria 0 /HPF (0-FEW) Urine Hyaline Casts Moderate /HPF Urine Granular Casts Occasional /HPF Urine Mucus Mod /LPF Triglycerides Level 114 mg/dL (0-150) Cholesterol Level 190 mg/dL (0-200) LDL Cholesterol, Calculated 131 mg/dL (0-100) VLDL Cholesterol, Calculated 23 mg/dL (0-40) Non-HDL Cholesterol Calculated 154 mg/dL (0-129) HDL Cholesterol 36 mg/dL (40-60) Cholesterol/HDL Ratio 5.3 Test 12/08/18 07:14 12/08/18 10:22 12/08/18 11:30 12/08/18 12:13 Glucose (Fingerstick) 119 mg/dL (70-99) 126 mg/dL (70-99) Urine Random Creatinine 59.2 mg/dL (Not Establ.) Urine Random Total Protein 16.7 mg/dL (Not Establ.) Urine Random Sodium 81 mmol/L (Not Estab.) Sodium Level 142 mmol/L (136-145) Potassium Level 3.0 mmol/L (3.5-5.1) Chloride Level 103 mmol/L (98-107) Carbon Dioxide Level 31 mmol/L (21-32) Anion Gap 8 (6-14) Blood Urea Nitrogen 33 mg/dL (7-20) Creatinine 1.8 mg/dL (0.6-1.0) Estimated GFR (Cockcroft-Gault) 28.5 Glucose Level 134 mg/dL (70-99) Hemoglobin A1c 5.1 % (4.8-5.6) Calcium Level 9.2 mg/dL (8.5-10.1) Troponin I Quantitative 1.465 ng/mL (0.000-0.055) Thyroid Stimulating Hormone (TSH) 1.284 uIU/mL (0.358-3.74) Test 12/08/18 16:55 12/08/18 20:50 12/08/18 20:51 12/09/18 03:10 Troponin I Quantitative 1.075 ng/mL (0.000-0.055) Heparin Anti-Xa Act, Unfractionated 0.27 IU/mL (0.30-0.70) 0.30 IU/mL (0.30-0.70) Glucose (Fingerstick) 110 mg/dL (70-99) White Blood Count 5.5 x10^3/uL (4.0-11.0) Red Blood Count 3.04 x10^6/uL (3.50-5.40) Hemoglobin 9.9 g/dL (12.0-15.5) Hematocrit 29.2 % (36.0-47.0) Mean Corpuscular Volume 96 fL (79-100) Mean Corpuscular Hemoglobin 32 pg (25-35) Mean Corpuscular Hemoglobin Concent 34 g/dL (31-37) Red Cell Distribution Width 14.3 % (11.5-14.5) Platelet Count 118 x10^3/uL (140-400) Neutrophils (%) (Auto) 65 % (31-73) Lymphocytes (%) (Auto) 20 % (24-48) Monocytes (%) (Auto) 10 % (0-9) Eosinophils (%) (Auto) 4 % (0-3) Basophils (%) (Auto) 1 % (0-3) Neutrophils # (Auto) 3.6 x10^3/uL (1.8-7.7) Lymphocytes # (Auto) 1.1 x10^3/uL (1.0-4.8) Monocytes # (Auto) 0.6 x10^3/uL (0.0-1.1) Eosinophils # (Auto) 0.2 x10^3/uL (0.0-0.7) Basophils # (Auto) 0.0 x10^3/uL (0.0-0.2) Sodium Level 144 mmol/L (136-145) Potassium Level 2.8 mmol/L (3.5-5.1) Chloride Level 104 mmol/L (98-107) Carbon Dioxide Level 33 mmol/L (21-32) Anion Gap 7 (6-14) Blood Urea Nitrogen 26 mg/dL (7-20) Creatinine 1.4 mg/dL (0.6-1.0) Estimated GFR (Cockcroft-Gault) 38.1 BUN/Creatinine Ratio 19 (6-20) Glucose Level 115 mg/dL (70-99) Calcium Level 9.0 mg/dL (8.5-10.1) Magnesium Level 1.5 mg/dL (1.8-2.4) Total Bilirubin 1.7 mg/dL (0.2-1.0) Aspartate Amino Transf (AST/SGOT) 30 U/L (15-37) Alanine Aminotransferase (ALT/SGPT) 18 U/L (14-59) Alkaline Phosphatase 121 U/L (46-116) Total Protein 6.9 g/dL (6.4-8.2) Albumin 2.9 g/dL (3.4-5.0) Albumin/Globulin Ratio 0.7 (1.0-1.7) Laboratory Tests Test 12/08/18 10:22 12/08/18 11:30 12/08/18 12:13 12/08/18 16:55 Urine Random Creatinine 59.2 mg/dL (Not Establ.) Urine Random Total Protein 16.7 mg/dL (Not Establ.) Urine Random Sodium 81 mmol/L (Not Estab.) Sodium Level 142 mmol/L (136-145) Potassium Level 3.0 mmol/L (3.5-5.1) Chloride Level 103 mmol/L (98-107) Carbon Dioxide Level 31 mmol/L (21-32) Anion Gap 8 (6-14) Blood Urea Nitrogen 33 mg/dL (7-20) Creatinine 1.8 mg/dL (0.6-1.0) Estimated GFR (Cockcroft-Gault) 28.5 Glucose Level 134 mg/dL (70-99) Hemoglobin A1c 5.1 % (4.8-5.6) Calcium Level 9.2 mg/dL (8.5-10.1) Troponin I Quantitative 1.465 ng/mL (0.000-0.055) 1.075 ng/mL (0.000-0.055) Thyroid Stimulating Hormone (TSH) 1.284 uIU/mL (0.358-3.74) Glucose (Fingerstick) 126 mg/dL (70-99) Test 12/08/18 20:50 12/08/18 20:51 12/09/18 03:10 Heparin Anti-Xa Act, Unfractionated 0.27 IU/mL (0.30-0.70) 0.30 IU/mL (0.30-0.70) Glucose (Fingerstick) 110 mg/dL (70-99) White Blood Count 5.5 x10^3/uL (4.0-11.0) Red Blood Count 3.04 x10^6/uL (3.50-5.40) Hemoglobin 9.9 g/dL (12.0-15.5) Hematocrit 29.2 % (36.0-47.0) Mean Corpuscular Volume 96 fL (79-100) Mean Corpuscular Hemoglobin 32 pg (25-35) Mean Corpuscular Hemoglobin Concent 34 g/dL (31-37) Red Cell Distribution Width 14.3 % (11.5-14.5) Platelet Count 118 x10^3/uL (140-400) Neutrophils (%) (Auto) 65 % (31-73) Lymphocytes (%) (Auto) 20 % (24-48) Monocytes (%) (Auto) 10 % (0-9) Eosinophils (%) (Auto) 4 % (0-3) Basophils (%) (Auto) 1 % (0-3) Neutrophils # (Auto) 3.6 x10^3/uL (1.8-7.7) Lymphocytes # (Auto) 1.1 x10^3/uL (1.0-4.8) Monocytes # (Auto) 0.6 x10^3/uL (0.0-1.1) Eosinophils # (Auto) 0.2 x10^3/uL (0.0-0.7) Basophils # (Auto) 0.0 x10^3/uL (0.0-0.2) Sodium Level 144 mmol/L (136-145) Potassium Level 2.8 mmol/L (3.5-5.1) Chloride Level 104 mmol/L (98-107) Carbon Dioxide Level 33 mmol/L (21-32) Anion Gap 7 (6-14) Blood Urea Nitrogen 26 mg/dL (7-20) Creatinine 1.4 mg/dL (0.6-1.0) Estimated GFR (Cockcroft-Gault) 38.1 BUN/Creatinine Ratio 19 (6-20) Glucose Level 115 mg/dL (70-99) Calcium Level 9.0 mg/dL (8.5-10.1) Magnesium Level 1.5 mg/dL (1.8-2.4) Total Bilirubin 1.7 mg/dL (0.2-1.0) Aspartate Amino Transf (AST/SGOT) 30 U/L (15-37) Alanine Aminotransferase (ALT/SGPT) 18 U/L (14-59) Alkaline Phosphatase 121 U/L (46-116) Total Protein 6.9 g/dL (6.4-8.2) Albumin 2.9 g/dL (3.4-5.0) Albumin/Globulin Ratio 0.7 (1.0-1.7) Microbiology 12/07/18 Blood Culture - Preliminary, Resulted NO GROWTH AFTER 1 DAY Medications Current Medications Furosemide (Lasix) 40 mg 1X ONCE IVP Last administered on 12/07/18at 22:56; Start 12/07/18 at 22:15; Stop 12/07/18 at 22:16; Status DC Albuterol/ Ipratropium (Duoneb) 3 ml STK-MED ONCE .ROUTE ; Start 12/07/18 at 22:14; Stop 12/07/18 at 22:14; Status DC Ceftriaxone Sodium (Rocephin) 1 gm 1X ONCE IVP Last administered on 12/07/18at 23:16; Start 12/07/18 at 23:15; Stop 12/07/18 at 23:16; Status DC Sodium Chloride 500 ml @ 500 mls/hr 1X ONCE IV Last administered on 9at 23:39; Start 12/07/18 at 23:45; Stop 12/08/18 at 00:44; Status DC Alprazolam (Xanax) 0.5 mg PRN Q8HRS PRN PO ANXIETY / AGITATION Last administered on 12/08/18at 23:25; Start 12/08/18 at 02:30 Oxycodone/ Acetaminophen (Percocet 5/325) 1 tab PRN Q4HRS PRN PO PAIN; Start 12/08/18 at 02:30 Clindamycin HCl (Cleocin) 450 mg TID PO Last administered on 12/08/18at 20:44; Start 12/08/18 at 09:00 Docusate Sodium (Colace) 100 mg BID PO ; Start 12/08/18 at 09:00 Furosemide (Lasix) 20 mg DAILY PO Last administered on 12/08/18 08:34; Start 12/08/18 at 09:00; Stop 12/08/18 at 13:55; Status DC Gabapentin (Neurontin) 300 mg HS PO Last administered on 12/08/18at 20:44; Start 12/08/18 at 21:00 Metformin HCl (Glucophage) 500 mg BIDWMEALS PO ; Start 12/08/18 at 08:00; Stop 12/08/18 at 13:34; Status DC Metoprolol Succinate (Toprol Xl) 100 mg DAILY PO Last administered on 12/08/18 at 08:37; Start 12/08/18 at 09:00 Potassium Chloride (Klor-Con) 10 meq DAILYWBKFT PO Last administered on 12/08/18at 08:35; Start 12/08/18 at 08:00; Stop 12/09/18 at 05:47; Status DC Trazodone HCl (Desyrel) 50 mg PRN QHS PRN PO INSOMNIA Last administered on 12/08/18at 20:44; Start 12/08/18 at 02:30 Lisinopril (Prinivil) 20 mg DAILY PO ; Start 12/08/18 at 09:00; Stop 12/08/18 at 13:34; Status DC Pioglitazone HCl (Actos) 30 mg DAILY PO Last administered on 12/08/18at 08:40; Start 12/08/18 at 09:00; Stop 12/08/18 at 13:53; Status DC Potassium Chloride (Klor-Con) 20 meq 1X ONCE PO Last administered on 12/08/18at 11:42; Start 12/08/18 at 09:30; Stop 12/08/18 at 09:35; Status DC Furosemide (Lasix) 40 mg 1X ONCE IVP Last administered on 12/08/18at 11:42; Start 12/08/18 at 11:00; Stop 12/08/18 at 11:01; Status DC Lactobacillus Rhamnosus (Culturelle) 1 cap BID PO Last administered on 12/08/18at 20:44; Start 12/08/18 at 15:00 Furosemide (Lasix) 40 mg [id number] IVP Last administered on 12/08/18at 16:00; Start 12/08/18 at 16:00 Potassium Chloride (Klor-Con) 40 meq 1X ONCE PO Last administered on 12/08/18at 14:36; Start 12/08/18 at 13:30; Stop 12/08/18 at 13:41; Status DC Aspirin (Ecotrin) 325 mg 1X ONCE PO Last administered on 12/08/18at 14:35; Start 12/08/18 at 13:30; Stop 12/08/18 at 13:41; Status DC Aspirin (Ecotrin) 81 mg DAILYWBKFT PO ; Start 12/09/18 at 08:00 Heparin Sodium/ Dextrose 500 ml @ 0 mls/hr CONT PRN IV SEE I/O RECORD Last administered on 12/08/18at 14:54; Start 12/08/18 at 13:45 Heparin Sodium (Porcine) (Heparin Sodium) 4,000 unit PRN Q6HRS PRN IV FOR UFH LEVEL LESS THAN 0.2 Last administered on 12/08/18at 14:54; Start 12/08/18 at 13:45 Atorvastatin Calcium (Lipitor) 20 mg QHS PO Last administered on 12/08/18at 20:44; Start 12/08/18 at 21:00 Potassium Chloride (Klor-Con) 40 meq 1X ONCE PO Last administered on 12/09/18at 06:25; Start 12/09/18 at 06:00; Stop 12/09/18 at 06:02; Status DC Potassium Chloride (Klor-Con) 40 meq BIDWMEALS PO ; Start 12/09/18 at 08:00 Magnesium Sulfate 50 ml @ 25 mls/hr 1X ONCE IV ; Start 12/09/18 at 08:30; Stop 12/09/18 at 10:29 Methylprednisolone Acetate (DEPO-Medrol 40MG VIAL) 40 mg 1X ONCE IM ; Start 12/09/18 at 09:00; Stop 12/09/18 at 09:01; Status DC Bupivacaine HCl (Sensorcaine-Mpf 0.25%) 10 ml 1X ONCE IJ ; Start 12/09/18 at 09:00; Stop 12/09/18 at 09:01; Status DC Polysaccharide Iron Complex (Niferex 150) 150 mg BID PO ; Start 12/09/18 at 10:00 Active Scripts Active Clindamycin Hcl 150 Mg Capsule 3 Cap PO TID Colace (Docusate Sodium) 100 Mg Capsule 100 Mg PO BID Reported Actos (Pioglitazone Hcl) 30 Mg Tablet 1 Tab PO DAILY 30 Days Benazepril Hcl 20 Mg Tablet 1 Tab PO DAILY Gabapentin (Gabapentin) 300 Mg Capsule 300 Mg PO HS Metformin Hcl 500 Mg Tablet 500 Mg PO BIDWMEALS Furosemide 20 Mg Tablet 1 Tab PO DAILY Potassium Chloride 10 Meq Tab.sr.24h 10 Meq PO DAILY Trazodone Hcl 50 Mg Tablet 1-2 Tab PO PRN QHS PRN Metoprolol Succinate ( Xl ) (Metoprolol Succinate) 100 Mg Tab.er.24h 1 Tab PO DAILY Vitals/I & O Vital Sign - Last 24 Hours 12/08/18 12/08/18 12/08/18 12/08/18 10:58 11:00 14:59 19:03 Temp 97.6 97.4 97.7 97.6 97.4 97.7 Pulse 83 87 86 Resp 24 20 20 B/P (MAP) 125/55 (78) 130/58 (82) 145/65 (91) Pulse Ox 99 96 95 99 O2 Delivery Nasal Cannula Nasal Cannula Nasal Cannula O2 Flow Rate 5.0 5.0 5.0 5.0 12/08/18 12/08/18 12/09/18 12/09/18 19:45 23:03 03:00 07:26 Temp 97.7 98.6 97.7 98.6 Pulse 86 106 87 Resp 20 20 20 B/P (MAP) 117/55 (75) 136/67 (90) 124/59 (80) Pulse Ox 100 O2 Delivery Nasal Cannula Nasal Cannula Nasal Cannula O2 Flow Rate 5.0 5.0 5.0 Intake and Output 12/08/18 12/08/18 12/09/18 15:00 23:00 07:00 Intake Total 218 ml 750 ml 275 ml Output Total 2500 ml 2525 ml 750 ml Balance -2282 ml -1775 ml -475 ml FRANCISCO CASTELLON MD Dec 09, 2018 09:46
[2018-12-09] MEDS: FUROSEMIDE 20 MG/2 ML VIAL. IVP SCH ×2 (09:51→14:24)
[2018-12-09] MEDS: oxyCODONE/APAP 5/325 1 TAB TABLET PO PRN ×2 (09:52→18:31)
--- NOTE | 2018-12-09 09:56 | RAD ---
MR#: [id number] Date of Study: 12/08/2018 Ordering Physician: LOS CAMPO, Referring Physician: LOS CAMPO, Tech: Peggy Carr RT R, CT RDIN AB, T APPROVED REPORT Bilateral Lower Extremity Venous Study for DVT Patient Location: IN-PATIENT Indications Lower Extremity Pain: Bilateral Lower Extremity Edema: Bilateral Findings Technically very limited study due to body habitus Based on color Doppler and spectral waveforms there is no obvious evidence of DVT in the common femor al to popliteal segments. The below-knee veins demonstrate spontaneous flow. Grayscale images are severely limited but grossly the veins appear to be compressible. Critical Notification Critical Value: No <Conclusion> Technically very limited study but grossly no evidence of DVT Signed by : Adrian Laura, Electronically Approved : 12/09/2018 09:55:20
--- NOTE | 2018-12-09 10:01 | PDOC ---
LOS CAMPO [employer]FFEE [employer]AK ATTENDANT 12/09/18 1001: CARDIO Progress Notes Date and Time Date of Service 12/09/2018 Time of Evaluation 0940 Subjective Subjective: No Chest Pain, No shortness of breath, No Palpitations, Other (feels much better today) Vitals Vitals Vital Signs Date Time Temp Pulse Resp B/P (MAP) Pulse Ox O2 Delivery O2 Flow Rate FiO2 12/09/18 07:26 98.6 87 20 124/59 (80) Nasal Cannula 5.0 98.6 12/08/18 23:03 100 Weight Weight [ ] Input and Output Intake and Output Intake and Output 12/09/18 07:00 Intake Total 1243 ml Output Total 5775 ml Balance -4532 ml Intake Oral 1243 ml Output Urine Total 5775 ml Stool Total 0 ml # Voids 1 Laboratory Labs Laboratory Tests Test 12/08/18 10:22 12/08/18 11:30 12/08/18 12:13 12/08/18 16:55 Urine Random Creatinine 59.2 mg/dL (Not Establ.) Urine Random Total Protein 16.7 mg/dL (Not Establ.) Urine Random Sodium 81 mmol/L (Not Estab.) Sodium Level 142 mmol/L (136-145) Potassium Level 3.0 mmol/L (3.5-5.1) Chloride Level 103 mmol/L (98-107) Carbon Dioxide Level 31 mmol/L (21-32) Anion Gap 8 (6-14) Blood Urea Nitrogen 33 mg/dL (7-20) Creatinine 1.8 mg/dL (0.6-1.0) Estimated GFR (Cockcroft-Gault) 28.5 Glucose Level 134 mg/dL (70-99) Hemoglobin A1c 5.1 % (4.8-5.6) Calcium Level 9.2 mg/dL (8.5-10.1) Troponin I Quantitative 1.465 ng/mL (0.000-0.055) 1.075 ng/mL (0.000-0.055) Thyroid Stimulating Hormone (TSH) 1.284 uIU/mL (0.358-3.74) Glucose (Fingerstick) 126 mg/dL (70-99) Test 12/08/18 20:50 12/08/18 20:51 12/09/18 03:10 12/09/18 09:00 Heparin Anti-Xa Act, Unfractionated 0.27 IU/mL (0.30-0.70) 0.30 IU/mL (0.30-0.70) 0.34 IU/mL (0.30-0.70) Glucose (Fingerstick) 110 mg/dL (70-99) White Blood Count 5.5 x10^3/uL (4.0-11.0) Red Blood Count 3.04 x10^6/uL (3.50-5.40) Hemoglobin 9.9 g/dL (12.0-15.5) Hematocrit 29.2 % (36.0-47.0) Mean Corpuscular Volume 96 fL (79-100) Mean Corpuscular Hemoglobin 32 pg (25-35) Mean Corpuscular Hemoglobin Concent 34 g/dL (31-37) Red Cell Distribution Width 14.3 % (11.5-14.5) Platelet Count 118 x10^3/uL (140-400) Neutrophils (%) (Auto) 65 % (31-73) Lymphocytes (%) (Auto) 20 % (24-48) Monocytes (%) (Auto) 10 % (0-9) Eosinophils (%) (Auto) 4 % (0-3) Basophils (%) (Auto) 1 % (0-3) Neutrophils # (Auto) 3.6 x10^3/uL (1.8-7.7) Lymphocytes # (Auto) 1.1 x10^3/uL (1.0-4.8) Monocytes # (Auto) 0.6 x10^3/uL (0.0-1.1) Eosinophils # (Auto) 0.2 x10^3/uL (0.0-0.7) Basophils # (Auto) 0.0 x10^3/uL (0.0-0.2) Sodium Level 144 mmol/L (136-145) Potassium Level 2.8 mmol/L (3.5-5.1) Chloride Level 104 mmol/L (98-107) Carbon Dioxide Level 33 mmol/L (21-32) Anion Gap 7 (6-14) Blood Urea Nitrogen 26 mg/dL (7-20) Creatinine 1.4 mg/dL (0.6-1.0) Estimated GFR (Cockcroft-Gault) 38.1 BUN/Creatinine Ratio 19 (6-20) Glucose Level 115 mg/dL (70-99) Calcium Level 9.0 mg/dL (8.5-10.1) Magnesium Level 1.5 mg/dL (1.8-2.4) Total Bilirubin 1.7 mg/dL (0.2-1.0) Aspartate Amino Transf (AST/SGOT) 30 U/L (15-37) Alanine Aminotransferase (ALT/SGPT) 18 U/L (14-59) Alkaline Phosphatase 121 U/L (46-116) Total Protein 6.9 g/dL (6.4-8.2) Albumin 2.9 g/dL (3.4-5.0) Albumin/Globulin Ratio 0.7 (1.0-1.7) Microbiology Micro Microbiology 12/07/18 Blood Culture - Preliminary, Resulted NO GROWTH AFTER 1 DAY Physical Exam HEENT: Neck Supple W Full Motion Chest: Symmetric LUNGS: Other (diminiseehd bases, faint wheeze) Heart: S1S2, RRR (SR) Abdomen: Soft N/T Extremities: Other (2-3+ bilateral LE pitting edema) Neurology: alert, oriented, follow commands Assessment Assessment 1. Acute diastolic CHF: EF preserved 2. Accelerated HTN: controlled 3. IZAIAH on CKD: improved 4. Chest pain: could not rule out underlying ischemia. currently CP free 5. NSTEMI: multifactorial 6. Chronic high dose NSAID use: due to knee pain 7. Accelerated HTN: uses benazapril at home 8. DM2: uses metformin 9. Grief: spouse 1 month ago 10. Morbid obesity 11. Leg/knee pain/swelling: likely severe OA. Received IA injection. No DVT. 12. Suspecting undiagnosed PETE 13. HLP: not on statin at home. Recommendations 1. No further NSAIDs. Stop ACEi for now. Stop metformin and actos 2. Obtain TTE from [place] [facility]. LE Venous doppler today. 3. ASA. Continue heparin. Statin. 4. Will monitor renal function and plan for [facility] tomorrow 5. Bipap at hs and PRN. 6. Excellent UOP. Continue with lasix therapy. Replace K and Mg 7. Will need outpt PETE workup DIONNA GOMEZ MD 12/09/18 1800: CARDIO Progress Notes Plan Plan Patient seen and examined. Agree with above nurse practitioner note. Acute on chronic decompensated diastolic heart failure. Improving Non-ST elevation myocardial infarction, likely related to multifactorial issues as noted above. Discussed risks and benefits of cardiac catheterization and patient wishes to proceed. Supportive care for now. Continue aspirin and anticoagulation with heparin. Monitor platelets and renal function and reassess tomorrow regarding the adequacy for cardiac catheterization. LOS CAMPO APRN Dec 09, 2018 10:01 DIONNA GOMEZ MD Dec 09, 2018 18:00
[2018-12-09] MEDS: HEPARIN 25,000UTS/500ML PREMIX 500 ML IV PRN (10:09)
--- NOTE | 2018-12-09 10:15 | RAD ---
EXAM: Bilateral knees, standing view. HISTORY: Pain. COMPARISON: None. FINDINGS: A frontal standing view both knees is obtained. There is severe bilateral medial compartment joint space narrowing with subchondral sclerosis and right greater than left marginal osteophytosis and subchondral cyst formation. There are moderate bilateral lateral compartment osteophytes. There is bilateral genu varus. IMPRESSION: Severe medial and moderate lateral compartment osteoarthritis of both knees with genu varus. Electronically signed by: Brandy Fisher MD (12/09/2018 10:13 AM) [facility]
[2018-12-09] MEDS: IRON POLYSACCHARIDE COMPLEX 150 MG CAPSULE PO SCH ×2 (10:21→21:20)
--- NOTE | 2018-12-09 11:18 | CARD ---
MR#: [id number] Date of Study: 12/09/2018 Ordering Physician: LOS CAMPO, Referring Physician: LOS CAMPO Tech: Shelley Bruce VITA APPROVED REPORT EXAM: Two-dimensional and M-mode echocardiogram with Doppler and color Doppler. Other Information Quality : Technically LimitedHR: 85bpm Rhythm : NSRTechnically limited study due to body habitus. INDICATION Congestive Heart Failure 2D DIMENSIONS RVDd3.9 (2.9-3.5cm)Left Atrium(2D)4.6 (1.6-4.0cm) IVSd1.3 (0.7-1.1cm)Aortic Root(2D)3.1 (2.0-3.7cm) LVDd5.1 (3.9-5.9cm)LVOT Diameter2.1 (1.8-2.4cm) PWd1.0 (0.7-1.1cm)LVDs3.1 (2.5-4.0cm) FS (%) 40.4 %SV89.0 ml LVEF(%)70.8 (>50%) M-Mode DIMENSIONS Left Atrium(MM)5.00 (2.5-4.0cm)Aortic Root3.48 (2.2-3.7cm) Aortic Valve AoV Peak Grabiel.195.7cm/sAoV VTI37.0cm AO Peak GR.15.3mmHgLVOT VTI 22.94cm AO Mean GR.8mmHgAVA (VTI)2.10cm2 Mitral Valve MV E Gtbmkyul95.2cm/sMV DECEL [id number] MV A Fxwuxoyv43.8cm/sE/A Ratio1.2 MV A [id number] TDI Lateral E' P. V9.20cm/sMedial E' P. V12.61cm/s E/Lateral E'10.6E/Medial E'7.7 Tricuspid Valve TR P. Lmgcptvc208gl/sRAP [id number] TR Peak Gr.98ghDzRSSF17aoYz LEFT VENTRICLE The left ventricle is normal size. There is mild concentric left ventricular hypertrophy. The left ve ntricular systolic function is normal and the ejection fraction is within normal range. The Ejection Fraction is 60-65%. Septal motion suggestive of conduction defect. Transmitral Doppler flow pattern i s Grade II-pseudonormal filling dynamics. RIGHT VENTRICLE The right ventricle is mildly dilated. There is normal right ventricular wall thickness. The right ve ntricular systolic function is normal. ATRIA The left atrium is mildly dilated. The right atrium is mildly dilated. The interatrial septum is inta ct with no evidence for an atrial septal defect or patent foramen ovale as noted on 2-D or Doppler im aging. AORTIC VALVE Not well visualized. Doppler and Color Flow revealed no significant aortic regurgitation. There is no significant aortic valvular stenosis. There is no aortic valvular vegetation. MITRAL VALVE Mitral annular calcification is mild. There is no evidence of mitral valve prolapse. There is no mitr al valve stenosis. Doppler and Color-flow revealed mild mitral regurgitation. TRICUSPID VALVE The tricuspid valve is normal in structure and function. Doppler and Color Flow revealed mild tricusp id regurgitation. The PA pressure was estimated at 45 mmHg. There is no tricuspid valve prolapse or v egetation. There is no tricuspid valve stenosis. PULMONIC VALVE The pulmonic valve is not well visualized. GREAT VESSELS The aortic root is normal in size. The ascending aorta is normal in size. The IVC is dilated and key apses >50% with inspiration. PERICARDIAL EFFUSION There is no evidence of significant pericardial effusion. Critical Notification Critical Value: No <Conclusion> The left ventricular systolic function is normal and the ejection fraction is within normal range. Th e Ejection Fraction is 60-65%. There is normal LV segmental wall motion. Septal motion suggestive of conduction defect. RV is moderately dilated. Doppler and Color Flow revealed mild tricuspid regurgitation. The PA pressure was estimated at 45 mmH g. Technically very difficult study Signed by : Adrian Laura, Electronically Approved : 12/09/2018 11:17:53
[2018-12-09 11:23] VITALS: BP 126/64
[2018-12-09 15:11] VITALS: BP 131/60
--- NOTE | 2018-12-09 15:43 | NUR ---
SS following up with discharge planning. PT recommended group home unit at discharge. SS met with pt to discuss group home unit and discharge planning. Pt reported that she had a job and needed to return to work. Pt declined group home unit and is currently declining home healthcare due to wanting to return to her work. Pt's RN notified. SS will continue to follow for discharge planning.
[2018-12-09 19:23] VITALS: BP 119/58
--- NOTE | 2018-12-09 19:35 | NUR ---
Pt in bed assessment completed. Pt denies pain at this time poc explained will resume care and continue to monitor pt. call light in with reach.
[2018-12-09] MEDS: traZODone 50 MG TABLET. PO PRN (21:20)
[2018-12-09] MEDS: ATORVASTATIN CALCIUM 20 MG TABLET PO SCH (21:20)
[2018-12-09] MEDS: GABAPENTIN 300 MG CAPSULE. PO SCH (21:20)
[2018-12-09 22:28] VITALS: BP 100/49
[2018-12-10] VITALS (15 sets, daily range): BP systolic 116–141; BP diastolic 53–63
--- NOTE | 2018-12-10 01:56 | CONS ---
DATE OF CONSULTATION: 12/09/2018 ATTENDING PHYSICIAN: Dr. Frausto. PRIMARY CARE PHYSICIAN: Dr. Chiara Becerril. 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 The patient was admitted on 12/08/2018 with acute shortness of breath going on for about 2 days. She has problems with left leg pain and left knee pain and has been taking large amounts of ibuprofen. On 12/07/2018, she went to work, had shortness of breath with stairs and got out of breath after work before driving home. She apparently gained about 20 pounds weight in the last one month. The patient denies any history of chronic obstructive pulmonary disease or asthmatic bronchitis. She lost her of 40 years with heart related condition in September. The patient had 3 stairs to get into the house. PAST MEDICAL HISTORY: Includes hypertension, diabetes mellitus. She was treated last week for cellulitis of left leg with antibiotics. She is not known allergic to any medication. The patient apparently was using her 's quad cane in the last few days. The patient since admission is also noted with acute hypoxic respiratory failure, congestive heart failure, acute on chronic renal failure, morbid obesity with BMI of 55 and cellulitis of left leg. PHYSICAL EXAMINATION: Today revealed a middle-aged female. She is alert, cooperative. She moves all 4 extremities voluntarily where she had 4+/5 grade muscle strength. She had some stiffness of both knees and pain on range of motion of her knees, especially left knee, crepitus on range of motion of her knee joint with mild knee joint effusion. She had tenderness to palpation over medial knee joint line and also over left leg where she had some edema and some mild redness. She had equal perception of touch and pinprick sensation bilaterally. Deep tendon reflexes are 1-2+ and symmetrical with absent ankle jerks. She is using oxygen by nasal cannula and she had an indwelling Mac catheter in place. She had some skin irritation over right leg. Other than that, her skin is intact. ASSESSMENT: A middle-aged female with painful degenerative joint disease of left knee and pain in her left leg from recent cellulitis with still some edema and redness, degenerative joint disease of right knee, obesity, hypertension, diabetes mellitus with peripheral neuropathy, recent onset acute respiratory failure, congestive heart failure and renal failure, probably from use of nonsteroidal anti-inflammatory medication for pain control. RECOMMENDATION: To proceed with injecting her left knee to help ease her knee pain and I have instructed her in isometric strengthening exercise to her lower extremity muscle groups to try vascular boot to help with her left lower extremity edema and redness. Home when medically stable with outpatient followup. Dr. Frausto, I appreciate asking me to participate in the care of this interesting patient. I will be glad to follow her with you as needed for her rehabilitation. CHIARA ORTIZ MD DR: SENAIT/ciara JOB#: [id number] / [id number] ecc Chiara Becerril Dr.
[2018-12-10] MEDS: HEPARIN 25,000UTS/500ML PREMIX 500 ML IV PRN (03:07)
[2018-12-10 05:13] LABS: HEMATOCRIT 28.4 % (36.0-47.0); HEMOGLOBIN 9.6 g/dL (12.0-15.5); RED BLOOD COUNT 2.97 x10^6/uL (3.50-5.40); RED CELL DISTRIBUTION WIDTH 14.8 % (11.5-14.5); WHITE BLOOD COUNT 4.3 x10^3/uL (4.0-11.0)
[2018-12-10 05:30] LABS: CALCIUM 8.8 mg/dL (8.5-10.1); CREATININE 1.2 mg/dL (0.6-1.0); GFR 45.5; MAGNESIUM 1.6 mg/dL (1.8-2.4); POTASSIUM 3.6 mmol/L (3.5-5.1)
--- NOTE | 2018-12-10 07:30 | PDOC ---
PROGRESS NOTES History of Present Illness History of Present Illness VTE Prophylaxis Ordered VTE Prophylaxis Devices: No VTE Pharmacological Prophylaxi: Yes impression acute hypoxic respiratory failure CHF, acute combined failure, Septal motion suggestive of conduction defect. RV is moderately dilated. Doppler and Color Flow revealed mild tricuspid regurgitation. The PA pressure was estimated at 45 mmHg. c/w pulm hypertension, moderate morbid obesity, BMI 55 Acute on chronic renal failure, has been overusing NSAID for pain IZAIAH - Cardiorenal / Longstanding use of NSAID's Renal echotexture which may represent early chronic medical renal disease. recently cellulitis left leg, completing clinda script and leg has improved over the past week super morbid obesity suspect obesity, hypoventilation syndrome/ chuy has never had a sleep study 12-09 on admit She has had acute 2 days of chest pain, and has been taking large amount of ibuprofen she went to work , had new dsypnea with the stairs, then was out of breath after work before driving home. Patient states that she has gained 20 pounds and her last 1- months. . Patient denies history of COPD or asthma. BIPAP for the first time night of admit, and she feels much improved after use [facility] 12-10 pulm consult 38 min pt exam, chart review, > 50% of time spent with exam, chart review, pt care coordination Vitals Vitals Vital Signs Date Time Temp Pulse Resp B/P (MAP) Pulse Ox O2 Delivery O2 Flow Rate FiO2 12/10/18 02:57 98.5 82 18 126/58 (80) 93 Nasal Cannula 1.0 98.5 Physical Exam General: Alert, Oriented X3, Cooperative, No acute distress Heart: Regular rate (SR), Normal S1, Other (distant heart sounds) Lungs: Clear, Other (diminished) Abdomen: Normal bowel sounds, Soft, No tenderness, Other (obese) Extremities: No clubbing, No cyanosis, Other (2-3+ bilateral LE pitting edema) Skin: Other (venous dermatitis) Labs LABS SPEC #: [id number] RYAN: 12/07/18 STATUS: RES REQ #: [id number] RECD: 12/07/[address]: GAVIN GRAMAJO DO SOURCE: BLOOD ENTR: 12/07/[address] [facility] [address]: SARMAD CLEMENS NP [facility]: ORDERED: BCULT Procedure Result BLOOD CULTURE Preliminary NO GROWTH AFTER 2 DAYS Laboratory Tests Test 12/09/18 09:00 12/09/18 11:55 12/09/18 17:12 12/09/18 20:54 Heparin Anti-Xa Act, Unfractionated 0.34 IU/mL (0.30-0.70) Glucose (Fingerstick) 108 mg/dL (70-99) 108 mg/dL (70-99) 118 mg/dL (70-99) Test 12/10/18 05:00 White Blood Count 4.3 x10^3/uL (4.0-11.0) Red Blood Count 2.97 x10^6/uL (3.50-5.40) Hemoglobin 9.6 g/dL (12.0-15.5) Hematocrit 28.4 % (36.0-47.0) Mean Corpuscular Volume 95 fL (79-100) Mean Corpuscular Hemoglobin 32 pg (25-35) Mean Corpuscular Hemoglobin Concent 34 g/dL (31-37) Red Cell Distribution Width 14.8 % (11.5-14.5) Platelet Count 117 x10^3/uL (140-400) Heparin Anti-Xa Act, Unfractionated 0.37 IU/mL (0.30-0.70) Sodium Level 144 mmol/L (136-145) Potassium Level 3.6 mmol/L (3.5-5.1) Chloride Level 103 mmol/L (98-107) Carbon Dioxide Level 33 mmol/L (21-32) Anion Gap 8 (6-14) Blood Urea Nitrogen 24 mg/dL (7-20) Creatinine 1.2 mg/dL (0.6-1.0) Estimated GFR (Cockcroft-Gault) 45.5 Glucose Level 123 mg/dL (70-99) Calcium Level 8.8 mg/dL (8.5-10.1) Magnesium Level 1.6 mg/dL (1.8-2.4) Comment Review of Relevant I have reviewed the following items radha (where applicable) has been applied. Labs Laboratory Tests Test 12/08/18 10:22 12/08/18 11:30 12/08/18 12:13 12/08/18 16:55 Urine Random Creatinine 59.2 mg/dL (Not Establ.) Urine Random Total Protein 16.7 mg/dL (Not Establ.) Urine Random Sodium 81 mmol/L (Not Estab.) Sodium Level 142 mmol/L (136-145) Potassium Level 3.0 mmol/L (3.5-5.1) Chloride Level 103 mmol/L (98-107) Carbon Dioxide Level 31 mmol/L (21-32) Anion Gap 8 (6-14) Blood Urea Nitrogen 33 mg/dL (7-20) Creatinine 1.8 mg/dL (0.6-1.0) Estimated GFR (Cockcroft-Gault) 28.5 Glucose Level 134 mg/dL (70-99) Hemoglobin A1c 5.1 % (4.8-5.6) Calcium Level 9.2 mg/dL (8.5-10.1) Troponin I Quantitative 1.465 ng/mL (0.000-0.055) 1.075 ng/mL (0.000-0.055) Thyroid Stimulating Hormone (TSH) 1.284 uIU/mL (0.358-3.74) Glucose (Fingerstick) 126 mg/dL (70-99) Test 12/08/18 20:50 12/08/18 20:51 12/09/18 03:10 12/09/18 09:00 Heparin Anti-Xa Act, Unfractionated 0.27 IU/mL (0.30-0.70) 0.30 IU/mL (0.30-0.70) 0.34 IU/mL (0.30-0.70) Glucose (Fingerstick) 110 mg/dL (70-99) White Blood Count 5.5 x10^3/uL (4.0-11.0) Red Blood Count 3.04 x10^6/uL (3.50-5.40) Hemoglobin 9.9 g/dL (12.0-15.5) Hematocrit 29.2 % (36.0-47.0) Mean Corpuscular Volume 96 fL (79-100) Mean Corpuscular Hemoglobin 32 pg (25-35) Mean Corpuscular Hemoglobin Concent 34 g/dL (31-37) Red Cell Distribution Width 14.3 % (11.5-14.5) Platelet Count 118 x10^3/uL (140-400) Neutrophils (%) (Auto) 65 % (31-73) Lymphocytes (%) (Auto) 20 % (24-48) Monocytes (%) (Auto) 10 % (0-9) Eosinophils (%) (Auto) 4 % (0-3) Basophils (%) (Auto) 1 % (0-3) Neutrophils # (Auto) 3.6 x10^3/uL (1.8-7.7) Lymphocytes # (Auto) 1.1 x10^3/uL (1.0-4.8) Monocytes # (Auto) 0.6 x10^3/uL (0.0-1.1) Eosinophils # (Auto) 0.2 x10^3/uL (0.0-0.7) Basophils # (Auto) 0.0 x10^3/uL (0.0-0.2) Sodium Level 144 mmol/L (136-145) Potassium Level 2.8 mmol/L (3.5-5.1) Chloride Level 104 mmol/L (98-107) Carbon Dioxide Level 33 mmol/L (21-32) Anion Gap 7 (6-14) Blood Urea Nitrogen 26 mg/dL (7-20) Creatinine 1.4 mg/dL (0.6-1.0) Estimated GFR (Cockcroft-Gault) 38.1 BUN/Creatinine Ratio 19 (6-20) Glucose Level 115 mg/dL (70-99) Calcium Level 9.0 mg/dL (8.5-10.1) Magnesium Level 1.5 mg/dL (1.8-2.4) Total Bilirubin 1.7 mg/dL (0.2-1.0) Aspartate Amino Transf (AST/SGOT) 30 U/L (15-37) Alanine Aminotransferase (ALT/SGPT) 18 U/L (14-59) Alkaline Phosphatase 121 U/L (46-116) Total Protein 6.9 g/dL (6.4-8.2) Albumin 2.9 g/dL (3.4-5.0) Albumin/Globulin Ratio 0.7 (1.0-1.7) Test 12/09/18 11:55 12/09/18 17:12 12/09/18 20:54 12/10/18 05:00 Glucose (Fingerstick) 108 mg/dL (70-99) 108 mg/dL (70-99) 118 mg/dL (70-99) White Blood Count 4.3 x10^3/uL (4.0-11.0) Red Blood Count 2.97 x10^6/uL (3.50-5.40) Hemoglobin 9.6 g/dL (12.0-15.5) Hematocrit 28.4 % (36.0-47.0) Mean Corpuscular Volume 95 fL (79-100) Mean Corpuscular Hemoglobin 32 pg (25-35) Mean Corpuscular Hemoglobin Concent 34 g/dL (31-37) Red Cell Distribution Width 14.8 % (11.5-14.5) Platelet Count 117 x10^3/uL (140-400) Heparin Anti-Xa Act, Unfractionated 0.37 IU/mL (0.30-0.70) Sodium Level 144 mmol/L (136-145) Potassium Level 3.6 mmol/L (3.5-5.1) Chloride Level 103 mmol/L (98-107) Carbon Dioxide Level 33 mmol/L (21-32) Anion Gap 8 (6-14) Blood Urea Nitrogen 24 mg/dL (7-20) Creatinine 1.2 mg/dL (0.6-1.0) Estimated GFR (Cockcroft-Gault) 45.5 Glucose Level 123 mg/dL (70-99) Calcium Level 8.8 mg/dL (8.5-10.1) Magnesium Level 1.6 mg/dL (1.8-2.4) Laboratory Tests Test 12/09/18 09:00 12/09/18 11:55 12/09/18 17:12 12/09/18 20:54 Heparin Anti-Xa Act, Unfractionated 0.34 IU/mL (0.30-0.70) Glucose (Fingerstick) 108 mg/dL (70-99) 108 mg/dL (70-99) 118 mg/dL (70-99) Test 12/10/18 05:00 White Blood Count 4.3 x10^3/uL (4.0-11.0) Red Blood Count 2.97 x10^6/uL (3.50-5.40) Hemoglobin 9.6 g/dL (12.0-15.5) Hematocrit 28.4 % (36.0-47.0) Mean Corpuscular Volume 95 fL (79-100) Mean Corpuscular Hemoglobin 32 pg (25-35) Mean Corpuscular Hemoglobin Concent 34 g/dL (31-37) Red Cell Distribution Width 14.8 % (11.5-14.5) Platelet Count 117 x10^3/uL (140-400) Heparin Anti-Xa Act, Unfractionated 0.37 IU/mL (0.30-0.70) Sodium Level 144 mmol/L (136-145) Potassium Level 3.6 mmol/L (3.5-5.1) Chloride Level 103 mmol/L (98-107) Carbon Dioxide Level 33 mmol/L (21-32) Anion Gap 8 (6-14) Blood Urea Nitrogen 24 mg/dL (7-20) Creatinine 1.2 mg/dL (0.6-1.0) Estimated GFR (Cockcroft-Gault) 45.5 Glucose Level 123 mg/dL (70-99) Calcium Level 8.8 mg/dL (8.5-10.1) Magnesium Level 1.6 mg/dL (1.8-2.4) Microbiology 12/07/18 Blood Culture - Preliminary, Resulted NO GROWTH AFTER 2 DAYS Medications Current Medications Furosemide (Lasix) 40 mg 1X ONCE IVP Last administered on 12/07/18at 22:56; Start 12/07/18 at 22:15; Stop 12/07/18 at 22:16; Status DC Albuterol/ Ipratropium (Duoneb) 3 ml STK-MED ONCE .ROUTE ; Start 12/07/18 at 22:14; Stop 12/07/18 at 22:14; Status DC Ceftriaxone Sodium (Rocephin) 1 gm 1X ONCE IVP Last administered on 12/07/18at 23:16; Start 12/07/18 at 23:15; Stop 12/07/18 at 23:16; Status DC Sodium Chloride 500 ml @ 500 mls/hr 1X ONCE IV Last administered on 12/07/18at 23:39; Start 12/07/18 at 23:45; Stop 12/08/18 at 00:44; Status DC Alprazolam (Xanax) 0.5 mg PRN Q8HRS PRN PO ANXIETY / AGITATION Last administered on 12/08/18at 23:25; Start 12/08/18 at 02:30 Oxycodone/ Acetaminophen (Percocet 5/325) 1 tab PRN Q4HRS PRN PO PAIN Last administered on 12/09/18at 18:31; Start 12/08/18 at 02:30 Clindamycin HCl (Cleocin) 450 mg TID PO Last administered on 12/09/18at 21:21; Start 12/08/18 at 09:00 Docusate Sodium (Colace) 100 mg BID PO Last administered on 12/09/18at 21:20; Start 12/08/18 at 09:00 Furosemide (Lasix) 20 mg DAILY PO Last administered on 12/08/18at 08:34; Start 12/08/18 at 09:00; Stop 12/08/18 at 13:55; Status DC Gabapentin (Neurontin) 300 mg HS PO Last administered on 12/09/18at 21:20; Start 12/08/18 at 21:00 Metformin HCl (Glucophage) 500 mg BIDWMEALS PO ; Start 12/08/18 at 08:00; Stop 12/08/18 at 13:34; Status DC Metoprolol Succinate (Toprol Xl) 100 mg DAILY PO Last administered on 12/09/18at 09:38; Start 12/08/18 at 09:00 Potassium Chloride (Klor-Con) 10 meq DAILYWBKFT PO Last administered on 12/08/18at 08:35; Start 12/08/18 at 08:00; Stop 12/09/18 at 05:47; Status DC Trazodone HCl (Desyrel) 50 mg PRN QHS PRN PO INSOMNIA Last administered on 12/09/18at 21:20; Start 12/08/18 at 02:30 Lisinopril (Prinivil) 20 mg DAILY PO ; Start 12/08/18 at 09:00; Stop 12/08/18 at 13:34; Status DC Pioglitazone HCl (Actos) 30 mg DAILY PO Last administered on 12/08/18at 08:40; Start 12/08/18 at 09:00; Stop 12/08/18 at 13:53; Status DC Potassium Chloride (Klor-Con) 20 meq 1X ONCE PO Last administered on 12/08/18at 11:42; Start 12/08/18 at 09:30; Stop 12/08/18 at 09:35; Status DC Furosemide (Lasix) 40 mg 1X ONCE IVP Last administered on 12/08/18 11:42; Start 12/08/18 at 11:00; Stop 12/08/18 at 11:01; Status DC Lactobacillus Rhamnosus (Culturelle) 1 cap BID PO Last administered on 12/09/18at 21:20; Start 12/08/18 at 15:00 Furosemide (Lasix) 40 mg [id number] IVP Last administered on 12/09/18 09:51; Start 12/08/18 at 16:00; Stop 12/09/18 at 14:29; Status DC Potassium Chloride (Klor-Con) 40 meq 1X ONCE PO Last administered on 12/08/18 14:36; Start 12/08/18 at 13:30; Stop 12/08/18 at 13:41; Status DC Aspirin (Ecotrin) 325 mg 1X ONCE PO Last administered on 12/08/18 14:35; Start 12/08/18 at 13:30; Stop 12/08/18 at 13:41; Status DC Aspirin (Ecotrin) 81 mg DAILYWBKFT PO Last administered on 12/09/18 09:39; Start 12/09/18 at 08:00 Heparin Sodium/ Dextrose 500 ml @ 0 mls/hr CONT PRN IV SEE I/O RECORD Last administered on 12/10/18 03:07; Start 12/08/18 at 13:45 Heparin Sodium (Porcine) (Heparin Sodium) 4,000 unit PRN Q6HRS PRN IV FOR UFH LEVEL LESS THAN 0.2 Last administered on 12/08/18 14:54; Start 12/08/18 at 13:45 Atorvastatin Calcium (Lipitor) 20 mg QHS PO Last administered on 12/09/18 21:20; Start 12/08/18 at 21:00 Potassium Chloride (Klor-Con) 40 meq 1X ONCE PO Last administered on 12/09/18 06:25; Start 12/09/18 at 06:00; Stop 12/09/18 at 06:02; Status DC Potassium Chloride (Klor-Con) 40 meq BIDWMEALS PO Last administered on 12/09/18 18:31; Start 12/09/18 at 08:00 Magnesium Sulfate 50 ml @ 25 mls/hr 1X ONCE IV Last administered on 12/09/18 09:54; Start 12/09/18 at 08:30; Stop 12/09/18 at 10:29; Status DC Methylprednisolone Acetate (DEPO-Medrol 40MG VIAL) 40 mg 1X ONCE IM Last administered on 12/09/18 10:19; Start 12/09/18 at 09:00; Stop 12/09/18 at 09:01; Status DC Bupivacaine HCl (Sensorcaine-Mpf 0.25%) 10 ml 1X ONCE IJ Last administered on 12/09/18 10:19; Start 12/09/18 at 09:00; Stop 12/09/18 at 09:01; Status DC Polysaccharide Iron Complex (Niferex 150) 150 mg BID PO Last administered on 12/09/18 21:20; Start 12/09/18 at 10:00 Potassium Chloride (Klor-Con) 40 meq 1X ONCE PO Last administered on 10/23/19at 15:01; Start 12/09/18 at 13:00; Stop 12/09/18 at 13:01; Status DC Furosemide (Lasix) 40 mg DAILY IVP ; Start 12/10/18 at 09:00 Active Scripts Active Clindamycin Hcl 150 Mg Capsule 3 Cap PO TID Colace (Docusate Sodium) 100 Mg Capsule 100 Mg PO BID Reported Actos (Pioglitazone Hcl) 30 Mg Tablet 1 Tab PO DAILY 30 Days Benazepril Hcl 20 Mg Tablet 1 Tab PO DAILY Gabapentin (Gabapentin) 300 Mg Capsule 300 Mg PO HS Metformin Hcl 500 Mg Tablet 500 Mg PO BIDWMEALS Furosemide 20 Mg Tablet 1 Tab PO DAILY Potassium Chloride 10 Meq Tab.sr.24h 10 Meq PO DAILY Trazodone Hcl 50 Mg Tablet 1-2 Tab PO PRN QHS PRN Metoprolol Succinate ( Xl ) (Metoprolol Succinate) 100 Mg Tab.er.24h 1 Tab PO DAILY Vitals/I & O Vital Sign - Last 24 Hours 12/09/18 12/09/18 12/09/18 12/09/18 08:00 09:38 09:52 10:50 Pulse 87 B/P (MAP) 124/59 Pulse Ox 100 100 O2 Delivery Nasal Cannula Nasal Cannula Nasal Cannula O2 Flow Rate 4.0 4.0 4.0 12/09/18 12/09/18 12/09/18 12/09/18 11:23 15:11 18:31 19:23 Temp 98.9 97.5 98.1 98.9 97.5 98.1 Pulse 85 85 84 Resp 22 16 16 B/P (MAP) 126/64 (84) 131/60 (83) 119/58 (78) Pulse Ox 100 95 95 95 O2 Delivery Nasal Cannula Nasal Cannula Nasal Cannula Nasal Cannula O2 Flow Rate 4.0 1.0 1.0 1.0 12/09/18 12/09/18 12/09/18 12/10/18 19:35 19:35 22:28 02:57 Temp 98.3 98.5 98.3 98.5 Pulse 80 82 Resp 18 18 18 B/P (MAP) 100/49 (66) 126/58 (80) Pulse Ox 93 96 93 O2 Delivery Nasal Cannula Nasal Cannula Nasal Cannula Nasal Cannula O2 Flow Rate 1.0 1.0 1.0 1.0 Intake and Output 12/09/18 12/09/18 12/10/18 15:00 23:00 07:00 Intake Total 120 ml 650 ml 0 ml Output Total 650 ml 650 ml 700 ml Balance -530 ml 0 ml -700 ml FRANCISCO CASTELLON MD Dec 10, 2018 07:30
[2018-12-10] MEDS: POTASSIUM CHLORIDE 20 MEQ TABLET.ER. PO SCH ×2 (08:00→17:42)
[2018-12-10] MEDS ORDERED: MAGNESIUM SULFATE 2GM 50 ML IV ONE (08:00)
[2018-12-10] MEDS: METOPROLOL SUCC 24HR ER 100 MG TAB.ER.24H. PO SCH (08:16)
[2018-12-10] MEDS: ASPIRIN ENTERIC COATED 81 MG TABLET.DR. PO SCH (08:16)
[2018-12-10] MEDS: CLINDAMYCIN HCL 150 MG CAPSULE. PO SCH ×3 (08:17→21:15)
[2018-12-10] MEDS: FUROSEMIDE 40 MG/4 ML VIAL. IVP SCH (08:17)
[2018-12-10] MEDS: IRON POLYSACCHARIDE COMPLEX 150 MG CAPSULE PO SCH ×2 (08:18→21:15)
[2018-12-10] MEDS: LACTOBACILLUS RHAMNOSUS GG 1 CAPSULE. PO SCH ×2 (08:18→21:15)
[2018-12-10] MEDS: DOCUSATE SODIUM 100 MG CAPSULE. PO SCH ×2 (08:18→21:00)
[2018-12-10] MEDS ORDERED: ANTI-COAG MONITOR BY PHARMACY. MC PRN (08:30)
--- NOTE | 2018-12-10 10:21 | PDOC ---
SUBJECTIVE ROS Stable OBJECTIVE Vital Signs Vital Signs Date Time Temp Pulse Resp B/P (MAP) Pulse Ox O2 Delivery O2 Flow Rate FiO2 12/10/18 08:16 84 132/62 12/10/18 07:30 98.5 94 Nasal Cannula 1.0 98.5 12/10/18 02:57 18 I & 0 Intake and Output 12/10/18 07:00 Intake Total 770 ml Output Total 2000 ml Balance -1230 ml Intake Oral 770 ml Output Urine Total 2000 ml PHYSICAL EXAM Physical Exam GEN: NAD HEEN: OM moist, O2 by NC NECK: Supple CVS: RRR, ROSSI + RESP: CTA, mild labored breathing GI: BS + ve Non Tender,obese : No CVA tenderness, No Suprapubic Tenderness, Mac+ NEURO- Grossly normal SKIN- No rash EXT- LE edema 1 +, Changes of CVI +, DIAGNOSIS/ASSESSMENT Assessment & Plan IZAIAH - Cardiorenal / Longstanding use of NSAID's UA unremarkable - No micr hematuria, No Protein, NO Hx of recent contrast study per pt Cr in 02.20- done in [facility] ER , last week at PCP 1.9 , Improving renal function Lisinopril held , Supportive care, I/O, wt down , Good UOP Hypokalemia- ReplacE Suspect CKD stage 3 - renal US cw Chr med disease CHF- No Hx of CAD per pt Good response to IV lasix,cardiology managing Now on QD DM- Metformin was held Management per primary HTN - resolved ? PVD - Bilat LE Leg pain, CVI Elevated Lft's Discussed A/P with Pt and RN COMMENT/RELEVANT DATA Meds Current Medications Medications (Trade) Dose Ordered Sig/Elizabeth Start Time Stop Time Status Last Admin Dose Admin Albuterol/ Ipratropium (Duoneb) 3 ml STK-MED ONCE 12/07/18 22:14 12/07/18 22:14 DC Alprazolam (Xanax) 0.5 mg PRN Q8HRS PRN 12/08/18 02:30 12/08/18 23:25 0.5 MG Aspirin (Ecotrin) 81 mg DAILYWBKFT 12/09/18 08:00 12/10/18 08:16 81 MG Atorvastatin Calcium (Lipitor) 20 mg QHS 12/08/18 21:00 12/09/18 21:20 20 MG Bupivacaine HCl (Sensorcaine-Mpf 0.25%) 10 ml 1X ONCE 12/09/18 09:00 12/09/18 09:01 DC 12/09/18 10:19 10 ML Ceftriaxone Sodium (Rocephin) 1 gm 1X ONCE 12/07/18 23:15 12/07/18 23:16 DC 12/07/18 23:16 1 GM Clindamycin HCl (Cleocin) 450 mg TID 12/08/18 09:00 12/09/18 21:21 450 MG Docusate Sodium (Colace) 100 mg BID 12/08/18 09:00 12/09/18 21:20 100 MG Furosemide (Lasix) 40 mg DAILY 12/10/18 09:00 12/10/18 08:17 40 MG Gabapentin (Neurontin) 300 mg HS 12/08/18 21:00 12/09/18 21:20 300 MG Heparin Sodium (Porcine) (Heparin Sodium) 4,000 unit PRN Q6HRS PRN 12/08/18 13:45 12/08/18 14:54 4,000 UNIT Heparin Sodium/ Dextrose 500 ml @ 0 mls/hr CONT PRN 12/08/18 13:45 12/10/18 03:07 26.4 MLS/HR Info (Anti-Coagulation Monitoring By Pharmacy) 1 each PRN DAILY PRN 12/10/18 08:30 Lactobacillus Rhamnosus (Culturelle) 1 cap BID 12/08/18 15:00 12/09/18 21:20 1 CAP Lisinopril (Prinivil) 20 mg DAILY 12/08/18 09:00 12/08/18 13:34 DC Magnesium Sulfate 50 ml @ 25 mls/hr 1X ONCE 12/10/18 08:00 12/10/18 09:59 DC 12/10/18 08:17 25 MLS/HR Metformin HCl (Glucophage) 500 mg BIDWMEALS 12/08/18 08:00 12/08/18 13:34 DC Methylprednisolone Acetate (DEPO-Medrol 40MG VIAL) 40 mg 1X ONCE 12/09/18 09:00 12/09/18 09:01 DC 12/09/18 10:19 40 MG Metoprolol Succinate (Toprol Xl) 100 mg DAILY 12/08/18 09:00 12/10/18 08:16 100 MG Oxycodone/ Acetaminophen (Percocet 5/325) 1 tab PRN Q4HRS PRN 12/08/18 02:30 12/09/18 18:31 1 TAB Pioglitazone HCl (Actos) 30 mg DAILY 12/08/18 09:00 12/08/18 13:53 DC 12/08/18 08:40 30 MG Polysaccharide Iron Complex (Niferex 150) 150 mg BID 12/09/18 10:00 12/09/18 21:20 150 MG Potassium Chloride (Klor-Con) 40 meq 1X ONCE 12/09/18 13:00 12/09/18 13:01 DC 12/09/18 15:01 40 MEQ Sodium Chloride 500 ml @ 500 mls/hr 1X ONCE 12/07/18 23:45 12/08/18 00:44 DC 12/07/18 23:39 500 MLS/HR Trazodone HCl (Desyrel) 50 mg PRN QHS PRN 12/08/18 02:30 12/09/18 21:20 50 MG Lab Laboratory Tests Test 12/09/18 11:55 12/09/18 17:12 12/09/18 20:54 12/10/18 05:00 Glucose (Fingerstick) 108 mg/dL (70-99) 108 mg/dL (70-99) 118 mg/dL (70-99) White Blood Count 4.3 x10^3/uL (4.0-11.0) Red Blood Count 2.97 x10^6/uL (3.50-5.40) Hemoglobin 9.6 g/dL (12.0-15.5) Hematocrit 28.4 % (36.0-47.0) Mean Corpuscular Volume 95 fL (79-100) Mean Corpuscular Hemoglobin 32 pg (25-35) Mean Corpuscular Hemoglobin Concent 34 g/dL (31-37) Red Cell Distribution Width 14.8 % (11.5-14.5) Platelet Count 117 x10^3/uL (140-400) Heparin Anti-Xa Act, Unfractionated 0.37 IU/mL (0.30-0.70) Sodium Level 144 mmol/L (136-145) Potassium Level 3.6 mmol/L (3.5-5.1) Chloride Level 103 mmol/L (98-107) Carbon Dioxide Level 33 mmol/L (21-32) Anion Gap 8 (6-14) Blood Urea Nitrogen 24 mg/dL (7-20) Creatinine 1.2 mg/dL (0.6-1.0) Estimated GFR (Cockcroft-Gault) 45.5 Glucose Level 123 mg/dL (70-99) Calcium Level 8.8 mg/dL (8.5-10.1) Magnesium Level 1.6 mg/dL (1.8-2.4) Test 12/10/18 08:14 Glucose (Fingerstick) 111 mg/dL (70-99) Results All relevant outside records, renal labs, imaging studies, telemetry/EKG's were reviewed. ROE SIDDIQI MD Dec 10, 2018 10:21
--- NOTE | 2018-12-10 12:11 | PDOC ---
PULMONARY PROGRESS NOTES Vitals Vital Signs Date Time Temp Pulse Resp B/P (MAP) Pulse Ox O2 Delivery O2 Flow Rate FiO2 12/10/18 08:30 Nasal Cannula 1.0 12/10/18 08:16 84 132/62 12/10/18 07:30 98.5 94 98.5 12/10/18 02:57 18 Lungs: Clear, Other (diminished) Cardiovascular: S1, S2 Labs Laboratory Tests Test 12/08/18 12:13 12/08/18 16:55 12/08/18 20:50 12/08/18 20:51 Glucose (Fingerstick) 126 mg/dL (70-99) 110 mg/dL (70-99) Troponin I Quantitative 1.075 ng/mL (0.000-0.055) Heparin Anti-Xa Act, Unfractionated 0.27 IU/mL (0.30-0.70) Test 12/09/18 03:10 12/09/18 09:00 12/09/18 11:55 12/09/18 17:12 White Blood Count 5.5 x10^3/uL (4.0-11.0) Red Blood Count 3.04 x10^6/uL (3.50-5.40) Hemoglobin 9.9 g/dL (12.0-15.5) Hematocrit 29.2 % (36.0-47.0) Mean Corpuscular Volume 96 fL (79-100) Mean Corpuscular Hemoglobin 32 pg (25-35) Mean Corpuscular Hemoglobin Concent 34 g/dL (31-37) Red Cell Distribution Width 14.3 % (11.5-14.5) Platelet Count 118 x10^3/uL (140-400) Neutrophils (%) (Auto) 65 % (31-73) Lymphocytes (%) (Auto) 20 % (24-48) Monocytes (%) (Auto) 10 % (0-9) Eosinophils (%) (Auto) 4 % (0-3) Basophils (%) (Auto) 1 % (0-3) Neutrophils # (Auto) 3.6 x10^3/uL (1.8-7.7) Lymphocytes # (Auto) 1.1 x10^3/uL (1.0-4.8) Monocytes # (Auto) 0.6 x10^3/uL (0.0-1.1) Eosinophils # (Auto) 0.2 x10^3/uL (0.0-0.7) Basophils # (Auto) 0.0 x10^3/uL (0.0-0.2) Heparin Anti-Xa Act, Unfractionated 0.30 IU/mL (0.30-0.70) 0.34 IU/mL (0.30-0.70) Sodium Level 144 mmol/L (136-145) Potassium Level 2.8 mmol/L (3.5-5.1) Chloride Level 104 mmol/L (98-107) Carbon Dioxide Level 33 mmol/L (21-32) Anion Gap 7 (6-14) Blood Urea Nitrogen 26 mg/dL (7-20) Creatinine 1.4 mg/dL (0.6-1.0) Estimated GFR (Cockcroft-Gault) 38.1 BUN/Creatinine Ratio 19 (6-20) Glucose Level 115 mg/dL (70-99) Calcium Level 9.0 mg/dL (8.5-10.1) Magnesium Level 1.5 mg/dL (1.8-2.4) Total Bilirubin 1.7 mg/dL (0.2-1.0) Aspartate Amino Transf (AST/SGOT) 30 U/L (15-37) Alanine Aminotransferase (ALT/SGPT) 18 U/L (14-59) Alkaline Phosphatase 121 U/L (46-116) Total Protein 6.9 g/dL (6.4-8.2) Albumin 2.9 g/dL (3.4-5.0) Albumin/Globulin Ratio 0.7 (1.0-1.7) Glucose (Fingerstick) 108 mg/dL (70-99) 108 mg/dL (70-99) Test 12/09/18 20:54 12/10/18 05:00 12/10/18 08:14 Glucose (Fingerstick) 118 mg/dL (70-99) 111 mg/dL (70-99) White Blood Count 4.3 x10^3/uL (4.0-11.0) Red Blood Count 2.97 x10^6/uL (3.50-5.40) Hemoglobin 9.6 g/dL (12.0-15.5) Hematocrit 28.4 % (36.0-47.0) Mean Corpuscular Volume 95 fL (79-100) Mean Corpuscular Hemoglobin 32 pg (25-35) Mean Corpuscular Hemoglobin Concent 34 g/dL (31-37) Red Cell Distribution Width 14.8 % (11.5-14.5) Platelet Count 117 x10^3/uL (140-400) Heparin Anti-Xa Act, Unfractionated 0.37 IU/mL (0.30-0.70) Sodium Level 144 mmol/L (136-145) Potassium Level 3.6 mmol/L (3.5-5.1) Chloride Level 103 mmol/L (98-107) Carbon Dioxide Level 33 mmol/L (21-32) Anion Gap 8 (6-14) Blood Urea Nitrogen 24 mg/dL (7-20) Creatinine 1.2 mg/dL (0.6-1.0) Estimated GFR (Cockcroft-Gault) 45.5 Glucose Level 123 mg/dL (70-99) Calcium Level 8.8 mg/dL (8.5-10.1) Magnesium Level 1.6 mg/dL (1.8-2.4) Laboratory Tests Test 12/09/18 17:12 12/09/18 20:54 12/10/18 05:00 12/10/18 08:14 Glucose (Fingerstick) 108 mg/dL (70-99) 118 mg/dL (70-99) 111 mg/dL (70-99) White Blood Count 4.3 x10^3/uL (4.0-11.0) Red Blood Count 2.97 x10^6/uL (3.50-5.40) Hemoglobin 9.6 g/dL (12.0-15.5) Hematocrit 28.4 % (36.0-47.0) Mean Corpuscular Volume 95 fL (79-100) Mean Corpuscular Hemoglobin 32 pg (25-35) Mean Corpuscular Hemoglobin Concent 34 g/dL (31-37) Red Cell Distribution Width 14.8 % (11.5-14.5) Platelet Count 117 x10^3/uL (140-400) Heparin Anti-Xa Act, Unfractionated 0.37 IU/mL (0.30-0.70) Sodium Level 144 mmol/L (136-145) Potassium Level 3.6 mmol/L (3.5-5.1) Chloride Level 103 mmol/L (98-107) Carbon Dioxide Level 33 mmol/L (21-32) Anion Gap 8 (6-14) Blood Urea Nitrogen 24 mg/dL (7-20) Creatinine 1.2 mg/dL (0.6-1.0) Estimated GFR (Cockcroft-Gault) 45.5 Glucose Level 123 mg/dL (70-99) Calcium Level 8.8 mg/dL (8.5-10.1) Magnesium Level 1.6 mg/dL (1.8-2.4) Medications Active Scripts Medications Dose Route/Sig Max Daily Dose Days Date Category Actos (Pioglitazone Hcl) 30 Mg Tablet 1 Tab PO DAILY 30 12/08/18 Reported Benazepril Hcl 20 Mg Tablet 1 Tab PO DAILY 12/08/18 Reported Gabapentin (Gabapentin) 300 Mg Capsule 300 Mg PO HS 12/08/18 Reported Metformin Hcl 500 Mg Tablet 500 Mg PO BIDWMEALS 12/08/18 Reported Furosemide 20 Mg Tablet 1 Tab PO DAILY 12/08/18 Reported Potassium Chloride 10 Meq Tab.sr.24h 10 Meq PO DAILY 12/08/18 Reported Clindamycin Hcl 150 Mg Capsule 3 Cap PO TID 10/09/18 Rx Colace (Docusate Sodium) 100 Mg Capsule 100 Mg PO BID 10/27/16 Rx Trazodone Hcl 50 Mg Tablet 1-2 Tab PO PRN QHS PRN 09/14/16 Reported Metoprolol Succinate ( Xl ) (Metoprolol Succinate) 100 Mg Tab.er.24h 1 Tab PO DAILY 09/14/16 Reported Impression . NOTE DICTATED AGREE WITH CURRENT RX OUT PT SLEEP STUDY LUI WARD MD Dec 10, 2018 12:11
[2018-12-10] MEDS ORDERED: IODIXANOL 320 MG/ML 100 ML VIAL. ONE (13:55)
[2018-12-10] MEDS ORDERED: LIDOCAINE 1% PF 2 ML VIAL. ONE (13:55)
[2018-12-10] MEDS ORDERED: NITROGLYCERIN 200 MCG/2 ML SYRINGE FOR CATH/VASC LAB. ONE (14:02)
[2018-12-10] MEDS ORDERED: HEPARIN for IV BOLUS 10,000 UNIT/10 ML VIAL. ONE (14:02)
[2018-12-10] MEDS ORDERED: MIDAZOLAM HCL/PF 2 MG/2 ML VIAL. ONE (14:02)
[2018-12-10] MEDS ORDERED: fentaNYL PF VIAL 100 MCG/2 ML VIAL ONE (14:02)
[2018-12-10] MEDS ORDERED: VERAPAMIL 5 MG/2 ML VIAL. ONE (14:02)
--- NOTE | 2018-12-10 14:41 | CARD ---
MR#: [id number] Date of Study: 12/10/2018 Ordering Physician: LOS CAMPO, Referring Physician: LOS CAMPO, Tech: DEMETRICE MOISE RTR APPROVED REPORT Technologist: DEMETRICE MOISE RTR Nurse: MANUEL CALDWELL RN Procedure(s) performed: MODERATE SEDATION TIME: 20 MIN FLUORO TIME: 1.4 MIN DOSE: [id number] CONTRAST: 41 ml LHC, Coronary angiography HISTORY The patient is a 63 year-old female with a history of : renal failure without dialysis, hypertension, dyslipidemia. INDICATION The indication(s) include : non-STEMI . CS Clinical Frailty Scale [facility] Clinical Frailty Scale: Severely Frail Heart Failure Heart Failure: Yes If Yes, Newly Diagnosed: Yes If Yes, HF Type: Diastolic If Yes, NYHA Class: Class II PROCEDURE NARRATIVE INFORMED CONSENT: After explaining the risks and benefits of the procedure and alternatives, informed consent was obtained. The patient was brought electively to the cardiac catheterization lab. A timeout was performed confi rming the patient's name, date of , procedure, and site of procedure. All necessary personnel w ere wearing the appropriate protective equipment and radiation monitor devices. (See nursing notes for medications administered). ACCESS: The right wrist was sterilely prepped and draped in the usual fashion. The right wrist was infiltrat ed with 1 mL of 2% lidocaine for subcutaneous anesthesia. A 6 [place] Terumo glide sheath was inserte d into the right radial artery without difficulty. CORONARY ANGIOGRAPHY: Right and left coronary angiography was performed using a 6Fr TIG 4.0 catheter. Left ventricular en d diastolic pressure was obtained with a pigtail catheter and pullback was performed after left ventr iculography. All catheter exchanges and advancements were performed over a guidewire. CLOSURE: At case completion the right radial sheath was removed and a Terumo radial band was applied with 13 m l of air. COMPLICATIONS: The patient tolerated the procedure well and there were no immediate complications. FINDINGS: HEMODYNAMICS: LVEDP 22 mm Hg No gradient on LV to aortic pullback. AO:130/90 LEFT VENTRICULOGRAM: Deferred due to known EF of 55% by echo. CORONARY ANGIOGRAPHY: LM is a large caliber vessel with normal angiographic appearance. LAD is a large caliber vessel with mild luminal irregularities. Ramus is a small to moderate caliber vessel with normal angiographic apeparance. LCx is a moderate caliber non-dominant vessel with mild luminal irregularities. OM1 is a moderate caliber vessel with normal angiographic appearance. RCA is a large caliber dominant vessel with normal angiographic appearance. RPDA and RPL are moderate caliber vessels with normal angiographic appearance. Conclusion 1. Acute on chronic decompensated diastolic HF. LVEDP 22 mm Hg 2. No significant coronary disease. Recommendations 1. NSTEMI likely Type 2. 2. Aggressive medical therapy Signed by : Adrian Laura, Electronically Approved : 12/10/2018 14:40:54
[2018-12-10] MEDS ORDERED: NITROGLYCERIN 200 MCG/2 ML SYRINGE FOR CATH/VASC LAB. IART ONE (14:45)
[2018-12-10] MEDS ORDERED: LIDOCAINE 2% 20 ML VIAL. IJ ONE (14:45)
[2018-12-10] MEDS ORDERED: HEPARIN for IV BOLUS 10,000 UNIT/10 ML VIAL. IART ONE (14:45)
[2018-12-10] MEDS ORDERED: IOHEXOL 300 MG/ML 100ML VIAL. IART ONE (14:45)
[2018-12-10] MEDS ORDERED: VERAPAMIL 5 MG/2 ML VIAL. IART ONE (14:45)
[2018-12-10] MEDS ORDERED: MIDAZOLAM HCL/PF 2 MG/2 ML VIAL. IV ONE (14:45)
[2018-12-10] MEDS ORDERED: fentaNYL PF VIAL 100 MCG/2 ML VIAL IV ONE (14:45)
--- NOTE | 2018-12-10 16:21 | PDOC ---
PROGRESS NOTES Subjective Subjective She admits significant help with left knee joint injection and wants her right knee joint injected. She admits oxycodone made her too sleepy. Objective Objective Vital Signs Date Time Temp Pulse Resp B/P (MAP) Pulse Ox O2 Delivery O2 Flow Rate FiO2 12/10/18 15:00 97.6 81 128/61 (83) 94 Nasal Cannula 1.0 97.6 12/10/18 14:42 22 Intake and Output 12/10/18 07:00 Intake Total 770 ml Output Total 2000 ml Balance -1230 ml Intake Oral 770 ml Output Urine Total 2000 ml Physical Exam Physical Exam She is alert,supine in bed after cardiac cath this afternoon. She had severe osteoarthritis of both knees with bone into bone narrowing of medial knee joint line bilaterally and cprepitus on ROM of her knee joints and knee joint effusion and tenderness to palpation over medial knee joint line. Plan Plan of Care At her request,I have injected her right knee joint under aseptic skin technique with alcohol skin prep using 2 ml of 0.25% bupivacaine solution mixed with 1 ml of methylprednisone 40 mg/1 ml solution and she tolerated the procedure satisfactorily without any side effects. To let her try hydrocodone for pain control. Comment Review of Relevant I have reviewed the following items radha (where applicable) has been applied. Labs Laboratory Tests Test 12/08/18 16:55 12/08/18 20:50 12/08/18 20:51 12/09/18 03:10 Troponin I Quantitative 1.075 ng/mL (0.000-0.055) Heparin Anti-Xa Act, Unfractionated 0.27 IU/mL (0.30-0.70) 0.30 IU/mL (0.30-0.70) Glucose (Fingerstick) 110 mg/dL (70-99) White Blood Count 5.5 x10^3/uL (4.0-11.0) Red Blood Count 3.04 x10^6/uL (3.50-5.40) Hemoglobin 9.9 g/dL (12.0-15.5) Hematocrit 29.2 % (36.0-47.0) Mean Corpuscular Volume 96 fL (79-100) Mean Corpuscular Hemoglobin 32 pg (25-35) Mean Corpuscular Hemoglobin Concent 34 g/dL (31-37) Red Cell Distribution Width 14.3 % (11.5-14.5) Platelet Count 118 x10^3/uL (140-400) Neutrophils (%) (Auto) 65 % (31-73) Lymphocytes (%) (Auto) 20 % (24-48) Monocytes (%) (Auto) 10 % (0-9) Eosinophils (%) (Auto) 4 % (0-3) Basophils (%) (Auto) 1 % (0-3) Neutrophils # (Auto) 3.6 x10^3/uL (1.8-7.7) Lymphocytes # (Auto) 1.1 x10^3/uL (1.0-4.8) Monocytes # (Auto) 0.6 x10^3/uL (0.0-1.1) Eosinophils # (Auto) 0.2 x10^3/uL (0.0-0.7) Basophils # (Auto) 0.0 x10^3/uL (0.0-0.2) Sodium Level 144 mmol/L (136-145) Potassium Level 2.8 mmol/L (3.5-5.1) Chloride Level 104 mmol/L (98-107) Carbon Dioxide Level 33 mmol/L (21-32) Anion Gap 7 (6-14) Blood Urea Nitrogen 26 mg/dL (7-20) Creatinine 1.4 mg/dL (0.6-1.0) Estimated GFR (Cockcroft-Gault) 38.1 BUN/Creatinine Ratio 19 (6-20) Glucose Level 115 mg/dL (70-99) Calcium Level 9.0 mg/dL (8.5-10.1) Magnesium Level 1.5 mg/dL (1.8-2.4) Total Bilirubin 1.7 mg/dL (0.2-1.0) Aspartate Amino Transf (AST/SGOT) 30 U/L (15-37) Alanine Aminotransferase (ALT/SGPT) 18 U/L (14-59) Alkaline Phosphatase 121 U/L (46-116) Total Protein 6.9 g/dL (6.4-8.2) Albumin 2.9 g/dL (3.4-5.0) Albumin/Globulin Ratio 0.7 (1.0-1.7) Test 12/09/18 09:00 12/09/18 11:55 12/09/18 17:12 12/09/18 20:54 Heparin Anti-Xa Act, Unfractionated 0.34 IU/mL (0.30-0.70) Glucose (Fingerstick) 108 mg/dL (70-99) 108 mg/dL (70-99) 118 mg/dL (70-99) Test 12/10/18 05:00 12/10/18 08:14 12/10/18 12:08 White Blood Count 4.3 x10^3/uL (4.0-11.0) Red Blood Count 2.97 x10^6/uL (3.50-5.40) Hemoglobin 9.6 g/dL (12.0-15.5) Hematocrit 28.4 % (36.0-47.0) Mean Corpuscular Volume 95 fL (79-100) Mean Corpuscular Hemoglobin 32 pg (25-35) Mean Corpuscular Hemoglobin Concent 34 g/dL (31-37) Red Cell Distribution Width 14.8 % (11.5-14.5) Platelet Count 117 x10^3/uL (140-400) Heparin Anti-Xa Act, Unfractionated 0.37 IU/mL (0.30-0.70) Sodium Level 144 mmol/L (136-145) Potassium Level 3.6 mmol/L (3.5-5.1) Chloride Level 103 mmol/L (98-107) Carbon Dioxide Level 33 mmol/L (21-32) Anion Gap 8 (6-14) Blood Urea Nitrogen 24 mg/dL (7-20) Creatinine 1.2 mg/dL (0.6-1.0) Estimated GFR (Cockcroft-Gault) 45.5 Glucose Level 123 mg/dL (70-99) Calcium Level 8.8 mg/dL (8.5-10.1) Magnesium Level 1.6 mg/dL (1.8-2.4) Glucose (Fingerstick) 111 mg/dL (70-99) 111 mg/dL (70-99) Laboratory Tests Test 12/09/18 17:12 12/09/18 20:54 12/10/18 05:00 12/10/18 08:14 Glucose (Fingerstick) 108 mg/dL (70-99) 118 mg/dL (70-99) 111 mg/dL (70-99) White Blood Count 4.3 x10^3/uL (4.0-11.0) Red Blood Count 2.97 x10^6/uL (3.50-5.40) Hemoglobin 9.6 g/dL (12.0-15.5) Hematocrit 28.4 % (36.0-47.0) Mean Corpuscular Volume 95 fL (79-100) Mean Corpuscular Hemoglobin 32 pg (25-35) Mean Corpuscular Hemoglobin Concent 34 g/dL (31-37) Red Cell Distribution Width 14.8 % (11.5-14.5) Platelet Count 117 x10^3/uL (140-400) Heparin Anti-Xa Act, Unfractionated 0.37 IU/mL (0.30-0.70) Sodium Level 144 mmol/L (136-145) Potassium Level 3.6 mmol/L (3.5-5.1) Chloride Level 103 mmol/L (98-107) Carbon Dioxide Level 33 mmol/L (21-32) Anion Gap 8 (6-14) Blood Urea Nitrogen 24 mg/dL (7-20) Creatinine 1.2 mg/dL (0.6-1.0) Estimated GFR (Cockcroft-Gault) 45.5 Glucose Level 123 mg/dL (70-99) Calcium Level 8.8 mg/dL (8.5-10.1) Magnesium Level 1.6 mg/dL (1.8-2.4) Test 12/10/18 12:08 Glucose (Fingerstick) 111 mg/dL (70-99) Microbiology 12/07/18 Blood Culture - Preliminary, Resulted NO GROWTH AFTER 2 DAYS Medications Current Medications Furosemide (Lasix) 40 mg 1X ONCE IVP Last administered on 12/07/18at 22:56; Start 12/07/18 at 22:15; Stop 12/07/18 at 22:16; Status DC Albuterol/ Ipratropium (Duoneb) 3 ml STK-MED ONCE .ROUTE ; Start 12/07/18 at 22:14; Stop 12/07/18 at 22:14; Status DC Ceftriaxone Sodium (Rocephin) 1 gm 1X ONCE IVP Last administered on 12/07/18at 23:16; Start 12/07/18 at 23:15; Stop 12/07/18 at 23:16; Status DC Sodium Chloride 500 ml @ 500 mls/hr 1X ONCE IV Last administered on 12/07/18at 23:39; Start 12/07/18 at 23:45; Stop 12/08/18 at 00:44; Status DC Alprazolam (Xanax) 0.5 mg PRN Q8HRS PRN PO ANXIETY / AGITATION Last administered on 12/08/18at 23:25; Start 12/08/18 at 02:30 Oxycodone/ Acetaminophen (Percocet 5/325) 1 tab PRN Q4HRS PRN PO PAIN Last administered on 12/09/18at 18:31; Start 12/08/18 at 02:30 Clindamycin HCl (Cleocin) 450 mg TID PO Last administered on 12/09/18at 21:21; Start 12/08/18 at 09:00 Docusate Sodium (Colace) 100 mg BID PO Last administered on 12/09/18at 21:20; Start 12/08/18 at 09:00 Furosemide (Lasix) 20 mg DAILY PO Last administered on 12/08/18at 08:34; Start 12/08/18 at 09:00; Stop 12/08/18 at 13:55; Status DC Gabapentin (Neurontin) 300 mg HS PO Last administered on 12/09/18at 21:20; Start 12/08/18 at 21:00 Metformin HCl (Glucophage) 500 mg BIDWMEALS PO ; Start 12/08/18 at 08:00; Stop 12/08/18 at 13:34; Status DC Metoprolol Succinate (Toprol Xl) 100 mg DAILY PO Last administered on 12/10/18at 08:16; Start 12/08/18 at 09:00 Potassium Chloride (Klor-Con) 10 meq DAILYWBKFT PO Last administered on 12/08/18at 08:35; Start 12/08/18 at 08:00; Stop 12/09/18 at 05:47; Status DC Trazodone HCl (Desyrel) 50 mg PRN QHS PRN PO INSOMNIA Last administered on 12/09/18at 21:20; Start 12/08/18 at 02:30 Lisinopril (Prinivil) 20 mg DAILY PO ; Start 12/08/18 at 09:00; Stop 12/08/18 at 13:34; Status DC Pioglitazone HCl (Actos) 30 mg DAILY PO Last administered on 12/08/18 08:40; Start 12/08/18 at 09:00; Stop 12/08/18 at 13:53; Status DC Potassium Chloride (Klor-Con) 20 meq 1X ONCE PO Last administered on 12/08/18 11:42; Start 12/08/18 at 09:30; Stop 12/08/18 at 09:35; Status DC Furosemide (Lasix) 40 mg 1X ONCE IVP Last administered on 12/08/18 11:42; Start 12/08/18 at 11:00; Stop 12/08/18 at 11:01; Status DC Lactobacillus Rhamnosus (Culturelle) 1 cap BID PO Last administered on 12/09/18 21:20; Start 12/08/18 at 15:00 Furosemide (Lasix) 40 mg BID94 IVP Last administered on 12/09/18 09:51; Start 12/08/18 at 16:00; Stop 12/09/18 at 14:29; Status DC Potassium Chloride (Klor-Con) 40 meq 1X ONCE PO Last administered on 12/08/18 14:36; Start 12/08/18 at 13:30; Stop 12/08/18 at 13:41; Status DC Aspirin (Ecotrin) 325 mg 1X ONCE PO Last administered on 12/08/18 14:35; Start 12/08/18 at 13:30; Stop 12/08/18 at 13:41; Status DC Aspirin (Ecotrin) 81 mg DAILYWBKFT PO Last administered on 12/10/18at 08:16; Start 12/09/18 at 08:00 Heparin Sodium/ Dextrose 500 ml @ 0 mls/hr CONT PRN IV SEE I/O RECORD Last administered on 12/10/18 03:07; Start 12/08/18 at 13:45 Heparin Sodium (Porcine) (Heparin Sodium) 4,000 unit PRN Q6HRS PRN IV FOR UFH LEVEL LESS THAN 0.2 Last administered on 12/08/18 14:54; Start 12/08/18 at 13:45 Atorvastatin Calcium (Lipitor) 20 mg QHS PO Last administered on 12/09/18 21:20; Start 12/08/18 at 21:00 Potassium Chloride (Klor-Con) 40 meq 1X ONCE PO Last administered on 12/09/18at 06:25; Start 12/09/18 at 06:00; Stop 12/09/18 at 06:02; Status DC Potassium Chloride (Klor-Con) 40 meq BIDWMEALS PO Last administered on 12/09/18at 18:31; Start 12/09/18 at 08:00 Magnesium Sulfate 50 ml @ 25 mls/hr 1X ONCE IV Last administered on 12/09/18at 09:54; Start 12/09/18 at 08:30; Stop 12/09/18 at 10:29; Status DC Methylprednisolone Acetate (DEPO-Medrol 40MG VIAL) 40 mg 1X ONCE IM Last administered on 12/09/18at 10:19; Start 12/09/18 at 09:00; Stop 12/09/18 at 09:01; Status DC Bupivacaine HCl (Sensorcaine-Mpf 0.25%) 10 ml 1X ONCE IJ Last administered on 12/09/18at 10:19; Start 12/09/18 at 09:00; Stop 12/09/18 at 09:01; Status DC Polysaccharide Iron Complex (Niferex 150) 150 mg BID PO Last administered on 12/09/18at 21:20; Start 12/09/18 at 10:00 Potassium Chloride (Klor-Con) 40 meq 1X ONCE PO Last administered on 12/09/18at 15:01; Start 12/09/18 at 13:00; Stop 12/09/18 at 13:01; Status DC Furosemide (Lasix) 40 mg DAILY IVP Last administered on 12/10/18at 08:17; Start 12/10/18 at 09:00 Magnesium Sulfate 50 ml @ 25 mls/hr 1X ONCE IV Last administered on 12/10/18at 08:17; Start 12/10/18 at 08:00; Stop 12/10/18 at 09:59; Status DC Info (Anti-Coagulation Monitoring By Pharmacy) 1 each PRN DAILY PRN MC SEE COMMENTS Last administered on 12/10/18at 13:10; Start 12/10/18 at 08:30 Lidocaine HCl (Xylocaine-Mpf 1% 2ml Vial) 2 ml STK-MED ONCE .ROUTE ; Start at 13:55; Stop 12/10/18 at 13:55; Status DC Heparin Sodium/ Sodium Chloride 1,000 ml @ As Directed STK-MED ONCE .ROUTE ; Start 12/10/18 at 13:55; Stop 12/10/18 at 13:55; Status DC Iodixanol (Visipaque 320) 100 ml STK-MED ONCE .ROUTE ; Start 12/10/18 at 13:55; Stop 12/10/18 at 13:56; Status DC Fentanyl Citrate (Fentanyl 2ml Vial) 100 mcg STK-MED ONCE .ROUTE ; Start 1 at 14:02; Stop 12/10/18 at 14:02; Status DC Midazolam HCl (Versed) 2 mg STK-MED ONCE .ROUTE ; Start 12/10/18 at 14:02; Stop 12/10/18 at 14:02; Status DC Heparin Sodium (Porcine) (Heparin Sodium) 10,000 unit STK-MED ONCE .ROUTE ; Start 12/10/18 at 14:02; Stop 12/10/18 at 14:02; Status DC Verapamil HCl (Verapamil) 5 mg STK-MED ONCE .ROUTE ; Start 12/10/18 at 14:02; Stop 12/10/18 at 14:02; Status DC Nitroglycerin (Nitroglycerin) 200 mcg STK-MED ONCE .ROUTE ; Start 12/10/18 at 14:02; Stop 12/10/18 at 14:03; Status DC Nitroglycerin (Nitroglycerin) 200 mcg 1X ONCE IART Last administered on 12/10/18at 14:41; Start 12/10/18 at 14:45; Stop 12/10/18 at 14:46; Status DC Verapamil HCl (Verapamil) 2.5 mg 1X ONCE IART Last administered on 12/10/18at 14:41; Start 12/10/18 at 14:45; Stop 12/10/18 at 14:46; Status DC Heparin Sodium (Porcine) (Heparin Sodium) 2,500 unit 1X ONCE IART Last administered on 12/10/18at 14:40; Start 12/10/18 at 14:45; Stop 12/10/18 at 14:46; Status DC Midazolam HCl (Versed) 2 mg 1X ONCE IV Last administered on 12/10/18at 14:42; Start 12/10/18 at 14:45; Stop 12/10/18 at 14:46; Status DC Fentanyl Citrate (Fentanyl 2ml Vial) 100 mcg 1X ONCE IV Last administered on 12/10/18at 14:42; Start 12/10/18 at 14:45; Stop 12/10/18 at 14:46; Status DC Iohexol (Omnipaque 300 Mg/ml) 100 ml 1X ONCE IART Last administered on 12/10/18at 14:41; Start 12/10/18 at 14:45; Stop 12/10/18 at 14:46; Status DC Lidocaine HCl 1 ml 1X ONCE IJ Last administered on 12/10/18at 14:42; Start 12/10/18 at 14:45; Stop 12/10/18 at 14:46; Status DC Methylprednisolone Acetate (DEPO-Medrol 40MG VIAL) 40 mg 1X ONCE IM ; Start 12/10/18 at 16:30; Stop 12/10/18 at 16:31 Bupivacaine HCl (Sensorcaine-Mpf 0.25%) 10 ml 1X ONCE IJ ; Start 12/10/18 at 16:30; Stop 12/10/18 at 16:31 Active Scripts Active Clindamycin Hcl 150 Mg Capsule 3 Cap PO TID Colace (Docusate Sodium) 100 Mg Capsule 100 Mg PO BID Reported Actos (Pioglitazone Hcl) 30 Mg Tablet 1 Tab PO DAILY 30 Days Benazepril Hcl 20 Mg Tablet 1 Tab PO DAILY Gabapentin (Gabapentin) 300 Mg Capsule 300 Mg PO HS Metformin Hcl 500 Mg Tablet 500 Mg PO BIDWMEALS Furosemide 20 Mg Tablet 1 Tab PO DAILY Potassium Chloride 10 Meq Tab.sr.24h 10 Meq PO DAILY Trazodone Hcl 50 Mg Tablet 1-2 Tab PO PRN QHS PRN Metoprolol Succinate ( Xl ) (Metoprolol Succinate) 100 Mg Tab.er.24h 1 Tab PO DAILY Vitals/I & O Vital Sign - Last 24 Hours 12/09/18 12/09/18 12/09/18 12/09/18 18:31 19:23 19:35 19:35 Temp 98.1 98.1 Pulse 84 Resp 16 18 B/P (MAP) 119/58 (78) Pulse Ox 95 95 93 O2 Delivery Nasal Cannula Nasal Cannula Nasal Cannula Nasal Cannula O2 Flow Rate 1.0 1.0 1.0 1.0 12/09/18 12/10/18 12/10/1819 22:28 02:57 07:30 08:16 Temp 98.3 98.5 98.5 98.3 98.5 98.5 Pulse 80 82 84 84 Resp 18 18 B/P (MAP) 100/49 (66) 126/58 (80) 132/62 (85) 132/62 Pulse Ox 96 93 94 O2 Delivery Nasal Cannula Nasal Cannula Nasal Cannula O2 Flow Rate 1.0 1.0 1.0 12/10/18 12/10/18 12/10/18 12/10/18 08:30 11:00 14:36 14:41 Temp 97.5 97.5 Pulse 79 80 80 Resp 22 B/P (MAP) 117/57 (77) 113/59 Pulse Ox 94 95 O2 Delivery Nasal Cannula Nasal Cannula Nasal Cannula O2 Flow Rate 1.0 1.0 1.0 12/10/18 12/10/18 14:42 15:00 Temp 97.6 97.6 Pulse 81 Resp 22 B/P (MAP) 128/61 (83) Pulse Ox 95 94 O2 Delivery Nasal Cannula Nasal Cannula O2 Flow Rate 1.0 1.0 Intake and Output 12/09/18 12/09/18 12/10/18 15:00 23:00 07:00 Intake Total 120 ml 650 ml 0 ml Output Total 650 ml 650 ml 700 ml Balance -530 ml 0 ml -700 ml CHIARA ORTIZ MD Dec 10, 2018 16:21
[2018-12-10] MEDS ORDERED: BUPIVACAINE MPF 0.25% 10 ML VIAL. IJ ONE (16:30)
[2018-12-10] MEDS ORDERED: methylPREDNISolone ACETATE 40 MG/ML VIAL. IM ONE (16:30)
--- NOTE | 2018-12-10 18:32 | CONS ---
DATE OF CONSULTATION: 12/10/2018 ATTENDING PHYSICIAN: Janett Frausto M.D. REASON FOR CONSULTATION: The patient seen in pulmonary consultation at the request of Dr. Charles for possible obstructive sleep apnea. HISTORY OF PRESENT ILLNESS: The patient is a 63-year-old who was admitted with shortness of breath, chest pain. She has been evaluated and had an echocardiogram revealing pulmonary artery pressure of 45, ejection fraction of 55%. She had venous Dopplers of the lower extremities, which were negative. Chest x-ray revealed bilateral pulmonary infiltrates compatible with CHF. The patient is currently being treated for the above. She normally wears no oxygen at home. She does not have a history of COPD, has never had a sleep study, has never smoked. PAST MEDICAL HISTORY: Hypertension, obesity, osteoarthritis. PAST SURGICAL HISTORY: None. ALLERGIES: No known drug allergies. REVIEW OF SYSTEMS: As indicated above, otherwise, a 10-point system was reviewed and negative. CONSTITUTIONAL: No fever or chills. EYES: No change in visual acuity. HEENT: No nasal congestion or sore throat. PULMONARY: As indicated above. CARDIOVASCULAR: No chest pain. No pressure. GASTROINTESTINAL: No nausea, vomiting, diarrhea. GENITOURINARY: No dysuria or frequency. MUSCULOSKELETAL: No localized muscle aches or joint pains. SKIN: No new skin rashes. NEUROLOGIC: No headaches, diplopia or blurred vision. Sleep hygiene reveals that the patient does snore. Family has not witnessed any apnea spell. She does awaken multiple times throughout the night and awakens and unrefreshed from her sleep in the a.m. CURRENT MEDICATION: List was reviewed. PHYSICAL EXAMINATION: GENERAL: Morbid obese individual with a body mass index of 53. HEENT: Eyes, the sclerae were nonicteric. NECK: Jugular venous distention could not be assessed secondary to body habitus. CHEST: Full expansion. LUNGS: Adequate airway flow with crackles in the bases. CARDIOVASCULAR: Regular rate and rhythm with S1, S2, no S3. ABDOMEN: Soft, nontender and obese. EXTREMITIES: No clubbing, cyanosis, or edema. NEUROLOGICAL: The patient was awake, alert, following commands. A detailed neuro exam was not performed. LABORATORY DATA: Reviewed. White count was normal. Hemoglobin and hematocrit were noted. Arterial blood gas: PH of 7.41, PaCO2 of 41, pO2 of 93. Electrolytes were noted. BUN and creatinine were elevated. IMPRESSION: 1. Clinical presentation compatible with obstructive sleep apnea. 2. Acute on chronic diastolic heart failure. 3. Secondary pulmonary hypertension, both class 2 and 3. 4. Acute on chronic renal failure. 5. Morbid obesity. 6. Hyperkalemia. 7. Hypertension. 8. Diabetes. PLAN: 1. We will proceed with outpatient polysomnogram. 2. Diurese per Cardiology. 3. Follow Nephrology input. 4. The patient instructed on the importance of exercise regimen program, walking on 4-5 days out of the week along with avoiding processed foods. I do appreciate the privilege in sharing in patient's care. LUI WARD MD DR: MARY/ciraa JOB#: [id number] / [id number]
[2018-12-10] MEDS: GABAPENTIN 300 MG CAPSULE. PO SCH (21:15)
[2018-12-10] MEDS: ATORVASTATIN CALCIUM 20 MG TABLET PO SCH (21:15)
[2018-12-10] MEDS: HYDROcodone/APAP 5/325MG 1 TAB TABLET PO PRN (22:15)
[2018-12-11 02:09] VITALS: BP 127/58
[2018-12-11 04:22] LABS: HEMATOCRIT 29.4 % (36.0-47.0); HEMOGLOBIN 9.9 g/dL (12.0-15.5); RED BLOOD COUNT 3.07 x10^6/uL (3.50-5.40); RED CELL DISTRIBUTION WIDTH 14.6 % (11.5-14.5); WHITE BLOOD COUNT 4.8 x10^3/uL (4.0-11.0)
[2018-12-11 07:40] VITALS: BP 111/53
[2018-12-11] MEDS: ASPIRIN ENTERIC COATED 81 MG TABLET.DR. PO SCH (08:44)
[2018-12-11] MEDS: LACTOBACILLUS RHAMNOSUS GG 1 CAPSULE. PO SCH ×2 (08:44→20:55)
[2018-12-11] MEDS: IRON POLYSACCHARIDE COMPLEX 150 MG CAPSULE PO SCH ×2 (08:44→20:56)
[2018-12-11] MEDS: CLINDAMYCIN HCL 150 MG CAPSULE. PO SCH ×3 (08:45→20:56)
[2018-12-11] MEDS: POTASSIUM CHLORIDE 20 MEQ TABLET.ER. PO SCH ×2 (08:45→17:00)
[2018-12-11] MEDS: METOPROLOL SUCC 24HR ER 100 MG TAB.ER.24H. PO SCH (08:45)
[2018-12-11] MEDS: DOCUSATE SODIUM 100 MG CAPSULE. PO SCH ×2 (08:47→20:56)
--- NOTE | 2018-12-11 09:33 | PDOC ---
PULMONARY PROGRESS NOTES Subjective PT FEELS BETTER DOES NOT HAVE O2 AT HOME Vitals Vital Signs Date Time Temp Pulse Resp B/P (MAP) Pulse Ox O2 Delivery O2 Flow Rate FiO2 12/11/18 08:45 74 111/53 12/11/18 08:00 Nasal Cannula 1.0 12/11/18 07:40 97.5 16 98 97.5 ROS: No Nausea, No Chest Pain, No Abdominal Pain Lungs: Clear Cardiovascular: S1, S2 Abdomen: Soft Neuro Exam: Alert Extremities: No Edema Skin: Warm Labs Laboratory Tests Test 12/09/18 11:55 12/09/18 17:12 12/09/18 20:54 12/10/18 05:00 Glucose (Fingerstick) 108 mg/dL (70-99) 108 mg/dL (70-99) 118 mg/dL (70-99) White Blood Count 4.3 x10^3/uL (4.0-11.0) Red Blood Count 2.97 x10^6/uL (3.50-5.40) Hemoglobin 9.6 g/dL (12.0-15.5) Hematocrit 28.4 % (36.0-47.0) Mean Corpuscular Volume 95 fL (79-100) Mean Corpuscular Hemoglobin 32 pg (25-35) Mean Corpuscular Hemoglobin Concent 34 g/dL (31-37) Red Cell Distribution Width 14.8 % (11.5-14.5) Platelet Count 117 x10^3/uL (140-400) Heparin Anti-Xa Act, Unfractionated 0.37 IU/mL (0.30-0.70) Sodium Level 144 mmol/L (136-145) Potassium Level 3.6 mmol/L (3.5-5.1) Chloride Level 103 mmol/L (98-107) Carbon Dioxide Level 33 mmol/L (21-32) Anion Gap 8 (6-14) Blood Urea Nitrogen 24 mg/dL (7-20) Creatinine 1.2 mg/dL (0.6-1.0) Estimated GFR (Cockcroft-Gault) 45.5 Glucose Level 123 mg/dL (70-99) Calcium Level 8.8 mg/dL (8.5-10.1) Magnesium Level 1.6 mg/dL (1.8-2.4) Test 12/10/18 08:14 12/10/18 12:08 12/10/18 17:17 12/10/18 21:07 Glucose (Fingerstick) 111 mg/dL (70-99) 111 mg/dL (70-99) 126 mg/dL (70-99) 127 mg/dL (70-99) Test 12/11/18 04:00 12/11/18 07:45 White Blood Count 4.8 x10^3/uL (4.0-11.0) Red Blood Count 3.07 x10^6/uL (3.50-5.40) Hemoglobin 9.9 g/dL (12.0-15.5) Hematocrit 29.4 % (36.0-47.0) Mean Corpuscular Volume 96 fL (79-100) Mean Corpuscular Hemoglobin 32 pg (25-35) Mean Corpuscular Hemoglobin Concent 34 g/dL (31-37) Red Cell Distribution Width 14.6 % (11.5-14.5) Platelet Count 140 x10^3/uL (140-400) Glucose (Fingerstick) 109 mg/dL (70-99) Laboratory Tests Test 12/10/18 12:08 12/10/18 17:17 12/10/18 21:07 12/11/18 04:00 Glucose (Fingerstick) 111 mg/dL (70-99) 126 mg/dL (70-99) 127 mg/dL (70-99) White Blood Count 4.8 x10^3/uL (4.0-11.0) Red Blood Count 3.07 x10^6/uL (3.50-5.40) Hemoglobin 9.9 g/dL (12.0-15.5) Hematocrit 29.4 % (36.0-47.0) Mean Corpuscular Volume 96 fL (79-100) Mean Corpuscular Hemoglobin 32 pg (25-35) Mean Corpuscular Hemoglobin Concent 34 g/dL (31-37) Red Cell Distribution Width 14.6 % (11.5-14.5) Platelet Count 140 x10^3/uL (140-400) Test 12/11/18 07:45 Glucose (Fingerstick) 109 mg/dL (70-99) Medications Active Scripts Medications Dose Route/Sig Max Daily Dose Days Date Category Actos (Pioglitazone Hcl) 30 Mg Tablet 1 Tab PO DAILY 30 12/08/18 Reported Benazepril Hcl 20 Mg Tablet 1 Tab PO DAILY 12/08/18 Reported Gabapentin (Gabapentin) 300 Mg Capsule 300 Mg PO HS 12/08/18 Reported Metformin Hcl 500 Mg Tablet 500 Mg PO BIDWMEALS 12/08/18 Reported Furosemide 20 Mg Tablet 1 Tab PO DAILY 12/08/18 Reported Potassium Chloride 10 Meq Tab.sr.24h 10 Meq PO DAILY 12/08/18 Reported Clindamycin Hcl 150 Mg Capsule 3 Cap PO TID 10/09/18 Rx Colace (Docusate Sodium) 100 Mg Capsule 100 Mg PO BID 10/27/16 Rx Trazodone Hcl 50 Mg Tablet 1-2 Tab PO PRN QHS PRN 09/14/16 Reported Metoprolol Succinate ( Xl ) (Metoprolol Succinate) 100 Mg Tab.er.24h 1 Tab PO DAILY 09/14/16 Reported Impression . IMPRESSION: 1. Clinical presentation compatible with obstructive sleep apnea. 2. Acute on chronic diastolic heart failure. 3. Secondary pulmonary hypertension, both class 2 and 3. 4. Acute on chronic renal failure. 5. Morbid obesity. 6. Hyperkalemia. 7. Hypertension. 8. Diabetes. CATH Conclusion 1. Acute on chronic decompensated diastolic HF. LVEDP 22 mm Hg 2. No significant coronary disease. Recommendations 1. NSTEMI likely Type 2. 2. Aggressive medical therapy Plan . OK TO D/C SOON OUT PT SS 1. We will proceed with outpatient polysomnogram. 2. Diurese per Cardiology. 3. Follow Nephrology input. 4. The patient instructed on the importance of exercise regimen program, walking on 4-5 days out of the week along with avoiding processed foods. LUI WARD MD Dec 11, 2018 09:33
--- NOTE | 2018-12-11 09:42 | PDOC ---
PROGRESS NOTES Subjective Subjective She feels better. Objective Objective Vital Signs Date Time Temp Pulse Resp B/P (MAP) Pulse Ox O2 Delivery O2 Flow Rate FiO2 12/11/18 08:45 74 111/53 12/11/18 08:00 Nasal Cannula 1.0 12/11/18 07:40 97.5 16 98 97.5 Intake and Output 12/11/18 07:00 Intake Total 425 ml Output Total 1125 ml Balance -700 ml Intake Oral 425 ml Output Urine Total 1125 ml # Bowel Movements 1 Physical Exam Physical Exam She is comfortable supine in bed but she is independent walking with roller walker. Plan Plan of Custodial when medically stable. Comment Review of Relevant I have reviewed the following items radha (where applicable) has been applied. Labs Laboratory Tests Test 12/09/18 11:55 12/09/18 17:12 12/09/18 20:54 12/10/18 05:00 Glucose (Fingerstick) 108 mg/dL (70-99) 108 mg/dL (70-99) 118 mg/dL (70-99) White Blood Count 4.3 x10^3/uL (4.0-11.0) Red Blood Count 2.97 x10^6/uL (3.50-5.40) Hemoglobin 9.6 g/dL (12.0-15.5) Hematocrit 28.4 % (36.0-47.0) Mean Corpuscular Volume 95 fL (79-100) Mean Corpuscular Hemoglobin 32 pg (25-35) Mean Corpuscular Hemoglobin Concent 34 g/dL (31-37) Red Cell Distribution Width 14.8 % (11.5-14.5) Platelet Count 117 x10^3/uL (140-400) Heparin Anti-Xa Act, Unfractionated 0.37 IU/mL (0.30-0.70) Sodium Level 144 mmol/L (136-145) Potassium Level 3.6 mmol/L (3.5-5.1) Chloride Level 103 mmol/L (98-107) Carbon Dioxide Level 33 mmol/L (21-32) Anion Gap 8 (6-14) Blood Urea Nitrogen 24 mg/dL (7-20) Creatinine 1.2 mg/dL (0.6-1.0) Estimated GFR (Cockcroft-Gault) 45.5 Glucose Level 123 mg/dL (70-99) Calcium Level 8.8 mg/dL (8.5-10.1) Magnesium Level 1.6 mg/dL (1.8-2.4) Test 12/10/18 08:14 12/10/18 12:08 12/10/18 17:17 12/10/18 21:07 Glucose (Fingerstick) 111 mg/dL (70-99) 111 mg/dL (70-99) 126 mg/dL (70-99) 127 mg/dL (70-99) Test 12/11/18 04:00 12/11/18 07:45 White Blood Count 4.8 x10^3/uL (4.0-11.0) Red Blood Count 3.07 x10^6/uL (3.50-5.40) Hemoglobin 9.9 g/dL (12.0-15.5) Hematocrit 29.4 % (36.0-47.0) Mean Corpuscular Volume 96 fL (79-100) Mean Corpuscular Hemoglobin 32 pg (25-35) Mean Corpuscular Hemoglobin Concent 34 g/dL (31-37) Red Cell Distribution Width 14.6 % (11.5-14.5) Platelet Count 140 x10^3/uL (140-400) Glucose (Fingerstick) 109 mg/dL (70-99) Laboratory Tests Test 12/10/18 12:08 12/10/18 17:17 12/10/18 21:07 12/11/18 04:00 Glucose (Fingerstick) 111 mg/dL (70-99) 126 mg/dL (70-99) 127 mg/dL (70-99) White Blood Count 4.8 x10^3/uL (4.0-11.0) Red Blood Count 3.07 x10^6/uL (3.50-5.40) Hemoglobin 9.9 g/dL (12.0-15.5) Hematocrit 29.4 % (36.0-47.0) Mean Corpuscular Volume 96 fL (79-100) Mean Corpuscular Hemoglobin 32 pg (25-35) Mean Corpuscular Hemoglobin Concent 34 g/dL (31-37) Red Cell Distribution Width 14.6 % (11.5-14.5) Platelet Count 140 x10^3/uL (140-400) Test 12/11/18 07:45 Glucose (Fingerstick) 109 mg/dL (70-99) Microbiology 12/07/18 Blood Culture - Preliminary, Resulted NO GROWTH AFTER 3 DAYS Medications Current Medications Furosemide (Lasix) 40 mg 1X ONCE IVP Last administered on 12/07/18at 22:56; Start 12/07/18 at 22:15; Stop 12/07/18 at 22:16; Status DC Albuterol/ Ipratropium (Duoneb) 3 ml STK-MED ONCE .ROUTE ; Start 12/07/18 at 22:14; Stop 12/07/18 at 22:14; Status DC Ceftriaxone Sodium (Rocephin) 1 gm 1X ONCE IVP Last administered on 12/07/18at 23:16; Start 12/07/18 at 23:15; Stop 12/07/18 at 23:16; Status DC Sodium Chloride 500 ml @ 500 mls/hr 1X ONCE IV Last administered on 12/07/18at 23:39; Start 12/07/18 at 23:45; Stop 12/08/18 at 00:44; Status DC Alprazolam (Xanax) 0.5 mg PRN Q8HRS PRN PO ANXIETY / AGITATION Last administered on 12/08/18at 23:25; Start 12/08/18 at 02:30 Oxycodone/ Acetaminophen (Percocet 5/325) 1 tab PRN Q4HRS PRN PO PAIN Last administered on 12/09/18at 18:31; Start 12/08/18 at 02:30; Stop 12/10/18 at 16:23; Status DC Clindamycin HCl (Cleocin) 450 mg TID PO Last administered on 12/11/18at 08:45; Start 12/08/18 at 09:00 Docusate Sodium (Colace) 100 mg BID PO Last administered on 12/09/18at 21:20; Start 12/08/18 at 09:00 Furosemide (Lasix) 20 mg DAILY PO Last administered on 12/08/18at 08:34; Start 12/08/18 at 09:00; Stop 12/08/18 at 13:55; Status DC Gabapentin (Neurontin) 300 mg HS PO Last administered on 12/10/18at 21:15; Start 12/08/18 at 21:00 Metformin HCl (Glucophage) 500 mg BIDWMEALS PO ; Start 12/08/18 at 08:00; Stop 12/08/18 at 13:34; Status DC Metoprolol Succinate (Toprol Xl) 100 mg DAILY PO Last administered on 12/11/18 08:45; Start 12/08/18 at 09:00 Potassium Chloride (Klor-Con) 10 meq DAILYWBKFT PO Last administered on 12/08/18at 08:35; Start 12/08/18 at 08:00; Stop 12/09/18 at 05:47; Status DC Trazodone HCl (Desyrel) 50 mg PRN QHS PRN PO INSOMNIA Last administered on 12/09/18at 21:20; Start 12/08/18 at 02:30 Lisinopril (Prinivil) 20 mg DAILY PO ; Start 12/08/18 at 09:00; Stop 12/08/18 at 13:34; Status DC Pioglitazone HCl (Actos) 30 mg DAILY PO Last administered on 12/08/18at 08:40; Start 12/08/18 at 09:00; Stop 12/08/18 at 13:53; Status DC Potassium Chloride (Klor-Con) 20 meq 1X ONCE PO Last administered on 12/08/18at 11:42; Start 12/08/18 at 09:30; Stop 12/08/18 at 09:35; Status DC Furosemide (Lasix) 40 mg 1X ONCE IVP Last administered on 12/08/18 11:42; Start 12/08/18 at 11:00; Stop 12/08/18 at 11:01; Status DC Lactobacillus Rhamnosus (Culturelle) 1 cap BID PO Last administered on 12/11/18 08:44; Start 12/08/18 at 15:00 Furosemide (Lasix) 40 mg [id number] IVP Last administered on 12/09/18 09:51; Start 12/08/18 at 16:00; Stop 12/09/18 at 14:29; Status DC Potassium Chloride (Klor-Con) 40 meq 1X ONCE PO Last administered on 12/08/18at 14:36; Start 12/08/18 at 13:30; Stop 12/08/18 at 13:41; Status DC Aspirin (Ecotrin) 325 mg 1X ONCE PO Last administered on 12/08/18 14:35; Start 12/08/18 at 13:30; Stop 12/08/18 at 13:41; Status DC Aspirin (Ecotrin) 81 mg DAILYWBKFT PO Last administered on 12/11/18 08:44; Start 12/09/18 at 08:00 Heparin Sodium/ Dextrose 500 ml @ 0 mls/hr CONT PRN IV SEE I/O RECORD Last administered on 12/10/18 03:07; Start 12/08/18 at 13:45 Heparin Sodium (Porcine) (Heparin Sodium) 4,000 unit PRN Q6HRS PRN IV FOR UFH LEVEL LESS THAN 0.2 Last administered on 12/08/18 14:54; Start 12/08/18 at 13:45 Atorvastatin Calcium (Lipitor) 20 mg QHS PO Last administered on 12/10/18 21:15; Start 12/08/18 at 21:00 Potassium Chloride (Klor-Con) 40 meq 1X ONCE PO Last administered on 12/09/18 06:25; Start 12/09/18 at 06:00; Stop 12/09/18 at 06:02; Status DC Potassium Chloride (Klor-Con) 40 meq BIDWMEALS PO Last administered on 12/11/18 08:45; Start 12/09/18 at 08:00 Magnesium Sulfate 50 ml @ 25 mls/hr 1X ONCE IV Last administered on 12/09/18 09:54; Start 12/09/18 at 08:30; Stop 12/09/18 at 10:29; Status DC Methylprednisolone Acetate (DEPO-Medrol 40MG VIAL) 40 mg 1X ONCE IM Last administered on 12/09/18 10:19; Start 12/09/18 at 09:00; Stop 12/09/18 at 09:01; Status DC Bupivacaine HCl (Sensorcaine-Mpf 0.25%) 10 ml 1X ONCE IJ Last administered on 12/09/18 10:19; Start 12/09/18 at 09:00; Stop 12/09/18 at 09:01; Status DC Polysaccharide Iron Complex (Niferex 150) 150 mg BID PO Last administered on 12/11/18 08:44; Start 12/09/18 at 10:00 Potassium Chloride (Klor-Con) 40 meq 1X ONCE PO Last administered on 12/09/18at 15:01; Start 12/09/18 at 13:00; Stop 12/09/18 at 13:01; Status DC Furosemide (Lasix) 40 mg DAILY IVP Last administered on 12/10/18at 08:17; Start 12/10/18 at 09:00 Magnesium Sulfate 50 ml @ 25 mls/hr 1X ONCE IV Last administered on 12/10/18at 08:17; Start 12/10/18 at 08:00; Stop 12/10/18 at 09:59; Status DC Info (Anti-Coagulation Monitoring By Pharmacy) 1 each PRN DAILY PRN MC SEE COMMENTS Last administered on 12/10/18at 13:10; Start 12/10/18 at 08:30 Lidocaine HCl (Xylocaine-Mpf 1% 2ml Vial) 2 ml STK-MED ONCE .ROUTE ; Start 12/10/18 at 13:55; Stop 12/10/18 at 13:55; Status DC Heparin Sodium/ Sodium Chloride 1,000 ml @ As Directed STK-MED ONCE .ROUTE ; Start 12/10/18 at 13:55; Stop 12/10/18 at 13:55; Status DC Iodixanol (Visipaque 320) 100 ml STK-MED ONCE .ROUTE ; Start 12/10/18 at 13:55; Stop 12/10/18 at 13:56; Status DC Fentanyl Citrate (Fentanyl 2ml Vial) 100 mcg STK-MED ONCE .ROUTE ; Start 12/10/18 at 14:02; Stop 12/10/18 at 14:02; Status DC Midazolam HCl (Versed) 2 mg STK-MED ONCE .ROUTE ; Start 12/10/18 at 14:02; Stop 12/10/18 at 14:02; Status DC Heparin Sodium (Porcine) (Heparin Sodium) 10,000 unit STK-MED ONCE .ROUTE ; Start 12/10/18 at 14:02; Stop 12/10/18 at 14:02; Status DC Verapamil HCl (Verapamil) 5 mg STK-MED ONCE .ROUTE ; Start 12/10/18 at 14:02; Stop 12/10/18 at 14:02; Status DC Nitroglycerin (Nitroglycerin) 200 mcg STK-MED ONCE .ROUTE ; Start 12/10/18 at 14:02; Stop 12/10/18 at 14:03; Status DC Nitroglycerin (Nitroglycerin) 200 mcg 1X ONCE IART Last administered on 12/10/18 14:41; Start 12/10/18 at 14:45; Stop 12/10/18 at 14:46; Status DC Verapamil HCl (Verapamil) 2.5 mg 1X ONCE IART Last administered on 12/10/18 14:41; Start 12/10/18 at 14:45; Stop 12/10/18 at 14:46; Status DC Heparin Sodium (Porcine) (Heparin Sodium) 2,500 unit 1X ONCE IART Last administered on 12/10/18 14:40; Start 12/10/18 at 14:45; Stop 12/10/18 at 14:46; Status DC Midazolam HCl (Versed) 2 mg 1X ONCE IV Last administered on 12/10/18 14:42; Start 12/10/18 at 14:45; Stop 12/10/18 at 14:46; Status DC Fentanyl Citrate (Fentanyl 2ml Vial) 100 mcg 1X ONCE IV Last administered on 12/10/18 14:42; Start 12/10/18 at 14:45; Stop 12/10/18 at 14:46; Status DC Iohexol (Omnipaque 300 Mg/ml) 100 ml 1X ONCE IART Last administered on 12/10/18 14:41; Start 12/10/18 at 14:45; Stop 12/10/18 at 14:46; Status DC Lidocaine HCl 1 ml 1X ONCE IJ Last administered on 12/10/18 14:42; Start 12/10/18 at 14:45; Stop 12/10/18 at 14:46; Status DC Methylprednisolone Acetate (DEPO-Medrol 40MG VIAL) 40 mg 1X ONCE IM Last admi nistered on 12/10/18 17:45; Start 12/10/18 at 16:30; Stop 12/10/18 at 16:31; Status DC Bupivacaine HCl (Sensorcaine-Mpf 0.25%) 10 ml 1X ONCE IJ Last administered on 12/10/18 17:45; Start 12/10/18 at 16:30; Stop 12/10/18 at 16:31; Status DC Acetaminophen/ Hydrocodone Bitart (Lortab 5/325) 1 tab PRN Q4HRS PRN PO PAIN Last administered on 12/10/18at 22:15; Start 12/10/18 at 16:30 Active Scripts Active Clindamycin Hcl 150 Mg Capsule 3 Cap PO TID Colace (Docusate Sodium) 100 Mg Capsule 100 Mg PO BID Reported Actos (Pioglitazone Hcl) 30 Mg Tablet 1 Tab PO DAILY 30 Days Benazepril Hcl 20 Mg Tablet 1 Tab PO DAILY Gabapentin (Gabapentin) 300 Mg Capsule 300 Mg PO HS Metformin Hcl 500 Mg Tablet 500 Mg PO BIDWMEALS Furosemide 20 Mg Tablet 1 Tab PO DAILY Potassium Chloride 10 Meq Tab.sr.24h 10 Meq PO DAILY Trazodone Hcl 50 Mg Tablet 1-2 Tab PO PRN QHS PRN Metoprolol Succinate ( Xl ) (Metoprolol Succinate) 100 Mg Tab.er.24h 1 Tab PO DAILY Vitals/I & O Vital Sign - Last 24 Hours 12/10/18 12/10/18 12/10/18 12/10/18 11:00 14:36 14:41 14:42 Temp 97.5 97.5 Pulse 79 80 80 Resp 22 22 B/P (MAP) 117/57 (77) 113/59 Pulse Ox 94 95 95 O2 Delivery Nasal Cannula Nasal Cannula Nasal Cannula O2 Flow Rate 1.0 1.0 1.0 12/10/18 12/10/18 12/10/18 12/10/18 14:50 15:00 15:05 15:20 Temp 97.6 97.6 Pulse 81 81 88 87 B/P (MAP) 128/61 (83) 128/61 (83) 127/61 (83) 127/60 (82) Pulse Ox 93 94 93 96 O2 Delivery Nasal Cannula Nasal Cannula Nasal Cannula Nasal Cannula O2 Flow Rate 1.0 1.0 1.0 1.0 12/10/18 12/10/18 12/10/18 12/10/18 15:35 16:05 16:35 17:05 Pulse 90 80 87 81 B/P (MAP) 130/63 (85) 126/60 (82) 118/58 (78) 116/57 (76) Pulse Ox 93 93 90 93 O2 Delivery Nasal Cannula Nasal Cannula Nasal Cannula Nasal Cannula O2 Flow Rate 1.0 1.0 1.0 1.0 12/10/18 12/10/18 12/10/18 12/10/18 18:05 19:39 22:15 22:15 Temp 98.5 98.5 Pulse 81 82 Resp 16 B/P (MAP) 140/62 (88) 117/55 (75) Pulse Ox 92 96 O2 Delivery Nasal Cannula Nasal Cannula Nasal Cannula Nasal Cannula O2 Flow Rate 1.0 1.0 1.0 1.0 12/10/18 12/11/18 12/11/18 12/11/18 23:15 02:09 07:40 08:00 Temp 97.6 97.5 97.6 97.5 Pulse 79 74 Resp 16 16 B/P (MAP) 127/58 (81) 111/53 (72) Pulse Ox 93 98 O2 Delivery Nasal Cannula Nasal Cannula Nasal Cannula Nasal Cannula O2 Flow Rate 1.0 1.0 1.0 1.0 12/11/18 08:45 Pulse 74 B/P (MAP) 111/53 Intake and Output 12/10/18 12/10/18 12/11/18 15:00 23:00 07:00 Intake Total 425 ml Output Total 600 ml 525 ml Balance -600 ml -100 ml CHIARA ORTIZ MD Dec 11, 2018 09:42
[2018-12-11 10:29] VITALS: BP 101/49
[2018-12-11] MEDS: FUROSEMIDE 40 MG/4 ML VIAL. IVP SCH (10:44)
[2018-12-11] MEDS: HYDROcodone/APAP 5/325MG 1 TAB TABLET PO PRN ×2 (10:48→23:26)
--- NOTE | 2018-12-11 11:07 | PDOC ---
PROGRESS NOTES History of Present Illness History of Present Illness VTE Prophylaxis Ordered VTE Prophylaxis Devices: No VTE Pharmacological Prophylaxi: Yes impression acute hypoxic respiratory failure CHF, acute combined failure, Septal motion suggestive of conduction defect. RV is moderately dilated. Doppler and Color Flow revealed mild tricuspid regurgitation. The PA pressure was estimated at 45 mmHg. c/w pulm hypertension, moderate morbid obesity, BMI 55 Acute on chronic renal failure, has been overusing NSAID for pain IZAIAH - Cardiorenal / Longstanding use of NSAID's Suspect CKD stage 3 - renal US cw Chr med disease Renal echotexture which may represent early chronic medical renal disease. recently cellulitis left leg, completing clinda script and leg has improved over the past week super morbid obesity suspect obesity, hypoventilation syndrome/ chuy has never had a sleep study 12-09 on admit She has had acute 2 days of chest pain, and has been taking large amount of ibuprofen she went to work , had new dsypnea with the stairs, then was out of breath after work before driving home. Patient states that she has gained 20 pounds and her last 1- months. . Patient denies history of COPD or asthma. BIPAP for the first time night of admit, and she feels much improved after use [facility] 12-10 pulm consult VASCULAR W/O 39 min pt exam, chart review, > 50% of time spent with exam, chart review, pt care coordination Vitals Vitals Vital Signs Date Time Temp Pulse Resp B/P (MAP) Pulse Ox O2 Delivery O2 Flow Rate FiO2 12/11/18 10:48 100 Nasal Cannula 1.0 12/11/18 10:29 97.8 74 16 101/49 (66) 97.8 Physical Exam General: Alert, Oriented X3, Cooperative, No acute distress Heart: Regular rate (SR), Normal S1, No murmurs, Other (distant heart sounds) Lungs: Clear, Other (diminished) Abdomen: Normal bowel sounds, Soft, No tenderness, Other (obese) Extremities: No clubbing, No cyanosis, Other (2-3+ bilateral LE pitting edema) Skin: Other (venous dermatitis) Labs LABS Laboratory Tests Test 12/10/18 12:08 12/10/18 17:17 12/10/18 21:07 12/11/18 04:00 Glucose (Fingerstick) 111 mg/dL (70-99) 126 mg/dL (70-99) 127 mg/dL (70-99) White Blood Count 4.8 x10^3/uL (4.0-11.0) Red Blood Count 3.07 x10^6/uL (3.50-5.40) Hemoglobin 9.9 g/dL (12.0-15.5) Hematocrit 29.4 % (36.0-47.0) Mean Corpuscular Volume 96 fL (79-100) Mean Corpuscular Hemoglobin 32 pg (25-35) Mean Corpuscular Hemoglobin Concent 34 g/dL (31-37) Red Cell Distribution Width 14.6 % (11.5-14.5) Platelet Count 140 x10^3/uL (140-400) Test 12/11/18 07:45 Glucose (Fingerstick) 109 mg/dL (70-99) Comment Review of Relevant I have reviewed the following items radha (where applicable) has been applied. Labs Laboratory Tests Test 12/09/18 11:55 12/09/18 17:12 12/09/18 20:54 12/10/18 05:00 Glucose (Fingerstick) 108 mg/dL (70-99) 108 mg/dL (70-99) 118 mg/dL (70-99) White Blood Count 4.3 x10^3/uL (4.0-11.0) Red Blood Count 2.97 x10^6/uL (3.50-5.40) Hemoglobin 9.6 g/dL (12.0-15.5) Hematocrit 28.4 % (36.0-47.0) Mean Corpuscular Volume 95 fL (79-100) Mean Corpuscular Hemoglobin 32 pg (25-35) Mean Corpuscular Hemoglobin Concent 34 g/dL (31-37) Red Cell Distribution Width 14.8 % (11.5-14.5) Platelet Count 117 x10^3/uL (140-400) Heparin Anti-Xa Act, Unfractionated 0.37 IU/mL (0.30-0.70) Sodium Level 144 mmol/L (136-145) Potassium Level 3.6 mmol/L (3.5-5.1) Chloride Level 103 mmol/L (98-107) Carbon Dioxide Level 33 mmol/L (21-32) Anion Gap 8 (6-14) Blood Urea Nitrogen 24 mg/dL (7-20) Creatinine 1.2 mg/dL (0.6-1.0) Estimated GFR (Cockcroft-Gault) 45.5 Glucose Level 123 mg/dL (70-99) Calcium Level 8.8 mg/dL (8.5-10.1) Magnesium Level 1.6 mg/dL (1.8-2.4) Test 12/10/18 08:14 12/10/18 12:08 12/10/18 17:17 12/10/18 21:07 Glucose (Fingerstick) 111 mg/dL (70-99) 111 mg/dL (70-99) 126 mg/dL (70-99) 127 mg/dL (70-99) Test 12/11/18 04:00 12/11/18 07:45 White Blood Count 4.8 x10^3/uL (4.0-11.0) Red Blood Count 3.07 x10^6/uL (3.50-5.40) Hemoglobin 9.9 g/dL (12.0-15.5) Hematocrit 29.4 % (36.0-47.0) Mean Corpuscular Volume 96 fL (79-100) Mean Corpuscular Hemoglobin 32 pg (25-35) Mean Corpuscular Hemoglobin Concent 34 g/dL (31-37) Red Cell Distribution Width 14.6 % (11.5-14.5) Platelet Count 140 x10^3/uL (140-400) Glucose (Fingerstick) 109 mg/dL (70-99) Laboratory Tests Test 12/10/18 12:08 12/10/18 17:17 12/10/18 21:07 12/11/18 04:00 Glucose (Fingerstick) 111 mg/dL (70-99) 126 mg/dL (70-99) 127 mg/dL (70-99) White Blood Count 4.8 x10^3/uL (4.0-11.0) Red Blood Count 3.07 x10^6/uL (3.50-5.40) Hemoglobin 9.9 g/dL (12.0-15.5) Hematocrit 29.4 % (36.0-47.0) Mean Corpuscular Volume 96 fL (79-100) Mean Corpuscular Hemoglobin 32 pg (25-35) Mean Corpuscular Hemoglobin Concent 34 g/dL (31-37) Red Cell Distribution Width 14.6 % (11.5-14.5) Platelet Count 140 x10^3/uL (140-400) Test 12/11/18 07:45 Glucose (Fingerstick) 109 mg/dL (70-99) Microbiology 12/07/18 Blood Culture - Preliminary, Resulted NO GROWTH AFTER 3 DAYS Medications Current Medications Furosemide (Lasix) 40 mg 1X ONCE IVP Last administered on 12/07/18at 22:56; Start 12/07/18 at 22:15; Stop 12/07/18 at 22:16; Status DC Albuterol/ Ipratropium (Duoneb) 3 ml STK-MED ONCE .ROUTE ; Start 12/07/18 at 22:14; Stop 12/07/18 at 22:14; Status DC Ceftriaxone Sodium (Rocephin) 1 gm 1X ONCE IVP Last administered on 12/07/18at 23:16; Start 12/07/18 at 23:15; Stop 12/07/18 at 23:16; Status DC Sodium Chloride 500 ml @ 500 mls/hr 1X ONCE IV Last administered on 12/07/18at 23:39; Start 12/07/18 at 23:45; Stop 12/08/18 at 00:44; Status DC Alprazolam (Xanax) 0.5 mg PRN Q8HRS PRN PO ANXIETY / AGITATION Last administered on 12/08/18at 23:25; Start 12/08/18 at 02:30 Oxycodone/ Acetaminophen (Percocet 5/325) 1 tab PRN Q4HRS PRN PO PAIN Last administered on 12/09/18at 18:31; Start 12/08/18 at 02:30; Stop 12/10/18 at 16:23; Status DC Clindamycin HCl (Cleocin) 450 mg TID PO Last administered on 12/11/18at 08:45; Start 12/08/18 at 09:00 Docusate Sodium (Colace) 100 mg BID PO Last administered on 12/09/18at 21:20; Start 12/08/18 at 09:00 Furosemide (Lasix) 20 mg DAILY PO Last administered on 12/08/18 08:34; Start 12/08/18 at 09:00; Stop 12/08/18 at 13:55; Status DC Gabapentin (Neurontin) 300 mg HS PO Last administered on 12/10/18at 21:15; Start 12/08/18 at 21:00 Metformin HCl (Glucophage) 500 mg BIDWMEALS PO ; Start 12/08/18 at 08:00; Stop 12/08/18 at 13:34; Status DC Metoprolol Succinate (Toprol Xl) 100 mg DAILY PO Last administered on 12/11/18 08:45; Start 12/08/18 at 09:00 Potassium Chloride (Klor-Con) 10 meq DAILYWBKFT PO Last administered on 11/18 08:35; Start 12/08/18 at 08:00; Stop 12/09/18 at 05:47; Status DC Trazodone HCl (Desyrel) 50 mg PRN QHS PRN PO INSOMNIA Last administered on 12/09/18 21:20; Start 12/08/18 at 02:30 Lisinopril (Prinivil) 20 mg DAILY PO ; Start 12/08/18 at 09:00; Stop 12/08/18 at 13:34; Status DC Pioglitazone HCl (Actos) 30 mg DAILY PO Last administered on 12/08/18 08:40; Start 12/08/18 at 09:00; Stop 12/08/18 at 13:53; Status DC Potassium Chloride (Klor-Con) 20 meq 1X ONCE PO Last administered on 11:42; Start 12/08/18 at 09:30; Stop 12/08/18 at 09:35; Status DC Furosemide (Lasix) 40 mg 1X ONCE IVP Last administered on 12/08/18 11:42; Start 12/08/18 at 11:00; Stop 12/08/18 at 11:01; Status DC Lactobacillus Rhamnosus (Culturelle) 1 cap BID PO Last administered on 12/11/18 08:44; Start 12/08/18 at 15:00 Furosemide (Lasix) 40 mg BID94 IVP Last administered on 12/09/18 09:51; Start 12/08/18 at 16:00; Stop 12/09/18 at 14:29; Status DC Potassium Chloride (Klor-Con) 40 meq 1X ONCE PO Last administered on 12/08/18 14:36; Start 12/08/18 at 13:30; Stop 12/08/18 at 13:41; Status DC Aspirin (Ecotrin) 325 mg 1X ONCE PO Last administered on 12/08/18 14:35; Start 12/08/18 at 13:30; Stop 12/08/18 at 13:41; Status DC Aspirin (Ecotrin) 81 mg DAILYWBKFT PO Last administered on 12/11/18 08:44; Start 12/09/18 at 08:00 Heparin Sodium/ Dextrose 500 ml @ 0 mls/hr CONT PRN IV SEE I/O RECORD Last administered on 12/10/18 03:07; Start 12/08/18 at 13:45 Heparin Sodium (Porcine) (Heparin Sodium) 4,000 unit PRN Q6HRS PRN IV FOR UFH LEVEL LESS THAN 0.2 Last administered on 12/08/18 14:54; Start 12/08/18 at 13:45 Atorvastatin Calcium (Lipitor) 20 mg QHS PO Last administered on 12/10/18 21:15; Start 12/08/18 at 21:00 Potassium Chloride (Klor-Con) 40 meq 1X ONCE PO Last administered on 12/09/18 06:25; Start 12/09/18 at 06:00; Stop 12/09/18 at 06:02; Status DC Potassium Chloride (Klor-Con) 40 meq BIDWMEALS PO Last administered on 12/11/18 08:45; Start 12/09/18 at 08:00 Magnesium Sulfate 50 ml @ 25 mls/hr 1X ONCE IV Last administered on 12/09/18 09:54; Start 12/09/18 at 08:30; Stop 12/09/18 at 10:29; Status DC Methylprednisolone Acetate (DEPO-Medrol 40MG VIAL) 40 mg 1X ONCE IM Last administered on 12/09/18 10:19; Start 12/09/18 at 09:00; Stop 12/09/18 at 09:01; Status DC Bupivacaine HCl (Sensorcaine-Mpf 0.25%) 10 ml 1X ONCE IJ Last administered on 12/09/18at 10:19; Start 12/09/18 at 09:00; Stop 12/09/18 at 09:01; Status DC Polysaccharide Iron Complex (Niferex 150) 150 mg BID PO Last administered on 12/11/18at 08:44; Start 12/09/18 at 10:00 Potassium Chloride (Klor-Con) 40 meq 1X ONCE PO Last administered on 12/09/18at 15:01; Start 12/09/18 at 13:00; Stop 12/09/18 at 13:01; Status DC Furosemide (Lasix) 40 mg DAILY IVP Last administered on 12/11/18at 10:44; Start 12/10/18 at 09:00 Magnesium Sulfate 50 ml @ 25 mls/hr 1X ONCE IV Last administered on 12/10/18at 08:17; Start 12/10/18 at 08:00; Stop 12/10/18 at 09:59; Status DC Info (Anti-Coagulation Monitoring By Pharmacy) 1 each PRN DAILY PRN MC SEE COMMENTS Last administered on 12/10/18at 13:10; Start 12/10/18 at 08:30 Lidocaine HCl (Xylocaine-Mpf 1% 2ml Vial) 2 ml STK-MED ONCE .ROUTE ; Start 12/10/18 at 13:55; Stop 12/10/18 at 13:55; Status DC Heparin Sodium/ Sodium Chloride 1,000 ml @ As Directed STK-MED ONCE .ROUTE ; Start 12/10/18 at 13:55; Stop 12/10/18 at 13:55; Status DC Iodixanol (Visipaque 320) 100 ml STK-MED ONCE .ROUTE ; Start 12/10/18 at 13:55; Stop 12/10/18 at 13:56; Status DC Fentanyl Citrate (Fentanyl 2ml Vial) 100 mcg STK-MED ONCE .ROUTE ; Start 12/10/18 at 14:02; Stop 12/10/18 at 14:02; Status DC Midazolam HCl (Versed) 2 mg STK-MED ONCE .ROUTE ; Start 12/10/18 at 14:02; Stop 12/10/18 at 14:02; Status DC Heparin Sodium (Porcine) (Heparin Sodium) 10,000 unit STK-MED ONCE .ROUTE ; Start 12/10/18 at 14:02; Stop 12/10/18 at 14:02; Status DC Verapamil HCl (Verapamil) 5 mg STK-MED ONCE .ROUTE ; Start 12/10/18 at 14:02; Stop 12/10/18 at 14:02; Status DC Nitroglycerin (Nitroglycerin) 200 mcg STK-MED ONCE .ROUTE ; Start 12/10/18 at 14:02; Stop 12/10/18 at 14:03; Status DC Nitroglycerin (Nitroglycerin) 200 mcg 1X ONCE IART Last administered on 12/10/18at 14:41; Start 12/10/18 at 14:45; Stop 12/10/18 at 14:46; Status DC Verapamil HCl (Verapamil) 2.5 mg 1X ONCE IART Last administered on 12/10/18at 14:41; Start 12/10/18 at 14:45; Stop 12/10/18 at 14:46; Status DC Heparin Sodium (Porcine) (Heparin Sodium) 2,500 unit 1X ONCE IART Last administered on 12/10/18at 14:40; Start 12/10/18 at 14:45; Stop 12/10/18 at 14:46; Status DC Midazolam HCl (Versed) 2 mg 1X ONCE IV Last administered on 12/10/18at 14:42; Start 12/10/18 at 14:45; Stop 12/10/18 at 14:46; Status DC Fentanyl Citrate (Fentanyl 2ml Vial) 100 mcg 1X ONCE IV Last administered on 12/10/18at 14:42; Start 12/10/18 at 14:45; Stop 12/10/18 at 14:46; Status DC Iohexol (Omnipaque 300 Mg/ml) 100 ml 1X ONCE IART Last administered on 12/10/18at 14:41; Start 12/10/18 at 14:45; Stop 12/10/18 at 14:46; Status DC Lidocaine HCl 1 ml 1X ONCE IJ Last administered on 12/10/18at 14:42; Start 12/10/18 at 14:45; Stop 12/10/18 at 14:46; Status DC Methylprednisolone Acetate (DEPO-Medrol 40MG VIAL) 40 mg 1X ONCE IM Last administered on 12/10/18at 17:45; Start 12/10/18 at 16:30; Stop 12/10/18 at 16:31; Status DC Bupivacaine HCl (Sensorcaine-Mpf 0.25%) 10 ml 1X ONCE IJ Last administered on 12/10/18at 17:45; Start 12/10/18 at 16:30; Stop 12/10/18 at 16:31; Status DC Acetaminophen/ Hydrocodone Bitart (Lortab 5/325) 1 tab PRN Q4HRS PRN PO PAIN Last administered on 12/11/18at 10:48; Start 12/10/18 at 16:30 Active Scripts Active Clindamycin Hcl 150 Mg Capsule 3 Cap PO TID Colace (Docusate Sodium) 100 Mg Capsule 100 Mg PO BID Reported Actos (Pioglitazone Hcl) 30 Mg Tablet 1 Tab PO DAILY 30 Days Benazepril Hcl 20 Mg Tablet 1 Tab PO DAILY Gabapentin (Gabapentin) 300 Mg Capsule 300 Mg PO HS Metformin Hcl 500 Mg Tablet 500 Mg PO BIDWMEALS Furosemide 20 Mg Tablet 1 Tab PO DAILY Potassium Chloride 10 Meq Tab.sr.24h 10 Meq PO DAILY Trazodone Hcl 50 Mg Tablet 1-2 Tab PO PRN QHS PRN Metoprolol Succinate ( Xl ) (Metoprolol Succinate) 100 Mg Tab.er.24h 1 Tab PO DAILY Vitals/I & O Vital Sign - Last 24 Hours 12/10/18 12/10/18 12/10/18 12/10/18 14:36 14:41 14:42 14:50 Pulse 80 80 81 Resp 22 22 B/P (MAP) 113/59 128/61 (83) Pulse Ox 95 95 93 O2 Delivery Nasal Cannula Nasal Cannula Nasal Cannula O2 Flow Rate 1.0 1.0 1.0 12/10/18 12/10/18 12/10/18 12/10/18 15:00 15:05 15:20 15:35 Temp 97.6 97.6 Pulse 81 88 87 90 B/P (MAP) 128/61 (83) 127/61 (83) 127/60 (82) 130/63 (85) Pulse Ox 94 93 96 93 O2 Delivery Nasal Cannula Nasal Cannula Nasal Cannula Nasal Cannula O2 Flow Rate 1.0 1.0 1.0 1.0 12/10/18 12/10/18 12/10/18 12/10/18 16:05 16:35 17:05 18:05 Pulse 80 87 81 81 B/P (MAP) 126/60 (82) 118/58 (78) 116/57 (76) 140/62 (88) Pulse Ox 93 90 93 92 O2 Delivery Nasal Cannula Nasal Cannula Nasal Cannula Nasal Cannula O2 Flow Rate 1.0 1.0 1.0 1.0 12/10/18 12/10/18 12/10/18 12/10/18 19:39 22:15 22:15 23:15 Temp 98.5 98.5 Pulse 82 Resp 16 B/P (MAP) 117/55 (75) Pulse Ox 96 O2 Delivery Nasal Cannula Nasal Cannula Nasal Cannula Nasal Cannula O2 Flow Rate 1.0 1.0 1.0 1.0 12/11/18 12/11/18 12/11/18 12/11/18 02:09 07:40 08:00 08:45 Temp 97.6 97.5 97.6 97.5 Pulse 79 74 74 Resp 16 16 B/P (MAP) 127/58 (81) 111/53 (72) 111/53 Pulse Ox 93 98 O2 Delivery Nasal Cannula Nasal Cannula Nasal Cannula O2 Flow Rate 1.0 1.0 1.0 12/11/18 12/11/18 10:29 10:48 Temp 97.8 97.8 Pulse 74 Resp 16 B/P (MAP) 101/49 (66) Pulse Ox 100 100 O2 Delivery Nasal Cannula Nasal Cannula O2 Flow Rate 1.0 1.0 Intake and Output 12/10/18 12/10/18 12/11/18 15:00 23:00 07:00 Intake Total 425 ml Output Total 600 ml 525 ml Balance -600 ml -100 ml FRANCISCO CASTELLON MD Dec 11, 2018 11:07
--- NOTE | 2018-12-11 11:29 | PDOC ---
ILEANA SHERIDAN WIRE WEAVER 12/11/18 1129: CARDIO Progress Notes Date and Time Date of Service 12/11/18 Time of Evaluation 1120 Subjective Subjective: No Chest Pain, No Palpitations, Other (breathing much better) Vitals Vitals Vital Signs Date Time Temp Pulse Resp B/P (MAP) Pulse Ox O2 Delivery O2 Flow Rate FiO2 12/11/18 10:48 100 Nasal Cannula 1.0 12/11/18 10:29 97.8 74 16 101/49 (66) 97.8 Weight Weight [ ] Input and Output Intake and Output Intake and Output 12/11/18 06:59 Intake Total 425 ml Output Total 1125 ml Balance -700 ml Intake Oral 425 ml Output Urine Total 1125 ml # Bowel Movements 1 Laboratory Labs Laboratory Tests Test 12/10/18 12:08 12/10/18 17:17 12/10/18 21:07 12/11/18 04:00 Glucose (Fingerstick) 111 mg/dL (70-99) 126 mg/dL (70-99) 127 mg/dL (70-99) White Blood Count 4.8 x10^3/uL (4.0-11.0) Red Blood Count 3.07 x10^6/uL (3.50-5.40) Hemoglobin 9.9 g/dL (12.0-15.5) Hematocrit 29.4 % (36.0-47.0) Mean Corpuscular Volume 96 fL (79-100) Mean Corpuscular Hemoglobin 32 pg (25-35) Mean Corpuscular Hemoglobin Concent 34 g/dL (31-37) Red Cell Distribution Width 14.6 % (11.5-14.5) Platelet Count 140 x10^3/uL (140-400) Test 12/11/18 07:45 Glucose (Fingerstick) 109 mg/dL (70-99) Microbiology Micro Microbiology 12/07/18 Blood Culture - Preliminary, Resulted NO GROWTH AFTER 3 DAYS Physical Exam HEENT: Neck Supple W Full Motion Chest: Symmetric LUNGS: Other (diminiseehd bases, faint wheeze) Heart: S1S2, RRR (SR) Abdomen: Soft N/T Extremities: Other (2+ bilateral LE pitting edema) Neurology: alert, oriented, follow commands Assessment Assessment 1. Acute diastolic CHF; LVEF preserved. Cath yesterday with LVEDP 22 2. Hypertension; controlled 3. IZAIAH on CKD: improved 4. NSTEMI; type II, demand ischemia. Cath without obstructive CAD 5. Diabetes, II 6. Hyperlipidemia Recommendations BMP. Mg Lasix therapy Consider outpatient PETE workup Follow up with Dr. Laura as scheduled. DIONNA LAURA MD 12/11/18 2117: CARDIO Progress Notes Plan Plan Pt. seen and examined. Agree with above BIOLOGY LECTURER note. Supportive care. Thanks ILEANA SHERIDAN APRN Dec 11, 2018 11:29 DIONNA LAURA MD Dec 11, 2018 18:57
[2018-12-11 12:21] LABS: CALCIUM 9.1 mg/dL (8.5-10.1); CREATININE 1.2 mg/dL (0.6-1.0); GFR 45.5; MAGNESIUM 1.7 mg/dL (1.8-2.4)
--- NOTE | 2018-12-11 13:56 | PDOC ---
SUBJECTIVE ROS Stable OBJECTIVE Vital Signs Vital Signs Date Time Temp Pulse Resp B/P (MAP) Pulse Ox O2 Delivery O2 Flow Rate FiO2 12/11/18 13:30 100 Nasal Cannula 1.0 12/11/18 10:29 97.8 74 16 101/49 (66) 97.8 I & 0 Intake and Output 12/11/18 07:00 Intake Total 425 ml Output Total 1125 ml Balance -700 ml Intake Oral 425 ml Output Urine Total 1125 ml # Bowel Movements 1 PHYSICAL EXAM Physical Exam GEN: NAD HEEN: OM moist, O2 by NC NECK: Supple CVS: RRR, ROSSI + RESP: CTA, mild labored breathing GI: BS + ve Non Tender,obese : No CVA tenderness, No Suprapubic Tenderness, Mac+ NEURO- Grossly normal SKIN- No rash EXT- LE edema 1 +, Changes of CVI +, DIAGNOSIS/ASSESSMENT Assessment & Plan IZAIAH - Cardiorenal / Longstanding use of NSAID's UA unremarkable - No micr hematuria, No Protein, NO Hx of recent contrast study per pt Cr in 02.20- done in [facility] ER , last week at PCP 1.9 , Improving renal function - stable Lisinopril held , Supportive care, I/O, wt down , Good UOP Hypokalemia- ReplacE Suspect CKD stage 3 - renal US cw Chr med disease CHF- No Hx of CAD per pt Good response to IV lasix,cardiology managing Now on QD DM- Metformin was held Management per primary HTN - resolved ? PVD - Bilat LE Leg pain, CVI Elevated Lft's Discussed A/P with Pt and RN COMMENT/RELEVANT DATA Meds Current Medications Medications (Trade) Dose Ordered Sig/Elizabeth Start Time Stop Time Status Last Admin Dose Admin Acetaminophen/ Hydrocodone Bitart (Lortab 5/325) 1 tab PRN Q4HRS PRN 12/10/18 16:30 12/11/18 10:48 1 TAB Albuterol/ Ipratropium (Duoneb) 3 ml STK-MED ONCE 12/07/18 22:14 12/07/18 22:14 DC Alprazolam (Xanax) 0.5 mg PRN Q8HRS PRN 12/08/18 02:30 12/08/18 23:25 0.5 MG Aspirin (Ecotrin) 81 mg DAILYWBKFT 12/09/18 08:00 12/11/18 08:44 81 MG Atorvastatin Calcium (Lipitor) 20 mg QHS 12/08/18 21:00 12/10/18 21:15 20 MG Bupivacaine HCl (Sensorcaine-Mpf 0.25%) 10 ml 1X ONCE 12/10/18 16:30 12/10/18 16:31 DC 12/10/18 17:45 10 ML Ceftriaxone Sodium (Rocephin) 1 gm 1X ONCE 12/07/18 23:15 12/07/18 23:16 DC 12/07/18 23:16 1 GM Clindamycin HCl (Cleocin) 450 mg TID 12/08/18 09:00 12/11/18 08:45 450 MG Docusate Sodium (Colace) 100 mg BID 12/08/18 09:00 12/09/18 21:20 100 MG Fentanyl Citrate (Fentanyl 2ml Vial) 100 mcg 1X ONCE 12/10/18 14:45 12/10/18 14:46 DC 12/10/18 14:42 100 MCG Furosemide (Lasix) 40 mg DAILY 12/10/18 09:00 12/11/18 10:44 40 MG Gabapentin (Neurontin) 300 mg HS 12/08/18 21:00 12/10/18 21:15 300 MG Heparin Sodium (Porcine) (Heparin Sodium) 2,500 unit 1X ONCE 12/10/18 14:45 12/10/18 14:46 DC 12/10/18 14:40 2,500 UNIT Heparin Sodium/ Dextrose 500 ml @ 0 mls/hr CONT PRN 12/08/18 13:45 12/11/18 13:28 DC 12/10/18 03:07 26.4 MLS/HR Heparin Sodium/ Sodium Chloride 1,000 ml @ As Directed STK-MED ONCE 12/10/18 13:55 12/10/18 13:55 DC Info (Anti-Coagulation Monitoring By Pharmacy) 1 each PRN DAILY PRN 12/10/18 08:30 12/11/18 13:28 DC 12/10/18 13:10 1 EACH Iodixanol (Visipaque 320) 100 ml STK-MED ONCE 12/10/18 13:55 12/10/18 13:56 DC Iohexol (Omnipaque 300 Mg/ml) 100 ml 1X ONCE 12/10/18 14:45 12/10/18 14:46 DC 12/10/18 14:41 40 ML Lactobacillus Rhamnosus (Culturelle) 1 cap BID 12/08/18 15:00 12/11/18 08:44 1 CAP Lidocaine HCl 1 ml 1X ONCE 12/10/18 14:45 12/10/18 14:46 DC 12/10/18 14:42 1 ML Lidocaine HCl (Xylocaine-Mpf 1% 2ml Vial) 2 ml STK-MED ONCE 12/10/18 13:55 12/10/18 13:55 DC Lisinopril (Prinivil) 20 mg DAILY 12/08/18 09:00 12/08/18 13:34 DC Magnesium Sulfate 50 ml @ 25 mls/hr 1X ONCE 12/10/18 08:00 12/10/18 09:59 DC 12/10/18 08:17 25 MLS/HR Metformin HCl (Glucophage) 500 mg BIDWMEALS 12/08/18 08:00 12/08/18 13:34 DC Methylprednisolone Acetate (DEPO-Medrol 40MG VIAL) 40 mg 1X ONCE 12/10/18 16:30 12/10/18 16:31 DC 12/10/18 17:45 40 MG Metoprolol Succinate (Toprol Xl) 100 mg DAILY 12/08/18 09:00 12/11/18 08:45 100 MG Midazolam HCl (Versed) 2 mg 1X ONCE 12/10/18 14:45 12/10/18 14:46 DC 12/10/18 14:42 2 MG Nitroglycerin (Nitroglycerin) 200 mcg 1X ONCE 12/10/18 14:45 12/10/18 14:46 DC 12/10/18 14:41 200 MCG Oxycodone/ Acetaminophen (Percocet 5/325) 1 tab PRN Q4HRS PRN 12/08/18 02:30 12/10/18 16:23 DC 12/09/18 18:31 1 TAB Pioglitazone HCl (Actos) 30 mg DAILY 12/08/18 09:00 12/08/18 13:53 DC 12/08/18 08:40 30 MG Polysaccharide Iron Complex (Niferex 150) 150 mg BID 12/09/18 10:00 12/11/18 08:44 150 MG Potassium Chloride (Klor-Con) 40 meq 1X ONCE 12/09/18 13:00 12/09/18 13:01 DC 12/09/18 15:01 40 MEQ Sodium Chloride 500 ml @ 500 mls/hr 1X ONCE 12/07/18 23:45 12/08/18 00:44 DC 12/07/18 23:39 500 MLS/HR Trazodone HCl (Desyrel) 50 mg PRN QHS PRN 12/08/18 02:30 12/09/18 21:20 50 MG Verapamil HCl (Verapamil) 2.5 mg 1X ONCE 12/10/18 14:45 12/10/18 14:46 DC 12/10/18 14:41 2.5 MG Lab Laboratory Tests Test 12/10/18 17:17 12/10/18 21:07 12/11/18 04:00 12/11/18 07:45 Glucose (Fingerstick) 126 mg/dL (70-99) 127 mg/dL (70-99) 109 mg/dL (70-99) White Blood Count 4.8 x10^3/uL (4.0-11.0) Red Blood Count 3.07 x10^6/uL (3.50-5.40) Hemoglobin 9.9 g/dL (12.0-15.5) Hematocrit 29.4 % (36.0-47.0) Mean Corpuscular Volume 96 fL (79-100) Mean Corpuscular Hemoglobin 32 pg (25-35) Mean Corpuscular Hemoglobin Concent 34 g/dL (31-37) Red Cell Distribution Width 14.6 % (11.5-14.5) Platelet Count 140 x10^3/uL (140-400) Test 12/11/18 11:38 12/11/18 12:00 Glucose (Fingerstick) 120 mg/dL (70-99) Sodium Level 140 mmol/L (136-145) Potassium Level 4.0 mmol/L (3.5-5.1) Chloride Level 101 mmol/L (98-107) Carbon Dioxide Level 33 mmol/L (21-32) Anion Gap 6 (6-14) Blood Urea Nitrogen 20 mg/dL (7-20) Creatinine 1.2 mg/dL (0.6-1.0) Estimated GFR (Cockcroft-Gault) 45.5 Glucose Level 128 mg/dL (70-99) Calcium Level 9.1 mg/dL (8.5-10.1) Magnesium Level 1.7 mg/dL (1.8-2.4) Results All relevant outside records, renal labs, imaging studies, telemetry/EKG's were reviewed. ROE SIDDIQI MD Dec 11, 2018 13:56
[2018-12-11] MEDS ORDERED: CLINDAMYCIN HCL 150 MG CAPSULE. ONE (14:00)
[2018-12-11] MEDS ORDERED: HYDROcodone/APAP 5/325MG 1 TAB TABLET ONE (14:00)
[2018-12-11 15:00] VITALS: BP 129/59
--- NOTE | 2018-12-11 17:16 | RAD ---
EXAM: Bilateral lower extremity arterial Doppler. HISTORY: Peripheral vascular disease. Bilateral lower extremity pain. COMPARISON: None. FINDINGS: Grayscale and Doppler analysis of both lower extremity arterial systems was performed. On the right, there are triphasic waveforms through the right popliteal artery. The right anterior tibial artery is not visualized and may be occluded or developmental a small. The peroneal and posterior tibial arteries are patent. The right dorsalis pedis artery reconstitutes with biphasic flow. On the left, there are triphasic waveforms through the superficial femoral artery. They become biphasic within the popliteal artery and trifurcation vessels. The anterior tibial artery is not seen and may be developmentally small or occluded. The dorsalis pedis artery is patent with monophasic flow. IMPRESSION: 1. Mildly flow-limiting stenosis within the distal superficial femoral artery/popliteal arteries. 2. The anterior tibial arteries are not seen and may be occluded or developmentally small. The dorsalis pedis arteries are patent. Electronically signed by: Killian Campos MD (12/11/2018 5:13 PM) [facility]
[2018-12-11] MEDS ORDERED: FUROSEMIDE 40 MG TABLET. PO ONE (19:00)
[2018-12-11 20:45] VITALS: BP 124/56
[2018-12-11] MEDS: GABAPENTIN 300 MG CAPSULE. PO SCH (20:56)
[2018-12-11] MEDS: ATORVASTATIN CALCIUM 20 MG TABLET PO SCH (20:56)
[2018-12-11 23:00] VITALS: BP 158/61
[2018-12-12] MEDS: HYDROcodone/APAP 5/325MG 1 TAB TABLET PO PRN ×2 (03:33→14:08)
[2018-12-12 03:40] VITALS: BP 139/57
[2018-12-12 05:52] LABS: CALCIUM 8.5 mg/dL (8.5-10.1); CREATININE 1.2 mg/dL (0.6-1.0); GFR 45.5; PHOSPHORUS 3.8 mg/dL (2.6-4.7); POTASSIUM 3.6 mmol/L (3.5-5.1)
[2018-12-12 07:00] VITALS: BP 116/57
--- NOTE | 2018-12-12 07:35 | PDOC ---
PULMONARY PROGRESS NOTES Subjective sob better, has occ cough DOES NOT HAVE O2 AT HOME Vitals Vital Signs Date Time Temp Pulse Resp B/P (MAP) Pulse Ox O2 Delivery O2 Flow Rate FiO2 12/12/18 04:33 Nasal Cannula 1.0 12/12/18 03:40 98.0 74 22 139/57 (84) 95 98.0 ROS: No Nausea, No Chest Pain, No Abdominal Pain Lungs: Crackles Cardiovascular: S1, S2 Abdomen: Soft, Non-tender Neuro Exam: Alert, Oriented Extremities: No Edema Skin: Warm Labs Laboratory Tests Test 12/10/18 08:14 12/10/18 12:08 12/10/18 17:17 12/10/18 21:07 Glucose (Fingerstick) 111 mg/dL (70-99) 111 mg/dL (70-99) 126 mg/dL (70-99) 127 mg/dL (70-99) Test 12/11/18 04:00 12/11/18 07:45 12/11/18 11:38 12/11/18 12:00 White Blood Count 4.8 x10^3/uL (4.0-11.0) Red Blood Count 3.07 x10^6/uL (3.50-5.40) Hemoglobin 9.9 g/dL (12.0-15.5) Hematocrit 29.4 % (36.0-47.0) Mean Corpuscular Volume 96 fL (79-100) Mean Corpuscular Hemoglobin 32 pg (25-35) Mean Corpuscular Hemoglobin Concent 34 g/dL (31-37) Red Cell Distribution Width 14.6 % (11.5-14.5) Platelet Count 140 x10^3/uL (140-400) Glucose (Fingerstick) 109 mg/dL (70-99) 120 mg/dL (70-99) Sodium Level 140 mmol/L (136-145) Potassium Level 4.0 mmol/L (3.5-5.1) Chloride Level 101 mmol/L (98-107) Carbon Dioxide Level 33 mmol/L (21-32) Anion Gap 6 (6-14) Blood Urea Nitrogen 20 mg/dL (7-20) Creatinine 1.2 mg/dL (0.6-1.0) Estimated GFR (Cockcroft-Gault) 45.5 Glucose Level 128 mg/dL (70-99) Calcium Level 9.1 mg/dL (8.5-10.1) Magnesium Level 1.7 mg/dL (1.8-2.4) Test 12/11/18 17:23 12/11/18 20:56 12/12/18 05:00 Glucose (Fingerstick) 131 mg/dL (70-99) 122 mg/dL (70-99) Sodium Level 141 mmol/L (136-145) Potassium Level 3.6 mmol/L (3.5-5.1) Chloride Level 102 mmol/L (98-107) Carbon Dioxide Level 31 mmol/L (21-32) Anion Gap 8 (6-14) Blood Urea Nitrogen 23 mg/dL (7-20) Creatinine 1.2 mg/dL (0.6-1.0) Estimated GFR (Cockcroft-Gault) 45.5 Glucose Level 129 mg/dL (70-99) Calcium Level 8.5 mg/dL (8.5-10.1) Phosphorus Level 3.8 mg/dL (2.6-4.7) Albumin 3.0 g/dL (3.4-5.0) Laboratory Tests Test 12/11/18 07:45 12/11/18 11:38 12/11/18 12:00 12/11/18 17:23 Glucose (Fingerstick) 109 mg/dL (70-99) 120 mg/dL (70-99) 131 mg/dL (70-99) Sodium Level 140 mmol/L (136-145) Potassium Level 4.0 mmol/L (3.5-5.1) Chloride Level 101 mmol/L (98-107) Carbon Dioxide Level 33 mmol/L (21-32) Anion Gap 6 (6-14) Blood Urea Nitrogen 20 mg/dL (7-20) Creatinine 1.2 mg/dL (0.6-1.0) Estimated GFR (Cockcroft-Gault) 45.5 Glucose Level 128 mg/dL (70-99) Calcium Level 9.1 mg/dL (8.5-10.1) Magnesium Level 1.7 mg/dL (1.8-2.4) Test 12/11/18 20:56 12/12/18 05:00 Glucose (Fingerstick) 122 mg/dL (70-99) Sodium Level 141 mmol/L (136-145) Potassium Level 3.6 mmol/L (3.5-5.1) Chloride Level 102 mmol/L (98-107) Carbon Dioxide Level 31 mmol/L (21-32) Anion Gap 8 (6-14) Blood Urea Nitrogen 23 mg/dL (7-20) Creatinine 1.2 mg/dL (0.6-1.0) Estimated GFR (Cockcroft-Gault) 45.5 Glucose Level 129 mg/dL (70-99) Calcium Level 8.5 mg/dL (8.5-10.1) Phosphorus Level 3.8 mg/dL (2.6-4.7) Albumin 3.0 g/dL (3.4-5.0) Medications Active Scripts Medications Dose Route/Sig Max Daily Dose Days Date Category Actos (Pioglitazone Hcl) 30 Mg Tablet 1 Tab PO DAILY 30 12/08/18 Reported Benazepril Hcl 20 Mg Tablet 1 Tab PO DAILY 12/08/18 Reported Gabapentin (Gabapentin) 300 Mg Capsule 300 Mg PO HS 12/08/18 Reported Metformin Hcl 500 Mg Tablet 500 Mg PO BIDWMEALS 12/08/18 Reported Furosemide 20 Mg Tablet 1 Tab PO DAILY 12/08/18 Reported Potassium Chloride 10 Meq Tab.sr.24h 10 Meq PO DAILY 12/08/18 Reported Clindamycin Hcl 150 Mg Capsule 3 Cap PO TID 10/09/18 Rx Colace (Docusate Sodium) 100 Mg Capsule 100 Mg PO BID 10/27/16 Rx Trazodone Hcl 50 Mg Tablet 1-2 Tab PO PRN QHS PRN 09/14/16 Reported Metoprolol Succinate ( Xl ) (Metoprolol Succinate) 100 Mg Tab.er.24h 1 Tab PO DAILY 09/14/16 Reported Impression . IMPRESSION: 1. Clinical presentation compatible with obstructive sleep apnea. 2. Acute on chronic diastolic heart failure. 3. Secondary pulmonary hypertension, both class 2 and 3. 4. Acute on chronic renal failure. 5. Morbid obesity. 6. Hyperkalemia. 7. Hypertension. 8. Diabetes. CATH Conclusion 1. Acute on chronic decompensated diastolic HF. LVEDP 22 mm Hg 2. No significant coronary disease. Recommendations 1. NSTEMI likely Type 2. 2. Aggressive medical therapy Plan . 1. outpatient polysomnogram, abhishek guillen pulm associate. chuy the importance of diagnosis and tx discussed 2. Diurese per Cardiology. 3. Follow Nephrology input. 4. lose wt, The patient instructed on the importance of exercise regimen program walking on 4-5 days out of the week along with avoiding processed foods. 5. 6 min walk at dc discussed w PARVEEN Tatum MD Dec 12, 2018 07:35
--- NOTE | 2018-12-12 09:08 | PDOC ---
PROGRESS NOTES History of Present Illness History of Present Illness VTE Prophylaxis Ordered VTE Prophylaxis Devices: No VTE Pharmacological Prophylaxi: Yes discharge dx acute hypoxic respiratory failure, improved CHF, acute combined failure, Septal motion suggestive of conduction defect. RV is moderately dilated. Doppler and Color Flow revealed mild tricuspid regurgitation. The PA pressure was estimated at 45 mmHg. c/w pulm hypertension, moderate morbid obesity, BMI 55 Acute on chronic renal failure, has been overusing NSAID for pain IZAIAH - Cardiorenal / Longstanding use of NSAID's Suspect CKD stage 3 - renal US cw Chr med disease Renal echotexture which may represent early chronic medical renal disease. recently cellulitis left leg, completing clinda script and leg has improved over the past week super morbid obesity suspect obesity, hypoventilation syndrome/ chuy has never had a sleep study 12-09 on admit She has had acute 2 days of chest pain, and has been taking la rge amount of ibuprofen she went to work , had new dsypnea with the stairs, then was out of breath after work before driving home. Patient states that she has gained 20 pounds and her last 1- months. . Patient denies history of COPD or asthma. BIPAP for the first time night of admit, and she feels much improved after use [facility] 12-10 pulm consult VASCULAR W/O reviewed no nsaids 29 min pt exam, chart review d/c planning time, > 50% of time spent with exam, chart review, pt care coordination Vitals Vitals Vital Signs Date Time Temp Pulse Resp B/P (MAP) Pulse Ox O2 Delivery O2 Flow Rate FiO2 12/12/18 04:33 Nasal Cannula 1.0 12/12/18 03:40 98.0 74 22 139/57 (84) 95 98.0 Physical Exam General: Alert, Oriented X3, Cooperative, No acute distress Heart: Regular rate (SR), Normal S1, No murmurs, Other (distant heart sounds) Lungs: Clear Abdomen: Normal bowel sounds, Soft, No tenderness, Other (obese) Extremities: No clubbing, No cyanosis, Other (2-3+ bilateral LE pitting edema) Skin: Other (venous dermatitis) Labs LABS EXAM: Bilateral lower extremity arterial Doppler. HISTORY: Peripheral vascular disease. Bilateral lower extremity pain. COMPARISON: None. FINDINGS: Grayscale and Doppler analysis of both lower extremity arterial systems was performed. On the right, there are triphasic waveforms through the right popliteal artery. The right anterior tibial artery is not visualized and may be occluded or developmental a small. The peroneal and posterior tibial arteries are patent. The right dorsalis pedis artery reconstitutes with biphasic flow. On the left, there are triphasic waveforms through the superficial femoral artery. They become biphasic within the popliteal artery and trifurcation vessels. The anterior tibial artery is not seen and may be developmentally small or occluded. The dorsalis pedis artery is patent with monophasic flow. IMPRESSION: 1. Mildly flow-limiting stenosis within the distal superficial femoral artery/popliteal arteries. 2. The anterior tibial arteries are not seen and may be occluded or developmentally small. The dorsalis pedis arteries are patent. Electronically signed by: Killian Campos MD (12/11/2018 5:13 PM) [facility] Laboratory Tests Test 12/11/18 11:38 12/11/18 12:00 12/11/18 17:23 12/11/18 20:56 Glucose (Fingerstick) 120 mg/dL (70-99) 131 mg/dL (70-99) 122 mg/dL (70-99) Sodium Level 140 mmol/L (136-145) Potassium Level 4.0 mmol/L (3.5-5.1) Chloride Level 101 mmol/L (98-107) Carbon Dioxide Level 33 mmol/L (21-32) Anion Gap 6 (6-14) Blood Urea Nitrogen 20 mg/dL (7-20) Creatinine 1.2 mg/dL (0.6-1.0) Estimated GFR (Cockcroft-Gault) 45.5 Glucose Level 128 mg/dL (70-99) Calcium Level 9.1 mg/dL (8.5-10.1) Magnesium Level 1.7 mg/dL (1.8-2.4) Test 12/12/18 05:00 12/12/18 08:19 Sodium Level 141 mmol/L (136-145) Potassium Level 3.6 mmol/L (3.5-5.1) Chloride Level 102 mmol/L (98-107) Carbon Dioxide Level 31 mmol/L (21-32) Anion Gap 8 (6-14) Blood Urea Nitrogen 23 mg/dL (7-20) Creatinine 1.2 mg/dL (0.6-1.0) Estimated GFR (Cockcroft-Gault) 45.5 Glucose Level 129 mg/dL (70-99) Calcium Level 8.5 mg/dL (8.5-10.1) Phosphorus Level 3.8 mg/dL (2.6-4.7) Albumin 3.0 g/dL (3.4-5.0) Glucose (Fingerstick) 117 mg/dL (70-99) Comment Review of Relevant I have reviewed the following items radha (where applicable) has been applied. Labs Laboratory Tests Test 12/10/18 12:08 12/10/18 17:17 12/10/18 21:07 12/11/18 04:00 Glucose (Fingerstick) 111 mg/dL (70-99) 126 mg/dL (70-99) 127 mg/dL (70-99) White Blood Count 4.8 x10^3/uL (4.0-11.0) Red Blood Count 3.07 x10^6/uL (3.50-5.40) Hemoglobin 9.9 g/dL (12.0-15.5) Hematocrit 29.4 % (36.0-47.0) Mean Corpuscular Volume 96 fL (79-100) Mean Corpuscular Hemoglobin 32 pg (25-35) Mean Corpuscular Hemoglobin Concent 34 g/dL (31-37) Red Cell Distribution Width 14.6 % (11.5-14.5) Platelet Count 140 x10^3/uL (140-400) Test 12/11/18 07:45 12/11/18 11:38 12/11/18 12:00 12/11/18 17:23 Glucose (Fingerstick) 109 mg/dL (70-99) 120 mg/dL (70-99) 131 mg/dL (70-99) Sodium Level 140 mmol/L (136-145) Potassium Level 4.0 mmol/L (3.5-5.1) Chloride Level 101 mmol/L (98-107) Carbon Dioxide Level 33 mmol/L (21-32) Anion Gap 6 (6-14) Blood Urea Nitrogen 20 mg/dL (7-20) Creatinine 1.2 mg/dL (0.6-1.0) Estimated GFR (Cockcroft-Gault) 45.5 Glucose Level 128 mg/dL (70-99) Calcium Level 9.1 mg/dL (8.5-10.1) Magnesium Level 1.7 mg/dL (1.8-2.4) Test 12/11/18 20:56 12/12/18 05:00 12/12/18 08:19 Glucose (Fingerstick) 122 mg/dL (70-99) 117 mg/dL (70-99) Sodium Level 141 mmol/L (136-145) Potassium Level 3.6 mmol/L (3.5-5.1) Chloride Level 102 mmol/L (98-107) Carbon Dioxide Level 31 mmol/L (21-32) Anion Gap 8 (6-14) Blood Urea Nitrogen 23 mg/dL (7-20) Creatinine 1.2 mg/dL (0.6-1.0) Estimated GFR (Cockcroft-Gault) 45.5 Glucose Level 129 mg/dL (70-99) Calcium Level 8.5 mg/dL (8.5-10.1) Phosphorus Level 3.8 mg/dL (2.6-4.7) Albumin 3.0 g/dL (3.4-5.0) Laboratory Tests Test 12/11/18 11:38 12/11/18 12:00 12/11/18 17:23 12/11/18 20:56 Glucose (Fingerstick) 120 mg/dL (70-99) 131 mg/dL (70-99) 122 mg/dL (70-99) Sodium Level 140 mmol/L (136-145) Potassium Level 4.0 mmol/L (3.5-5.1) Chloride Level 101 mmol/L (98-107) Carbon Dioxide Level 33 mmol/L (21-32) Anion Gap 6 (6-14) Blood Urea Nitrogen 20 mg/dL (7-20) Creatinine 1.2 mg/dL (0.6-1.0) Estimated GFR (Cockcroft-Gault) 45.5 Glucose Level 128 mg/dL (70-99) Calcium Level 9.1 mg/dL (8.5-10.1) Magnesium Level 1.7 mg/dL (1.8-2.4) Test 12/12/18 05:00 12/12/18 08:19 Sodium Level 141 mmol/L (136-145) Potassium Level 3.6 mmol/L (3.5-5.1) Chloride Level 102 mmol/L (98-107) Carbon Dioxide Level 31 mmol/L (21-32) Anion Gap 8 (6-14) Blood Urea Nitrogen 23 mg/dL (7-20) Creatinine 1.2 mg/dL (0.6-1.0) Estimated GFR (Cockcroft-Gault) 45.5 Glucose Level 129 mg/dL (70-99) Calcium Level 8.5 mg/dL (8.5-10.1) Phosphorus Level 3.8 mg/dL (2.6-4.7) Albumin 3.0 g/dL (3.4-5.0) Glucose (Fingerstick) 117 mg/dL (70-99) Microbiology 12/07/18 Blood Culture - Preliminary, Resulted NO GROWTH AFTER 4 DAYS Medications Current Medications Furosemide (Lasix) 40 mg 1X ONCE IVP Last administered on 12/07/18at 22:56; Start 12/07/18 at 22:15; Stop 12/07/18 at 22:16; Status DC Albuterol/ Ipratropium (Duoneb) 3 ml STK-MED ONCE .ROUTE ; Start 12/07/18 at 22:14; Stop 12/07/18 at 22:14; Status DC Ceftriaxone Sodium (Rocephin) 1 gm 1X ONCE IVP Last administered on 12/07/18at 23:16; Start 12/07/18 at 23:15; Stop 12/07/18 at 23:16; Status DC Sodium Chloride 500 ml @ 500 mls/hr 1X ONCE IV Last administered on 12/07/18at 23:39; Start 12/07/18 at 23:45; Stop 12/08/18 at 00:44; Status DC Alprazolam (Xanax) 0.5 mg PRN Q8HRS PRN PO ANXIETY / AGITATION Last administered on 12/08/18at 23:25; Start 12/08/18 at 02:30 Oxycodone/ Acetaminophen (Percocet 5/325) 1 tab PRN Q4HRS PRN PO PAIN Last administered on 12/09/18at 18:31; Start 12/08/18 at 02:30; Stop 12/10/18 at 16:23; Status DC Clindamycin HCl (Cleocin) 450 mg TID PO Last administered on 12/11/18at 20:56; Start 12/08/18 at 09:00 Docusate Sodium (Colace) 100 mg BID PO Last administered on 12/09/18at 21:20; Start 12/08/18 at 09:00 Furosemide (Lasix) 20 mg DAILY PO Last administered on 12/08/18at 08:34; Start 12/08/18 at 09:00; Stop 12/08/18 at 13:55; Status DC Gabapentin (Neurontin) 300 mg HS PO Last administered on 12/11/18 20:56; Start 12/08/18 at 21:00 Metformin HCl (Glucophage) 500 mg BIDWMEALS PO ; Start 12/08/18 at 08:00; Stop 12/08/18 at 13:34; Status DC Metoprolol Succinate (Toprol Xl) 100 mg DAILY PO Last administered on 12/11/18at 08:45; Start 12/08/18 at 09:00 Potassium Chloride (Klor-Con) 10 meq DAILYWBKFT PO Last administered on 12/08/18at 08:35; Start 12/08/18 at 08:00; Stop 12/09/18 at 05:47; Status DC Trazodone HCl (Desyrel) 50 mg PRN QHS PRN PO INSOMNIA Last administered on 12/09/18at 21:20; Start 12/08/18 at 02:30 Lisinopril (Prinivil) 20 mg DAILY PO ; Start 12/08/18 at 09:00; Stop 12/08/18 at 13:34; Status DC Pioglitazone HCl (Actos) 30 mg DAILY PO Last administered on 12/08/18at 08:40; Start 12/08/18 at 09:00; Stop 12/08/18 at 13:53; Status DC Potassium Chloride (Klor-Con) 20 meq 1X ONCE PO Last administered on 12/08/18at 11:42; Start 12/08/18 at 09:30; Stop 12/08/18 at 09:35; Status DC Furosemide (Lasix) 40 mg 1X ONCE IVP Last administered on 12/08/18at 11:42; Start 12/08/18 at 11:00; Stop 12/08/18 at 11:01; Status DC Lactobacillus Rhamnosus (Culturelle) 1 cap BID PO Last administered on 12/11/18 20:55; Start 12/08/18 at 15:00 Furosemide (Lasix) 40 mg BID94 IVP Last administered on 12/09/18 09:51; Start 12/08/18 at 16:00; Stop 12/09/18 at 14:29; Status DC Potassium Chloride (Klor-Con) 40 meq 1X ONCE PO Last administered on 12/08/18 14:36; Start 12/08/18 at 13:30; Stop 12/08/18 at 13:41; Status DC Aspirin (Ecotrin) 325 mg 1X ONCE PO Last administered on 12/08/18 14:35; Start 12/08/18 at 13:30; Stop 12/08/18 at 13:41; Status DC Aspirin (Ecotrin) 81 mg DAILYWBKFT PO Last administered on 12/11/18 08:44; Start 12/09/18 at 08:00 Heparin Sodium/ Dextrose 500 ml @ 0 mls/hr CONT PRN IV SEE I/O RECORD Last administered on 12/10/18 03:07; Start 12/08/18 at 13:45; Stop 12/11/18 at 13:28; Status DC Heparin Sodium (Porcine) (Heparin Sodium) 4,000 unit PRN Q6HRS PRN IV FOR UFH LEVEL LESS THAN 0.2 Last administered on 12/08/18 14:54; Start 12/08/18 at 13:45; Stop 12/11/18 at 13:28; Status DC Atorvastatin Calcium (Lipitor) 20 mg QHS PO Last administered on 12/11/18 20:56; Start 12/08/18 at 21:00 Potassium Chloride (Klor-Con) 40 meq 1X ONCE PO Last administered on 12/09/18 06:25; Start 12/09/18 at 06:00; Stop 12/09/18 at 06:02; Status DC Potassium Chloride (Klor-Con) 40 meq BIDWMEALS PO Last administered on 12/11/18 17:00; Start 12/09/18 at 08:00 Magnesium Sulfate 50 ml @ 25 mls/hr 1X ONCE IV Last administered on 10/23/19at 09:54; Start 12/09/18 at 08:30; Stop 12/09/18 at 10:29; Status DC Methylprednisolone Acetate (DEPO-Medrol 40MG VIAL) 40 mg 1X ONCE IM Last administered on 12/09/18at 10:19; Start 12/09/18 at 09:00; Stop 12/09/18 at 09:01; Status DC Bupivacaine HCl (Sensorcaine-Mpf 0.25%) 10 ml 1X ONCE IJ Last administered on 12/09/18at 10:19; Start 12/09/18 at 09:00; Stop 12/09/18 at 09:01; Status DC Polysaccharide Iron Complex (Niferex 150) 150 mg BID PO Last administered on 12/11/18at 20:56; Start 12/09/18 at 10:00 Potassium Chloride (Klor-Con) 40 meq 1X ONCE PO Last administered on 12/09/18at 15:01; Start 12/09/18 at 13:00; Stop 12/09/18 at 13:01; Status DC Furosemide (Lasix) 40 mg DAILY IVP Last administered on 12/11/18at 10:44; Start 12/10/18 at 09:00 Magnesium Sulfate 50 ml @ 25 mls/hr 1X ONCE IV Last administered on 12/10/18 08:17; Start 12/10/18 at 08:00; Stop 12/10/18 at 09:59; Status DC Info (Anti-Coagulation Monitoring By Pharmacy) 1 each PRN DAILY PRN MC SEE COMMENTS Last administered on 12/10/18at 13:10; Start 12/10/18 at 08:30; Stop 12/11/18 at 13:28; Status DC Lidocaine HCl (Xylocaine-Mpf 1% 2ml Vial) 2 ml STK-MED ONCE .ROUTE ; Start 12/10/18 at 13:55; Stop 12/10/18 at 13:55; Status DC Heparin Sodium/ Sodium Chloride 1,000 ml @ As Directed STK-MED ONCE .ROUTE ; Start 12/10/18 at 13:55; Stop 12/10/18 at 13:55; Status DC Iodixanol (Visipaque 320) 100 ml STK-MED ONCE .ROUTE ; Start 12/10/18 at 13:55; Stop 12/10/18 at 13:56; Status DC Fentanyl Citrate (Fentanyl 2ml Vial) 100 mcg STK-MED ONCE .ROUTE ; Start 12/10/18 at 14:02; Stop 12/10/18 at 14:02; Status DC Midazolam HCl (Versed) 2 mg STK-MED ONCE .ROUTE ; Start 12/10/18 at 14:02; Stop 12/10/18 at 14:02; Status DC Heparin Sodium (Porcine) (Heparin Sodium) 10,000 unit STK-MED ONCE .ROUTE ; Start 12/10/18 at 14:02; Stop 12/10/18 at 14:02; Status DC Verapamil HCl (Verapamil) 5 mg STK-MED ONCE .ROUTE ; Start 12/10/18 at 14:02; Stop 12/10/18 at 14:02; Status DC Nitroglycerin (Nitroglycerin) 200 mcg STK-MED ONCE .ROUTE ; Start 12/10/18 at 14:02; Stop 12/10/18 at 14:03; Status DC Nitroglycerin (Nitroglycerin) 200 mcg 1X ONCE IART Last administered on 12/10/18at 14:41; Start 12/10/18 at 14:45; Stop 12/10/18 at 14:46; Status DC Verapamil HCl (Verapamil) 2.5 mg 1X ONCE IART Last administered on 12/10/18at 14:41; Start 12/10/18 at 14:45; Stop 12/10/18 at 14:46; Status DC Heparin Sodium (Porcine) (Heparin Sodium) 2,500 unit 1X ONCE IART Last administered on 12/10/18at 14:40; Start 12/10/18 at 14:45; Stop 12/10/18 at 14:46; Status DC Midazolam HCl (Versed) 2 mg 1X ONCE IV Last administered on 12/10/18at 14:42; Start 12/10/18 at 14:45; Stop 12/10/18 at 14:46; Status DC Fentanyl Citrate (Fentanyl 2ml Vial) 100 mcg 1X ONCE IV Last administered on 12/10/18at 14:42; Start 12/10/18 at 14:45; Stop 12/10/18 at 14:46; Status DC Iohexol (Omnipaque 300 Mg/ml) 100 ml 1X ONCE IART Last administered on 12/10/18at 14:41; Start 12/10/18 at 14:45; Stop 12/10/18 at 14:46; Status DC Lidocaine HCl 1 ml 1X ONCE IJ Last administered on 12/10/18at 14:42; Start 12/10/18 at 14:45; Stop 12/10/18 at 14:46; Status DC Methylprednisolone Acetate (DEPO-Medrol 40MG VIAL) 40 mg 1X ONCE IM Last administered on 12/10/18at 17:45; Start 12/10/18 at 16:30; Stop 12/10/18 at 16:31; Status DC Bupivacaine HCl (Sensorcaine-Mpf 0.25%) 10 ml 1X ONCE IJ Last administered on 12/10/18at 17:45; Start 12/10/18 at 16:30; Stop 12/10/18 at 16:31; Status DC Acetaminophen/ Hydrocodone Bitart (Lortab 5/325) 1 tab PRN Q4HRS PRN PO PAIN Last administered on 12/12/18at 03:33; Start 12/10/18 at 16:30 Clindamycin HCl (Cleocin) 450 mg STK-MED ONCE .ROUTE ; Start 12/11/18 at 14:00; Stop 12/11/18 at 18:20; Status DC Acetaminophen/ Hydrocodone Bitart (Lortab 5/325) 1 tab STK-MED ONCE .ROUTE ; Start 12/11/18 at 14:00; Stop 12/11/18 at 18:20; Status DC Furosemide (Lasix) 40 mg 1X ONCE PO Last administered on 12/11/18at 20:56; Start 12/11/18 at 19:00; Stop 12/11/18 at 19:03; Status DC Active Scripts Active Clindamycin Hcl 150 Mg Capsule 3 Cap PO TID Colace (Docusate Sodium) 100 Mg Capsule 100 Mg PO BID Reported Actos (Pioglitazone Hcl) 30 Mg Tablet 1 Tab PO DAILY 30 Days Benazepril Hcl 20 Mg Tablet 1 Tab PO DAILY Gabapentin (Gabapentin) 300 Mg Capsule 300 Mg PO HS Metformin Hcl 500 Mg Tablet 500 Mg PO BIDWMEALS Furosemide 20 Mg Tablet 1 Tab PO DAILY Potassium Chloride 10 Meq Tab.sr.24h 10 Meq PO DAILY Trazodone Hcl 50 Mg Tablet 1-2 Tab PO PRN QHS PRN Metoprolol Succinate ( Xl ) (Metoprolol Succinate) 100 Mg Tab.er.24h 1 Tab PO DAILY Vitals/I & O Vital Sign - Last 24 Hours 12/11/18 12/11/18 12/11/18 12/11/18 10:29 10:48 13:30 15:00 Temp 97.8 97.4 97.8 97.4 Pulse 74 81 Resp 16 16 B/P (MAP) 101/49 (66) 129/59 (82) Pulse Ox 100 100 100 96 O2 Delivery Nasal Cannula Nasal Cannula Nasal Cannula Nasal Cannula O2 Flow Rate 1.0 1.0 1.0 1.0 12/11/18 12/11/18 12/11/18 12/11/18 19:40 20:45 23:00 23:26 Temp 97.9 97.9 97.9 97.9 Pulse 76 75 Resp 24 21 B/P (MAP) 124/56 (78) 158/61 (93) Pulse Ox 97 98 O2 Delivery Nasal Cannula Nasal Cannula Nasal Cannula Nasal Cannula O2 Flow Rate 1.0 1.0 1.0 1.0 12/12/18 12/12/18 12/12/18 12/12/18 00:26 03:33 03:40 04:33 Temp 98.0 98.0 Pulse 74 Resp 22 B/P (MAP) 139/57 (84) Pulse Ox 95 O2 Delivery Nasal Cannula Nasal Cannula Nasal Cannula Nasal Cannula O2 Flow Rate 1.0 1.0 1.0 Intake and Output 12/11/18 12/11/18 12/12/18 15:00 23:00 07:00 Intake Total 480 ml 240 ml 300 ml Output Total 925 ml Balance 480 ml 240 ml -625 ml FRANCISCO CASTELLON MD Dec 12, 2018 09:08
[2018-12-12] MEDS: DOCUSATE SODIUM 100 MG CAPSULE. PO SCH (09:28)
[2018-12-12] MEDS: ASPIRIN ENTERIC COATED 81 MG TABLET.DR. PO SCH (09:28)
[2018-12-12] MEDS: IRON POLYSACCHARIDE COMPLEX 150 MG CAPSULE PO SCH (09:28)
[2018-12-12] MEDS: CLINDAMYCIN HCL 150 MG CAPSULE. PO SCH ×2 (09:29→13:16)
[2018-12-12] MEDS: FUROSEMIDE 40 MG/4 ML VIAL. IVP SCH (09:29)
[2018-12-12] MEDS: LACTOBACILLUS RHAMNOSUS GG 1 CAPSULE. PO SCH (09:29)
[2018-12-12] MEDS: POTASSIUM CHLORIDE 20 MEQ TABLET.ER. PO SCH (09:29)
[2018-12-12] MEDS: METOPROLOL SUCC 24HR ER 100 MG TAB.ER.24H. PO SCH (09:30)
[2018-12-12 11:00] VITALS: BP 137/60
--- NOTE | 2018-12-12 11:10 | PDOC ---
PROGRESS NOTES Subjective Subjective She admits some momentary soreness of her left knee last night when she felt cold without blanket for a moment but got better when she covered it with a blanket. Objective Objective Vital Signs Date Time Temp Pulse Resp B/P (MAP) Pulse Ox O2 Delivery O2 Flow Rate FiO2 12/12/18 09:30 81 116/57 12/12/18 08:00 Nasal Cannula 1.0 12/12/18 07:00 97.7 20 96 97.7 Intake and Output 12/12/18 07:00 Intake Total 1020 ml Output Total 925 ml Balance 95 ml Intake Oral 1020 ml Output Urine Total 925 ml # Voids 6 Physical Exam Physical Exam She is walking with roller walker in her room without any discomfort. She had bone into bone narrowing of medial knee joint line on x-ray. Plan Plan of Prison when medically stable with out patient follow up and to consider lubricant injections if steroid injections does not provide lasting help and also needs to be considered for medial un box car loader knee braces and TKA. Comment Review of Relevant I have reviewed the following items radha (where applicable) has been applied. Labs Laboratory Tests Test 12/10/18 12:08 12/10/18 17:17 12/10/18 21:07 12/11/18 04:00 Glucose (Fingerstick) 111 mg/dL (70-99) 126 mg/dL (70-99) 127 mg/dL (70-99) White Blood Count 4.8 x10^3/uL (4.0-11.0) Red Blood Count 3.07 x10^6/uL (3.50-5.40) Hemoglobin 9.9 g/dL (12.0-15.5) Hematocrit 29.4 % (36.0-47.0) Mean Corpuscular Volume 96 fL (79-100) Mean Corpuscular Hemoglobin 32 pg (25-35) Mean Corpuscular Hemoglobin Concent 34 g/dL (31-37) Red Cell Distribution Width 14.6 % (11.5-14.5) Platelet Count 140 x10^3/uL (140-400) Test 12/11/18 07:45 12/11/18 11:38 12/11/18 12:00 12/11/18 17:23 Glucose (Fingerstick) 109 mg/dL (70-99) 120 mg/dL (70-99) 131 mg/dL (70-99) Sodium Level 140 mmol/L (136-145) Potassium Level 4.0 mmol/L (3.5-5.1) Chloride Level 101 mmol/L (98-107) Carbon Dioxide Level 33 mmol/L (21-32) Anion Gap 6 (6-14) Blood Urea Nitrogen 20 mg/dL (7-20) Creatinine 1.2 mg/dL (0.6-1.0) Estimated GFR (Cockcroft-Gault) 45.5 Glucose Level 128 mg/dL (70-99) Calcium Level 9.1 mg/dL (8.5-10.1) Magnesium Level 1.7 mg/dL (1.8-2.4) Test 12/11/18 20:56 12/12/18 05:00 12/12/18 08:19 Glucose (Fingerstick) 122 mg/dL (70-99) 117 mg/dL (70-99) Sodium Level 141 mmol/L (136-145) Potassium Level 3.6 mmol/L (3.5-5.1) Chloride Level 102 mmol/L (98-107) Carbon Dioxide Level 31 mmol/L (21-32) Anion Gap 8 (6-14) Blood Urea Nitrogen 23 mg/dL (7-20) Creatinine 1.2 mg/dL (0.6-1.0) Estimated GFR (Cockcroft-Gault) 45.5 Glucose Level 129 mg/dL (70-99) Calcium Level 8.5 mg/dL (8.5-10.1) Phosphorus Level 3.8 mg/dL (2.6-4.7) Albumin 3.0 g/dL (3.4-5.0) Laboratory Tests Test 12/11/18 11:38 12/11/18 12:00 12/11/18 17:23 12/11/18 20:56 Glucose (Fingerstick) 120 mg/dL (70-99) 131 mg/dL (70-99) 122 mg/dL (70-99) Sodium Level 140 mmol/L (136-145) Potassium Level 4.0 mmol/L (3.5-5.1) Chloride Level 101 mmol/L (98-107) Carbon Dioxide Level 33 mmol/L (21-32) Anion Gap 6 (6-14) Blood Urea Nitrogen 20 mg/dL (7-20) Creatinine 1.2 mg/dL (0.6-1.0) Estimated GFR (Cockcroft-Gault) 45.5 Glucose Level 128 mg/dL (70-99) Calcium Level 9.1 mg/dL (8.5-10.1) Magnesium Level 1.7 mg/dL (1.8-2.4) Test 12/12/18 05:00 12/12/18 08:19 Sodium Level 141 mmol/L (136-145) Potassium Level 3.6 mmol/L (3.5-5.1) Chloride Level 102 mmol/L (98-107) Carbon Dioxide Level 31 mmol/L (21-32) Anion Gap 8 (6-14) Blood Urea Nitrogen 23 mg/dL (7-20) Creatinine 1.2 mg/dL (0.6-1.0) Estimated GFR (Cockcroft-Gault) 45.5 Glucose Level 129 mg/dL (70-99) Calcium Level 8.5 mg/dL (8.5-10.1) Phosphorus Level 3.8 mg/dL (2.6-4.7) Albumin 3.0 g/dL (3.4-5.0) Glucose (Fingerstick) 117 mg/dL (70-99) Microbiology 12/07/18 Blood Culture - Preliminary, Resulted NO GROWTH AFTER 4 DAYS Medications Current Medications Furosemide (Lasix) 40 mg 1X ONCE IVP Last administered on 12/07/18at 22:56; Start 12/07/18 at 22:15; Stop 12/07/18 at 22:16; Status DC Albuterol/ Ipratropium (Duoneb) 3 ml STK-MED ONCE .ROUTE ; Start 12/07/18 at 22:14; Stop 12/07/18 at 22:14; Status DC Ceftriaxone Sodium (Rocephin) 1 gm 1X ONCE IVP Last administered on 12/07/18at 23:16; Start 12/07/18 at 23:15; Stop 12/07/18 at 23:16; Status DC Sodium Chloride 500 ml @ 500 mls/hr 1X ONCE IV Last administered on 12/07/18at 23:39; Start 12/07/18 at 23:45; Stop 12/08/18 at 00:44; Status DC Alprazolam (Xanax) 0.5 mg PRN Q8HRS PRN PO ANXIETY / AGITATION Last adminis tered on 12/08/18 23:25; Start 12/08/18 at 02:30 Oxycodone/ Acetaminophen (Percocet 5/325) 1 tab PRN Q4HRS PRN PO PAIN Last administered on 12/09/18 18:31; Start 12/08/18 at 02:30; Stop 12/10/18 at 16:23; Status DC Clindamycin HCl (Cleocin) 450 mg TID PO Last administered on 12/12/18 09:29; Start 12/08/18 at 09:00 Docusate Sodium (Colace) 100 mg BID PO Last administered on 12/12/18 09:28; Start 12/08/18 at 09:00 Furosemide (Lasix) 20 mg DAILY PO Last administered on 12/08/18 08:34; Start 12/08/18 at 09:00; Stop 12/08/18 at 13:55; Status DC Gabapentin (Neurontin) 300 mg HS PO Last administered on 12/11/18 20:56; Start 12/08/18 at 21:00 Metformin HCl (Glucophage) 500 mg BIDWMEALS PO ; Start 12/08/18 at 08:00; Stop 12/08/18 at 13:34; Status DC Metoprolol Succinate (Toprol Xl) 100 mg DAILY PO Last administered on 12/12/18 09:30; Start 12/08/18 at 09:00 Potassium Chloride (Klor-Con) 10 meq DAILYWBKFT PO Last administered on 12/08/18at 08:35; Start 12/08/18 at 08:00; Stop 12/09/18 at 05:47; Status DC Trazodone HCl (Desyrel) 50 mg PRN QHS PRN PO INSOMNIA Last administered on 12/09/18 21:20; Start 12/08/18 at 02:30 Lisinopril (Prinivil) 20 mg DAILY PO ; Start 12/08/18 at 09:00; Stop 12/08/18 at 13:34; Status DC Pioglitazone HCl (Actos) 30 mg DAILY PO Last administered on 12/08/18at 08:40; Start 12/08/18 at 09:00; Stop 12/08/18 at 13:53; Status DC Potassium Chloride (Klor-Con) 20 meq 1X ONCE PO Last administered on 12/08/18 11:42; Start 12/08/18 at 09:30; Stop 12/08/18 at 09:35; Status DC Furosemide (Lasix) 40 mg 1X ONCE IVP Last administered on 12/08/18 11:42; Start 12/08/18 at 11:00; Stop 12/08/18 at 11:01; Status DC Lactobacillus Rhamnosus (Culturelle) 1 cap BID PO Last administered on 12/12/18 09:29; Start 12/08/18 at 15:00 Furosemide (Lasix) 40 mg BID94 IVP Last administered on 12/09/18 09:51; Start 12/08/18 at 16:00; Stop 12/09/18 at 14:29; Status DC Potassium Chloride (Klor-Con) 40 meq 1X ONCE PO Last administered on 12/08/18 14:36; Start 12/08/18 at 13:30; Stop 12/08/18 at 13:41; Status DC Aspirin (Ecotrin) 325 mg 1X ONCE PO Last administered on 12/08/18 14:35; Start 12/08/18 at 13:30; Stop 12/08/18 at 13:41; Status DC Aspirin (Ecotrin) 81 mg DAILYWBKFT PO Last administered on 12/12/18 09:28; Start 12/09/18 at 08:00 Heparin Sodium/ Dextrose 500 ml @ 0 mls/hr CONT PRN IV SEE I/O RECORD Last administered on 12/10/18 03:07; Start 12/08/18 at 13:45; Stop 12/11/18 at 13:28; Status DC Heparin Sodium (Porcine) (Heparin Sodium) 4,000 unit PRN Q6HRS PRN IV FOR UFH LEVEL LESS THAN 0.2 Last administered on 12/08/18at 14:54; Start 12/08/18 at 13:45; Stop 12/11/18 at 13:28; Status DC Atorvastatin Calcium (Lipitor) 20 mg QHS PO Last administered on 12/11/18at 20:56; Start 12/08/18 at 21:00 Potassium Chloride (Klor-Con) 40 meq 1X ONCE PO Last administered on 12/09/18 06:25; Start 12/09/18 at 06:00; Stop 12/09/18 at 06:02; Status DC Potassium Chloride (Klor-Con) 40 meq BIDWMEALS PO Last administered on 12/12/18at 09:29; Start 12/09/18 at 08:00 Magnesium Sulfate 50 ml @ 25 mls/hr 1X ONCE IV Last administered on 12/09/18at 09:54; Start 12/09/18 at 08:30; Stop 12/09/18 at 10:29; Status DC Methylprednisolone Acetate (DEPO-Medrol 40MG VIAL) 40 mg 1X ONCE IM Last administered on 12/09/18 10:19; Start 12/09/18 at 09:00; Stop 12/09/18 at 09:01; Status DC Bupivacaine HCl (Sensorcaine-Mpf 0.25%) 10 ml 1X ONCE IJ Last administered on 12/09/18at 10:19; Start 12/09/18 at 09:00; Stop 12/09/18 at 09:01; Status DC Polysaccharide Iron Complex (Niferex 150) 150 mg BID PO Last administered on 12/12/18 09:28; Start 12/09/18 at 10:00 Potassium Chloride (Klor-Con) 40 meq 1X ONCE PO Last administered on 12/09/18at 15:01; Start 12/09/18 at 13:00; Stop 12/09/18 at 13:01; Status DC Furosemide (Lasix) 40 mg DAILY IVP Last administered on 12/12/18 09:29; Start 12/10/18 at 09:00 Magnesium Sulfate 50 ml @ 25 mls/hr 1X ONCE IV Last administered on 12/10/18at 08:17; Start 12/10/18 at 08:00; Stop 12/10/18 at 09:59; Status DC Info (Anti-Coagulation Monitoring By Pharmacy) 1 each PRN DAILY PRN MC SEE COMMENTS Last administered on 12/10/18at 13:10; Start 12/10/18 at 08:30; Stop 12/11/18 at 13:28; Status DC Lidocaine HCl (Xylocaine-Mpf 1% 2ml Vial) 2 ml STK-MED ONCE .ROUTE ; Start 12/10/18 at 13:55; Stop 12/10/18 at 13:55; Status DC Heparin Sodium/ Sodium Chloride 1,000 ml @ As Directed STK-MED ONCE .ROUTE ; Start 12/10/18 at 13:55; Stop 12/10/18 at 13:55; Status DC Iodixanol (Visipaque 320) 100 ml STK-MED ONCE .ROUTE ; Start 12/10/18 at 13:55; Stop 12/10/18 at 13:56; Status DC Fentanyl Citrate (Fentanyl 2ml Vial) 100 mcg STK-MED ONCE .ROUTE ; Start 12/10/18 at 14:02; Stop 12/10/18 at 14:02; Status DC Midazolam HCl (Versed) 2 mg STK-MED ONCE .ROUTE ; Start 12/10/18 at 14:02; Stop 12/10/18 at 14:02; Status DC Heparin Sodium (Porcine) (Heparin Sodium) 10,000 unit STK-MED ONCE .ROUTE ; Start 12/10/18 at 14:02; Stop 12/10/18 at 14:02; Status DC Verapamil HCl (Verapamil) 5 mg STK-MED ONCE .ROUTE ; Start 12/10/18 at 14:02; Stop 12/10/18 at 14:02; Status DC Nitroglycerin (Nitroglycerin) 200 mcg STK-MED ONCE .ROUTE ; Start 12/10/18 at 14:02; Stop 12/10/18 at 14:03; Status DC Nitroglycerin (Nitroglycerin) 200 mcg 1X ONCE IART Last administered on 12/10/18at 14:41; Start 12/10/18 at 14:45; Stop 12/10/18 at 14:46; Status DC Verapamil HCl (Verapamil) 2.5 mg 1X ONCE IART Last administered on 12/10/18at 14:41; Start 12/10/18 at 14:45; Stop 12/10/18 at 14:46; Status DC Heparin Sodium (Porcine) (Heparin Sodium) 2,500 unit 1X ONCE IART Last administered on 12/10/18at 14:40; Start 12/10/18 at 14:45; Stop 12/10/18 at 14:46; Status DC Midazolam HCl (Versed) 2 mg 1X ONCE IV Last administered on 12/10/18at 14:42; Start 12/10/18 at 14:45; Stop 12/10/18 at 14:46; Status DC Fentanyl Citrate (Fentanyl 2ml Vial) 100 mcg 1X ONCE IV Last administered on 12/10/18at 14:42; Start 12/10/18 at 14:45; Stop 12/10/18 at 14:46; Status DC Iohexol (Omnipaque 300 Mg/ml) 100 ml 1X ONCE IART Last administered on 12/10/18at 14:41; Start 12/10/18 at 14:45; Stop 12/10/18 at 14:46; Status DC Lidocaine HCl 1 ml 1X ONCE IJ Last administered on 12/10/18at 14:42; Start 12/10/18 at 14:45; Stop 12/10/18 at 14:46; Status DC Methylprednisolone Acetate (DEPO-Medrol 40MG VIAL) 40 mg 1X ONCE IM Last administered on 12/10/18at 17:45; Start 12/10/18 at 16:30; Stop 12/10/18 at 16:31; Status DC Bupivacaine HCl (Sensorcaine-Mpf 0.25%) 10 ml 1X ONCE IJ Last administered on 12/10/18at 17:45; Start 12/10/18 at 16:30; Stop 12/10/18 at 16:31; Status DC Acetaminophen/ Hydrocodone Bitart (Lortab 5/325) 1 tab PRN Q4HRS PRN PO PAIN Last administered on 12/12/18at 03:33; Start 12/10/18 at 16:30 Clindamycin HCl (Cleocin) 450 mg STK-MED ONCE .ROUTE ; Start 12/11/18 at 14:00; Stop 12/11/18 at 18:20; Status DC Acetaminophen/ Hydrocodone Bitart (Lortab 5/325) 1 tab STK-MED ONCE .ROUTE ; Start 12/11/18 at 14:00; Stop 12/11/18 at 18:20; Status DC Furosemide (Lasix) 40 mg 1X ONCE PO Last administered on 12/11/18at 20:56; Start 12/11/18 at 19:00; Stop 12/11/18 at 19:03; Status DC Active Scripts Active Clindamycin Hcl 150 Mg Capsule 3 Cap PO TID Colace (Docusate Sodium) 100 Mg Capsule 100 Mg PO BID Reported Actos (Pioglitazone Hcl) 30 Mg Tablet 1 Tab PO DAILY 30 Days Benazepril Hcl 20 Mg Tablet 1 Tab PO DAILY Gabapentin (Gabapentin) 300 Mg Capsule 300 Mg PO HS Metformin Hcl 500 Mg Tablet 500 Mg PO BIDWMEALS Furosemide 20 Mg Tablet 1 Tab PO DAILY Potassium Chloride 10 Meq Tab.sr.24h 10 Meq PO DAILY Trazodone Hcl 50 Mg Tablet 1-2 Tab PO PRN QHS PRN Metoprolol Succinate ( Xl ) (Metoprolol Succinate) 100 Mg Tab.er.24h 1 Tab PO DAILY Vitals/I & O Vital Sign - Last 24 Hours 12/11/18 12/11/18 12/11/18 12/11/18 13:30 15:00 19:40 20:45 Temp 97.4 97.9 97.4 97.9 Pulse 81 76 Resp 16 24 B/P (MAP) 129/59 (82) 124/56 (78) Pulse Ox 100 96 97 O2 Delivery Nasal Cannula Nasal Cannula Nasal Cannula Nasal Cannula O2 Flow Rate 1.0 1.0 1.0 1.0 12/11/18 12/11/18 12/12/18 12/12/18 23:00 23:26 00:26 03:33 Temp 97.9 97.9 Pulse 75 Resp 21 B/P (MAP) 158/61 (93) Pulse Ox 98 O2 Delivery Nasal Cannula Nasal Cannula Nasal Cannula Nasal Cannula O2 Flow Rate 1.0 1.0 1.0 12/12/18 12/12/18 12/12/18 12/12/18 03:40 04:33 07:00 08:00 Temp 98.0 97.7 98.0 97.7 Pulse 74 81 Resp 22 20 B/P (MAP) 139/57 (84) 116/57 (76) Pulse Ox 95 96 O2 Delivery Nasal Cannula Nasal Cannula Nasal Cannula Nasal Cannula O2 Flow Rate 1.0 1.0 1.0 1.0 12/12/18 09:30 Pulse 81 B/P (MAP) 116/57 Intake and Output 12/11/18 12/11/18 12/12/18 15:00 23:00 07:00 Intake Total 480 ml 240 ml 300 ml Output Total 925 ml Balance 480 ml 240 ml -625 ml CHIARA ORTIZ MD Dec 12, 2018 11:10
[2018-12-12] MEDS ORDERED: DICLOFENAC SODIUM 1% TOPICAL GEL 100GM TUBE. TP SCH (11:30)
--- NOTE | 2018-12-12 13:27 | PDOC3 ---
Discharge Summary Date of Admission: Dec 08, 2018 Date of Discharge: Dec 12, 2018 Follow-Up: 3-5 days Admitting Diagnosis comment: discharge dx acute hypoxic respiratory failure, improved CHF, acute combined failure, Septal motion suggestive of conduction defect. RV is moderately dilated. Doppler and Color Flow revealed mild tricuspid regurgitation. The PA pressure was estimated at 45 mmHg. c/w pulm hypertension, moderate morbid obesity, BMI 55 Acute on chronic renal failure, has been overusing NSAID for pain IZAIAH - Cardiorenal / Longstanding use of NSAID's Suspect CKD stage 3 - renal US cw Chr med disease Renal echotexture which may represent early chronic medical renal disease. recently cellulitis left leg, completing clinda script and leg has improved over the past week super morbid obesity suspect obesity, hypoventilation syndrome/ chuy has never had a sleep study 12-09 on admit She has had acute 2 days of chest pain, and has been taking large amount of ibuprofen she went to work , had new dsypnea with the stairs, then was out of breath after work before driving home. Patient states that she has gained 20 pounds and her last 1- months. . Patient denies history of COPD or asthma. BIPAP for the first time night of admit, and she feels much improved after use [facility] 12-10 pulm consult VASCULAR W/O reviewed no nsaids 29 min pt exam, chart review d/c planning time, > 50% of time spent with exam, chart review, pt care coordination Vitals Vitals Vital Signs Date Time Temp Pulse Resp B/P (MAP) Pulse Ox O2 Delivery O2 Flow Rate FiO2 12/12/18 04:33 Nasal Cannula 1.0 12/12/18 03:40 98.0 74 22 139/57 (84) 95 98.0 Physical Exam General: Alert, Oriented X3, Cooperative, No acute distress Heart: Regular rate (SR), Normal S1, No murmurs, Other (distant heart sounds) Lungs: Clear Abdomen: Normal bowel sounds, Soft, No tenderness, Other (obese) Extremities: No clubbing, No cyanosis, Other (2-3+ bilateral LE pitting edema) Skin: Other (venous dermatitis) Labs LABS EXAM: Bilateral lower extremity arterial Doppler. HISTORY: Peripheral vascular disease. Bilateral lower extremity pain. COMPARISON: None. FINDINGS: Grayscale and Doppler analysis of both lower extremity arterial systems was performed. On the right, there are triphasic waveforms through the right popliteal artery. The right anterior tibial artery is not visualized and may be occluded or developmental a small. The peroneal and posterior tibial arteries are patent. The right dorsalis pedis artery reconstitutes with biphasic flow. On the left, there are triphasic waveforms through the superficial femoral artery. They become biphasic within the popliteal artery and trifurcation vessels. The anterior tibial artery is not seen and may be developmentally small or occluded. The dorsalis pedis artery is patent with monophasic flow. IMPRESSION: 1. Mildly flow-limiting stenosis within the distal superficial femoral artery/popliteal arteries. 2. The anterior tibial arteries are not seen and may be occluded or developmentally small. The dorsalis pedis arteries are patent. Electronically signed by: Killian Campos MD (12/11/2018 5:13 PM) Brief Hospital Course Ms. Russo is a 63 old [sex] who presented with [ acute resp failure] CONDITION AT DISCHARGE: Improved Discharge Medications Current Medications Furosemide (Lasix) 40 mg 1X ONCE IVP Last administered on 12/07/18at 22:56; Start 12/07/18 at 22:15; Stop 12/07/18 at 22:16; Status DC Albuterol/ Ipratropium (Duoneb) 3 ml STK-MED ONCE .ROUTE ; Start 12/07/18 at 22:14; Stop 12/07/18 at 22:14; Status DC Ceftriaxone Sodium (Rocephin) 1 gm 1X ONCE IVP Last administered on 12/07/18at 23:16; Start 12/07/18 at 23:15; Stop 12/07/18 at 23:16; Status DC Sodium Chloride 500 ml @ 500 mls/hr 1X ONCE IV Last administered on 12/07/18at 23:39; Start 12/07/18 at 23:45; Stop 12/08/18 at 00:44; Status DC Alprazolam (Xanax) 0.5 mg PRN Q8HRS PRN PO ANXIETY / AGITATION Last adminis tered on 12/08/18at 23:25; Start 12/08/18 at 02:30 Oxycodone/ Acetaminophen (Percocet 5/325) 1 tab PRN Q4HRS PRN PO PAIN Last administered on 12/09/18 18:31; Start 12/08/18 at 02:30; Stop 12/10/18 at 16:23; Status DC Clindamycin HCl (Cleocin) 450 mg TID PO Last administered on 12/12/18 13:16; Start 12/08/18 at 09:00 Docusate Sodium (Colace) 100 mg BID PO Last administered on 12/12/18at 09:28; Start 12/08/18 at 09:00 Furosemide (Lasix) 20 mg DAILY PO Last administered on 12/08/18 08:34; Start 12/08/18 at 09:00; Stop 12/08/18 at 13:55; Status DC Gabapentin (Neurontin) 300 mg HS PO Last administered on 12/11/18at 20:56; Start 12/08/18 at 21:00 Metformin HCl (Glucophage) 500 mg BIDWMEALS PO ; Start 12/08/18 at 08:00; Stop 12/08/18 at 13:34; Status DC Metoprolol Succinate (Toprol Xl) 100 mg DAILY PO Last administered on 12/12/18 09:30; Start 12/08/18 at 09:00 Potassium Chloride (Klor-Con) 10 meq DAILYWBKFT PO Last administered on 12/08/18 08:35; Start 12/08/18 at 08:00; Stop 12/09/18 at 05:47; Status DC Trazodone HCl (Desyrel) 50 mg PRN QHS PRN PO INSOMNIA Last administered on 12/09/18at 21:20; Start 12/08/18 at 02:30 Lisinopril (Prinivil) 20 mg DAILY PO ; Start 12/08/18 at 09:00; Stop 12/08/18 at 13:34; Status DC Pioglitazone HCl (Actos) 30 mg DAILY PO Last administered on 12/08/18at 08:40; Start 12/08/18 at 09:00; Stop 12/08/18 at 13:53; Status DC Potassium Chloride (Klor-Con) 20 meq 1X ONCE PO Last administered on 12/08/18 11:42; Start 12/08/18 at 09:30; Stop 12/08/18 at 09:35; Status DC Furosemide (Lasix) 40 mg 1X ONCE IVP Last administered on 12/08/18 11:42; Start 12/08/18 at 11:00; Stop 12/08/18 at 11:01; Status DC Lactobacillus Rhamnosus (Culturelle) 1 cap BID PO Last administered on 12/12/18 09:29; Start 12/08/18 at 15:00 Furosemide (Lasix) 40 mg BID94 IVP Last administered on 12/09/18 09:51; Start 12/08/18 at 16:00; Stop 12/09/18 at 14:29; Status DC Potassium Chloride (Klor-Con) 40 meq 1X ONCE PO Last administered on 12/08/18 14:36; Start 12/08/18 at 13:30; Stop 12/08/18 at 13:41; Status DC Aspirin (Ecotrin) 325 mg 1X ONCE PO Last administered on 12/08/18 14:35; Start 12/08/18 at 13:30; Stop 12/08/18 at 13:41; Status DC Aspirin (Ecotrin) 81 mg DAILYWBKFT PO Last administered on 12/12/18 09:28; Start 12/09/18 at 08:00 Heparin Sodium/ Dextrose 500 ml @ 0 mls/hr CONT PRN IV SEE I/O RECORD Last administered on 12/10/18 03:07; Start 12/08/18 at 13:45; Stop 12/11/18 at 13:28; Status DC Heparin Sodium (Porcine) (Heparin Sodium) 4,000 unit PRN Q6HRS PRN IV FOR UFH LEVEL LESS THAN 0.2 Last administered on 12/08/18 14:54; Start 12/08/18 at 13:45; Stop 12/11/18 at 13:28; Status DC Atorvastatin Calcium (Lipitor) 20 mg QHS PO Last administered on 12/11/18 20:56; Start 12/08/18 at 21:00 Potassium Chloride (Klor-Con) 40 meq 1X ONCE PO Last administered on 12/09/18 06:25; Start 12/09/18 at 06:00; Stop 12/09/18 at 06:02; Status DC Potassium Chloride (Klor-Con) 40 meq BIDWMEALS PO Last administered on 12/12/18 09:29; Start 12/09/18 at 08:00 Magnesium Sulfate 50 ml @ 25 mls/hr 1X ONCE IV Last administered on 12/09/18at 09:54; Start 12/09/18 at 08:30; Stop 12/09/18 at 10:29; Status DC Methylprednisolone Acetate (DEPO-Medrol 40MG VIAL) 40 mg 1X ONCE IM Last administered on 12/09/18 10:19; Start 12/09/18 at 09:00; Stop 12/09/18 at 09:01; Status DC Bupivacaine HCl (Sensorcaine-Mpf 0.25%) 10 ml 1X ONCE IJ Last administered on 12/09/18at 10:19; Start 12/09/18 at 09:00; Stop 12/09/18 at 09:01; Status DC Polysaccharide Iron Complex (Niferex 150) 150 mg BID PO Last administered on 12/12/18 09:28; Start 12/09/18 at 10:00 Potassium Chloride (Klor-Con) 40 meq 1X ONCE PO Last administered on 12/09/18at 15:01; Start 12/09/18 at 13:00; Stop 12/09/18 at 13:01; Status DC Furosemide (Lasix) 40 mg DAILY IVP Last administered on 12/12/18 09:29; Start 12/10/18 at 09:00 Magnesium Sulfate 50 ml @ 25 mls/hr 1X ONCE IV Last administered on 12/10/18 08:17; Start 12/10/18 at 08:00; Stop 12/10/18 at 09:59; Status DC Info (Anti-Coagulation Monitoring By Pharmacy) 1 each PRN DAILY PRN MC SEE COMMENTS Last administered on 12/10/18at 13:10; Start 12/10/18 at 08:30; Stop 12/11/18 at 13:28; Status DC Lidocaine HCl (Xylocaine-Mpf 1% 2ml Vial) 2 ml STK-MED ONCE .ROUTE ; Start 12/10/18 at 13:55; Stop 12/10/18 at 13:55; Status DC Heparin Sodium/ Sodium Chloride 1,000 ml @ As Directed STK-MED ONCE .ROUTE ; Start 12/10/18 at 13:55; Stop 12/10/18 at 13:55; Status DC Iodixanol (Visipaque 320) 100 ml STK-MED ONCE .ROUTE ; Start 12/10/18 at 13:55; Stop 12/10/18 at 13:56; Status DC Fentanyl Citrate (Fentanyl 2ml Vial) 100 mcg STK-MED ONCE .ROUTE ; Start 12/10/18 at 14:02; Stop 12/10/18 at 14:02; Status DC Midazolam HCl (Versed) 2 mg STK-MED ONCE .ROUTE ; Start 12/10/18 at 14:02; Stop 12/10/18 at 14:02; Status DC Heparin Sodium (Porcine) (Heparin Sodium) 10,000 unit STK-MED ONCE .ROUTE ; Start 12/10/18 at 14:02; Stop 12/10/18 at 14:02; Status DC Verapamil HCl (Verapamil) 5 mg STK-MED ONCE .ROUTE ; Start 12/10/18 at 14:02; Stop 12/10/18 at 14:02; Status DC Nitroglycerin (Nitroglycerin) 200 mcg STK-MED ONCE .ROUTE ; Start 12/10/18 at 14:02; Stop 12/10/18 at 14:03; Status DC Nitroglycerin (Nitroglycerin) 200 mcg 1X ONCE IART Last administered on 12/10/18at 14:41; Start 12/10/18 at 14:45; Stop 12/10/18 at 14:46; Status DC Verapamil HCl (Verapamil) 2.5 mg 1X ONCE IART Last administered on 12/10/18at 14:41; Start 12/10/18 at 14:45; Stop 12/10/18 at 14:46; Status DC Heparin Sodium (Porcine) (Heparin Sodium) 2,500 unit 1X ONCE IART Last administered on 12/10/18at 14:40; Start 12/10/18 at 14:45; Stop 12/10/18 at 14:46; Status DC Midazolam HCl (Versed) 2 mg 1X ONCE IV Last administered on 12/10/18at 14:42; Start 12/10/18 at 14:45; Stop 12/10/18 at 14:46; Status DC Fentanyl Citrate (Fentanyl 2ml Vial) 100 mcg 1X ONCE IV Last administered on 12/10/18at 14:42; Start 12/10/18 at 14:45; Stop 12/10/18 at 14:46; Status DC Iohexol (Omnipaque 300 Mg/ml) 100 ml 1X ONCE IART Last administered on 12/10/18at 14:41; Start 12/10/18 at 14:45; Stop 12/10/18 at 14:46; Status DC Lidocaine HCl 1 ml 1X ONCE IJ Last administered on 12/10/18at 14:42; Start 12/10/18 at 14:45; Stop 12/10/18 at 14:46; Status DC Methylprednisolone Acetate (DEPO-Medrol 40MG VIAL) 40 mg 1X ONCE IM Last administered on 12/10/18at 17:45; Start 12/10/18 at 16:30; Stop 12/10/18 at 16:31; Status DC Bupivacaine HCl (Sensorcaine-Mpf 0.25%) 10 ml 1X ONCE IJ Last administered on 12/10/18at 17:45; Start 12/10/18 at 16:30; Stop 12/10/18 at 16:31; Status DC Acetaminophen/ Hydrocodone Bitart (Lortab 5/325) 1 tab PRN Q4HRS PRN PO PAIN Last administered on 12/12/18at 03:33; Start 12/10/18 at 16:30 Clindamycin HCl (Cleocin) 450 mg STK-MED ONCE .ROUTE ; Start 12/11/18 at 14:00; Stop 12/11/18 at 18:20; Status DC Acetaminophen/ Hydrocodone Bitart (Lortab 5/325) 1 tab STK-MED ONCE .ROUTE ; Start 12/11/18 at 14:00; Stop 12/11/18 at 18:20; Status DC Furosemide (Lasix) 40 mg 1X ONCE PO Last administered on 12/11/18at 20:56; Start 12/11/18 at 19:00; Stop 12/11/18 at 19:03; Status DC Diclofenac Sodium (Voltaren) 1 andreas BID TP Last administered on 12/12/18at 13:16; Start 12/12/18 at 11:30 Active Scripts Active Clindamycin Hcl 150 Mg Capsule 3 Cap PO TID Colace (Docusate Sodium) 100 Mg Capsule 100 Mg PO BID Reported Actos (Pioglitazone Hcl) 30 Mg Tablet 1 Tab PO DAILY 30 Days Benazepril Hcl 20 Mg Tablet 1 Tab PO DAILY Gabapentin (Gabapentin) 300 Mg Capsule 300 Mg PO HS Metformin Hcl 500 Mg Tablet 500 Mg PO BIDWMEALS Furosemide 20 Mg Tablet 1 Tab PO DAILY Potassium Chloride 10 Meq Tab.sr.24h 10 Meq PO DAILY Trazodone Hcl 50 Mg Tablet 1-2 Tab PO PRN QHS PRN Metoprolol Succinate ( Xl ) (Metoprolol Succinate) 100 Mg Tab.er.24h 1 Tab PO DAILY Vital Signs Vital Signs Date Time Temp Pulse Resp B/P (MAP) Pulse Ox O2 Delivery O2 Flow Rate FiO2 12/12/18 11:00 97.4 77 20 137/60 (85) 100 Nasal Cannula 1.0 97.4 Labs Laboratory Tests Test 12/10/18 17:17 12/10/18 21:07 12/11/18 04:00 12/11/18 07:45 Glucose (Fingerstick) 126 mg/dL (70-99) 127 mg/dL (70-99) 109 mg/dL (70-99) White Blood Count 4.8 x10^3/uL (4.0-11.0) Red Blood Count 3.07 x10^6/uL (3.50-5.40) Hemoglobin 9.9 g/dL (12.0-15.5) Hematocrit 29.4 % (36.0-47.0) Mean Corpuscular Volume 96 fL (79-100) Mean Corpuscular Hemoglobin 32 pg (25-35) Mean Corpuscular Hemoglobin Concent 34 g/dL (31-37) Red Cell Distribution Width 14.6 % (11.5-14.5) Platelet Count 140 x10^3/uL (140-400) Test 12/11/18 11:38 12/11/18 12:00 12/11/18 17:23 12/11/18 20:56 Glucose (Fingerstick) 120 mg/dL (70-99) 131 mg/dL (70-99) 122 mg/dL (70-99) Sodium Level 140 mmol/L (136-145) Potassium Level 4.0 mmol/L (3.5-5.1) Chloride Level 101 mmol/L (98-107) Carbon Dioxide Level 33 mmol/L (21-32) Anion Gap 6 (6-14) Blood Urea Nitrogen 20 mg/dL (7-20) Creatinine 1.2 mg/dL (0.6-1.0) Estimated GFR (Cockcroft-Gault) 45.5 Glucose Level 128 mg/dL (70-99) Calcium Level 9.1 mg/dL (8.5-10.1) Magnesium Level 1.7 mg/dL (1.8-2.4) Test 12/12/18 05:00 12/12/18 08:19 12/12/18 12:07 Sodium Level 141 mmol/L (136-145) Potassium Level 3.6 mmol/L (3.5-5.1) Chloride Level 102 mmol/L (98-107) Carbon Dioxide Level 31 mmol/L (21-32) Anion Gap 8 (6-14) Blood Urea Nitrogen 23 mg/dL (7-20) Creatinine 1.2 mg/dL (0.6-1.0) Estimated GFR (Cockcroft-Gault) 45.5 Glucose Level 129 mg/dL (70-99) Calcium Level 8.5 mg/dL (8.5-10.1) Phosphorus Level 3.8 mg/dL (2.6-4.7) Albumin 3.0 g/dL (3.4-5.0) Glucose (Fingerstick) 117 mg/dL (70-99) 116 mg/dL (70-99) Laboratory Tests Test 12/11/18 17:23 12/11/18 20:56 12/12/18 05:00 12/12/18 08:19 Glucose (Fingerstick) 131 mg/dL (70-99) 122 mg/dL (70-99) 117 mg/dL (70-99) Sodium Level 141 mmol/L (136-145) Potassium Level 3.6 mmol/L (3.5-5.1) Chloride Level 102 mmol/L (98-107) Carbon Dioxide Level 31 mmol/L (21-32) Anion Gap 8 (6-14) Blood Urea Nitrogen 23 mg/dL (7-20) Creatinine 1.2 mg/dL (0.6-1.0) Estimated GFR (Cockcroft-Gault) 45.5 Glucose Level 129 mg/dL (70-99) Calcium Level 8.5 mg/dL (8.5-10.1) Phosphorus Level 3.8 mg/dL (2.6-4.7) Albumin 3.0 g/dL (3.4-5.0) Test 12/12/18 12:07 Glucose (Fingerstick) 116 mg/dL (70-99) Allergies Allergies Coded Allergies Type Severity Reaction Last Updated Verified No Known Drug Allergies 12/07/18 No Disposition/Orders: D/C to Home FRANCISCO CASTELLON MD Dec 12, 2018 13:27
[2018-12-12] MEDS ORDERED: DICL100G18 TP (13:33)
[2018-12-12] MEDS ORDERED: ATOR20TA58 PO (13:33)
[2018-12-12] MEDS ORDERED: LACT1CAP19 PO (13:33)
[2018-12-12] MEDS ORDERED: ASPI-612 PO (13:33)
[2018-12-12] MEDS ORDERED: IRON150C11 PO (13:33)
--- NOTE | 2018-12-12 13:34 | DISCH ---
DISCHARGE INSTRUCTIONS Condition on Discharge Condition on Discharge: Stable Activity After Discharge Activity Instructions for Disc: Avoid exertion Bathing Instructions: No Tub Bath until see Lifting Instructions after Dis: No heavy lifting, No pulling or pushing, Do not lift >10 pounds Driving Instructions after Dis: Do not drive today, No driving for 2 weeks Diet after Discharge Diet after Discharge: Cardiac, Diabetic No Calorie Level Wound Incision Care Wound/Incision Care: Other, see below Checks after Discharge Checks after discharge: Check blood press - daily Contacting the [facility] after DC Call your doctor for: Concerns you may have Treatment/Equipment after DC Adaptive Equipment Issued: None FRANCISCO CASTELLON MD Dec 12, 2018 13:34
[2018-12-12] MEDS ORDERED: POTA20TA4 PO (14:19)
--- NOTE | 2018-12-12 16:58 | NUR ---
Discharge Note: [facility] Discharge instructions and discharge home medications reviewed with Patient and a copy given. All questions have been answered and understanding verbalized. Instructions and handouts chinmay. Discontinued lines. Patient discharged to home self care.
--- NOTE | 2018-12-16 12:23 | RESP ---
DATE OF SERVICE: 12/09/2018 ATTENDING PHYSICIAN: Dr. Douglas. The patient underwent a nocturnal desaturation study initially started on room air. Eventually, the patient was placed on 1 liter of oxygen supplementation. During the time monitor, there were periods of oxyhemoglobin desaturation below 88%. The patient spent approximately one hour with saturations below 88%, the lowest saturation was 59%. IMPRESSION: Abnormal nocturnal desaturation study initially on room air. Subsequently placed on 1 liter of oxygen supplementation. PLAN: 1. Recommend polysomnogram. 2. Continue oxygen supplementation at 1 liter per nasal cannula until the above has been completed. LUI WARD MD DR: MARY/ciara JOB#: [id number] / [id number] SARMAD Gallardo
== END 2018-12-12 16:00 | disposition home or self-care (01) | DRG 280 ==
LOC: ER 22:01 → 2 NORTH 23:30 → 2 SOUTH 12-09 18:34
PROVIDERS: ADMIT Internal Medicine; ATTEND Internal Medicine
PROC: 5A09357 Assistance with Respiratory Ventilation, Less than 24 Consecutive Hours, Continuous Positive Airway Pressure (ICD-10-PCS; 2018-12-07)
PROC: 3E0U33Z Introduction of Anti-inflammatory into Joints, Percutaneous Approach (ICD-10-PCS; 2018-12-09)
PROC: 3E0U3BZ Introduction of Anesthetic Agent into Joints, Percutaneous Approach (ICD-10-PCS; 2018-12-09)
PROC: 4A023N7 Measurement of Cardiac Sampling and Pressure, Left Heart, Percutaneous Approach (ICD-10-PCS; principal; 2018-12-10)
PROC: B2111ZZ Fluoroscopy of Multiple Coronary Arteries using Low Osmolar Contrast (ICD-10-PCS; 2018-12-10)
DX: I13.0 Hypertensive heart and chronic kidney disease with heart failure and stage 1 through stage 4 chronic kidney disease, or unspecified chronic kidney disease (principal); I21.A1 Myocardial infarction type 2; J96.01 Acute respiratory failure with hypoxia; I50.33 Acute on chronic diastolic (congestive) heart failure; N17.9 Acute kidney failure, unspecified; Z68.43 Body mass index [BMI] 50.0-59.9, adult; E11.22 Type 2 diabetes mellitus with diabetic chronic kidney disease; E11.42 Type 2 diabetes mellitus with diabetic polyneuropathy; E11.51 Type 2 diabetes mellitus with diabetic peripheral angiopathy without gangrene; N18.3 Chronic kidney disease, stage 3 (moderate); E66.01 Morbid (severe) obesity due to excess calories; E78.5 Hyperlipidemia, unspecified; G47.33 Obstructive sleep apnea (adult) (pediatric); I27.29 Other secondary pulmonary hypertension; M17.0 Bilateral primary osteoarthritis of knee; N95.0 Postmenopausal bleeding; E87.6 Hypokalemia; I95.9 Hypotension, unspecified; Z79.1 Long term (current) use of non-steroidal anti-inflammatories (NSAID); Z79.899 Other long term (current) drug therapy; Z80.1 Family history of malignant neoplasm of trachea, bronchus and lung; Z90.710 Acquired absence of both cervix and uterus; Z95.1 Presence of aortocoronary bypass graft
CPT/HCPCS: 36415; 36600; 71045; 73565; 76770; 80048; 80053; 80061; 80069; 81001; 82570; 82805; 82962; 83036; 83605; 83690; 83735; 83880; 84156; 84300; 84443; 84484; 85025; 85027; 85520; 85610; 87040; 93005; 93306; 93458; 93925; 93970; 94618; 94640; 94660; 94760; 94799; 96374; 96375; 99152; C1769; C1892; J0696; J1030; J1644; J1940; J2001; J2250; J3010; J3475; J3490; J7040; Q9967; 97116; 97530; 99285-25; G0378

== ENCOUNTER → 2019-04-07 | Outpatient (CLI) | payer BC ==
[~2019-04-07] MED LIST changes: +ASPI-612 PO; +ATOR20TA58 PO; +BENA20TA4 PO; +DICL100G18 TP; +FURO20TA3 PO; -GLIM2TAB3 PO; +GLIM2TAB7 PO; +IRON150C11 PO; +LACT1CAP19 PO; +PIOG30TA41 PO; +POTA10TA12 PO; +POTA20TA4 PO
--- NOTE | 2019-04-08 15:17 | SLEEP ---
DATE OF STUDY: 04/07/2019 HOME SLEEP STUDY REFERRING PHYSICIAN: Adrian Laura MD The patient is a 63-year-old who weighs 300 pounds with a BMI of 47. The patient's [place] score was 11. The patient underwent home sleep study performed by [facility]. Total recording time was 418 minutes. During the night study, the patient had 10 obstructive apneas, 3 mixed apneas, no central apneas and 28 hypopneas. The patient's AHI was 5.9 per hour. However, for a period of about an hour, with flow sensor was removed, which may have underestimated the AHI. Nocturnal oximetry study revealed mean oxygen saturation 93% with the lowest of 80%. 17 minutes were spent in oxygen saturation less than 90%. Mean heart rate 89 beats per minute. IMPRESSION: 1.Mild sleep apnea-hypopnea syndrome at an AHI of 5.9 per hour. At least an hour of flow sensor data was lost as it was removed. This could have underestimated the severity of sleep apnea. RECOMMENDATIONS: 1. The patient is clinically symptomatic. I would recommend treating the patient's sleep apnea with CPAP. 2. Once the patient is optimally treated, then follow up in 4-6 weeks to assess compliance and to document clinical improvement. 3. Weight loss is strongly advised. 4. Avoid [employer] depressants. 5. Cautioned regarding driving until symptoms of sleep apnea resolved with CPAP. 6. If the patient does not want undergo CPAP, then alternate option will be oral appliance as recommended by the dentist. KAREN GARCIA MD DR: MAXX/ciara JOB#: [id number] / [id number] RYAN
== END | disposition home or self-care (01) ==
LOC: RT 07:55
PROVIDERS: ATTEND Internal Medicine Cardiovascular Disease
DX: G47.33 Obstructive sleep apnea (adult) (pediatric) (principal)
CPT/HCPCS: G0399

== ENCOUNTER → 2019-04-28 | Outpatient (CLI) | payer BC ==
[~2019-04-28] MED LIST changes: +OXYMETAZOLINE 0.05% NASAL SPRAY 30ML BOTTLE. NS ONE
--- NOTE | 2019-04-29 13:57 | SLEEP ---
DATE OF STUDY: 04/28/2019 SLEEP STUDY ATTENDING PHYSICIAN: Jamey Becerril MD REFERRING PHYSICIAN: Adrian Laura MD The patient is 63-year-old who weighs 300 pounds with a BMI of 48. The patient's [place] score was 7. The patient had previous sleep study and was found to have PETE at an AHI of 5.9 per hour. However, the patient was clinically symptomatic. As a result, she was referred for CPAP titration study. During the night study, the patient spent 417 minutes in bed and slept for 317 minutes with a sleep efficiency of 76%. Sleep latency was normal. REM latency was 223 minutes. Sleep architecture showed increased stage 1 and stage 2 sleep, reduced slow wave and reduced REM sleep. EKG monitoring revealed normal sinus rhythm, average heart rate was 66 beats per minute. No sustained arrhythmias observed. PLMs were seen at index of 8 per hour and none caused EEG arousals. The patient was started on CPAP at 5 cm water and titrated up to 9 cm water. At the final pressure, the patient slept for 135 minutes. The patient had supine as well as REM sleep. The patient's AHI was reduced to 0 per hour and oxygen saturation remained above 91%. The patient used small size full face mask. IMPRESSION: 1. Sleep apnea diagnosed by previous sleep study. 2. No clinically significant periodic limb movements. RECOMMENDATIONS: 1. CPAP at 9 cm water completely eliminated the patient's sleep apnea and should be used on a nightly basis. 2. Follow up in 4-6 weeks to assess compliance with CPAP and to document clinical improvement. 3. Weight loss is strongly advised. 4. Avoid IMAGER depressants. 5. Cautioned regarding driving until symptoms of sleep apnea resolve with the use of CPAP. KAREN GARCIA MD DR: MAXX/ciara JOB#: [id number] / [id number] JAMEY Lainez MD
== END | disposition home or self-care (01) ==
LOC: RT 19:10
PROVIDERS: ATTEND Internal Medicine Cardiovascular Disease
DX: G47.30 Sleep apnea, unspecified (principal)
CPT/HCPCS: 95811

== ENCOUNTER 2019-12-28 00:06 | Emergency (ER) | payer BC ==
[~2019-12-28] VITALS: Ht 170.2 cm; Wt 136.0 kg
[~2019-12-28 00:06] MED LIST changes: -ASPI-612 PO; +ASPI-886 PO; -DICL100G18 TP; +DICL100G54 TP; -OXYMETAZOLINE 0.05% NASAL SPRAY 30ML BOTTLE. NS ONE
[2019-12-28 00:15] VITALS: BP 154/69
== END 2019-12-28 01:18 | disposition left against medical advice (07) ==
LOC: ER 00:06
DX: R22.43 Localized swelling, mass and lump, lower limb, bilateral (principal); R06.02 Shortness of breath; Z53.21 Procedure and treatment not carried out due to patient leaving prior to being seen by health care provider